=== PATIENT | female | born 1955 | race Caucasian/White ===

== ENCOUNTER → 2018-02-13 05:33 | Outpatient (CLI) | payer OTHER, SELFPAY ==
--- NOTE | 2018-02-13 09:34 | STRESSREP ---
Stress Test Report Pharmacologic myocardial perfusion stress test. 62-year-old lady for preop evaluation. Stress protocol: Resting EKG demonstrates normal sinus rhythm with rate of 71 bpm normal intervals and noted resting blood pressure is 110/68 mmHg. 0.4 mg of regadenoson was infused per usual protocol followed by rapid intravenous saline flush injection. Continuous EKG monitoring was performed. Patient maintained sinus rhythm throughout the recording at rest there were no ST or T-wave changes noted suggest abnormal flow reserve at peak infusion no ST or T-wave changes were noted suggest abnormal flow reserve. No clinical angina was noted the maximum heart rate was 100 bpm. Myocardial perfusion protocol. 11.5 mCi of technetium 99m sestamibi was injected at rest. 0.4 mg of regadenoson was infused per usual protocol peak infusion 33.4 mCi of technetium 99m sestamibi was injected stress images were obtained stress and rest images were reconstructed and compared in the short axis vertical long and horizontal long axis. Gated images were also obtained. Perfusion SPECT analysis. Review of the stress images demonstrate normal uptake of tracer noted in all areas of myocardium. The resting images similarly demonstrate normal uptake of tracer noted in all areas of myocardium. No obvious areas of reversibility are noted suggest ischemia. Gated SPECT analysis: The gated ejection fraction is noted to be 74%. Conclusion: Normal pharmacologic myocardial perfusion stress test. Preserved ejection fraction.
== END ==
DX: Z01.818 Encounter for other preprocedural examination (principal); R07.9 Chest pain, unspecified
CPT/HCPCS: 78452; 93017; A9500; A4216; J2785

== ENCOUNTER 2018-02-18 10:02 | Inpatient (IN) | payer OTHER, SELFPAY ==
[2018-02-04 13:15] VITALS: BP 107/72; PULSE 87; RESP 16; TEMP 37.3; O2SAT 95; BMI 23.7
[2018-02-04 14:26] LABS: Absolute Lymphocyte Count 2.52 X10^3/ul (0.83-4.51); Absolute Neutrophil Count 5.1 X10^3/uL (2.0-7.7); Basophil# 0.04 X10^3/uL; Basophil% 0.4 % (0-1); Eosinophil# 0.77 X10^3/uL; Eosinophils% 8.6 % (0-5); Hematocrit 39.2 % (37-47); Hemoglobin 12.9 g/dl (12.0-15.0); Lymphocyte # 2.52 X10^3/ul (4.0); Lymphocyte % 28.2 % (19-41); Mean Corp Hgb Conc 32.9 g/gl (32-36); Mean Corpuscular Hgb 32.3 pg (27.0-32.0); Mean Corpuscular Volume 98.2 fL (81-99); Mean Platelet Vol. 9.7 fl (6.2-12.0); Monocyte# 0.49 X10^3/uL; Monocyte% 5.5 % (0-10); Neutrophil % 57.2 % (47-70); POSITIVE COUNT NO; POSITIVE DIFFERENTIAL NO; POSITIVE MORPHOLOGY NO; Platelet Count 275 K/mm3 (150-450); RBC Distribution Width CV 13.8 % (11.6-14.6); RBC Distribution Width SD 49.7 fl (35.1-43.9); Red Blood Count 3.99 M/mm3 (4.2-5.4); White Blood Count 8.9 K/mm3 (4.4-11.0)
[2018-02-04 14:49] LABS: Anion Gap 10 (5-15); BUN 21 mg/dL (7-18); BUN/Creat Ratio 17.1 RATIO (10-20); Calcium,Total 8.2 mg/dL (8.5-10.1); Chloride 113 mmol/L (98-107); Creatinine, Serum 1.23 mg/dL (0.55-1.02); EST Glomerular Filtration Rate 47 mL/min (>60); Est Glom Filt Rate - Afr Amer 57 mL/min (>60); Estimated Creatinine Clearance 45.53 ml/min; Glucose 111 mg/dL (74-106); Potassium 3.7 mmol/L (3.5-5.1); Sodium Level 145 mmol/L (136-145)
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
[2018-02-18] VITALS (10 sets, daily range): BP systolic 98–128; BP diastolic 65–94; PULSE 71–90; RESP 16–18; TEMP 36.4–36.8; O2SAT 16–98; BMI 23.7
--- NOTE | 2018-02-18 07:09 | RAD_ITS ---
STUDY: X-RAY - PELVIS AND RIGHT HIP REASON FOR EXAM: Female, 62 years old. Post operative evaluation of right hip arthroplasty. TECHNIQUE: Radiological exam, hip, unilateral, with pelvis when performed; 2 or 3 views. COMPARISON: Intraoperative radiograph of February 18, 2018 at 12:23 PM. FINDINGS: The patient is status post a right total hip arthroplasty. The standard femoral and tibial components are normally located with no migration or disruption of the hardware. Normal included pelvis. Normal bilateral superior and inferior pubic rami. Normal pubic symphysis. Normal bilateral ischial tuberosities. Normal postoperative soft tissue changes. RAD/Hip Min 2 Views (Portable) IMPRESSION: Status post right total hip arthroplasty with no untoward bone, joint or hardware findings. Electronically Signed: Sherry Gamez MD at 15:25 EDT , Service support ,
[2018-02-18] MEDS: oxyCODONE HCl Cr 10 MG Tablet PO (10:30)
[2018-02-18] MEDS: Acetaminophen 500 MG Tablet 1000 MG PO ×3 (10:30→19:43)
[2018-02-18] MEDS: Cefazolin 2 GM in 0.9% Normal Saline 100 ML IV (12:01)
[2018-02-18] MEDS: Lactated Ringers 1,000 ML 999 ML IV (12:45)
--- NOTE | 2018-02-18 12:45 | RAD_ITS ---
STUDY: X-RAY - PELVIS AND RIGHT HIP REASON FOR EXAM: Female, 62 years old. Right anterior total hip TECHNIQUE: Radiological exam, hip, unilateral, with pelvis when performed; 1 view. Submitted paperwork is not measurable. COMPARISON: None. 3 views were performed , as radiology support for c-arm imaging in the operating room. This is not a diagnostic examination. Images for for documentation purposes only. Electronically Signed: Paulina Hanson MD at 7:38 EDT , Service support , RAD/Hip 1 view with Pelvis
--- NOTE | 2018-02-18 13:31 | PCM.OPRPT ---
Report of Operation Date of Procedure: 02/18/18 Pre-Operative Diagnosis: Right hip primary osteoarthritis Post-Operative Diagnosis: Right hip primary osteoarthritis Surgery/Procedure Performed:: Right direct anterior total hip replacement Description of Surgical Findings:: Stable hip with equal leg lengths flexographic press operator: Suraj Issa Type of Anesthesia:: General Anesthesiologist: Scott Camarena Special Medications: 2 g Ancef, 1 g TXA at incision, 1 g TXA closure, 10 mg Decadron, joint cocktail (5 mg Duramorph, 30 mL of 0.5% Ropivicaine, 1000 units of epinephrine, 30 mg of Toradol) Specimen's removed: Bony cuts Estimated Blood Loss (mL): 150 Fluids Replaced: 900 ml crystalloid Description of Procedure: Components used: 1. Anato [place] femoral stem size 6 2. [place] trident acetabular shell size 52 mm 3. Kiley X3 polyethylene E 4. Kiley Biolox delta 36mm, -5mm femoral head Brief history operative indications: 62 yo f who failed conservative measures for their hip osteoarthritis. X-rays were consistent with osteoarthritis including joint space narrowing, osteophyte formation and subchondral cysts. Total hip replacement was discussed with the patient with risks and benefits including but not limited to blood loss, DVTs, PEs, neurovascular damage, dislocation, general risks of anesthesia including loss of life. Patient demonstrated an understanding medical clearance is obtained the patient was consented for surgery. Procedure: On the date of procedure the patient's right hip was marked in the preoperative area. Patient was then taken back to the operating room where anesthesia assumed control of the C-spine and airway and administered anesthetic. Patient was transferred to the operating table and placed in the supine position. The hips were placed at the break of the bed and a sacral bump was placed. The R lower extremity was then prepped out in a sterile fashion using chlorhexidine while the surgeon scrubbed. The PA was vital in the positioning of the patient. Upon reentering the room the R lower extremity was draped in the standard orthopedic fashion and the incision was marked. A timeout was called and everyone agreed upon the side, the site, the procedure be performed, antibody given, and patient's identity. At this time incision was made through skin, subcutaneous tissue, and fat down to fascia. The fascia was then incised and the TFL was retracted laterally. A retractor was placed on the lateral border of the femoral neck. Attention was directed to the inferior portion of the approach and all crossing vessels were identified and appropriately coagulated. A retractor was then placed on the medial portion of the femoral neck. The anterior capsule was then cleared of all soft tissue and then H shaped capsulotomy was made. The retractors were then placed inside the capsule. The femoral neck was identified and a cleanup cut was made. At this time a power corkscrew was used to remove the femoral head. Attention was then turned toward the acetabulum where the soft tissues were appropriately retracted and the acetabulum was sequentially reamed to 51 mm. A 52 mm cup was then selected and impacted into place. Acetabular liner was impacted into place and locking mechanism was verified. The position of the acetabular cup was then verified under live fluoroscopy. Attention was then turned to the femur. Soft tissue releases on the medial and lateral femoral neck were appropriately done, the leg was externally rotated and lateralized. A Casper retractor was placed medially and proximally to the greater trochanter this allowed appropriate visualization and exposure of the femoral canal. Rongeour was then used to remove excess lateral bone. A canal finder and entry broach were used to open the proximal canal. Once we verified we were down the femoral canal we subsequently broached up to a size 6 femur. The appropriate neck was placed in the previously selected head was trialed with a -5 mm neck. Traction was pulled and the hip was reduced with internal rotation. Once it was appropriately reduced and stability was checked. There was minimal shuck, equal leg lengths and appropriate stability with hyperextension and external rotation as well as with 90? flexion and internal rotation. Fluoroscopy was then also used to verify the position of the components and leg lengths using the contralateral side for comparison. The trial components were then dislocated the proximal femur was again exposed and the components were removed from the wound. The final components were verified and opened. The wound was copiously irrigated out with normal saline. The acetabulum was checked for any residual debris. The final components were placed and impacted. Traction and internal rotation were again used to reduce the hip. After adequate reduction the hip remained stable with appropriate leg lengths. The final components were once again checked with live fluoroscopy and were found to be satisfactory. The wound was then copiously irrigated with normal saline once more, and hemostasis was obtained. Closure was then done using #1 Vicryl runner to close the fascia. A 2-0 vicryl interuppted sutures were used to close the subcutaneous skin. A 3-0 Monocryl and Steri-Strips were used for final skin closure. A Silverlon dressing was placed. Patient was awakened by anesthesia and transferred to the [facility]. Patient was then transferred to the PACU for recovery. Postoperative plan: Patient will get 24 hours postop antibiotics. Patient will get in-house physical therapy and will be weight-bear as tolerated. Patient will follow up in office in 2 weeks for a wound check and x-rays. During the course of the procedure the physician sales operations assistant played a vital role. His intimate knowledge of my steps in the procedure aided in safe and expedient completion of the procedure. The PA played a vital rolls in positioning particularly in obtaining the appropriate positioning of the sacral bump. The PA was also vital in the retraction of soft tissues during the exposure and especially the femoral work as this is a vital part of the procedure to prevent complications and fractures. The PA was also vital and protecting soft tissues during times of bony cuts and reaming. He also played a vital role in closure with my direct supervision. The PA was also important during reduction and dislocation of the joint and trials intraoperatively. Grafts/Implants Used: [place] - Complications None - Admit VTE Documentation VTE Present on Admission: No VTE Mechan Device Prophylaxis: SCD's, Thigh High TAWNYA Hose VTE Pharm Prophylaxis ordered?: Yes
[2018-02-18] MEDS: Lactated Ringers 1,000 ML 125 ML IV ×2 (13:45→19:14)
[2018-02-18] MEDS: Aspirin 325 MG Tablet PO (17:12)
[2018-02-18] MEDS: Morphine 2 MG/ML Syringe IV (17:55)
[2018-02-18] MEDS: 0.9% NaCl Peripheral Flush Adult/Peds IV (17:56)
[2018-02-18] MEDS: Senna/Docusate Sodium 1 Tablet 2 TABLET PO (19:43)
[2018-02-19 01:29] VITALS: BP 94/58; PULSE 72; RESP 16; TEMP 36.6; O2SAT 95
[2018-02-19] MEDS: oxyCODONE 5 MG Tablet PO ×4 (01:37→16:22)
[2018-02-19 06:01] LABS: Anion Gap 8 (5-15); BUN 16 mg/dL (7-18); Calcium,Total 8.3 mg/dL (8.5-10.1); Chloride 108 mmol/L (98-107); Creatinine, Serum 1.07 mg/dL (0.55-1.02); EST Glomerular Filtration Rate 55 mL/min (>60); Est Glom Filt Rate - Afr Amer 67 mL/min (>60); Estimated Creatinine Clearance 52.34 ml/min; Glucose 123 mg/dL (74-106); Potassium 4.5 mmol/L (3.5-5.1); Sodium Level 143 mmol/L (136-145)
[2018-02-19 06:03] LABS: Hematocrit 32.9 % (37-47); Hemoglobin 10.7 g/dl (12.0-15.0); Mean Corp Hgb Conc 32.5 g/gl (32-36); Mean Corpuscular Hgb 32.6 pg (27.0-32.0); Mean Corpuscular Volume 100.3 fL (81-99); Mean Platelet Vol. 10.2 fl (6.2-12.0); Platelet Count 260 K/mm3 (150-450); RBC Distribution Width CV 13.3 % (11.6-14.6); RBC Distribution Width SD 48.1 fl (35.1-43.9); Red Blood Count 3.28 M/mm3 (4.2-5.4); White Blood Count 17.8 K/mm3 (4.4-11.0)
[2018-02-19 06:09] LABS: Scan Indicated on CBC? Y/N NO
[2018-02-19] MEDS: Senna/Docusate Sodium 1 Tablet 2 TABLET PO (07:34)
[2018-02-19] MEDS: Aspirin 325 MG Tablet PO ×2 (07:34→16:22)
[2018-02-19] MEDS: Famotidine 20 MG Tablet PO (07:34)
[2018-02-19 09:26] VITALS: BP 99/62; PULSE 74; RESP 16; TEMP 37.2; O2SAT 95
--- NOTE | 2018-02-19 09:53 | PCM.PN.ORT ---
Subjective: The patient was sitting in bedside chair upon examination. Patient denies any chest pain, shortness of breath, dizziness, lightheadedness, nausea or vomiting, or calf pain. Pain is controlled on medications. No adverse overnight events. Patient's blood pressure was low over the past 3 readings. Patient is currently on blood pressure medications at home. She denies any chest pain, dizziness or lightheadedness. She is tolerating therapy very well. Pain is been very well controlled. Objective: Vital signs stable and afebrile. Patient is able to plantarflex and dorsiflex actively. Sensation is intact to light touch to saphenous, sural, superficial and deep peroneal, and tibial distribution. Dressing is clean dry and intact. Negative Homans bilaterally, negative signs and symptoms of DVT. - Physical Exam General: Alert, Oriented x3, Cooperative, No apparent distress Vital Signs Temp Pulse Resp BP Pulse Ox 98.9 F 74 16 99/62 95 02/19/18 09:26 02/19/18 09:26 02/19/18 09:26 02/19/18 09:26 02/19/18 09:26 Oxygen Delivery Method Room Air Weight: 66.678 kg Body Mass Index (BMI) 23.7 Intake and Output for Last 24 Hours 02/17/18 02/18/18 02/19/18 23:59 23:59 23:59 Intake Total 2111 Balance 2111 Laboratory Tests Past 24 Hrs 02/19/18 02/19/18 05:18 05:18 WBC 17.8 H RBC 3.28 L Hgb 10.7 L Hct 32.9 L MCV 100.3 H MCH 32.6 H MCHC 32.5 RDW 13.3 RDW Differential 48.1 H Plt Count 260 MPV 10.2 Sodium 143 Potassium 4.5 Chloride 108 H Carbon Dioxide 27.0 Anion Gap 8 BUN 16 Creatinine 1.07 H Estim Creat Clear Calc 52.34 Est GFR (MDRD) Af Amer 67 Est GFR (MDRD) Non-Af 55 L BUN/Creatinine Ratio 15.0 Glucose 123 H Calcium 8.3 L Medical Necessity - Tobacco Use Smoking Status: Current every day smoker Assessment/Plan 1. S/P right direct anterior total hip arthroplasty POD #1 2. Continue Pain Medications: Tylenol and OxyIR 3. DVT Prophylaxis: Aspirin 325 mg twice daily 4. PT/OT: Weightbearing as tolerated 5. H & H: 10.7/32.9, asymptomatic 6. Leukocytosis: Currently 17.8, afebrile. Patient did receive Decadron intraoperatively 7. Encouraged Incentive Spirometry 8. Disposition: Orthopedically stable, plan will be for discharge home possibly this afternoon. Overall patient is doing very well with pain controlled. Patient's blood pressure was low over the past 3 readings. She has not had any of her hypertensive medications. We will hold off of these medications at this time. Patient currently is asymptomatic. I would feel okay with her to go home this afternoon if she continues to do well throughout the day. She does have the ability to check her blood pressure at home. She will do this 2-3 times daily. She will hold off of any blood pressure medications until tomorrow. If any complications she will follow-up with her primary care physician. Prescriptions will be E scribed to [facility]. Patient will follow-up per postop instructions.
--- NOTE | 2018-02-19 10:02 | CASEMGMT ---
RN EDILBERTO Face to Face with patient for initial transition planning/care coordination assessment. RN CM introduced self and role at [facility]. Patient sitting in chair, alert and oriented. Patient willing to participate in assessment and is able to answer all questions appropriately. Care providers, pharmacy, and demographics verified. Patient has raised toilet, cane, crutches, and walker at home. Patient wishes to discharge home, is setup with [facility] for outapatient therapy with sister providing transportation. Patient states she has no further needs or concerns at this time. CM to follow for discharge planning needs that may arise. Disposition Plan: Patient to discharge home with outpatient therapy, family support, and follow-up plans in place.
--- NOTE | 2018-02-19 10:03 | DCINST_ITS ---
Discharge Diet: No Restrictions Discharge Activity: May Not Drive - while taking narcotic pain medications. May shower in (days): 1 - Turned dressing away from water Ice area for (Minutes): 20 - Every 1 hour while awake Weight Bearing Status: Weight bearing as tolerated Additional Activity Instructions:: Wear elastic stockings for 2 weeks. DO NOT use alcohol with narcotic pain medication. DO NOT make important decisions while taking narcotic medication. If you have problems with taking your medication (rash, itching, nausea, etc.) call the office at once. Call your doctor if your incision/area has: Increased Pain/ Swelling, Increased Redness, Foul Smelling Discharge Call your doctor if you observe: Fever of 101 or Higher Remove Dressing in (days):: 4 - Okay to remove dressing on February 23, 2018 Additional Instructions: Follow [facility] postop instructions Patient is to monitor her blood pressure 2-3 times daily. She will hold off of her blood pressure medications until tomorrow February 20, 2018. If she continues to have any complication she will contact her primary care physician. Allergies/Adverse Reactions: Allergies NSAIDS (Non-Steroidal Anti-Inflamma Allergy (Verified 02/04/18 13:04) Anaphylaxis Medications to take at Discharge Atorvastatin Calcium [Lipitor] 40 mg PO QHS 02/04/18 Cholecalciferol (Vitamin D3) [Vitamin D3] 4,000 unit PO DAILY 02/04/18 Gabapentin [Neurontin] 600 mg PO DAILY 02/04/18 Hydrochlorothiazide [Hctz] 25 mg PO DAILY 02/04/18 Metoprolol Tartrate 25 mg PO DAILY 02/04/18 Multivitamin/Iron/Folic Acid [Centrum Adults Tablet] 1 each PO DAILY 02/04/18 Paroxetine HCl [Paxil] 40 mg PO DAILY 02/04/18 Potassium Chloride [Klor-Con 8] 8 meq PO DAILY 02/04/18 Rizatriptan Benzoate [Maxalt] 10 mg PO .X1 PRN 02/04/18 Topiramate [Topamax] 50 mg PO DAILY 02/04/18 Acetaminophen [Tylenol] 1,000 mg PO Q8 #90 tab 02/19/18 Aspirin 325 mg PO BIDCM #30 tab 02/19/18 Famotidine [Pepcid] 20 mg PO DAILY #30 tab 02/19/18 Oxycodone [Oxyir] 5 - 10 mg PO Q4H PRN PRN 5 Days #60 tablet 02/19/18 Senna/Docusate Sodium [Senokot-S] 2 tab PO BID #20 tab 02/19/18 The following prescriptions were given: Oxycodone [Oxyir] 5 - 10 mg PO Q4H PRN PRN 5 Days #60 tablet PRN Reason: Mod-Severe Pain (-09/02) Acetaminophen [Tylenol] 1,000 mg PO Q8 #90 tab Famotidine [Pepcid] 20 mg PO DAILY #30 tab Aspirin 325 mg PO BIDCM #30 tab Senna/Docusate Sodium [Senokot-S] 2 tab PO BID #20 tab Primary Care Physician: Oliva Portillo DO [Primary Care Provider] - Please Follow Up With: [facility] When: 02/23/18 @ 1:30 pm with Rui Please Follow Up With: Suraj Issa PA-C When: 03/04/18 @ 11:00 am
[2018-02-19] MEDS: Acetaminophen 500 MG Tablet 1000 MG PO (14:53)
[2018-02-19 15:55] VITALS: BP 102/60; PULSE 89
== END 2018-02-19 17:13 | disposition home or self-care (01) | DRG 470 ==
LOC: ACINP 10:03 → MS3 10:04
PROVIDERS: Admitting Provider Specialist; Visit Provider Specialist
PROC: 0SR904Z Replacement of Right Hip Joint with Ceramic on Polyethylene Synthetic Substitute, Open Approach (ICD-10-PCS; CPT 27284; principal; 2018-02-18 12:20)
DX: M16.11 Unilateral primary osteoarthritis, right hip (principal); E78.00 Pure hypercholesterolemia, unspecified; I10 Essential (primary) hypertension; M79.7 Fibromyalgia; M81.0 Age-related osteoporosis without current pathological fracture; G43.909 Migraine, unspecified, not intractable, without status migrainosus; F17.210 Nicotine dependence, cigarettes, uncomplicated; Z96.653 Presence of artificial knee joint, bilateral; Z79.899 Other long term (current) drug therapy; Z79.82 Long term (current) use of aspirin
CPT/HCPCS: 36415; 73501; 73502; 76000; 78452; 80048; 85025; 85027; 87081; 93017; 97110; 97116; 97162; 97166; 97530; 99251; A9500; J7120; A4216; G0463; J2405; J2785

== ENCOUNTER → 2018-04-24 11:39 | Outpatient (CLI) | payer OTHER, SELFPAY ==
[2018-04-24 13:49] LABS: Hematocrit 42.1 % (37-47); Mean Corp Hgb Conc 33.3 g/gl (32-36); Mean Corpuscular Hgb 31.4 pg (27.0-32.0); Mean Corpuscular Volume 94.4 fL (81-99); Mean Platelet Vol. 10.1 fl (6.2-12.0); Platelet Count 276 K/mm3 (150-450); RBC Distribution Width CV 12.7 % (11.6-14.6); RBC Distribution Width SD 44.1 fl (35.1-43.9); Red Blood Count 4.46 M/mm3 (4.2-5.4); White Blood Count 8.5 K/mm3 (4.4-11.0)
[2018-04-24 13:50] LABS: Scan Indicated on CBC? Y/N NO
[2018-04-24 13:59] LABS: Protein, Urine (Random) 80.1 mg/dL (<11.9); Protein:Creat Ratio 286 mg/g CRE (0-200)
[2018-04-24 14:21] LABS: ALB/GLOB Ratio 1.1 RATIO (0.9-2.4); AST(SGOT) 17 U/L (15-37); Alanine Aminotransfer ALT/SGPT 17 U/L (13-56); Albumin, Serum 3.9 g/dL (3.2-5.0); Alkaline Phosphatase 100 U/L (45-117); Anion Gap 8 (5-15); BUN 20 mg/dL (7-18); BUN/Creat Ratio 14.5 RATIO (10-20); Calcium,Total 9.3 mg/dL (8.5-10.1); Chloride 108 mmol/L (98-107); Cholesterol 146 mg/dL (200); Creatinine, Serum 1.38 mg/dL (0.55-1.02); EST Glomerular Filtration Rate 41 mL/min (>60); Est Glom Filt Rate - Afr Amer 50 mL/min (>60); Globulin 3.7 g/dL (2.2-4.2); Glucose 91 mg/dL (74-106); High Density Lipoprotein 51 mg/dL; Magnesium 1.9 mg/dL (1.6-2.6); Phosphorus 2.6 mg/dL (2.5-4.9); Potassium 3.4 mmol/L (3.5-5.1); Protein, Total 7.6 g/dL (6.4-8.2); Sodium Level 140 mmol/L (136-145); Triglycerides 160 mg/dL; Very Low Density Lipoprotein 32 mg/dL (5-40)
[2018-04-24 14:35] LABS: Vitamin D,25 Hydroxy 44.6 ng/mL (29.95-100.01)
[2018-04-24 14:36] LABS: PTHIN 32.4 pg/mL (18.4-80.1)
[2018-04-24 15:32] LABS: Microalbumin:Creatinine Ratio 145.4 mg/g CRE (<30 mg/g CRE)
== END ==
PROVIDERS: Visit Provider Internal Medicine Nephrology
DX: N18.3 Chronic kidney disease, stage 3 (moderate) (principal); E83.42 Hypomagnesemia; E78.5 Hyperlipidemia, unspecified; E55.9 Vitamin D deficiency, unspecified
CPT/HCPCS: 36415; 80053; 80061; 82043; 82306; 82570; 83735; 83970; 84100; 84156; 85027

== ENCOUNTER → 2018-10-22 06:38 | Outpatient (CLI) | payer OTHER, SELFPAY ==
[2018-02-18 15:16] VITALS: BMI 23.7
[2018-10-22 07:09] LABS: Color, Urine Yellow (Yellow); Glucose, Dipstick Normal (Normal); Hematocrit 42.7 % (37-47); Hemoglobin 14.2 g/dl (12.0-15.0); Ketone-Dipstick Negative (Negative); Leukocyte Esterase-Dipstick 100 /ul (Negative); Mean Corp Hgb Conc 33.3 g/gl (32-36); Mean Corpuscular Hgb 32.8 pg (27.0-32.0); Mean Corpuscular Volume 98.6 fL (81-99); Mean Platelet Vol. 9.4 fl (6.2-12.0); Nitrite-Dipstick Negative (Negative); Occult Blood-Urine 250 /ul (Negative); Platelet Count 307 K/mm3 (150-450); Protein-Dipstick 15 mg/dl (Negative); RBC Distribution Width SD 50.7 fl (35.1-43.9); Red Blood Count 4.33 M/mm3 (4.2-5.4); Urine Bilirubin Dipstick Negative (Negative); Urine Clarity Clear (Clear); Urine Urobilinogen Normal (Normal); White Blood Count 7.7 K/mm3 (4.4-11.0)
[2018-10-22 07:15] LABS: Scan Indicated on CBC? Y/N NO
[2018-10-22 07:30] LABS: Microalbumin,Random Urine 60.1 mg/L (NO RANGE EST.); Microalbumin:Creatinine Ratio 54.1 mg/g CRE (<30 mg/g CRE); Protein:Creat Ratio 288 mg/g CRE (0-200)
[2018-10-22 07:41] LABS: Albumin, Serum 3.8 g/dL (3.2-5.0); BUN 21 mg/dL (7-18); BUN/Creat Ratio 16.4 RATIO (10-20); Calcium,Total 8.7 mg/dL (8.5-10.1); Chloride 112 mmol/L (98-107); Creatinine, Serum 1.28 mg/dL (0.55-1.02); EST Glomerular Filtration Rate 45 mL/min (>60); Est Glom Filt Rate - Afr Amer 54 mL/min (>60); Glucose 88 mg/dL (74-106); Magnesium 2.1 mg/dL (1.6-2.6); Phosphorus 3.4 mg/dL (2.5-4.9); Potassium 4.6 mmol/L (3.5-5.1); Sodium Level 144 mmol/L (136-145)
[2018-10-22 10:23] LABS: Vitamin D,25 Hydroxy 46.2 ng/mL (29.95-100.01)
--- OUTSIDE RECORDS SUMMARY | 2018-12-17 06:40 | XMS RPT_ITS ---
:1955 Author Organization OHIP Care Team Providers Name Role Phone Emory Martini Admitting Unavailable Emory Martini Attending Unavailable Emory Martini Referring Unavailable Oliva Cruz Primary Care Unavailable ALIRIO KAM Attending Unavailable ALIRIO KAM Referring Unavailable Primay Care Physicia, No Primary Care Unavailable Perez Perez Attending Unavailable Tanphaichitr, Natthavat Attending Unavailable Tanphaichitr, Natthavat Referring Unavailable Oliva Cruz Primary Care Unavailable Mere Torres Attending Unavailable Bakhous, Aziz Referring Unavailable Oliva Cruz Primary Care Unavailable Ramsey Ross Attending Unavailable Bandar, Oliva Lynn Primary Care Unavailable Ramsey Ross Attending Unavailable Bandar, Oliva Lynn Primary Care Unavailable Ramsey Ross Attending Unavailable Bandar, Oliva Lynn Primary Care Unavailable Ramsey Ross Attending Unavailable Bandar, Oliva Lynn Primary Care Unavailable PROBLEMS PROBLEMS DATE TYPE CONDITION / CODE ATTENDING STATUS SOURCE 10/22/2018 Unknown E55.9 - Vitamin D Adilsons, Aziz Active [place] deficiency, Community unspecified / Hospital E55.9(ICD-10) Repository 10/22/2018 Unknown N18.3 - Chronic Bakhous, Aziz Active [place] kidney disease, [facility] stage 3 (moderate) / Hospital N18.3(ICD-10) Repository 10/22/2018 Unknown E83.42 - Bakhous, Aziz Active [place] Hypomagnesemia / Community E83.42(ICD-10) Hospital Repository 10/22/2018 Unknown Z13.0 - Encounter Bakjosephs, Aziz Active [place] for screening for Community diseases of the Hospital blood and Repository blood-forming organs and certain disorders involving the immune mechanism / Z13.0(ICD-10) 04/24/2018 Unknown E78.5 - Tanphaichitr, Active [place] Hyperlipidemia, Natthavat Community unspecified / Hospital E78.5(ICD-10) Repository 04/13/2018 Admitting Unknown / Ramsey Ross Active [facility] Medical diagnosis UNK(Unknown) R [facility] [place] Repository 02/19/2018 Unknown Z96.641 - Presence Emory Martini Active [place] of right artificial Community hip joint / Hospital Z96.641(ICD-10) Repository PROCEDURES PROCEDURES No Procedure Records FoundRESULTS RESULTS TOXASSURE COMPR Collected: 11/03/2018 Status: F Source: [facility] 2:33 PM [facility]ENTER [place] REPOSITORY TYPE CODE TESTS RESULT OUT OF RANGE REFERENCE UNITS LAB L600.63760 () Normal TOXASSURE COMPR FINAL Result Comment: TOXASSURE COMP DRUG ANALYSIS,UR Test Result Flag Units Drug Present and Declared for Prescription Verification Hydrocodone 2917 EXPECTED ng/mg creat Hydromorphone 152 EXPECTED ng/mg creat Dihydrocodeine 528 EXPECTED ng/mg creat Norhydrocodone >2762 EXPECTED ng/mg creat Sources of hydrocodone include scheduled prescription medications. Hydromorphone, dihydrocodeine and norhydrocodone are expected metabolites of hydrocodone. Hydromorphone and dihydrocodeine are also available as scheduled prescription medications. Paroxetine PRESENT EXPECTED Acetaminophen PRESENT EXPECTED Drug Present not Declared for Prescription Verification Topiramate PRESENT UNEXPECTED Lidocaine PRESENT UNEXPECTED Dextromethorphan PRESENT UNEXPECTED Dextrorphan/Levorphanol PRESENT UNEXPECTED Dextrorphan is an expected metabolite of dextromethorphan, an idtr-jov-lysnkez or prescription cough suppressant. Dextrorphan cannot be distinguished from the scheduled prescription medication levorphanol by the method used for analysis. Test Result Flag Units Ref Range Creatinine 181 mg/dL >=20 Declared Medications: The flagging and interpretation on this report are based on the following declared medications. Unexpected results may arise from inaccuracies in the declared medications. Note: The testing scope of this panel includes these medications: Hydrocodone ([place]) Paroxetine (Paxil) Note: The testing scope of this panel does not include small to moderate amounts of these reported medications: Acetaminophen ([place]) For clinical consultation, please call . Performed At: [facility] [employer] [address] [place] [address] [id number] [facility] [phone] Performed By: #### L600.08573 #### [facility] [address] [place] [id number] URINALYSIS, ROUTINE Collected: 10/22/2018 Status: F Source: [place] (DIPSTICK) 6:45 AM REPOSITORY Order Comment: How was Urine Obtained? CLEAN CATCH TYPE CODE TESTS RESULT OUT OF RANGE REFERENCE UNITS LAB L400.3000 Yellow COLOR Normal Yellow LAB L400.3050 Clear Normal CLARITY Clear LAB L400.3200 Normal mg/dl Normal GLUCOSE, UR Normal LAB L400.3300 Negative mg/dL Normal BILIRUBIN URINE Negative LAB L400.3400 Negative mg/dl Normal KETONE UR Negative LAB L400.3465 1.002-1.030 Normal SP.GR. DIPSTX 1.020 LAB L400.3550 5.0 - 8.0 pH UR Normal 5.0 LAB L400.3600 Negative mg/dl High PROT 15 DIPSTX LAB L400.3700 Normal mg/dl Normal UROBILI Normal LAB L400.3750 Negative Normal NITRITE UR Negative LAB L400.3780 Negative /ul High OCCULT BLOOD-UR 250 LAB L400.3800 Negative /ul High LEUK ESTERASE 100 Performed By: #### L400.2010 #### [place] [facility] [address] [place], [place], [address] CBC-COMPLETE BLOOD CNT Collected: 10/22/2018 Status: F Source: [place] NO DIFF 6:45 AM REPOSITORY TYPE CODE TESTS RESULT OUT OF RANGE REFERENCE UNITS LAB L100.1000 4.4-11.0 K/mm3 Normal WBC 7.7 LAB L100.1200 4.2-5.4 M/mm3 Normal RBC 4.33 LAB L100.1300 12.0-15.0 g/dl Normal HGB 14.2 LAB L100.1400 37-47 % Normal HCT 42.7 LAB L100.1500 81-99 fL Normal MCV 98.6 LAB L100.1600 27.0-32.0 pg High MCH 32.8 LAB L100.1700 32-36 g/gl Normal MCHC 33.3 LAB L100.1810 11.6-14.6 % Normal RDW CV 14.0 LAB L100.1820 35.1-43.9 fl High RDW SD 50.7 LAB L100.1900 150-450 K/mm3 Normal PLT 307 LAB L100.2000 6.2-12.0 fl Normal MPV 9.4 Performed By: #### L100.0500 #### [facility] [address] [place], [address] PROTEIN+CREATININE Collected: Status: F Source: [place] RATIO,URINE 10/22/2018 6:45 AM REPOSITORY TYPE CODE TESTS RESULT OUT OF RANGE REFERENCE UNITS LAB L501.1200 NO RANGE EST. mg/dL Normal UR CREAT 111.00 LAB L501.1930 <11.9 mg/dL High 32.0 PROTEIN,UR.R AN. LAB L501.1940 0-200 mg/g CRE High PROT:CRE 288 RATIO Performed By: #### L501.0900, L502.0250 #### [facility] [address] [place], [place], [id number] MICROALB:CREAT Collected: 10/22/2018 Status: F Source: [place] RATIO,RANDOM UR 6:45 AM REPOSITORY TYPE CODE TESTS RESULT OUT OF RANGE REFERENCE UNITS LAB L502.0500 NO RANGE EST. mg/L Normal 60.1 MICROALBUMIN ,UR LAB L502.0600 <30 mg/g CRE mg/g CRE High 54.1 MALB:CREAT Performed By: #### L501.0900, L502.0250 #### [facility] [address] [place], [place], [id number] RENAL PROFILE Collected: 10/22/2018 Status: F Source: [place] 6:45 AM REPOSITORY TYPE CODE TESTS RESULT OUT OF RANGE REFERENCE UNITS LAB L501.0100 74-106 mg/dL Normal GLU 88 Result Comment: Please note revised GLUCOSE reference range effective 2017. LAB L501.1000 7-18 mg/dL High BUN 21 LAB L501.1100 0.55-1.02 mg/dL High CREAT,SERUM 1.28 Result Comment: The validity of the calculated GFR AND GFRAA in patients over 70 years has not been determined. Clinical correlation is essential. LAB L501.1110 >60 mL/min Low EST GFR 45 Result Comment: Non- GFR Calc LAB L501.1115 >60 mL/min Low EST GFR - AA 54 Result Comment: GFR Calc LAB L501.1300 10-20 RATIO Normal BUN/CRE 16.4 LAB L501.1800 3.2-5.0 g/dL Normal ALB 3.8 LAB L501.2200 8.5-10.1 mg/dL CA Normal 8.7 LAB L501.2300 2.5-4.9 mg/dL Normal PHOS 3.4 LAB L501.5300 136-145 mmol/L NA Normal 144 LAB L501.5600 3.5-5.1 mmol/L K Normal 4.6 LAB L501.5900 98-107 mmol/L High CL 112 LAB L501.6100 21.0-32.0 mmol/L Normal CO2 24.0 Performed By: #### L500.3600, L501.5200 #### [facility] [address] [place], [place], [address] MAGNESIUM Collected: 10/22/2018 Status: F Source: [place] 6:45 AM REPOSITORY TYPE CODE TESTS RESULT OUT OF RANGE REFERENCE UNITS LAB L501.5200 1.6-2.6 mg/dL Normal MG 2.1 Performed By: #### L500.3600, L501.5200 #### [facility] [address] [place], [address] PTHIN Collected: 10/22/2018 Status: F Source: [place] 6:45 AM REPOSITORY TYPE CODE TESTS RESULT OUT OF RANGE REFERENCE UNITS LAB L509.1000 18.4-80.1 pg/mL Normal PTHIN 56.0 Performed By: #### L509.1000 #### [facility] [address] [facility] [place], [address] VITAMIN D,25 HYDROXY Collected: 10/22/2018 Status: F Source: [place] 6:45 AM REPOSITORY TYPE CODE TESTS RESULT OUT OF RANGE REFERENCE UNITS LAB L506.1000 29.95-100.01 ng/mL Normal Vitamin D 46.2 25-OH Result Comment: Vitamin D 25(OH) Status Range Deficiency <20 ng/mL (50nmol/L) Insuffciency 20 - 30 ng/mL (50 - 75 nmol/L) Sufficiency 30 - 100 ng/mL (75 - 250 nmol/L) Toxicity >100 ng/mL (>250 nmol/L) Performed By: #### L506.1000 #### [facility] [address] [facility] [place], [address] CBC-COMPLETE BLOOD CNT Collected: 04/24/2018 Status: F Source: [place] NO DIFF 11:46 AM REPOSITORY Order Comment: DR. CRUZ WANTS THE LIPID CMP PHOS WANTS THE VITD PTH PROCRE MG CMP PHOS CBC TYPE CODE TESTS RESULT OUT OF RANGE REFERENCE UNITS LAB L100.1000 4.4-11.0 K/mm3 Normal WBC 8.5 LAB L100.1200 4.2-5.4 M/mm3 Normal RBC 4.46 LAB L100.1300 12.0-15.0 g/dl Normal HGB 14.0 LAB L100.1400 37-47 % Normal HCT 42.1 LAB L100.1500 81-99 fL Normal MCV 94.4 LAB L100.1600 27.0-32.0 pg Normal MCH 31.4 LAB L100.1700 32-36 g/gl Normal MCHC 33.3 LAB L100.1810 11.6-14.6 % Normal RDW CV 12.7 LAB L100.1820 35.1-43.9 fl High RDW SD 44.1 LAB L100.1900 150-450 K/mm3 Normal PLT 276 LAB L100.2000 6.2-12.0 fl Normal MPV 10.1 Performed By: #### L100.0500 #### [facility] [address] [place], [address] PROTEIN+CREATININE Collected: Status: F Source: [place] RATIO,URINE 04/24/2018 11:46 AM REPOSITORY Order Comment: DR. CRUZ WANTS THE LIPID CMP PHOS WANTS THE VITD PTH PROCRE MG CMP PHOS CBC TYPE CODE TESTS RESULT OUT OF RANGE REFERENCE UNITS LAB L501.1200 NO RANGE EST. mg/dL Normal UR CREAT 280.00 LAB L501.1930 <11.9 mg/dL High 80.1 PROTEIN,UR.R AN. LAB L501.1940 0-200 mg/g CRE High PROT:CRE 286 RATIO Performed By: #### L501.0900, L502.0250 #### [facility] [address] [place], [address] MICROALB:CREAT Collected: 04/24/2018 Status: F Source: [place] RATIO,RANDOM UR 11:46 AM REPOSITORY Order Comment: DR. CRUZ WANTS THE LIPID CMP PHOS WANTS THE VITD PTH PROCRE MG CMP PHOS CBC TYPE CODE TESTS RESULT OUT OF RANGE REFERENCE UNITS LAB L502.0500 NO RANGE EST. mg/L Normal 407.0 MICROALBUMIN ,UR LAB L502.0600 <30 mg/g CRE mg/g CRE High 145.4 MALB:CREAT Performed By: #### L501.0900, L502.0250 #### [facility] [address] [place], [address] COMPREHENSIVE METABOLIC Collected: 04/24/2018 Status: F Source: [place] PROFIL 11:46 AM REPOSITORY Order Comment: DR. CRUZ WANTS THE LIPID CMP PHOS WANTS THE VITD PTH PROCRE MG CMP PHOS CBC TYPE CODE TESTS RESULT OUT OF RANGE REFERENCE UNITS LAB L501.0100 74-106 mg/dL Normal GLU 91 Result Comment: Please note revised GLUCOSE reference range effective 2017. LAB L501.1000 7-18 mg/dL High BUN 20 LAB L501.1100 0.55-1.02 mg/dL High CREAT,SERUM 1.38 Result Comment: The validity of the calculated GFR AND GFRAA in patients over 70 years has not been determined. Clinical correlation is essential. LAB L501.1110 >60 mL/min Low EST GFR 41 Result Comment: Non- GFR Calc LAB L501.1115 >60 mL/min Low EST GFR - AA 50 Result Comment: GFR Calc LAB L501.1300 10-20 RATIO Normal BUN/CRE 14.5 LAB L501.1500 6.4-8.2 g/dL T Normal PROT 7.6 LAB L501.1800 3.2-5.0 g/dL Normal ALB 3.9 LAB L501.1950 2.2-4.2 g/dL Normal GLOB 3.7 LAB L501.2000 0.9-2.4 RATIO Normal A/G 1.1 LAB L501.2200 8.5-10.1 mg/dL CA Normal 9.3 LAB L501.4100 15-37 U/L Normal AST 17 LAB L501.4305 45-117 U/L Normal ALK P 100 LAB L501.4405 13-56 U/L Normal ALT 17 LAB L501.4600 0.20-1.00 mg/dL T Normal BILI 0.50 LAB L501.5300 136-145 mmol/L NA Normal 140 LAB L501.5600 3.5-5.1 mmol/L Low K 3.4 LAB L501.5900 98-107 mmol/L High CL 108 LAB L501.6100 21.0-32.0 mmol/L Normal CO2 24.0 LAB L501.6200 5-15 Normal GAP 8 Performed By: #### L500.4050, L500.4100, L501.2300, L501.5200 #### [facility] [place], [address] LIPID PROFILE Collected: 04/24/2018 Status: F Source: [place] 11:46 AM REPOSITORY Order Comment: DR. CRUZ WANTS THE LIPID CMP PHOS WANTS THE VITD PTH PROCRE MG CMP PHOS CBC TYPE CODE TESTS RESULT OUT OF RANGE REFERENCE UNITS LAB L501.4900 200 mg/dL Normal CHOL 146 Result Comment: <200 mg/dL Desirable 200-240 mg/dL Borderline >240 mg/dL High Risk LAB L501.5000 mg/dL Normal TRIG 160 Result Comment: The drugs N-Acetylcysteine and Metamizole may falsely depress this assay. Serum Triglycerides Reference Interval Normal <150 mg/dL Borderline high 150 - 199 mg/dL High 200 - 499 mg/dL Very High > or = 500 mg/dL LAB L501.6400 mg/dL Normal HDL 51 Result Comment: The drugs N-Acetylcysteine and Metamizole may falsely depress this assay. Reference Range HDL <40 mg/dL Low HDL Cholesterol HDL >or= 60 mg/dL High HDL Cholesterol LAB L501.6500 0-130 mg/dL Normal LDL 63 LAB L501.6600 5-40 mg/dL Normal VLDL 32 Performed By: #### L500.4050, L500.4100, L501.2300, L501.5200 #### [facility] [address] [place], [address] PHOSPHORUS Collected: 04/24/2018 Status: F Source: [place] 11:46 AM REPOSITORY Order Comment: DR. CRUZ WANTS THE LIPID CMP PHOS WANTS THE VITD PTH PROCRE MG CMP PHOS CBC TYPE CODE TESTS RESULT OUT OF RANGE REFERENCE UNITS LAB L501.2300 2.5-4.9 mg/dL Normal PHOS 2.6 Performed By: #### L500.4050, L500.4100, L501.2300, L501.5200 #### [facility] [address] [facility] [place], [place], [id number] MAGNESIUM Collected: 04/24/2018 Status: F Source: [place] 11:46 AM REPOSITORY Order Comment: DR. CRUZ WANTS THE LIPID CMP PHOS WANTS THE VITD PTH PROCRE MG CMP PHOS CBC TYPE CODE TESTS RESULT OUT OF RANGE REFERENCE UNITS LAB L501.5200 1.6-2.6 mg/dL Normal MG 1.9 Performed By: #### L500.4050, L500.4100, L501.2300, L501.5200 #### [facility] [address] [place], [address] VITAMIN D,25 HYDROXY Collected: 04/24/2018 Status: F Source: [place] 11:46 AM REPOSITORY Order Comment: DR. CRUZ WANTS THE LIPID CMP PHOS WANTS THE VITD PTH PROCRE MG CMP PHOS CBC TYPE CODE TESTS RESULT OUT OF RANGE REFERENCE UNITS LAB L506.1000 29.95-100.01 ng/mL Normal Vitamin D 44.6 25-OH Result Comment: Vitamin D 25(OH) Status Range Deficiency <20 ng/mL (50nmol/L) Insuffciency 20 - 30 ng/mL (50 - 75 nmol/L) Sufficiency 30 - 100 ng/mL (75 - 250 nmol/L) Toxicity >100 ng/mL (>250 nmol/L) Performed By: #### L506.1000 #### [facility] [address] [facility] [place], [address] PTHIN Collected: 04/24/2018 Status: F Source: [place] 11:46 AM REPOSITORY Order Comment: DR. CRUZ WANTS THE LIPID CMP PHOS WANTS THE VITD PTH PROCRE MG CMP PHOS CBC TYPE CODE TESTS RESULT OUT OF RANGE REFERENCE UNITS LAB L509.1000 18.4-80.1 pg/mL Normal PTHIN 32.4 Performed By: #### L509.1000 #### [facility] [address] [facility] [place], [address] DISCHARGE INSTRUCTION Observed: 02/19/2018 Status: F Source: [place] 10:03 AM REPOSITORY [facility] Medical Records Department [address] [facility] [place] [address] Instructions for Home/Discharge Instructions 02/19/18 1001 MR#: [id number] Acct: [id number] Name: EDER SCHAEFFER Rep #: [id number] : 1955 62 From: Suraj Abraham PA-C PCP: Oliva Cruz DO Status: ADM IN Discharge Diet: No Restrictions Discharge Activity: May Not Drive - while taking narcotic pain medications. May shower in (days): 1 - Turned dressing away from water Ice area for (Minutes): 20 - Every 1 hour while awake Weight Bearing Status: Weight bearing as tolerated Additional Activity Instructions:: Wear elastic stockings for 2 weeks. DO NOT use alcohol with narcotic pain medication. DO NOT make important decisions while taking narcotic medication. If you have problems with taking your medication (rash, itching, nausea, etc.) call the office at once. Call your doctor if your incision/area has: Increased Pain/ Swelling, Increased Redness, Foul Smelling Discharge Call your doctor if you observe: Fever of 101 or Higher Remove Dressing in (days):: 4 - Okay to remove dressing on February 23, 2018 Additional Instructions: Follow [place] [facility] postop instructions Patient is to monitor her blood pressure 2-3 times daily. She will hold off of her blood pressure medications until tomorrow February 20, 2018. If she continues to have any complication she will contact her primary care physician. Allergies/Adverse Reactions: Allergies NSAIDS (Non-Steroidal Anti-Inflamma Allergy (Verified 02/04/18 13:04) Anaphylaxis Medications to take at Discharge Atorvastatin Calcium [Lipitor] 40 mg PO QHS 02/04/18 Cholecalciferol (Vitamin D3) [Vitamin D3] 4,000 unit PO DAILY 02/04/18 Gabapentin [Neurontin] 600 mg PO DAILY 02/04/18 Hydrochlorothiazide [Hctz] 25 mg PO DAILY 02/04/18 Metoprolol Tartrate 25 mg PO DAILY 02/04/18 Multivitamin/Iron/Folic Acid [Centrum Adults Tablet] 1 each PO DAILY 02/04/18 Paroxetine HCl [Paxil] 40 mg PO DAILY 02/04/18 Potassium Chloride [Klor-Con 8] 8 meq PO DAILY 02/04/18 Rizatriptan Benzoate [Maxalt] 10 mg PO .X1 PRN 02/04/18 Topiramate [Topamax] 50 mg PO DAILY 02/04/18 Acetaminophen [Tylenol] 1,000 mg PO Q8 #90 tab 02/19/18 Aspirin 325 mg PO BIDCM #30 tab 02/19/18 Famotidine [Pepcid] 20 mg PO DAILY #30 tab 02/19/18 Oxycodone [Oxyir] 5 - 10 mg PO Q4H PRN PRN 5 Days #60 tablet 02/19/18 Senna/Docusate Sodium [Senokot-S] 2 tab PO BID #20 tab 02/19/18 The following prescriptions were given: Oxycodone [Oxyir] 5 - 10 mg PO Q4H PRN PRN 5 Days #60 tablet PRN Reason: Mod-Severe Pain () Acetaminophen [Tylenol] 1,000 mg PO Q8 #90 tab Famotidine [Pepcid] 20 mg PO DAILY #30 tab Aspirin 325 mg PO BIDCM #30 tab Senna/Docusate Sodium [Senokot-S] 2 tab PO BID #20 tab Primary Care Physician: Oliva Cruz DO [Primary Care Provider] - Please Follow Up With: [place] [facility] When: 02/23/18 @ 1:30 pm with Rui Please Follow Up With: Suraj Abraham PA-C When: 03/04/18 @ 11:00 am 02/19/18 1003 <Electronically signed by Suraj Abraham PA-C> Date Suraj Abraham PA-C CC: Oliva Cruz DO BASIC METABOLIC Collected: 02/19/2018 Status: F Source: [place] PROFILE (BMP) 5:18 AM REPOSITORY TYPE CODE TESTS RESULT OUT OF RANGE REFERENCE UNITS LAB L501.0100 74-106 mg/dL High GLU 123 Result Comment: Fasting Glucose result from 100 to 125 mg/dL suggests IMPAIRED HOMEOSTASIS per A.D.A. criteria. Please note revised GLUCOSE reference range effective 2017. LAB L501.1000 7-18 mg/dL Normal BUN 16 LAB L501.1100 0.55-1.02 mg/dL High CREAT,SERUM 1.07 Result Comment: The validity of the calculated GFR AND GFRAA in patients over 70 years has not been determined. Clinical correlation is essential. LAB L501.1110 >60 mL/min Low EST GFR 55 Result Comment: Non- GFR Calc LAB L501.1115 >60 mL/min Normal EST GFR - AA 67 Result Comment: GFR Calc LAB L501.1255 ml/min Normal Estimated CRCL 52.34 LAB L501.1300 10-20 RATIO Normal BUN/CRE 15.0 LAB L501.2200 8.5-10 mg/dL Low .1 CA 8.3 LAB L501.5300 136-14 mmol/L Normal 5 NA 143 LAB L501.5600 3.5-5. mmol/L Normal 1 K 4.5 LAB L501.5900 98-107 mmol/L High CL 108 LAB L501.6100 21.0-3 mmol/L Normal 2.0 CO2 27.0 LAB L501.6200 5-15 Normal GAP 8 Performed By: #### L500.2500 #### [facility] [address] [place], [place], [address] CBC-COMPLETE BLOOD CNT Collected: 02/19/2018 Status: F Source: [place] NO DIFF 5:18 AM REPOSITORY TYPE CODE TESTS RESULT OUT OF RANGE REFERENCE UNITS LAB L100.1000 4.4-11.0 K/mm3 High WBC 17.8 LAB L100.1200 4.2-5.4 M/mm3 Low RBC 3.28 LAB L100.1300 12.0-15.0 g/dl Low HGB 10.7 LAB L100.1400 37-47 % Low HCT 32.9 LAB L100.1500 81-99 fL High MCV 100.3 LAB L100.1600 27.0-32.0 pg High MCH 32.6 LAB L100.1700 32-36 g/gl Normal MCHC 32.5 LAB L100.1810 11.6-14.6 % Normal RDW CV 13.3 LAB L100.1820 35.1-43.9 fl High RDW SD 48.1 LAB L100.1900 150-450 K/mm3 Normal PLT 260 LAB L100.2000 6.2-12.0 fl Normal MPV 10.2 Performed By: #### L100.0500 #### [facility] [address] [place], [address] OPERATIVE REPORT Observed: 02/18/2018 Status: F Source: [place] 1:55 PM REPOSITORY [facility] Medical Records Department [address] [place] [address] Operative Report 02/18/18 1331 MR#: [id number] Acct: [id number] Name: EDER SCHAEFFER Rep #: [id number] : 1955 62 From: Emory Martini MD PCP: Oliva Cruz DO Status: ADM IN Y [id number] Report of Operation Date of Procedure: 02/18/18 Pre-Operative Diagnosis: Right hip primary osteoarthritis Post-Operative Diagnosis: Right hip primary osteoarthritis Surgery/Procedure Performed:: Right direct anterior total hip replacement Description of Surgical Findings:: Stable hip with equal leg lengths hand driller: Suraj Abraham Type of Anesthesia:: General Anesthesiologist: Scott Camarena Special Medications: 2 g Ancef, 1 g TXA at incision, 1 g TXA closure, 10 mg Decadron, joint cocktail (5 mg Duramorph, 30 mL of 0.5% Ropivicaine, 1000 units of epinephrine, 30 mg of Toradol) Specimen's removed: Bony cuts Estimated Blood Loss (mL): 150 Fluids Replaced: 900 ml crystalloid Description of Procedure: Components used: 1. Anato Kiley femoral stem size 6 2. Lamberton trident acetabular shell size 52 mm 3. [place]ton X3 polyethylene E 4. Kiley Biolox delta 36mm, -5mm femoral head Brief history operative indications: 62 yo f who failed conservative measures for their hip osteoarthritis. X-rays were consistent with osteoarthritis including joint space narrowing, osteophyte formation and subchondral cysts. Total hip replacement was discussed with the patient with risks and benefits including but not limited to blood loss, DVTs, PEs, neurovascular damage, dislocation, general risks of anesthesia including loss of life. Patient demonstrated an understanding medical clearance is obtained the patient was consented for surgery. Procedure: On the date of procedure the patient's right hip was marked in the preoperative area. Patient was then taken back to the operating room where anesthesia assumed control of the C-spine and airway and administered anesthetic. Patient was transferred to the operating table and placed in the supine position. The hips were placed at the break of the bed and a sacral bump was placed. The R lower extremity was then prepped out in a sterile fashion using chlorhexidine while the surgeon scrubbed. The PA was vital in the positioning of the patient. Upon reentering the room the R lower extremity was draped in the standard orthopedic fashion and the incision was marked. A timeout was called and everyone agreed upon the side, the site, the procedure be performed, antibody given, and patient's identity. At this time incision was made through skin, subcutaneous tissue, and fat down to fascia. The fascia was then incised and the TFL was retracted laterally. A retractor was placed on the lateral border of the femoral neck. Attention was directed to the inferior portion of the approach and all crossing vessels were identified and appropriately coagulated. A retractor was then placed on the medial portion of the femoral neck. The anterior capsule was then cleared of all soft tissue and then H shaped capsulotomy was made. The retractors were then placed inside the capsule. The femoral neck was identified and a cleanup cut was made. At this time a power corkscrew was used to remove the femoral head. Attention was then turned toward the acetabulum where the soft tissues were appropriately retracted and the acetabulum was sequentially reamed to 51 mm. A 52 mm cup was then selected and impacted into place. Acetabular liner was impacted into place and locking mechanism was verified. The position of the acetabular cup was then verified under live fluoroscopy. Attention was then turned to the femur. Soft tissue releases on the medial and lateral femoral neck were appropriately done, the leg was externally rotated and lateralized. A Casper retractor was placed medially and proximally to the greater trochanter this allowed appropriate visualization and exposure of the femoral canal. Rongeour was then used to remove excess lateral bone. A canal finder and entry broach were used to open the proximal canal. Once we verified we were down the femoral canal we subsequently broached up to a size 6 femur. The appropriate neck was placed in the previously selected head was trialed with a -5 mm neck. Traction was pulled and the hip was reduced with internal rotation. Once it was appropriately reduced and stability was checked. There was minimal shuck, equal leg lengths and appropriate stability with hyperextension and external rotation as well as with 90 flexion and internal rotation. Fluoroscopy was then also used to verify the position of the components and leg lengths using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
== END ==
PROVIDERS: Referring Provider Internal Medicine Nephrology; Visit Provider Internal Medicine Nephrology
DX: N18.3 Chronic kidney disease, stage 3 (moderate) (principal); E55.9 Vitamin D deficiency, unspecified; Z13.0 Encounter for screening for diseases of the blood and blood-forming organs and certain disorders involving the immune mechanism; E83.42 Hypomagnesemia
CPT/HCPCS: 36415; 80069; 81002; 82043; 82306; 82570; 83735; 83970; 84156; 85027

== ENCOUNTER → 2019-06-28 09:55 | Outpatient (CLI) | payer OTHER, SELFPAY ==
[2018-02-18 15:16] VITALS: BMI 23.7
[2019-06-28 11:40] LABS: Hemoglobin 12.9 g/dL (12.0-15.0); Mean Corp Hgb Conc 33.1 g/dL (32-36); Mean Corpuscular Hgb 32.8 pg (27.0-32.0); Mean Corpuscular Volume 99.2 fL (81-99); Mean Platelet Vol. 10.2 fl (6.2-12.0); Platelet Count 312 K/mm3 (150-450); RBC Distribution Width CV 13.5 % (11.6-14.6); RBC Distribution Width SD 49.4 fl (35.1-43.9); Red Blood Count 3.93 M/mm3 (4.2-5.4); White Blood Count 9.9 K/mm3 (4.4-11.0)
[2019-06-28 12:02] LABS: Albumin, Serum 3.8 g/dL (3.2-5.0); BUN 29 mg/dL (7-18); BUN/Creat Ratio 14.2 RATIO (10-20); Calcium,Total 8.8 mg/dL (8.5-10.1); Chloride 111 mmol/L (98-107); Creatinine, Serum 2.04 mg/dL (0.55-1.02); EST Glomerular Filtration Rate 26 mL/min (>60); Est Glom Filt Rate - Afr Amer 32 mL/min (>60); Glucose 93 mg/dL (74-106); Phosphorus 4.4 mg/dL (2.5-4.9); Potassium 3.8 mmol/L (3.5-5.1); Sodium Level 141 mmol/L (136-145)
[2019-06-28 12:13] LABS: Vitamin D,25 Hydroxy 45.9 ng/mL (29.95-100.01)
[2019-06-28 14:26] LABS: Color, Urine Yellow (Yellow); Glucose, Dipstick Normal (Normal); Ketone-Dipstick 5 mg/dl (Negative); Leukocyte Esterase-Dipstick 25 /ul (Negative); Nitrite-Dipstick Negative (Negative); Occult Blood-Urine Negative /ul (Negative); Protein-Dipstick 30 mg/dl (Negative); Specific Gravity, Urine 1.015 (1.002-1.030); Urine Clarity Clear (Clear); Urine Urobilinogen 1 mg/dl (Normal)
[2019-06-28 14:34] LABS: Urine Bilirubin Dipstick 1 mg/dL (Negative)
[2019-06-28 14:48] LABS: Microalbumin,Random Urine 48.8 mg/L (NO RANGE EST.); Protein, Urine (Random) 33.2 mg/dL (<11.9); Protein:Creat Ratio 183 mg/g CRE (0-200)
== END ==
PROVIDERS: Referring Provider Internal Medicine Nephrology; Visit Provider Internal Medicine Nephrology
DX: N18.3 Chronic kidney disease, stage 3 (moderate) (principal); E55.9 Vitamin D deficiency, unspecified; Z13.0 Encounter for screening for diseases of the blood and blood-forming organs and certain disorders involving the immune mechanism
CPT/HCPCS: 80069; 81002; 82043; 82306; 82570; 83970; 84156; 85027

== ENCOUNTER → 2019-08-23 07:58 | Outpatient (CLI) | payer OTHER, SELFPAY ==
--- NOTE | 2019-08-23 08:00 | CT_ITS ---
CT of the left lower extremity INDICATION: Pain status post replacement TECHNIQUE: CT of the left knee was performed scanning in the axial projection without contrast followed by sagittal and coronal reconstructions. Radiographic technique was optimized to limit patient radiation dose. DLP was 534.14 FINDINGS: Prosthesis is noted in anatomic alignment and position. No evidence for acute fracture or subluxation. No definitive evidence for loosening of the hardware.. There is an expansile lesion in the posterior medial tibial condyle with sclerotic margins and loss of the cortex consistent with pathologic fracture measuring approximately 1.9 x 1.65 cm.. This is most likely benign. There is a similar appearing smaller lesion within the anterior medial tibial condyle as well which does not extend to the cortex. There is a slightly hyperattenuated suprasellar bursal effusion possibly hemorrhagic or inflammatory. CT/Extremity Lower without Contra IMPRESSION: Stable appearance to left knee prosthesis. Expansile lesion within the posterior medial tibial condyle in association with pathologic fracture most likely benign. Small hyperattenuated suprapatella bursal effusion possibly representing hemarthrosis. No definitive evidence for acute osteomyelitis Clinical correlation recommended Electronically Signed: Giuseppe Sifuentes MD at 18:10 EDT , Service support ,
== END ==
PROVIDERS: Referring Provider Specialist; Visit Provider Specialist
DX: M25.562 Pain in left knee (principal); Z96.652 Presence of left artificial knee joint
CPT/HCPCS: 73700

== ENCOUNTER → 2019-10-01 06:53 | Outpatient (CLI) | payer OTHER, SELFPAY ==
[2018-02-18 15:16] VITALS: BMI 23.7
[2019-10-01 07:37] LABS: Color, Urine Yellow (Yellow); Glucose, Dipstick Normal (Normal); Ketone-Dipstick Negative (Negative); Leukocyte Esterase-Dipstick 25 /ul (Negative); Nitrite-Dipstick Negative (Negative); Occult Blood-Urine Negative /ul (Negative); Protein-Dipstick 30 mg/dl (Negative); Urine Bilirubin Dipstick Negative (Negative); Urine Clarity Sl. Cloudy (Clear); Urine Urobilinogen Normal (Normal)
[2019-10-01 08:16] LABS: Albumin, Serum 3.5 g/dL (3.2-5.0); BUN 21 mg/dL (7-18); BUN/Creat Ratio 13.5 RATIO (10-20); Calcium,Total 8.8 mg/dL (8.5-10.1); Chloride 106 mmol/L (98-107); Creatinine, Serum 1.55 mg/dL (0.55-1.02); EST Glomerular Filtration Rate 36 mL/min (>60); Est Glom Filt Rate - Afr Amer 44 mL/min (>60); Glucose 117 mg/dL (74-106); Phosphorus 2.8 mg/dL (2.5-4.9); Potassium 3.2 mmol/L (3.5-5.1); Sodium Level 141 mmol/L (136-145)
== END ==
PROVIDERS: Referring Provider Internal Medicine Nephrology; Visit Provider Internal Medicine Nephrology
DX: N18.3 Chronic kidney disease, stage 3 (moderate) (principal)
CPT/HCPCS: 36415; 80069; 81002

== ENCOUNTER → 2020-01-31 08:04 | Outpatient (CLI) | payer OTHER, SELFPAY ==
--- NOTE | 2020-01-31 08:06 | US_ITS ---
STUDY: RENAL ULTRASOUND - COMPLETE REASON FOR EXAM: Female, 64 years old. CKD 3 TECHNIQUE: Ultrasound evaluation of the kidneys was performed with real-time and static rivera-scale imaging. COMPARISON: Comparison is made with prior examination dated August 05, 2007. FINDINGS: RIGHT KIDNEY: Normal location of the right kidney, which is normal in size. The right kidney measures 11.4 cm x 4.4 cm x 3.6 cm. There is a normal cortex of the right kidney. The renal cortex measures 1.4 cm. There is no right renal mass or cyst. There are no right renal calculi. There is no right hydronephrosis. DISTAL RIGHT URETER: There is non-visualization of the distal right ureter. There is no demonstrated right ureterovesical junction calculus. There is a visualized right ureteral jet. LEFT KIDNEY: Normal location of the left kidney, which is normal in size. The left kidney measures 10 cm x 4.1 cm x 4.8 cm. There is a normal cortex of the left kidney. The renal cortex measures 1.5 cm. There is no left renal mass or cyst. Several tiny calcifications are seen suggestive of small stones. There is no left hydronephrosis. DISTAL LEFT URETER: There is non-visualization of the distal left ureter. There is no demonstrated left ureterovesical junction calculus. There is a visualized left ureteral jet. BLADDER: The bladder was not adequately distended for adequate assessment. US/Kidney and Bladder IMPRESSION: Findings suggest local multiple tiny nonobstructive stones in the left kidney. Electronically Signed: Marty Mercedes, at 15:11 EDT , Service support ,
[2020-01-31 08:34] LABS: Color, Urine Yellow (Yellow); Glucose, Dipstick Normal (Normal); Ketone-Dipstick Negative (Negative); Leukocyte Esterase-Dipstick 25 /ul (Negative); Nitrite-Dipstick Negative (Negative); Occult Blood-Urine Negative /ul (Negative); Protein-Dipstick 30 mg/dl (Negative); Urine Bilirubin Dipstick Negative (Negative); Urine Clarity Sl. Cloudy (Clear); Urine Urobilinogen Normal (Normal)
[2020-01-31 08:41] LABS: Protein, Urine (Random) 37.8 mg/dL (<11.9); Protein:Creat Ratio 235 mg/g CRE (0-200)
[2020-01-31 08:53] LABS: PTHIN 54.6 pg/mL (18.4-80.1)
[2020-01-31 08:57] LABS: Vitamin D,25 Hydroxy 58.2 ng/mL
[2020-01-31 08:59] LABS: AST(SGOT) 21 U/L (15-37); Alanine Aminotransfer ALT/SGPT 23 U/L (13-56); Albumin, Serum 3.8 g/dL (3.2-5.0); Alkaline Phosphatase 83 U/L (45-117); Anion Gap 5 (5-15); BUN 37 mg/dL (7-18); Calcium,Total 9.6 mg/dL (8.5-10.1); Chloride 110 mmol/L (98-107); Cholesterol 172 mg/dL (200); Creatinine, Serum 1.61 mg/dL (0.55-1.02); EST Glomerular Filtration Rate 34 mL/min (>60); Est Glom Filt Rate - Afr Amer 42 mL/min (>60); Glucose 113 mg/dL (74-106); High Density Lipoprotein 56 mg/dL; Magnesium 1.9 mg/dL (1.6-2.6); Phosphorus 3.2 mg/dL (2.5-4.9); Potassium 3.6 mmol/L (3.5-5.1); Protein, Total 7.8 g/dL (6.4-8.2); Sodium Level 142 mmol/L (136-145); Triglycerides 198 mg/dL; Very Low Density Lipoprotein 40 mg/dL (5-40)
[2020-01-31 09:01] LABS: Hemoglobin A1c 5.7 % (4.2-6.3)
[2020-02-02 12:07] LABS: PROEL- A/G Ratio 1.3 (0.7-1.7); PROEL- Alpha-1 Globulin 0.3 g/dL (0.0-0.4); PROEL- Beta Globulin 0.9 g/dL (0.7-1.3); PROEL- Gamma Globulin 0.8 g/dL (0.4-1.8); PROEL- Globulin, Total 3.1 g/dL (2.2-3.9); PROEL- TOTAL PROTEIN 7.1 g/dL (6.0-8.5); PROELU- Albumin, Urine 60.7 % (.); PROELU- Alpha-1-Globulin,Ur 3.2 % (.); PROELU- Alpha-2-Globulin,Ur 7.9 % (.); PROELU- Beta Globulin, Ur 16.2 % (.); PROELU- Gamma Globulin, Ur 12.1 % (.); Total Protein, Ur 30.2 mg/dL (Not Estab.)
== END ==
PROVIDERS: Referring Provider Internal Medicine; Visit Provider Internal Medicine
DX: N18.3 Chronic kidney disease, stage 3 (moderate) (principal); E55.9 Vitamin D deficiency, unspecified; E78.5 Hyperlipidemia, unspecified; R73.9 Hyperglycemia, unspecified
CPT/HCPCS: 36415; 76770; 80053; 80061; 81002; 82306; 82570; 83036; 83735; 83970; 84100; 84156; 84165; 84166

== ENCOUNTER → 2020-02-03 10:26 | Outpatient (CLI) | payer OTHER, SELFPAY ==
[2018-02-18 15:16] VITALS: BMI 23.7
[2020-02-03 11:13] LABS: 24 Hour Urine Protein 248.6 mg/24HR (<150 MG/24HR); 24HR. UA Prot. Total Volume 1100 mL; Urine Protein (24 Hour) 22.6 mg/dL (<11.9)
[2020-02-03 11:23] LABS: Creatinine, Serum 1.42 mg/dL (0.55-1.02); EST Glomerular Filtration Rate 40 mL/min (>60); Est Glom Filt Rate - Afr Amer 48 mL/min (>60)
[2020-02-03 11:27] LABS: Creat.Clear Total Volume 1100 mL; Creatinine Clearance 51 ml/min (100-200); Creatinine Serum Creat 1.4 mg/dL (0.6-1.0); Creatinine Urine 94.8 mg/dL (NO RANGE EST.); EST Glomerular Filtration Rate 40 mL/min (>60); Est Glom Filt Rate - Afr Amer 48 mL/min (>60)
== END ==
PROVIDERS: Referring Provider Internal Medicine; Visit Provider Internal Medicine
DX: N18.3 Chronic kidney disease, stage 3 (moderate) (principal); E55.9 Vitamin D deficiency, unspecified
CPT/HCPCS: 36415; 81050; 82565; 82575; 84156

== ENCOUNTER → 2020-03-09 14:09 | Outpatient (CLI) | payer OTHER, SELFPAY ==
[2020-03-09 15:21] LABS: Absolute Lymphocyte Count 2.37 X10^3/uL (0.83-4.51); Absolute Neutrophil Count 4.3 X10^3/uL (2.0-7.7); Basophil# 0.08 X10^3/uL; Eosinophil# 0.29 X10^3/uL; Eosinophils% 3.7 % (0-5); Erythrocyte Sedimentation Rate 10 mm/hr (0-30); Hematocrit 41.6 % (37-47); Hemoglobin 13.8 g/dL (12.0-15.0); Lymphocyte # 2.37 X10^3/ul (4.0); Lymphocyte % 30.4 % (19-41); Mean Corp Hgb Conc 33.2 g/dL (32-36); Mean Corpuscular Hgb 33.4 pg (27.0-32.0); Mean Corpuscular Volume 100.7 fL (81-99); Mean Platelet Vol. 9.9 fl (6.2-12.0); Monocyte# 0.69 X10^3/uL; Monocyte% 8.9 % (0-10); NRBC Flagged by Analyzer 0 % (0-5); Neutrophil # 4.33 X10^3/uL (2.7-7.7); Neutrophil % 55.6 % (47-70); Platelet Count 276 K/mm3 (150-450); RBC Distribution Width CV 14.5 % (11.6-14.6); RBC Distribution Width SD 53.6 fl (35.1-43.9); Red Blood Count 4.13 M/mm3 (4.2-5.4); White Blood Count 7.8 K/mm3 (4.4-11.0)
[2020-03-09 15:40] LABS: CRP < 2.90 mg/L (0.0-3.0)
== END ==
PROVIDERS: Referring Provider Physician Assistant Surgical; Visit Provider Physician Assistant Surgical
DX: M25.562 Pain in left knee (principal); Z96.652 Presence of left artificial knee joint
CPT/HCPCS: 36415; 85025; 85652; 86140

== ENCOUNTER 2020-05-10 09:18 | Inpatient (IN) | payer OTHER, SELFPAY ==
--- NOTE | 2020-04-28 11:13 | EKG12_ITS ---
Test Reason : PRE OP Blood Pressure : / mmHG Vent. Rate : 076 BPM Atrial Rate : 076 BPM P-R Int : 132 ms QRS Dur : 080 ms QT Int : 396 ms P-R-T Axes : 057 047 055 degrees QTc Int : 445 ms Normal sinus rhythm Normal ECG Confirmed by GAURI COOK, AZAM ([id number]), offline editor KEE PAREDES ([id number]) on 05/01/2020 1:24:57 PM Referred By: NANI Confirmed By:AZAM ASTORGA MD
--- NOTE | 2020-04-28 11:25 | RAD_ITS ---
STUDY: X-RAY CHEST REASON FOR EXAM: Female, 65 years old. SOB TECHNIQUE: PA and lateral views of the chest. COMPARISON: None. FINDINGS: Hyperinflation. The lungs are clear. There is no demonstrated pleural abnormality. Normal size heart. Normal mediastinum and saira. Normal visualized pulmonary arteries. There is atherosclerotic calcification of the aortic arch with tortuosity. Normal visualized thoracic spine. Normal visualized ribs, clavicles, and shoulders. There is no demonstrated abnormality of the visualized soft tissue structures of the upper abdomen. RAD/Chest PA and Lateral IMPRESSION: Hyperinflation. Electronically Signed: Marty Mercedes, at 11:15 EDT , Service support ,
[2020-04-28 12:15] LABS: Absolute Lymphocyte Count 1.55 X10^3/uL (0.83-4.51); Absolute Neutrophil Count 4.8 X10^3/uL (2.0-7.7); Basophil# 0.05 X10^3/uL; Basophil% 0.7 % (0-1); Eosinophil# 0.33 X10^3/uL; Eosinophils% 4.5 % (0-5); Hematocrit 43.4 % (37-47); Hemoglobin 14.5 g/dL (12.0-15.0); Lymphocyte # 1.55 X10^3/ul (4.0); Lymphocyte % 21.2 % (19-41); Mean Corp Hgb Conc 33.4 g/dL (32-36); Mean Corpuscular Hgb 32.6 pg (27.0-32.0); Mean Corpuscular Volume 97.5 fL (81-99); Mean Platelet Vol. 10.5 fl (6.2-12.0); Monocyte# 0.54 X10^3/uL; Monocyte% 7.4 % (0-10); NRBC Flagged by Analyzer 0 % (0-5); Neutrophil # 4.83 X10^3/uL (2.7-7.7); Neutrophil % 65.9 % (47-70); Platelet Count 267 K/mm3 (150-450); RBC Distribution Width CV 12.7 % (11.6-14.6); RBC Distribution Width SD 45.4 fl (35.1-43.9); Red Blood Count 4.45 M/mm3 (4.2-5.4); White Blood Count 7.3 K/mm3 (4.4-11.0)
[2020-04-28 13:22] LABS: Anion Gap 7 (5-15); BUN 22 mg/dL (7-18); BUN/Creat Ratio 18.6 RATIO (10-20); Calcium,Total 9.1 mg/dL (8.5-10.1); Chloride 112 mmol/L (98-107); Creatinine, Serum 1.18 mg/dL (0.55-1.02); EST Glomerular Filtration Rate 49 mL/min (>60); Est Glom Filt Rate - Afr Amer 60 mL/min (>60); Glucose 91 mg/dL (74-106); Potassium 3.8 mmol/L (3.5-5.1); Sodium Level 140 mmol/L (136-145)
[2020-05-10] VITALS (11 sets, daily range): BP systolic 111–149; BP diastolic 65–90; PULSE 72–103; RESP 16–18; TEMP 36.4–37.6; O2SAT 95–100; BMI 22.2; BMI 21.9
[2020-05-10 10:41] LABS: Bedside Glucose 84 mg/dL (70-110)
[2020-05-10] MEDS: Gabapentin 600 MG Tablet PO (10:48)
[2020-05-10] MEDS: Acetaminophen 500 MG Tablet 1000 MG PO ×2 (10:48→21:09)
[2020-05-10] MEDS: Scopolamine 1mg/72hr Patch 1 PATCH TRANSDERM. (10:51)
[2020-05-10] MEDS: Lactated Ringers 1,000 ML 100 ML IV ×2 (10:58→13:15)
[2020-05-10] MEDS: Cefazolin 2 GM in 0.9% Normal Saline 100 ML IV (11:15)
[2020-05-10] MEDS: Joint Pain Solution (NO KETOROLAC) 100 ML IV (13:49)
--- NOTE | 2020-05-10 14:00 | OP.PCM_ITS ---
Report of Operation Date of Procedure: 05/10/20 Pre-Operative Diagnosis: Painful left total knee arthroplasty, osteolysis Post-Operative Diagnosis: Painful left total knee arthroplasty, osteolysis Surgery/Procedure Performed:: Revision left total knee replacement entire tibia and femoral component Description of Surgical Findings:: Stable knee. Patella tracked well after lateral release. lay midwife: Lawrence Issa Type of Anesthesia:: General Anesthesiologist: Ivan Shields Special Medications: 2 g Ancef, 2 g TXA closure, 10 mg Decadron, joint cocktail (5 mg Duramorph, 30 mL of 0.5% Ropivicaine, 1000 units of epinephrine, 30 mg of Toradol) Specimen's removed: 3 separate specimens were sent to microbiology Estimated Blood Loss (mL): 100 mL Fluids Replaced: 1200 mL crystalloid Description of Procedure: Implants used: Femur: Size 5 Kiley TS left distal femur. 5 mm posterior lateral and distal lateral augment. 100 x 15 mm cemented stem. Size 6 bilobed cone Tibia: Size 5 Kiley universal tibial baseplate. 50 x 12 mm cemented stem. Size C posterior medial lobe tibial cone Poly: 16mm PS Sherman X3 polyethylene Brief history operative indications: 65-year-old female with total knee replacement. Patient demonstrated progressive pain and ostial lysis on radiographs and CT scan. After ruling out infection we agreed to proceed with revision total knee replacement which had risks which include but not limited to blood loss, DVTs, PEs, nervous damage, infection, the risk of anesthesia. Patient demonstrate understanding was able to sign informed consent. Medical clearance was obtained. Procedure: On the date of procedure patient's L lower extremity was marked in the preoperative area. The patient was then taken back to the operating room where the patient was placed on the table in the supine position. All bony prominences were identified a well-padded. Anesthesia assumed control of the C-spine and airway and remained controlled throughout the remainder of the procedure. A tourniquet was placed on the L upper thigh and the leg was prepped in a sterile fashion. The surgeon then scrubbed at this time. Upon reentering the room L lower extremity was draped in a standard orthopedic fashion. A timeout was then called and everyone agreed upon the side, the site, the procedure to be performed, patient's identity and antibiotics given. An Esmarch bandage was used to exsanguinate the extremity and the tourniquet was placed up to 250 mmHg with the knee in flexion. A midline skin incision was made using the previous incision and extending it proximally and distally to identify normal tissue planes. Medial and lateral flaps were developed appropriate releases. The standard medial parapatellar arthrotomy was made and the patella was subluxed laterally. At this time an aggressive synovectomy was performed re-creating the medial gutter first, then the suprapatellar pouch than the lateral gutter. Once this was completed the knee was flexed up an osteotome was used to remove the tibial polyethylene. The remainder of the synovium was debrided. The standard deep MCL release was done and the patella scar pad was resected and lateral releases were performed. Next our attention was directed to the femur. Where flexible osteotomes and TPS saw were used to break up the implant cement interface. This was done both medially and laterally. After this a bone tamp was used to remove the femur component from the end of the bone. This was done with minimal bone loss. At this time attention was now directed towards the proximal tibia. Possible osteotome and TPS saw were then used to break up the proximal tibia implant interface and stacked osteotomes were used to remove the tibial implant. This was done with minimal bone loss. Our attention was then turned to the tibia where the intramedullary canal was reamed to 17 millimeters and a size C tibial cone was reamed with a posterior medial lobe cone to fill the posterior medial lysis defect. We then made a cleanup cut on the tibia, A drop stuart was then used to verify the cut. A size 5 tibial base plate was selected. the knee was flexed and the tibial component was pinned into place and the boss reamer was used to ream the proximal medullary canal. The trial implant was impacted in its prepared position. Our attention was then turned back to the femur or the femur intramedullary canal was reamed to 19 mm using the previous implants a size 5 TCG cutting guide with a 19 mm x 100 mm mm stem was put into place. The medial epicondyle was used to set the joint line. With this TCG cutting guide we used a 16 mm polyethylene mm polyethylene trial in order to help balance the gaps. Once the gaps were appropriately balanced the guide was firmly pinned into place. Distal cuts were made with 0 mm augments medially and 5 mm augment laterally. Posterior cuts were made with 0 mm augments medially and 5 mm augment laterally. Using the guide the box cut was made using a reciprocating saw. The appropriate trials were then placed on the femur and tibia. A trial polyethylene was trialed to ensure proper balancing and stability of the knee. Patella tracking, was then verified and corrected appropriately as needed. Our attention was then directed to the patella. Patella remained intact and appropriate. Based on x-rays it was firmly fixed. Patellar tracking was again checked and deemed appropriate. Final components were verified and opened, 6 liters of normal saline were irrigated throughout the joint under low-pressure lavage. Then the cement was mixed in a vacuum. [facility] [employer] [facility] [employer] Simplex cement with tobramycin was used. The wound was copiously irrigated with normal saline. When the cement was ready cement plugs were placed in the tibial cone was placed the components were cemented into place starting with the tibia, femur. The trial poly component was placed and the knee was placed in full extension. All excess cement was removed in the process. Once the cement had cured the tracking, alignment and balance were verified with the tourniquet down the patella did track slightly laterally. An inside out lateral lesion was performed which improved the tracking. And a size 16 mm PS polyethylene component was placed. Once the final components were placed a chlorhexidine lavage was used and the wound was copiously irrigated with normal saline solution and the remainder of the periarticular injection was given. The wound was closed in a layer ordaz fashion using #1 vicryl interrupted sutures for the arthrotomy, 2-0 interrupted Vicryl for the subcuticular layer and jamila for final skin closure. A sterile compressive dressing was then placed. The patient was then awakened from anesthesia, transferred to the [facility] and transferred to the PACU for recovery. Post op plan DVT ppx: ASA 81mg BID, thigh high compression stockings Follow up: in office in 2 weeks for wound check PT: to start POD #0 at hospital, outpatient PT should be arranged. My physician assistant corporate controller was a vital part of this case. He was important in appropriate retraction during the case, and protection of soft tissues during bony cuts. His intimate knowledge of the case and my steps aided in safe and expedient completion of the procedure as well as appropriate position of the leg during the case. He was also vital in assisting with closure under my direct supervision. - Complications No intraoperative complications - Admit VTE Documentation VTE Present on Admission: No VTE Mechan Device Prophylaxis: SCD's, Thigh High TAWNYA Hose VTE Pharm Prophylaxis ordered?: Yes
--- NOTE | 2020-05-10 14:35 | RAD_ITS ---
STUDY: X-RAY - LEFT KNEE REASON FOR EXAM: Female, 65 years old. Total knee replacement. TECHNIQUE: AP and lateral view(s) of the knee. COMPARISON: None. FINDINGS: Normal visualized distal femur. Normal visualized proximal tibia and fibula. Normal proximal tibiofibular articulation. The patient is status post total knee replacement. There is good alignment. Postoperative soft tissue changes. RAD/Knee 1 or 2 Views IMPRESSION: Status post total knee replacement. There is good alignment. Postoperative soft tissue changes. Electronically Signed: Marty Mercedes, at 15:21 EDT , Service support ,
[2020-05-10] MEDS: Aspirin 81 MG TAB.CHEW PO (16:53)
[2020-05-10] MEDS: Ensure Surgery 237 ML LIQUID PO (16:56)
[2020-05-10] MEDS: Lactated Ringers 1,000 ML 125 ML IV (17:43)
[2020-05-10] MEDS: Cefazolin 1 GM/50 ML BAG IV (18:55)
[2020-05-10] MEDS: oxyCODONE 5 MG Tablet PO (19:05)
[2020-05-10] MEDS: Doxycycline 100 MG CAPSULE PO (21:07)
[2020-05-10] MEDS: Senna/Docusate Sodium 1 Tablet 2 TABLET PO (21:08)
[2020-05-10] MEDS: Atorvastatin Calcium 40 MG Tablet PO (21:08)
[2020-05-11 00:20] VITALS: BP 124/75; PULSE 81; RESP 16; TEMP 36.6; O2SAT 97
[2020-05-11] MEDS: Rizatriptan Benzoate 10 MG Tablet PO (00:59)
[2020-05-11] MEDS: Cefazolin 1 GM/50 ML BAG IV (03:40)
[2020-05-11 04:00] VITALS: BP 127/80; PULSE 78; RESP 18; TEMP 36.5; O2SAT 99
[2020-05-11] MEDS: oxyCODONE 5 MG Tablet PO ×2 (04:15→10:45)
[2020-05-11 06:00] LABS: Hemoglobin 12.2 g/dL (12.0-15.0); Mean Corp Hgb Conc 32.1 g/dL (32-36); Mean Corpuscular Hgb 32.4 pg (27.0-32.0); Mean Corpuscular Volume 100.8 fL (81-99); Platelet Count 232 K/mm3 (150-450); RBC Distribution Width CV 12.6 % (11.6-14.6); RBC Distribution Width SD 46.9 fl (35.1-43.9); Red Blood Count 3.77 M/mm3 (4.2-5.4); White Blood Count 15.8 K/mm3 (4.4-11.0)
[2020-05-11] MEDS: Acetaminophen 500 MG Tablet 1000 MG PO (06:10)
[2020-05-11 06:25] LABS: Anion Gap 8 (5-15); BUN 18 mg/dL (7-18); BUN/Creat Ratio 14.1 RATIO (10-20); Calcium,Total 8.7 mg/dL (8.5-10.1); Chloride 108 mmol/L (98-107); Creatinine, Serum 1.28 mg/dL (0.55-1.02); EST Glomerular Filtration Rate 45 mL/min (>60); Est Glom Filt Rate - Afr Amer 54 mL/min (>60); Estimated Creatinine Clearance 43.75 ml/min; Glucose 136 mg/dL (74-106); Potassium 3.9 mmol/L (3.5-5.1); Sodium Level 141 mmol/L (136-145)
[2020-05-11 08:00] VITALS: BP 135/76; PULSE 66; RESP 18; TEMP 36.6; O2SAT 100
[2020-05-11] MEDS: Calcium Carb/Vitamin D 1 TABLET Tablet PO (08:00)
[2020-05-11] MEDS: Multivitamins,Therapeutic Tablet 1 TABLET PO (08:00)
[2020-05-11] MEDS: Aspirin 81 MG TAB.CHEW PO (08:01)
[2020-05-11] MEDS: Ensure Surgery 237 ML LIQUID PO ×2 (08:02→12:47)
--- NOTE | 2020-05-11 09:37 | PN.ORTHO_ITS ---
Subjective: The patient was sitting in bedside chair upon examination. Patient denies any chest pain, shortness of breath, dizziness, lightheadedness, nausea or vomiting, or calf pain. Pain is controlled on medications. No adverse overnight events. Overall patient is doing very well and tolerated therapy well. Plan will be for discharge home today. Objective: Vital signs stable and afebrile. Patient is able to plantarflex and dorsiflex actively. Sensation is intact to light touch to saphenous, sural, superficial and deep p eroneal, and tibial distribution. Dressing is clean dry and intact. Negative Homans bilaterally, negative signs and symptoms of DVT. - Physical Exam Vitals/I&O's: Vital Signs Temp Pulse Resp BP Pulse Ox 97.8 F 66 18 135/76 H 100 05/11/20 08:00 05/11/20 08:00 05/11/20 08:00 05/11/20 08:00 05/11/20 08:00 Oxygen Flow Rate (L/min) 6 Oxygen Delivery Method Room Air Weight: 63.4 kg Body Mass Index (BMI) 21.9 Intake and Output for Last 24 Hours 05/09/20 05/10/20 05/11/20 23:59 23:59 23:59 Intake Total 2031.67 / 2031.67 2159.58 / 2159.58 Output Total 200 / 200 2650 / 2650 Balance 1831.67 / 1831.67 -490.42 / -490.42 General: Alert, Oriented x3, Cooperative, No apparent distress Laboratory Results 05/10/20 10:36: POC Glucose 84 05/11/20 05:26: WBC 15.8 H, RBC 3.77 L, Hgb 12.2, Hct 38.0, MCV 100.8 H, MCH 32.4 H, MCHC 32.1, RDW Std Deviation 46.9 H, RDW Coeff of Johann 12.6, Plt Count 232, MPV 10.0 05/11/20 05:26: Sodium 141, Potassium 3.9, Chloride 108 H, Carbon Dioxide 25.0, Anion Gap 8, BUN 18, Creatinine 1.28 H, Estim Creat Clear Calc 43.75, Est GFR (MDRD) Af Amer 54 L, Est GFR (MDRD) Non-Af 45 L, BUN/Creatinine Ratio 14.1, Glucose 136 H, Calcium 8.7 Current Medications Acetaminophen (Tylenol) 1,000 mg PO Q8 [facility] Last Admin: 05/11/20 06:10 Dose: 1,000 mg Documented by: [facility], [facility]) [facility] Last Admin: 05/11/20 08:01 Dose: 81 mg Documented by: Atorvastatin Calcium (Lipitor) 40 mg PO QHS [facility] Last Admin: 05/10/20 21:08 Dose: 40 mg Documented by: Calcium/Vitamin D (Os-Enrique 500mg + D) [facility] Last Admin: 05/11/20 08:00 Dose: 1 tablet Documented by: Doxycycline Monohydrate (Doxycycline) 100 mg PO BID [facility] Last Admin: 05/10/20 21:07 Dose: 100 mg Documented by: Enteral Nutritional Formula (Ensure Surgery) 237 ml PO TIDCM [facility] Last Admin: 05/11/20 08:02 Dose: 237 ml Documented by: Famotidine (Pepcid) 20 mg PO DAILY [facility] Hydrochlorothiazide (Hctz) 25 mg PO DAILY [facility] Insulin Human Lispro (Humalog Kwgeoffreypen (Bkc)) 1 - 6 unit SC Q4H PRN PRN; Protocol PRN Reason: BG>/= 180, SEE PROTOCOL Metoprolol Tartrate (Lopressor (Beta Donovan)) 25 mg PO DAILY PRN PRN Reason: heart murmur Morphine Sulfate () 2 - 4 mg IV Q2H PRN PRN PRN Reason: Pain Score 6-10/10 Morphine Sulfate () 2 - 4 mg IV Q2H PRN PRN PRN Reason: PAIN 6-10/10 Multivitamins (Multivitamin) 1 tablet PO DAILY@0800 [facility] Last Admin: 05/11/20 08:00 Dose: 1 tablet Documented by: Ondansetron HCl (Zofran) 4 mg IV Q8H PRN PRN PRN Reason: NAUSEA Oxycodone HCl (Oxyir) 5 - 10 mg PO Q4H PRN PRN PRN Reason: Pain Score 4-10/10 Last Admin: 05/11/20 04:15 Dose: 10 mg Documented by: Paroxetine HCl (Paxil) 40 mg PO DAILY [facility] Potassium Chloride (K-Dur) 10 meq PO DAILY [facility] Promethazine HCl (Phenergan) 12.5 mg IM Q6H PRN PRN; Protocol PRN Reason: NAUSEA/VOMITING Rizatriptan Benzoate (Maxalt) 10 mg PO .X1 PRN PRN PRN Reason: MIGRAINE SYMPTOMS Last Admin: 05/11/20 00:59 Dose: 10 mg Documented by: Senna/Docusate Sodium (Senokot-S, Bianca-Colace) 2 tablet PO BID [facility] Last Admin: 05/10/20 21:08 Dose: 1 tablet Documented by: Sodium Chloride () 5 - 15 ml IV UD PRN PRN Reason: SALINE FLUSH Sodium Chloride () 10 - 40 ml IV UD PRN PRN Reason: SALINE FLUSH Topiramate (Topamax) 50 mg PO DAILY [facility] Medical Necessity - Tobacco Use Smoking Status: Current every day smoker Tobacco Use: Cigarettes Assessment/Plan 1. S/P left revision total knee arthroplasty POD #1 2. Continue Pain Medications: Tylenol and oxycodone 3. DVT Prophylaxis: Take 81 mg aspirin twice daily for 4 weeks postoperatively for DVT prophylaxis 4. PT/OT: Weightbearing as tolerated 5. H & H: 12.2/38.0, asymptomatic. Secondary to acute blood loss following surgery 6. Reactive leukocytosis: Currently 15.8, afebrile. Patient did receive Decadron intraoperatively 7. Encouraged Incentive Spirometry 8. Disposition: Orthopedically stable, plan will be for discharge home today. Patient is tolerating therapy very well and pain is been controlled. Patient will follow-up per postop instructions. Patient has physical therapy already established for outpatient care. Prescriptions will be E scribed to [facility] in [place]. Patient is currently seeing pain management in which she takes [place] for primary pain control. However due to the recent revision total knee arthroplasty, patient will require different pain medication. I did explain to her that her previous narcotic refills and medications could affect our postoperative medication for pain control. She did voice understanding. I have reviewed the [place] Automated Rx Reporting System (OARRS) report for this patient for refill pattern and other prescriber involvement as part of the appropriate surveillance for the provision of acute and chronic controlled medications. The report was requested and reviewed on the date of this entry and was considered in the prescribing process.
--- NOTE | 2020-05-11 09:45 | DCINST_ITS ---
Discharge Diet: No Restrictions Discharge Activity: May Not Drive May shower in (days): 1 - Turn dressing away from water. Dressing must be intact to skin Ice area for (Minutes): 20 - Every 1-2 hours while awake Weight Bearing Status: Weight bearing as tolerated Elevate: Operative Extremity Additional Activity Instructions:: Wear elastic stockings for 2 weeks after your surgery. Call your doctor if your incision/area has: Continuous Slow Oozing, Sudden Increased Bleeding, Increased Pain/ Swelling, Increased Redness, Foul Smelling Discharge Call your doctor if you observe: Fever of 101 or Higher, Coldness, Increased Pain, Numbness or Tingling, Change in Color, Calf discomfort, Uncontrolled pain Remove Dressing in (days):: 4 - Remove dressing on May 15, 2020 Additional Instructions: Follow orthopedic postop instructions Allergies/Adverse Reactions: Allergies NSAIDS (Non-Steroidal Anti-Inflamma Allergy (Verified 05/10/20 10:26) Anaphylaxis Medications to take at Discharge Atorvastatin Calcium [Lipitor] 40 mg PO QHS 02/04/18 Cholecalciferol (Vitamin D3) [Vitamin D3] 4,000 unit PO DAILY 02/04/18 Hydrochlorothiazide [Hctz] 25 mg PO DAILY 02/04/18 Metoprolol Tartrate 25 mg PO DAILY PRN 02/04/18 Multivitamin/Iron/Folic Acid [Centrum Adults Tablet] 1 each PO DAILY 02/04/18 Paroxetine HCl [Paxil] 40 mg PO DAILY 02/04/18 Potassium Chloride [Klor-Con 8] 8 meq PO DAILY 02/04/18 Rizatriptan Benzoate [Maxalt] 10 mg PO .X1 PRN 02/04/18 Topiramate [Topamax] 50 mg PO DAILY 02/04/18 Calcium Carbonate/Vitamin D3 [Calcium 600 + Vit D Tablet] 1 ea PO DAILY 05/03/20 Acetaminophen [Tylenol] 1,000 mg PO Q8 #100 tab 05/11/20 Aspirin [Aspirin, Baby] 81 mg PO BIDCM tab.chew 05/11/20 Doxycycline 100 mg PO BID #12 cap 05/11/20 Oxycodone [Oxyir] 5 - 10 mg PO Q4H PRN PRN 5 Days #60 tablet 05/11/20 Senna/Docusate Sodium [Senokot-S] 2 tab PO BID #10 tab 05/11/20 The following prescriptions were given: Doxycycline 100 mg PO BID #12 cap Transmission Status: Pending to [id number] Oxycodone [Oxyir] 5 - 10 mg PO Q4H PRN PRN 5 Days #60 tablet PRN Reason: Pain Score 4-09/02 Transmission Status: Received by [id number] Senna/Docusate Sodium [Senokot-S] 2 tab PO BID #10 tab Transmission Status: Pending to [id number] Acetaminophen [Tylenol] 1,000 mg PO Q8 #100 tab Transmission Status: Pending to [id number] Primary Care Physician: Oliva Portillo DO [Primary Care Provider] - Test Results: Test results from this visit will be discussed in further detail at your follow- up appointment, if applicable. Please Follow Up With: Physical Therapy When: 05/15/20 @ 1:00 pm Please Follow Up With: Suraj Issa PA-C When: 05/25/20 @ 1:15 pm
[2020-05-11] MEDS: hydroCHLOROthiazide 25 MG Tablet PO (10:46)
[2020-05-11] MEDS: Doxycycline 100 MG CAPSULE PO (10:46)
[2020-05-11] MEDS: Paroxetine 20 MG Tablet 40 MG PO (10:47)
[2020-05-11] MEDS: Famotidine 20 MG Tablet PO (10:47)
--- NOTE | 2020-05-11 11:00 | CASEMGMT ---
GREYSON CASANOVA Face to Face with patient for initial transition planning/care coordination assessment. RN CM introduced self and role at [facility]. Patient sitting in chair, alert and oriented. Patient willing to participate in assessment and is able to answer all questions appropriately. Care providers, pharmacy, and demographics verified. Patient wishes to discharge home, and is setup with [facility] for outpatient therapy. Patient states she has no further needs or concerns at this time. CM to follow for discharge planning needs that may arise. PCP: [facility] Specialists: charlie Martini; Juan David, nephrology Preferred Pharmacy: [facility] Insurance: MMO Prescription Benefit: yes Living Will/HPOA: yes, sister Sandra Chauhan LNOK: sister Living Arrangements: Patient lives with sister in first floor apartment with 7-8 steps to enter the home. Patient states she was independent prior to surgery. Transportation: sister DME/C: Patient states she has cane, crutches, and walker at home. Patient is scheduled for outpatient therapy at [facility] for Friday. Disposition Plan: Patient to discharge home with outpatient therapy, family support, and follow-up plans in place. Sammie ANGELES, RN, CM
[2020-05-11 14:00] VITALS: BP 146/90; PULSE 90; RESP 18; TEMP 37.2; O2SAT 98
--- NOTE | 2020-05-11 14:34 | PHA.DC.MR ---
Pharmacy Service has performed discharge medication reconciliation for this patient. The patient's discharge medication list was reviewed for discrepancies and discrepancies were resolved. Home Medications Atorvastatin Calcium [Lipitor] 40 mg PO QHS 02/04/18 Cholecalciferol (Vitamin D3) [Vitamin D3] 4,000 unit PO DAILY 02/04/18 Hydrochlorothiazide [Hctz] 25 mg PO DAILY 02/04/18 Metoprolol Tartrate 25 mg PO DAILY PRN 02/04/18 Multivitamin/Iron/Folic Acid [Centrum Adults Tablet] 1 each PO DAILY 02/04/18 Paroxetine HCl [Paxil] 40 mg PO DAILY 02/04/18 Potassium Chloride [Klor-Con 8] 8 meq PO DAILY 02/04/18 Rizatriptan Benzoate [Maxalt] 10 mg PO .X1 PRN 02/04/18 Topiramate [Topamax] 50 mg PO DAILY 02/04/18 Calcium Carbonate/Vitamin D3 [Calcium 600 + Vit D Tablet] 1 ea PO DAILY 05/03/20 Acetaminophen [Tylenol] 1,000 mg PO Q8 #100 tab 05/11/20 Aspirin [Aspirin, Baby] 81 mg PO BIDCM tab.chew 05/11/20 Doxycycline 100 mg PO BID #12 cap 05/11/20 Oxycodone [Oxyir] 5 - 10 mg PO Q4H PRN PRN 5 Days #60 tab 05/11/20 Senna/Docusate Sodium [Senokot-S] 2 tab PO BID #10 tab 05/11/20
== END 2020-05-11 14:11 | disposition home or self-care (01) | DRG 468 ==
LOC: ACINP 09:20 → MS3 11:38
PROVIDERS: Anesthesiology; Admitting Provider Specialist; Referring Provider Specialist; Visit Provider Specialist
PROC: 0SWW0JZ Revision of Synthetic Substitute in Left Knee Joint, Tibial Surface, Open Approach (ICD-10-PCS; principal; 2020-05-10 11:05)
DX: T84.84XA Pain due to internal orthopedic prosthetic devices, implants and grafts, initial encounter (principal); Y83.1 Surgical operation with implant of artificial internal device as the cause of abnormal reaction of the patient, or of later complication, without mention of misadventure at the time of the procedure; D72.828 Other elevated white blood cell count; F17.210 Nicotine dependence, cigarettes, uncomplicated; M79.7 Fibromyalgia; E78.00 Pure hypercholesterolemia, unspecified; M81.0 Age-related osteoporosis without current pathological fracture; N18.3 Chronic kidney disease, stage 3 (moderate); I12.9 Hypertensive chronic kidney disease with stage 1 through stage 4 chronic kidney disease, or unspecified chronic kidney disease; G43.909 Migraine, unspecified, not intractable, without status migrainosus; M54.9 Dorsalgia, unspecified; G89.29 Other chronic pain
CPT/HCPCS: 36415; 71046; 73560; 80048; 82962; 85025; 85027; 87015; 87070; 87075; 87081; 87102; 87116; 87205; 87206; 87635; 93005; 97110; 97162; 97166; 97530; 99406; C1776; G2023; J7120; J2405; U0003

== ENCOUNTER → 2020-07-28 11:11 | Outpatient (CLI) | payer OTHER, SELFPAY ==
[2020-05-10 16:34] VITALS: BMI 21.9
[2020-07-28 11:28] LABS: Bacteria 0 SEEN /hpf (None Seen); Mucous, Urine 0 SEEN /hpf (<or=2+); Red Blood Cells-Urine 0 SEEN /hpf (0-5); Squamous Epithelial Cells - UA 0 SEEN /hpf (5-10); White Blood Cells 0 SEEN /hpf (0-5)
[2020-07-28 11:57] LABS: Color, Urine Yellow (Yellow); Glucose, Dipstick Normal (Normal); Ketone-Dipstick Negative (Negative); Leukocyte Esterase-Dipstick Negative /ul (Negative); Nitrite-Dipstick Negative (Negative); Occult Blood-Urine Negative /ul (Negative); Protein-Dipstick Negative (Negative); Urine Bilirubin Dipstick Negative (Negative); Urine Clarity Clear (Clear); Urine Urobilinogen Normal (Normal); Urine pH 6.5 (5.0 - 8.0)
[2020-07-28 12:13] LABS: Protein, Urine (Random) 17.4 mg/dL (<11.9); Protein:Creat Ratio 185 mg/g CRE (0-200)
[2020-07-28 12:20] LABS: PTHIN 22.5 pg/mL (18.4-80.1)
[2020-07-28 12:24] LABS: Vitamin D,25 Hydroxy 75.6 ng/mL
[2020-07-28 12:25] LABS: Hemoglobin A1c 5.3 % (3.8-5.6)
[2020-07-28 12:35] LABS: ALB/GLOB Ratio 1.1 RATIO (0.9-2.4); AST(SGOT) 21 U/L (15-37); Alanine Aminotransfer ALT/SGPT 19 U/L (13-56); Alkaline Phosphatase 99 U/L (45-117); Anion Gap 7 (5-15); BUN 20 mg/dL (7-18); BUN/Creat Ratio 15.3 RATIO (10-20); Calcium,Total 9.6 mg/dL (8.5-10.1); Chloride 106 mmol/L (98-107); Cholesterol 162 mg/dL (200); Creatinine, Serum 1.31 mg/dL (0.55-1.02); EST Glomerular Filtration Rate 44 mL/min (>60); Est Glom Filt Rate - Afr Amer 53 mL/min (>60); Globulin 3.8 g/dL (2.2-4.2); Glucose 111 mg/dL (74-106); High Density Lipoprotein 58 mg/dL; Phosphorus 3.1 mg/dL (2.5-4.9); Potassium 3.6 mmol/L (3.5-5.1); Protein, Total 7.8 g/dL (6.4-8.2); Sodium Level 139 mmol/L (136-145); Triglycerides 161 mg/dL; Very Low Density Lipoprotein 32 mg/dL (5-40)
== END ==
PROVIDERS: Referring Provider Internal Medicine; Visit Provider Internal Medicine
DX: R73.9 Hyperglycemia, unspecified (principal); E83.42 Hypomagnesemia; E78.5 Hyperlipidemia, unspecified; N18.3 Chronic kidney disease, stage 3 (moderate); E55.9 Vitamin D deficiency, unspecified
CPT/HCPCS: 36415; 80053; 80061; 81001; 82306; 82570; 83036; 83735; 83970; 84100; 84156

== ENCOUNTER → 2020-12-12 14:56 | Outpatient (CLI) | payer OTHER, SELFPAY ==
[2020-05-10 16:34] VITALS: BMI 21.9
[2020-12-12 15:40] LABS: Hematocrit 42.7 % (37-47); Hemoglobin 14.3 g/dL (12.0-15.0); Mean Corp Hgb Conc 33.5 g/dL (32-36); Mean Corpuscular Hgb 32.3 pg (27.0-32.0); Mean Corpuscular Volume 96.4 fL (81-99); Platelet Count 315 K/mm3 (150-450); RBC Distribution Width CV 13.2 % (11.6-14.6); RBC Distribution Width SD 47.5 fl (35.1-43.9); Red Blood Count 4.43 M/mm3 (4.2-5.4)
[2020-12-12 16:00] LABS: Vitamin D,25 Hydroxy 47.8 ng/mL
[2020-12-12 16:04] LABS: AST(SGOT) 19 U/L (15-37); Alanine Aminotransfer ALT/SGPT 24 U/L (13-56); Albumin, Serum 3.6 g/dL (3.2-5.0); Alkaline Phosphatase 90 U/L (45-117); Anion Gap 7 (5-15); BUN 24 mg/dL (7-18); BUN/Creat Ratio 18.3 RATIO (10-20); Calcium,Total 8.6 mg/dL (8.5-10.1); Chloride 110 mmol/L (98-107); Creatinine, Serum 1.31 mg/dL (0.55-1.02); EST Glomerular Filtration Rate 44 mL/min (>60); Est Glom Filt Rate - Afr Amer 53 mL/min (>60); Globulin 3.6 g/dL (2.2-4.2); Glucose 106 mg/dL (74-106); Potassium 3.3 mmol/L (3.5-5.1); Protein, Total 7.2 g/dL (6.4-8.2); Sodium Level 140 mmol/L (136-145); Thyroid Stim Hormone (TSH) 2.08 uIU/mL (0.358-3.74)
== END ==
DX: R53.83 Other fatigue (principal); R68.89 Other general symptoms and signs
CPT/HCPCS: 36415; 80053; 82306; 84443; 85027

== ENCOUNTER → 2021-01-19 10:37 | Outpatient (CLI) | payer OTHER, SELFPAY ==
[2020-05-10 16:34] VITALS: BMI 21.9
[2021-01-19 11:18] LABS: Hematocrit 42.4 % (37-47); Hemoglobin 13.4 g/dL (12.0-15.0); Mean Corp Hgb Conc 31.6 g/dL (32-36); Mean Corpuscular Hgb 32.8 pg (27.0-32.0); Mean Corpuscular Volume 103.7 fL (81-99); Mean Platelet Vol. 9.6 fl (6.2-12.0); Platelet Count 258 K/mm3 (150-450); RBC Distribution Width CV 13.6 % (11.6-14.6); RBC Distribution Width SD 52.4 fl (35.1-43.9); Red Blood Count 4.09 M/mm3 (4.2-5.4); White Blood Count 7.6 K/mm3 (4.4-11.0)
[2021-01-19 11:21] LABS: Color, Urine Yellow (Yellow); Glucose, Dipstick Normal (Normal); Ketone-Dipstick Negative (Negative); Leukocyte Esterase-Dipstick Negative /ul (Negative); Nitrite-Dipstick Negative (Negative); Occult Blood-Urine 10 /ul (Negative); Protein-Dipstick 15 mg/dl (Negative); Urine Bilirubin Dipstick Negative (Negative); Urine Clarity Clear (Clear); Urine Urobilinogen Normal (Normal)
[2021-01-19 11:40] LABS: PTHIN 50.7 pg/mL (18.4-80.1); Protein, Urine (Random) 31.7 mg/dL (<11.9); Protein:Creat Ratio 223 mg/g CRE (0-200)
[2021-01-19 11:43] LABS: Albumin, Serum 3.7 g/dL (3.2-5.0); BUN 20 mg/dL (7-18); BUN/Creat Ratio 17.9 RATIO (10-20); Calcium,Total 9.2 mg/dL (8.5-10.1); Chloride 111 mmol/L (98-107); Cholesterol 139 mg/dL (200); Creatinine, Serum 1.12 mg/dL (0.55-1.02); EST Glomerular Filtration Rate 52 mL/min (>60); Est Glom Filt Rate - Afr Amer 63 mL/min (>60); Glucose 90 mg/dL (74-106); High Density Lipoprotein 62 mg/dL; Magnesium 2.1 mg/dL (1.6-2.6); Phosphorus 2.4 mg/dL (2.5-4.9); Potassium 4.3 mmol/L (3.5-5.1); Sodium Level 142 mmol/L (136-145); Triglycerides 121 mg/dL; Very Low Density Lipoprotein 24 mg/dL (5-40); Vitamin D,25 Hydroxy 55.7 ng/mL
== END ==
DX: N18.30 Chronic kidney disease, stage 3 unspecified (principal); E55.9 Vitamin D deficiency, unspecified; Z13.0 Encounter for screening for diseases of the blood and blood-forming organs and certain disorders involving the immune mechanism; R73.9 Hyperglycemia, unspecified; E78.5 Hyperlipidemia, unspecified; I12.9 Hypertensive chronic kidney disease with stage 1 through stage 4 chronic kidney disease, or unspecified chronic kidney disease
CPT/HCPCS: 36415; 80061; 80069; 81002; 82306; 82570; 83735; 83970; 84156; 85027

== ENCOUNTER → 2021-09-14 13:47 | Outpatient (CLI) | payer OTHER, SELFPAY ==
[2021-09-14 14:12] LABS: Color, Urine Yellow (Yellow); Glucose, Dipstick Normal (Normal); Ketone-Dipstick Negative (Negative); Leukocyte Esterase-Dipstick Negative /ul (Negative); Nitrite-Dipstick Negative (Negative); Occult Blood-Urine 50 /ul (Negative); Protein-Dipstick 30 mg/dl (Negative); Urine Bilirubin Dipstick Negative (Negative); Urine Clarity Sl. Cloudy (Clear); Urine Urobilinogen Normal (Normal)
[2021-09-14 14:21] LABS: Protein:Creat Ratio 269 mg/g CRE (0-200)
[2021-09-14 14:48] LABS: Anion Gap 6 (5-15); BUN 24 mg/dL (7-18); BUN/Creat Ratio 14.9 RATIO (10-20); Calcium,Total 9.8 mg/dL (8.5-10.1); Chloride 110 mmol/L (98-107); Creatinine, Serum 1.61 mg/dL (0.55-1.02); EST Glomerular Filtration Rate 34 mL/min (>60); Est Glom Filt Rate - Afr Amer 41 mL/min (>60); Glucose 79 mg/dL (74-106); Potassium 3.6 mmol/L (3.5-5.1); Sodium Level 143 mmol/L (136-145)
[2021-09-14 14:50] LABS: PTHIN 57.3 pg/mL (18.4-80.1)
[2021-09-14 14:54] LABS: Vitamin D,25 Hydroxy 48.5 ng/mL
== END ==
PROVIDERS: Referring Provider Internal Medicine; Visit Provider Internal Medicine
DX: E55.9 Vitamin D deficiency, unspecified (principal); N18.30 Chronic kidney disease, stage 3 unspecified
CPT/HCPCS: 36415; 80048; 81002; 82306; 82570; 83970; 84100; 84156

== ENCOUNTER → 2022-03-15 | Outpatient (CLI) | payer MEDICARE, BC, SELFPAY ==
[2022-03-15 14:33] LABS: Hematocrit 43.7 % (37-47); Hemoglobin 14.6 g/dL (12.0-15.0); Mean Corp Hgb Conc 33.4 g/dL (32-36); Mean Corpuscular Hgb 32.7 pg (27.0-32.0); Mean Corpuscular Volume 97.8 fL (81-99); Mean Platelet Vol. 10.1 fl (6.2-12.0); Platelet Count 370 K/mm3 (150-450); RBC Distribution Width CV 12.3 % (11.6-14.6); RBC Distribution Width SD 44.7 fl (35.1-43.9); Red Blood Count 4.47 M/mm3 (4.2-5.4); White Blood Count 12.3 K/mm3 (4.4-11.0)
[2022-03-15 14:42] LABS: Protein, Urine (Random) 38.9 mg/dL (<11.9); Protein:Creat Ratio 186 mg/g CRE (0-200)
[2022-03-15 14:55] LABS: PTHIN 50.1 pg/mL (18.4-80.1)
[2022-03-15 14:56] LABS: Albumin, Serum 3.9 g/dL (3.2-5.0); BUN 33 mg/dL (7-18); BUN/Creat Ratio 15.8 RATIO (10-20); Calcium,Total 9.6 mg/dL (8.5-10.1); Chloride 106 mmol/L (98-107); Creatinine, Serum 2.09 mg/dL (0.55-1.02); EST Glomerular Filtration Rate 25 mL/min (>60); Est Glom Filt Rate - Afr Amer 31 mL/min (>60); Glucose 100 mg/dL (74-106); Phosphorus 4.3 mg/dL (2.5-4.9); Sodium Level 137 mmol/L (136-145)
[2022-03-15 14:59] LABS: Vitamin D,25 Hydroxy 53.4 ng/mL
== END | disposition home or self-care (01) ==
PROVIDERS: Visit Provider Internal Medicine Nephrology
DX: N18.32 Chronic kidney disease, stage 3b (principal); E55.9 Vitamin D deficiency, unspecified
CPT/HCPCS: 36415; 80069; 82306; 82570; 83970; 84156; 85027

== ENCOUNTER → 2022-07-05 | Outpatient (CLI) | payer MEDICARE, BC, SELFPAY ==
[2022-07-05 10:06] LABS: Hematocrit 42.7 % (37-47); Hemoglobin 13.5 g/dL (12.0-15.0); Mean Corp Hgb Conc 31.6 g/dL (32-36); Mean Corpuscular Hgb 32.2 pg (27.0-32.0); Mean Corpuscular Volume 101.9 fL (81-99); Mean Platelet Vol. 9.8 fl (6.2-12.0); Platelet Count 287 K/mm3 (150-450); RBC Distribution Width CV 14.6 % (11.6-14.6); Red Blood Count 4.19 M/mm3 (4.2-5.4); White Blood Count 11.1 K/mm3 (4.4-11.0)
[2022-07-05 10:17] LABS: Protein:Creat Ratio 228 mg/g CRE (0-200)
[2022-07-05 10:35] LABS: PTHIN 71.4 pg/mL (18.4-80.1)
[2022-07-05 10:42] LABS: Albumin, Serum 3.5 g/dL (3.2-5.0); BUN 23 mg/dL (7-18); BUN/Creat Ratio 18.3 RATIO (10-20); Calcium,Total 8.6 mg/dL (8.5-10.1); Chloride 112 mmol/L (98-107); Cholesterol 140 mg/dL (200); Creatinine, Serum 1.26 mg/dL (0.55-1.02); EST Glomerular Filtration Rate 45 mL/min (>60); Est Glom Filt Rate - Afr Amer 55 mL/min (>60); Glucose 96 mg/dL (74-106); High Density Lipoprotein 51 mg/dL; Phosphorus 2.9 mg/dL (2.5-4.9); Potassium 4.2 mmol/L (3.5-5.1); Sodium Level 140 mmol/L (136-145); Triglycerides 178 mg/dL; Very Low Density Lipoprotein 36 mg/dL (5-40)
[2022-07-05 11:13] LABS: Hepatitis C Antibody Non-Reactive (Nonreactive); Vitamin D,25 Hydroxy 56.2 ng/mL
== END | disposition home or self-care (01) ==
PROVIDERS: Referring Provider Internal Medicine Nephrology; Visit Provider Internal Medicine Nephrology
DX: N18.32 Chronic kidney disease, stage 3b (principal); E55.9 Vitamin D deficiency, unspecified; E78.5 Hyperlipidemia, unspecified; Z13.0 Encounter for screening for diseases of the blood and blood-forming organs and certain disorders involving the immune mechanism; Z11.59 Encounter for screening for other viral diseases
CPT/HCPCS: 36415; 80061; 80069; 82306; 82570; 83970; 84156; 85027; 86803

== ENCOUNTER → 2022-08-08 | Outpatient (CLI) | payer MEDICARE, BC, SELFPAY ==
--- NOTE | 2022-08-08 09:45 | BI_ITS ---
MAMMOGRAPHY - BILATERAL SCREENING REASON FOR EXAM: Female, 67 years old. Routine annual screening examination. PERTINENT HISTORY: Non-contributory. TECHNIQUE: Digital bilateral breast farideh (3D mammographic acquisition) in the CC and MLO projections. 2-D mediolateral oblique (MLO) and craniocaudad (CC) views of both breasts were obtained. CAD: Full Field Digital Mammography with Computer Added Detection was performed. COMPARISON: No comparison mammograms available at this time. If any prior films become available, an addendum to this report can be generated. FINDINGS: Breast Composition: There are scattered areas of fibroglandular density. There are no dominant masses or suspicious calcifications. No other significant abnormalities are identified. BI/SCRN MAMM (CAD)W/FARIDEH BILAT IMPRESSION: Negative screening mammogram. Yearly followup mammogram recommended. (A) ASSESSMENT CATEGORY: BIRADS Category 1: Negative. A letter regarding these results will be sent to the patient by the facility within 30 days. Approximately 10% of breast cancers are not detected by mammography. A normal mammogram should not delay biopsy of a clinically suspicious abnormality. [id number] Electronically Signed: Marty Mercedes MD at 11:15 EDT ,
--- NOTE | 2022-08-08 09:53 | BD_ITS ---
STUDY: DUAL ENERGY X-RAY ABSORPTIOMETRY / DXA REASON FOR EXAM: Female, 67 years old. [id number]. Patient is postmenopausal. TECHNIQUE: Bone Mineral Density (BMD) measurements of lumbar spine and left hip were obtained. COMPARISON: None. FINDINGS: Lumbar Spine (L1-L4): g/cm2 (0.967) / T-score (-0.7) / Z-score (1.1) Findings are suggestive of normal bone density with a low fracture risk. Left Femur Total: g/cm2 (0.699) / T-score (-2.0) / Z-score (-0.7) Left Femoral Neck: g/cm2 (0.586) / T-score (-2.4) / Z-score (-0.8) BD/Dexa Bone Density Study IMPRESSION: The patient is considered osteopenic as outlined below according to World [employer] Organization (WHO) criteria with a high fracture risk. Reference Information: The T-score is the number of standard deviations above or below the standard which is normal for young adults at their peak bone mineral density. The World Health Organization (WHO) interprets the T-scores as follows: Above -1 Normal bone density Between -1 and -2.5 Osteopenia Equal to / or below -2.5 Osteoporosis As a practical clinical guideline, osteopenia may be graded as follows: Mild -1 through -1.5 Moderate -1.6 through -2.0 Severe -2.1 through -2.4 The Z-score is the number of standard deviations above or below age-matched controls. A Z-score of less than -1.5 would be considered abnormal. References: 1. NIH Osteoporosis and Related Bone Diseases www osteo.org 2. International Society for Clinical Densitometry www iscd.org 3. National Osteoporosis Foundation www nof.org Electronically Signed: Marty Mercedes MD at 9:26 EDT ,
== END | disposition home or self-care (01) ==
LOC: OPBD 09:43
DX: Z12.31 Encounter for screening mammogram for malignant neoplasm of breast (principal); Z78.0 Asymptomatic menopausal state
CPT/HCPCS: 77063; 77067; 77080

== ENCOUNTER 2022-09-11 12:23 | Day surgery (SDC) | payer MEDICARE, BC, SELFPAY ==
--- NOTE | 2022-09-03 10:01 | RAD_ITS ---
STUDY: X-RAY CHEST REASON FOR EXAM: Female, 67 years old. PREOP TECHNIQUE: PA or AP and lateral COMPARISON: 04/28/2020 FINDINGS: The lungs are clear. There is mild obliteration which could be due to strong inspiratory effort and/or mild COPD. There is no demonstrated pleural abnormality. Normal size heart. Normal mediastinum and saira. Normal visualized pulmonary arteries. Normal visualized aortic arch and descending thoracic aorta. Normal visualized thoracic spine. Normal visualized ribs, clavicles, and shoulders. There is no demonstrated abnormality of the visualized soft tissue structures of the upper abdomen. RAD/Chest PA and Lateral IMPRESSION: Mild COPD and/or strong inspiratory effort. Stable findings. Electronically Signed: Wesley Ogden MD, [place] at 11:29 EDT ,
--- NOTE | 2022-09-03 10:01 | EKG12_ITS ---
Test Reason : PRE OP Blood Pressure : / mmHG Vent. Rate : 079 BPM Atrial Rate : 079 BPM P-R Int : 130 ms QRS Dur : 072 ms QT Int : 376 ms P-R-T Axes : 080 079 068 degrees QTc Int : 431 ms Normal sinus rhythm Normal ECG Confirmed by GISELE COOK, KRISTOPHER ([id number]), society editor KEE PAREDES ([id number]) on 09/05/2022 2:08:10 P M Referred By: Cipriano Schulte Confirmed By:ELIZABETH JAQUEZ MD
[2022-09-03 11:03] LABS: Absolute Lymphocyte Count 2.73 X10^3/uL (0.83-4.51); Absolute Neutrophil Count 6.2 X10^3/uL (2.0-7.7); Basophil# 0.09 X10^3/uL; Basophil% 0.9 % (0-1); Eosinophils% 4.8 % (0-5); Hematocrit 44.4 % (37-47); Hemoglobin 14.6 g/dL (12.0-15.0); Lymphocyte # 2.73 X10^3/ul (0.83-4.51); Lymphocyte % 26.3 % (19-41); Mean Corp Hgb Conc 32.9 g/dL (32-36); Mean Corpuscular Hgb 33.2 pg (27.0-32.0); Mean Corpuscular Volume 100.9 fL (81-99); Mean Platelet Vol. 9.7 fl (6.2-12.0); Monocyte# 0.82 X10^3/uL; Monocyte% 7.9 % (0-10); NRBC Flagged by Analyzer 0 % (0-5); Neutrophil % 59.6 % (47-70); Platelet Count 364 K/mm3 (150-450); RBC Distribution Width CV 13.5 % (11.6-14.6); White Blood Count 10.4 K/mm3 (4.4-11.0)
[2022-09-03 11:32] LABS: Anion Gap 5 (5-15); BUN 20 mg/dL (7-18); BUN/Creat Ratio 14.6 RATIO (10-20); Calcium,Total 9.1 mg/dL (8.5-10.1); Chloride 114 mmol/L (98-107); Creatinine, Serum 1.37 mg/dL (0.55-1.02); EST Glomerular Filtration Rate 41 mL/min (>60); Est Glom Filt Rate - Afr Amer 50 mL/min (>60); Glucose 94 mg/dL (74-106); Potassium 3.5 mmol/L (3.5-5.1); Sodium Level 143 mmol/L (136-145)
[2022-09-11 13:14] VITALS: BP 144/81; PULSE 75; RESP 16; TEMP 37.1; O2SAT 100; BMI 21.7
[2022-09-11] MEDS: Lactated Ringers 1,000 ML 15 ML IV (13:19)
[2022-09-11] MEDS: Cefazolin 2 GM in 0.9% Normal Saline 100 ML IV (14:21)
[2022-09-11] MEDS: Epinephrine (1 mg/ml) 1 MG/ML VIAL (14:50)
--- NOTE | 2022-09-11 15:45 | DCINST_ITS ---
Discharge Instructions Follow Up Care Test Results: Test results from this visit will be discussed in further detail at your follow- up appointment, if applicable. Discharge Plan Admission Primary Reason for Your Visit: Right shoulder arthroscopy Attending Provider: Cipriano Schulte Primary Care Provider: Oliva Portillo Instructions Additional Instructions / Restrictions: Follow preprinted instructions from your surgeons office Discharge Orders/Prescriptions Prescriptions: No Action atorvastatin 40 MG tablet 40 mg PO QHS rizatriptan 10 MG tablet 10 mg PO .X1 PRN potassium chloride [Klor-Con 8] 8 MEQ tablet extended release 8 meq PO DAILY hydrochlorothiazide 25 MG tablet 25 mg PO DAILY paroxetine HCl [Paxil] 40 MG tablet 40 mg PO DAILY metoprolol tartrate 25 MG tablet 25 mg PO DAILY PRN (Reason: BP) topiramate 50 MG tablet 50 mg PO DAILY cholecalciferol (vitamin D3) [Vitamin D3] 2,000 UNIT capsule 4,000 unit PO DAILY Centrum 1 EACH tablet 1 ea PO DAILY calcium carbonate-vitamin D3 1 EACH tablet 1 ea PO DAILY hydrocodone-acetaminophen [Vicodin HP] 10-300 mg Tablet 1 tab PO 4X/DAY aspirin 81 MG tablet,chewable 81 mg PO DAILY Rx Instructions: Take 81 mg aspirin twice daily for 4 weeks postoperatively for DVT prophylaxis Referrals / Follow Up: Oliva Portillo DO [Primary Care Provider] - Cipriano Schulte DO [Med Staff - Active Staff] - Within 2 Weeks Disposition Disposition (needs filled in before D/C Order can be placed): Home, Self Care
--- NOTE | 2022-09-11 15:46 | OP.PCM_ITS ---
Report of Operation Date of Procedure: 09/11/22 Description of Surgical Findings:: Preoperative diagnosis: 1. Right shoulder bursal sided partial supraspinatus rotator cuff tear 2. Right shoulder subacromial impingement syndrome 3. Symptomatic right acromioclavicular arthrosis 4. Superior labral anterior posterior tear with biceps tendinosis 5. Degenerative labral tearing Postoperative diagnosis: 1. Right shoulder bursal sided partial supraspinatus rotator cuff tear 2. Right shoulder subacromial impingement syndrome 3. Symptomatic right acromioclavicular arthrosis 4. Superior labral anterior posterior tear with biceps tendinosis 5. Degenerative labral tearing Procedure: 1. Diagnostic and operative right shoulder arthroscopy with rotator cuff debridement 2. Right shoulder subacromial decompression 3. Right shoulder arthroscopic distal clavicle excision 4. Right shoulder arthroscopic debridement of labrum, capsular synovitis, subacromial bursitis 5. Arthroscopic right shoulder long head of biceps tenodesis Primary Surgeon: Cipriano Schulte DO Physical Therapist Assistant: Génesis Abraham PA-C Anesthesia: General LMA with interscalene block Anesthesiologist: Dr. Shields Complications: None apparent Specimen: None Estimated blood loss: 10 cc IV fluids: 1500 cc crystalloid Urine output: None Packing/drains: None Implants: Arthrex 4.75 mm swivel lock anchor Intraoperative findings: Extensive synovitis right shoulder, degenerative labral tearing, extensive right shoulder subacromial bursitis,Downsloping acromioclavicular joint and distal acromion, long head of biceps tendon tendinosis, SLAP tear type II, approximately 20% bursal sided supraspinatus tearing Preoperative indications: This is a 67-year-old female seen in the outpatient setting for right shoulder pain. She failed nonoperative management in the form of therapy and subacromial corticosteroid injection. MRI was obtained demonstrated partial bursal sided tearing supraspinatus, SLAP tear, biceps tendinosis, subacromial impingement findings, and AC joint arthrosis I recommended a right shoulder diagnostic and operative arthroscopy with subacromial decompression, biceps tenodesis, rotator cuff debridement versus repair, labral debridement and distal clavicle excision. We discussed at length the risks, benefits, alternatives the procedure. Risks included but were not limited to bleeding, infection, loss of life or limb, nonhealing tendon, persistent pain, persistent weakness, stiffness, need for prolonged immobilization, prolonged therapy, DVT or PE, risk of anesthesia, neurovascular injury, need for additional surgery. Patient expressed understanding these risks and wished to proceed with surgery. Description of procedure: Patient was identified in the preoperative holding area by name, medical record number, and date of . Informed consent was confirmed with the patient. The operative extremity was marked with a surgical marker. All questions were answered to the patient's satisfaction. An interscalene block was administered prior to the procedure by the anesthesia staff. At time of her procedure, patient was brought to the operative suite and positioned supine a standard operating table with a beachchair attachment. All bony prominences were well-padded. General anesthesia was induced and laryngeal mask airway placed. After the tube was secured, we elevated the head of the bed to position the patient into the beachchair position. A pillow was placed on the patient's legs. All bony prominences were well-padded. The nonoperative extremity was placed in a well arm rosales. A strap was placed across the patient's torso and the butterfly attachment of the bed was removed to gain access to the posterior scapula. We then spun the bed approximately 45 degrees. We then prepped and draped the operative upper extremity in a normal, sterile orthopedic fashion. We performed a timeout with all parties in attendance in agreement with the side, site, and operation be performed. No concerns were voiced and we elected to proceed. 2 g Ancef was administered prior to the incision by anesthesia staff. I first outlined the bony landmarks of the shoulder. I established a standard posterior portal with an 11 blade scalpel. Blunt tipped trocar in cannula was inserted into the glenohumeral joint. The joint was insufflated with normal saline solution with epinephrine in the first 2 bags. Trocar was removed and diagnostic arthroscopy was commenced. Degenerative tearing the labrum was noted. Synovitis in the rotator interval was noted. I established an anterior portal under direct visualization with a spinal needle and subsequent 11 blade scalpel. Shaver was used to debride the rotator interval synovitis. tendinosis was noted along the biceps tendon as well as a positive peelback test of the biceps anchor. I elected to proceed with biceps tenodesis. A loop and tack fixation technique was utilized passing a fiber loop suture around the tendon near its insertion and then piercing the tendon with the free end of the suture achieving rigid fixation. I then performed a tenotomy with a meniscal biter. I allow the tendon to retract into the groove. I selected a point for the tenodesis anchor just lateral to the greater tuberosity at the superior portion of the bicipital groove. I punched for the anchor and sutures were passed through a swivel lock anchor eyelet and driven into the private pilot hole while tensioning the suture and subsequently tightened with excellent bony fixation. Sutures were cut flush with the anchor. I then used the radial resector to debride the labrum and biceps anchor. The articular sided supraspinatus was pristine. There is mild tendinosis noted superior portion of the subscapularis. Chondral surfaces appeared pristine. I then withdrew the arthroscope and cannula. I reentered the shoulder in the edgar bacromial space. I established a lateral portal with a spinal needle and subsequent 11 blade scalpel. Extensive subacromial bursitis was noted which was debrided with a radial resector. A downsloping spur from the distal end of the clavicle and anterior acromion was identified. CA ligament was identified and released. I then performed a subacromial decompression with a 5.5 mm bur achieving a flat acromion. Inferior surface of the AC joint was identified and released. I then performed a distal clavicle excision excising approximately 8 mm of distal clavicle leaving the posterior and superior portions of the capsule intact utilizing a 5.5 mm arthroscopic bur. I closely examined the bursal side of the supraspinatus. There was minimal tendinosis and partial tearing noted, thought to be approximately 20%. I debrided the bursal side of the supraspinatus. I was unable to probe through the bursal side and elected to not perform a repair. The subacromial space was then thoroughly lavaged. Arthroscopic instruments were removed. Portal sites were closed in interrupted [id number] fashion with 4-0 nylon suture. Sterile compression dressing was applied. Patient was then placed in a simple sling. She was able to be safely extubated in the operative suite. She was transferred to his gurney and subsequently to PACU in stable condition. Need for skilled senior executive assistant: Génesis Abraham PA-C was critical to the outcome of the case. During the course of the procedure the physician senior executive assistant played a vital role. Her intimate knowledge of my steps in the procedure aided in safe and expedient completion of the procedure. The PA played a vital role in positioning particularly in obtaining the appropriate positioning. The PA was also vital in the retraction of soft tissues during the exposure and protecting vital structures. She also played a vital role in closure and sling application with my direct supervision. Postoperative plan: Patient will be nonweightbearing to the operative extremity. She she should maintain his sling at all times effort to shower. She may shower on postoperative day #2 if no significant drainage. She will follow up in approximately 2 weeks for suture removal. We will plan to initiate twice daily aspirin for DVT prophylaxis starting tomorrow. Prescription for oxycodone was sent to his pharmacy for postoperative analgesia.
[2022-09-11 16:01] VITALS: BP 138/64; BP 144/81; PULSE 92; RESP 16; TEMP 36.2; O2SAT 97
[2022-09-11 16:15] VITALS: BP 123/61; BP 144/81; PULSE 88; RESP 16; O2SAT 96
[2022-09-11 16:30] VITALS: BP 118/70; BP 144/81; PULSE 84; RESP 16; TEMP 36.4; O2SAT 96
[2022-09-11 17:00] VITALS: BP 144/81
== END 2022-09-11 17:11 | disposition home or self-care (01) ==
LOC: SDC 12:24 → AC 12:25
PROVIDERS: Referring Provider Student in an Organized Health Care Education/Training Program; Visit Provider Student in an Organized Health Care Education/Training Program
PROC: (CPT 29827; principal; 2022-09-11 13:50)
DX: M19.011 Primary osteoarthritis, right shoulder (principal); N18.30 Chronic kidney disease, stage 3 unspecified; M75.41 Impingement syndrome of right shoulder; M75.111 Incomplete rotator cuff tear or rupture of right shoulder, not specified as traumatic; M65.811 Other synovitis and tenosynovitis, right shoulder; M75.51 Bursitis of right shoulder; M75.100 Unspecified rotator cuff tear or rupture of unspecified shoulder, not specified as traumatic; E78.00 Pure hypercholesterolemia, unspecified; I12.9 Hypertensive chronic kidney disease with stage 1 through stage 4 chronic kidney disease, or unspecified chronic kidney disease; F17.210 Nicotine dependence, cigarettes, uncomplicated; S46.011A Strain of muscle(s) and tendon(s) of the rotator cuff of right shoulder, initial encounter; S46.911A Strain of unspecified muscle, fascia and tendon at shoulder and upper arm level, right arm, initial encounter
CPT/HCPCS: 29824; 29823; 29828; 29826; 36415; 71046; 80048; 85025; 93005; C1713; J7120; J2405

== ENCOUNTER → 2022-12-19 | Outpatient (CLI) | payer MEDICARE, BC, SELFPAY ==
[2022-12-19 08:00] LABS: Hematocrit 42.9 % (37-47); Hemoglobin 13.7 g/dL (12.0-15.0); Mean Corp Hgb Conc 31.9 g/dL (32-36); Mean Corpuscular Hgb 32.3 pg (27.0-32.0); Mean Corpuscular Volume 101.2 fL (81-99); Mean Platelet Vol. 9.6 fl (6.2-12.0); Platelet Count 351 K/mm3 (150-450); RBC Distribution Width CV 13.9 % (11.6-14.6); RBC Distribution Width SD 51.4 fl (35.1-43.9); Red Blood Count 4.24 M/mm3 (4.2-5.4); White Blood Count 13.5 K/mm3 (4.4-11.0)
[2022-12-19 08:15] LABS: Protein, Urine (Random) 66.9 mg/dL (<11.9); Protein:Creat Ratio 295 mg/g CRE (0-200)
[2022-12-19 08:23] LABS: PTHIN 49.2 pg/mL (18.4-80.1)
[2022-12-19 08:29] LABS: Albumin, Serum 3.8 g/dL (3.2-5.0); BUN 24 mg/dL (7-18); BUN/Creat Ratio 16.4 RATIO (10-20); Calcium,Total 9.6 mg/dL (8.5-10.1); Chloride 116 mmol/L (98-107); Creatinine, Serum 1.46 mg/dL (0.55-1.02); EST Glomerular Filtration Rate 38 mL/min (>60); Est Glom Filt Rate - Afr Amer 46 mL/min (>60); Glucose 89 mg/dL (74-106); Phosphorus 4.7 mg/dL (2.5-4.9); Potassium 4.2 mmol/L (3.5-5.1); Sodium Level 145 mmol/L (136-145); Vitamin D,25 Hydroxy 47.4 ng/mL
== END | disposition home or self-care (01) ==
LOC: LAB 07:33
PROVIDERS: Referring Provider Internal Medicine Nephrology; Visit Provider Internal Medicine Nephrology
DX: N18.32 Chronic kidney disease, stage 3b (principal); E55.9 Vitamin D deficiency, unspecified; Z13.0 Encounter for screening for diseases of the blood and blood-forming organs and certain disorders involving the immune mechanism
CPT/HCPCS: 36415; 80069; 82306; 82570; 83970; 84156; 85027

== ENCOUNTER → 2023-03-31 | Outpatient (CLI) | payer MEDICARE, BC, SELFPAY ==
[2023-03-31 12:59] LABS: ALB/GLOB Ratio 1.1 RATIO (0.9-2.4); AST(SGOT) 18 U/L (15-37); Alanine Aminotransfer ALT/SGPT 24 U/L (13-56); Albumin, Serum 3.8 g/dL (3.2-5.0); Alkaline Phosphatase 88 U/L (45-117); Anion Gap 5 (5-15); BUN 25 mg/dL (7-18); BUN/Creat Ratio 18.1 RATIO (10-20); Calcium,Total 9.2 mg/dL (8.5-10.1); Chloride 110 mmol/L (98-107); Cholesterol 143 mg/dL (200); Creatinine, Serum 1.38 mg/dL (0.55-1.02); EST Glomerular Filtration Rate 41 mL/min (>60); Est Glom Filt Rate - Afr Amer 49 mL/min (>60); Globulin 3.5 g/dL (2.2-4.2); Glucose 97 mg/dL (74-106); High Density Lipoprotein 44 mg/dL; Potassium 4.1 mmol/L (3.5-5.1); Protein, Total 7.3 g/dL (6.4-8.2); Sodium Level 140 mmol/L (136-145); Thyroid Stim Hormone (TSH) 2.64 uIU/mL (0.358-3.74); Triglycerides 178 mg/dL; Very Low Density Lipoprotein 36 mg/dL (5-40)
== END | disposition home or self-care (01) ==
DX: E78.5 Hyperlipidemia, unspecified (principal)
CPT/HCPCS: 36415; 80053; 80061; 84443

== ENCOUNTER → 2023-06-26 | Outpatient (CLI) | payer MEDICARE, BC, SELFPAY ==
[2023-06-26 17:14] LABS: Hematocrit 42.5 % (37-47); Hemoglobin 13.4 g/dL (12.0-15.0); Mean Corp Hgb Conc 31.5 g/dL (32-36); Mean Corpuscular Hgb 32.4 pg (27.0-32.0); Mean Corpuscular Volume 102.7 fL (81-99); Mean Platelet Vol. 10.3 fl (6.2-12.0); Platelet Count 275 K/mm3 (150-450); RBC Distribution Width SD 49.1 fl (35.1-43.9); Red Blood Count 4.14 M/mm3 (4.2-5.4); White Blood Count 8.7 K/mm3 (4.4-11.0)
[2023-06-26 18:35] LABS: Albumin, Serum 3.5 g/dL (3.2-5.0); BUN 19 mg/dL (7-18); Chloride 109 mmol/L (98-107); Creatinine, Serum 1.27 mg/dL (0.55-1.02); EST Glomerular Filtration Rate 45 mL/min (>60); Est Glom Filt Rate - Afr Amer 54 mL/min (>60); Glucose 108 mg/dL (74-106); Phosphorus 3.3 mg/dL (2.5-4.9); Potassium 4.1 mmol/L (3.5-5.1); Sodium Level 141 mmol/L (136-145)
[2023-06-26 18:42] LABS: Protein, Urine (Random) 28.6 mg/dL (<11.9); Protein:Creat Ratio 215 mg/g CRE (0-200)
[2023-06-26 18:44] LABS: Vitamin D,25 Hydroxy 51.6 ng/mL
[2023-06-27 08:31] LABS: PTHIN 39.9 pg/mL (18.4-80.1)
== END | disposition home or self-care (01) ==
LOC: LAB 16:30
PROVIDERS: Referring Provider Internal Medicine Nephrology; Visit Provider Internal Medicine Nephrology
DX: N18.32 Chronic kidney disease, stage 3b (principal); E55.9 Vitamin D deficiency, unspecified; Z13.0 Encounter for screening for diseases of the blood and blood-forming organs and certain disorders involving the immune mechanism
CPT/HCPCS: 36415; 80069; 82306; 82570; 83970; 84156; 85027

== ENCOUNTER → 2024-03-22 | Outpatient (CLI) | payer MEDICARE, BC, SELFPAY ==
[2024-03-22 14:47] LABS: Hematocrit 42.4 % (37-47); Hemoglobin 13.9 g/dL (12.0-15.0); Mean Corp Hgb Conc 32.8 g/dL (32-36); Mean Corpuscular Hgb 32.3 pg (27.0-32.0); Mean Corpuscular Volume 98.6 fL (81-99); Mean Platelet Vol. 9.8 fl (6.2-12.0); Platelet Count 272 K/mm3 (150-450); RBC Distribution Width CV 13.4 % (11.6-14.6); RBC Distribution Width SD 49.1 fl (35.1-43.9); White Blood Count 7.5 K/mm3 (4.4-11.0)
[2024-03-22 15:49] LABS: ALB/GLOB Ratio 1.1 RATIO (0.9-2.4); AST(SGOT) 18 U/L (15-37); Alanine Aminotransfer ALT/SGPT 16 U/L (13-56); Albumin, Serum 3.7 g/dL (3.2-5.0); Alkaline Phosphatase 74 U/L (45-117); Anion Gap 5 (5-15); BUN 21 mg/dL (7-18); BUN/Creat Ratio 14.9 RATIO (10-20); Chloride 115 mmol/L (98-107); Cholesterol 157 mg/dL (200); Creatinine, Serum 1.41 mg/dL (0.55-1.02); EST Glomerular Filtration Rate 40 mL/min (>60); Est Glom Filt Rate - Afr Amer 48 mL/min (>60); Globulin 3.3 g/dL (2.2-4.2); Glucose 100 mg/dL (74-106); High Density Lipoprotein 51 mg/dL; Sodium Level 144 mmol/L (136-145); Thyroid Stim Hormone (TSH) 2.36 uIU/mL (0.358-3.74); Triglycerides 169 mg/dL; Very Low Density Lipoprotein 34 mg/dL (5-40)
== END | disposition home or self-care (01) ==
LOC: LAB 13:52
PROVIDERS: Visit Provider Nurse Practitioner Family
DX: E78.5 Hyperlipidemia, unspecified (principal); N18.30 Chronic kidney disease, stage 3 unspecified; I12.9 Hypertensive chronic kidney disease with stage 1 through stage 4 chronic kidney disease, or unspecified chronic kidney disease
CPT/HCPCS: 36415; 80053; 80061; 84443; 85027

== ENCOUNTER → 2024-07-21 | Outpatient (CLI) | payer MEDICARE, BC, SELFPAY ==
[2024-07-21 14:26] LABS: Hematocrit 42.5 % (37-47); Hemoglobin 13.7 g/dL (12.0-15.0); Mean Corp Hgb Conc 32.2 g/dL (32-36); Mean Corpuscular Hgb 32.5 pg (27.0-32.0); Mean Corpuscular Volume 100.7 fL (81-99); Mean Platelet Vol. 9.2 fl (6.2-12.0); Platelet Count 292 K/mm3 (150-450); RBC Distribution Width CV 14.7 % (11.6-14.6); RBC Distribution Width SD 54.5 fl (35.1-43.9); Red Blood Count 4.22 M/mm3 (4.2-5.4); White Blood Count 8.7 K/mm3 (4.4-11.0)
[2024-07-21 14:50] LABS: Albumin, Serum 3.7 g/dL (3.2-5.0); BUN 29 mg/dL (7-18); BUN/Creat Ratio 13.9 RATIO (10-20); Calcium,Total 9.8 mg/dL (8.5-10.1); Chloride 112 mmol/L (98-107); Creatinine, Serum 2.08 mg/dL (0.55-1.02); EST Glomerular Filtration Rate 25 mL/min (>60); Est Glom Filt Rate - Afr Amer 31 mL/min (>60); Glucose 92 mg/dL (74-106); Phosphorus 3.7 mg/dL (2.5-4.9); Sodium Level 142 mmol/L (136-145)
[2024-07-21 14:51] LABS: PTHIN 47.5 pg/mL (18.4-80.1)
[2024-07-21 14:54] LABS: Vitamin D,25 Hydroxy 40.6 ng/mL
== END | disposition home or self-care (01) ==
LOC: LAB 13:53
PROVIDERS: Referring Provider Internal Medicine Nephrology; Visit Provider Internal Medicine Nephrology
DX: Z13.0 Encounter for screening for diseases of the blood and blood-forming organs and certain disorders involving the immune mechanism (principal); N18.32 Chronic kidney disease, stage 3b; E55.9 Vitamin D deficiency, unspecified
CPT/HCPCS: 36415; 80069; 82306; 83970; 85027

== ENCOUNTER → 2024-09-14 | Outpatient (CLI) | payer MEDICARE, BC, SELFPAY ==
--- NOTE | 2024-09-14 14:15 | CT_ITS ---
STUDY: LOW DOSE CT LUNG CANCER SCREENING REASON FOR EXAM: Female, 69 years old. One pack per day smoker x50 years RADIATION DOSAGE (If Supplied By Facility): CTDIvol = ( 2.01 ) mGy, DLP = ( 69.72 ) mGycm TECHNIQUE: No contrast was administered. Low dose technique was utilized (average mAS-38 and kVp 120). 1.25 mm axial source images with a slice interval of 1.25-mm were reconstructed in lung windows. 2.5 mm axial source images with a slice interval of 2.5-mm were reconstructed in lung windows. 5.0 mm axial source images with a slice interval of 5.0-mm were reconstructed in soft tissue windows. COMPARISON: None. FINDINGS: Lung windows show underlying emphysema with bleb formation throughout both lung espinoza. There is evidence of chronic bronchitis without an organized infiltrate or effusion. There is nonspecific pleural thickening in both apices and in both hemithoraces. There is a concerning spiculated noncalcified nodular density measuring 1.3 cm in the left upper lobe on axial image 88 and coronal recon image 134 that needs further evaluation with PET/CT scan. No other suspicious noncalcified mass or nodule. Soft tissue windows show normal-appearing thyroid. No suspicious axillary or mediastinal or perihilar adenopathy. Peripheral calcifications noted in the thoracic aorta without aneurysm. Calcified coronary vessels are noted. Bony structures show degenerative change CT/Low Dose CT Lung Screening IMPRESSION: Lung-RADS category 4B - Chest CT with or without contrast, PET/CT and/or tissue sampling can be obtained depending on the probability of malignancy and comorbidities. IMPORTANT NOTES FOR USE: ACR Lung-RADS Version 1.1 Assessment Categories Release Date: 2018 Category: Coded 0-4 bases on nodule(s) with highest degree of suspicion. Negative screen is defined as categories 1 and 2; a positive screen is defined as categories 3 and 4. Category 3 and 4A nodules that are unchanged on interval CT should be coded as category 2, and individuals returned to screening in 12 months. Category 4X: Category 3 or 4 nodules with additional imaging findings that increase the suspicion of lung cancer, such as spiculation, GGN that doubles in size in 1 year, enlarged lymph notes, etc. Category Modifiers: S (significant finding unrelated to lung cancer) Electronically Signed: Ruddy Ch MD at 9:29 EDT ,
== END | disposition home or self-care (01) ==
LOC: CT 14:14
DX: Z12.2 Encounter for screening for malignant neoplasm of respiratory organs (principal); F17.210 Nicotine dependence, cigarettes, uncomplicated
CPT/HCPCS: 71271

== ENCOUNTER → 2024-09-15 | Outpatient (CLI) | payer MEDICARE, BC, SELFPAY ==
--- NOTE | 2024-09-15 12:40 | ECHOD_ITS ---
Reason For Study: PALPITATIONS Procedure This was a 2D Doppler, Color Flow transthoracic echocardiogram. Exam performed in department. Left Ventricle Normal LV size. Left ventricular systolic function is normal. The left ventricular ejection fraction is 70 %. Stage 1 diastolic dysfunction. No regional wall motion abnormalities noted. Right Ventricle Normal RV size. Normal systolic function. Atria Normal left atrium. Normal right atrium. Mitral Valve There is moderate mitral annular calcification. Tricuspid Valve Normal tricuspid valve. Mild (1+) tricuspid valve insufficiency. Pulmonary artery systolic pressure is 25 mmHg. Aortic Valve Trisinus/trileaflet aortic valve. Pulmonic Valve Normal pulmonic valve. Great Vessels Normal aortic root. The pulmonary artery is normal size. Inferior vena cava collapse with respiration. Pericardium/Pleural Probable pericardial fat pad. Measuring approximately 1 cm. No obvious effusion noted. MMode/2D Measurements & Calculations LVIDd: 4.1 cm IVSd: 0.77 cm Ao root diam: 3.0 cm LVIDs: 2.7 cm LVPWd: 0.82 cm RVDd: 2.5 cm FS: 35.6 % LAV(MOD-bp): 24.5 ml LVAd ap4: 16.6 cm2 LVAd ap2: 18.5 cm2 LAV(MOD-bp) Indexed: 14.3 ml/m2 LVLd ap4: 5.8 cm LVLd ap2: 6.1 cm LAV(MOD-sp2): 23.3 ml EDV(MOD-sp4): 40.3 ml EDV(MOD-sp2): 49.1 ml LAV(MOD-sp4): 24.4 ml EDV(sp4-el): 40.6 ml EDV(sp2-el): 47.4 ml LVAs ap4: 8.5 cm2 LVAs ap2: 8.9 cm2 LVLs ap4: 5.0 cm LVLs ap2: 4.7 cm ESV(MOD-sp4): 12.9 ml ESV(MOD-sp2): 14.9 ml ESV(sp4-el): 12.1 ml ESV(sp2-el): 14.4 ml EF(MOD-sp4): 67.9 % EF(MOD-sp2): 69.7 % EF(sp4-el): 70.1 % SV(MOD-sp4): 27.4 ml SV(MOD-sp2): 34.2 ml SV(sp4-el): 28.4 ml LA dimension(2D): 2.6 cm LA A4 area: 10.4 cm2 RA A4 area: 7.8 cm2 TAPSE: 1.8 cm Time Measurements MV dec time: 0.19 sec Doppler Measurements & Calculations MV E max arun: 60.2 cm/sec Lat Peak E' Arun: 7.2 cm/sec Med Peak E' Arun: 6.9 cm/sec MV A max arun: 83.7 cm/sec E/E' lat: 8.3 E/E' med: 8.7 MV E/A: 0.72 MV V2 max: 91.8 cm/sec MV P1/2t max arun: 74.6 cm/sec Ao V2 max: 132.3 cm/sec MV max P.4 mmHg MV P1/2t: 36.6 msec Ao max P.0 mmHg MV V2 mean: 51.8 cm/sec MV dec slope: 596.8 cm/sec2 Ao V2 mean: 87.3 cm/sec MV mean P.2 mmHg Ao mean P.5 mmHg MV V2 VTI: 18.5 cm MVA(P1/2t): 6.0 cm2 Ao V2 VTI: 24.0 cm AV (velocity ratio): 0.92 LV V1 max: 116.4 cm/sec PA V2 max: 94.6 cm/sec TR max arun: 232.8 cm/sec LV V1 max P.4 mmHg PA V2 mean: 74.0 cm/sec TR max P.7 mmHg LV V1 mean P.7 mmHg LV V1 mean: 76.3 cm/sec LV V1 VTI: 22.1 cm ECHO/Echo Complete Interpretation Summary Normal LV size. Left ventricular systolic function is normal. The left ventricular ejection fraction is 70 %. Stage 1 diastolic dysfunction. Probable pericardial fat pad. Measuring approximately 1 cm. No obvious effusion noted Ordering Physician: Oliva Portillo Referring Physician: Oliva Portillo Performed By: Bhavya Blankenship, DALILA, RVT
--- OUTSIDE RECORDS SUMMARY | 2024-09-15 14:03 | XMS RPT_ITS | CCD ---
Author Organization [facility] ion Partnership [facility] Care Team Providers Care Media Coordinator Name Role Phone Unavailable Primary Care Provider Mayo Cortes Primary Care Provider [phone] Mayo Del Valle Primary Care Provider [phone] Mayo Del Valle Primary Care Provider [phone] Mayo Del Valle Primary Care Provider [phone] Mayo Del Valle Primary Care Provider [phone] CIERRA ROSS Attending Unavailable LINK [facility] CIERRA Cook Attending Unavailable LINK MAYOBEVERLY MARTIH[facility] UnavailCIERRA Dsouza Attending Unavailable LINK, [facility] UnavailCIERRA Dsouza Attending Unavailable LINK [facility] CIERRA Cook Attending Unavailable LINK [facility] UnavailCIERRA Dsouza Attending Unavailable LINK [facility] UnavailCIERRA Dsouza Attending Unavailable LINK [facility] Primary [facility] [place] Elean le Allergies Allergy Classification Reported Allergen(s) Allergy Type Date of Onset Reaction(s) Facility (5 sources) Non-steroidal anti-inflammator y agent; Translations: [NSAIDS (NON-STEROIDAL ANTI-INFLAMMATOR Y DRUG)] Propensity to adverse reactions 04-25-2008 [facility] Work Phone: (20 sources) Non-steroidal anti-inflammator y agent Propensity to adverse reactions 04-25-2008 [facility] Work Phone: Medications Current Medications Medication Drug Class(es) Dates Sig (Normalized) Sig (Original) aspirin 81 mg oral tablet (20 sources) Platelet Aggregation Inhibitor, Nonsteroidal Anti-inflammator y Drug Start: 7 ASPIRIN 81 MG TAB Take one(1) tablet daily. 0 01/19/2007 Active Comment on above: Take one(1) tablet d aily. atorvastatin 80 mg oral tablet (20 sources) HMG-CoA Reductase Inhibitor Start: 8 atorvastatin calcium(LIPITOR 80 MG TAB) Take one(1) tablet daily. 0 04/25/2008 Active Comment on above: Take one(1) tablet d aily. Calcium Carbonate / Ergocalciferol (20 sources) Provitamin D2 Compound Start: 7 CALCIUM CARBONATE-VITAMIN D2 500 MG-200 UNIT TAB Take 3 tablets daily 0 01/19/2007 Active Comment on above: Take 3 tablets daily hydroCHLOROthiazide 25 mg oral tablet (20 sources) Thiazide Diuretic Start: 7 HYDROCHLOROTHIAZIDE 25 MG TAB Take by mouth. 0 01/19/2007 Active Comment on above: Take one(1) tablet d aily. Take by mouth. lidocaine 0.05 mg/mg medicated patch (20 sources) Antiarrhythmic, Amide Local Anesthetic Start: 2 lidocaine (LIDODERM) 5 % Apply 1-2 Patches as directed as directed. Apply for for 12 hours then remove for 12 hours as needed. 60 Patch 3 08/29/2022 Active Comment on above: Apply 1-2 Patches as directed as directed. Apply for for 12 hours then remove for 12 hours as needed. metoprolol tartrate 100 mg oral tablet (20 sources) beta-Adrenergic Donovan Start: 0 metoprolol tartrate(LOPRESSOR 100 MG TAB) Take 50 mg by mouth once daily. 0 06/11/2010 Active Start: 06-11-2010 metoprolol tar trate(LOPRESSOR 100 MG TAB) take one tablet as needed 0 06/11/2010 Active Comment on above: take one tablet as n eeded Take 50 mg by mouth once daily. PARoxetine hydrochloride 40 mg oral tablet (20 sources) Serotonin Reuptake Inhibitor Start: 01-19-2007 PAXIL 40 MG TAB Take one(1) tablet daily. 0 01/19/2007 Active Comment on above: Take one(1) tablet d aily. potassium chloride 8 meq extended release oral tablet (20 sources) Start: 01-19-2007 KLOR-CON 8 MEQ TAB Take one(1) tablet daily. 0 01/19/2007 Active Comment on above: Take one(1) tablet d aily. rizatriptan 10 mg oral tablet (20 sources) Serotonin-1b and Serotonin-1d Receptor Agonist Start: 02-28-2022 rizatriptan (MAXALT) 10 mg tablet MAY REPEAT DOSE ONCE IN 2 HOURS 02/28/2022 Active Comment on above: MAY REPEAT DOSE ONCE IN 2 HOURS topiramate 50 mg oral tablet (20 sources) Start: 01-19-2007 TOPAMAX 50 MG TAB Take one(1) tablet three times daily. 0 01/19/2007 Active Comment on above: Take one(1) tablet t hree times daily. ZOLMitriptan 2.5 mg oral tablet (20 sources) Serotonin-1b and Serotonin-1d Receptor Agonist Start: 01-19-2007 ZOMIG 2.5 MG TAB Take one(1) tablet at onset of migraine headache. 0 01/19/2007 Active Comment on above: Take one(1) tablet a t onset of migraine headache. Completed/Discontinued Medications Medication Drug Class(es) Dates Sig (Normalized) Sig (Original) acetaminophen 325 mg / HYDROcodone bitartrate 10 mg oral tablet (20 sources) Opioid Agonist Start: 03-12-2024 End: 10-08-2024 take 1 tablet by mouth every six hours as needed for pain HYDROcodone-Acetamin ophen (NORCO) 10-325 mg per tablet Indications: Degeneration of intervertebral disc of lumbar region Take 1 tablet by mouth every 6 hours as needed for pain for up to 30 days. Patient should start on August 09, 2024. 120 tablet 08/09/2024 09/06/2024 Discontinued Start: 01-12-2024 End: 03-09-2024 take 1 tablet by mouth every six hours as needed for pain HYDROcodone-Acetaminophen (NORCO) 10-325 mg per tablet Indications: Degeneration of intervertebral disc of lumbar region Take 1 tablet by mouth every 6 hours as needed for pain for up to 30 days. Do not start before February 11, 2024. 120 tablet 0 02/11/2024 03/09/2024 Discontinued Start: 12-13-2023 End: 01-08-2024 take 1 tablet by mouth every six hours as needed for pain HYDROcodone-Acetaminophen (NORCO) 10-325 mg per tablet Indications: Degeneration of intervertebral disc of lumbar region Take 1 tablet by mouth every 6 hours as needed for pain for up to 30 days. Do not start before December 13, 2023. 120 tablet 0 12/13/2023 01/08/2024 Discontinued Start: 07-16-2023 End: 11-13-2023 take 1 tablet by mouth every six hours as needed for pain HYDROcodone-Acetaminophen (NORCO) 10-325 mg per tablet Indications: Degeneration of intervertebral disc of lumbar region Take 1 tablet by mouth every 6 hours as needed for pain for up to 30 days. Do not start before October 14, 2023. 120 tablet 0 10/14/2023 11/13/2023 Active Start: 05-17-2023 End: 07-13-2023 take 1 tablet by mouth every six hours as needed for pain HYDROcodone-Acetaminophen (NORCO) 10-325 mg per tablet Indications: Degeneration of intervertebral disc of lumbar region Take 1 tablet by mouth every 6 hours as needed for pain for up to 30 days. 120 tablet 0 06/13/2023 07/11/2023 Discontinued Start: 11-18-2022 End: 05-14-2023 take 1 tablet by mouth every six hours as needed for pain HYDROcodone-Acetaminophen (NORCO) 10-325 mg per tablet Indications: Degeneration of intervertebral disc of lumbar region Take 1 tablet by mouth every 6 hours as needed for pain for up to 30 days. Do not start before April 17, 2023. 120 tablet 0 04/17/2023 05/14/2023 Discontinued Start: 07-12-2022 End: 11-13-2022 take 1 tablet by mouth every six hours as needed for pain HYDROcodone-Acetaminophen (NORCO) 10-325 mg per tablet Indications: Degeneration of intervertebral disc of lumbar region Take 1 tablet by mouth every 6 hours as needed for pain for up to 30 days. 120 tablet 0 10/14/2022 11/13/2022 Discontinued Start: 05-30-2022 End: 06-29-2022 take 1 tablet by mouth every six hours as needed for pain HYDROcodone-Acetaminophen (NORCO) 10-325 mg per tablet Indications: Degeneration of intervertebral disc of lumbar region Take 1 tablet by mouth every 6 hours as needed for pain for up to 30 days. 120 tablet 0 05/30/2022 06/29/2022 Active Start: 04-25-2008 End: 05-30-2022 HYDROCODONE-ACETAMINOPHEN 5 MG-500 MG TAB Take one(1) tablet every four(4) to six(6) hours as needed for pain. 0 04/25/2008 05/30/2022 Discontinued Comment on above: Take one(1) tablet e very four(4) to six(6) hours as needed for pain. Take 1 tablet by selina th every 6 hours as needed for pain for up to 30 days. Take 1 tablet by selina th every 6 hours as needed for pain for up to 30 days. Do not start before July 12, 2022. Take 1 tablet by selina th every 6 hours as needed for pain for up to 30 days. Do not start before August 11, 2022. Take 1 tablet by selina th every 6 hours as needed for pain for up to 30 days. Do not start before November 18, 2022. Take 1 tablet by selina th every 6 hours as needed for pain for up to 30 days. Do not start before December 18, 2022. Take 1 tablet by selina th every 6 hours as needed for pain for up to 30 days. Do not start before January 17, 2023. Take 1 tablet by selina th every 6 hours as needed for pain for up to 30 days. Do not start before February 16, 2023. Take 1 tablet by selina th every 6 hours as needed for pain for up to 30 days. Do not start before March 18, 2023. Take 1 tablet by selina th every 6 hours as needed for pain for up to 30 days. Do not start before May 17, 2023. Take 1 tablet by selina th every 6 hours as needed for pain for up to 30 days. Do not start before April 17, 2023. Take 1 tablet by selina th every 6 hours as needed for pain for up to 30 days. Do not start before July 16, 2023. Take 1 tablet by selina th every 6 hours as needed for pain for up to 30 days. Do not start before August 15, 2023. Take 1 tablet by selina th every 6 hours as needed for pain for up to 30 days. Do not start before September 14, 2023. Take 1 tablet by selina th every 6 hours as needed for pain for up to 30 days. Do not start before October 14, 2023. Take 1 tablet by selina th every 6 hours as needed for pain for up to 30 days. Do not start before January 12, 2024. Take 1 tablet by selina th every 6 hours as needed for pain for up to 30 days. Do not start before December 13, 2023. Take 1 tablet by selina th every 6 hours as needed for pain for up to 30 days. Do not start before March 12, 2024. Take 1 tablet by selina th every 6 hours as needed for pain for up to 30 days. Do not start before February 11, 2024. Problems Active Problems Problem Classification Problem Date Documented Date Episodic/Chronic Essential hypertension (20 sources) Hypertensive disorder; Translations: [Essential (primary) hypertension] Onset: 05-29-2022 05-29-2022 Chronic Osteoarthritis (20 sources) Degenerative joint disease involving multiple joints; Translations: [Polyosteoarthritis, unspecified] Onset: 01-26-2018 Chronic Other nervous system disorders (18 sources) Chronic pain syndrome; Translations: [Chronic pain syndrome] Onset: 05-14-2023 05-14-2023 Chronic Spondylosis; intervertebral disc disorders; other back problems (20 sources) Degeneration of lumbar intervertebral disc; Translations: [Other intervertebral disc degeneration, lumbar region] Onset: 01-26-2018 Chronic Past or Other Problems Problem Classification Problem Date Documented Da te Episodic/Chronic Other aftercare (20 sources) Long-term current use of drug therapy; Translations: [Other senior care (current) drug therapy] Onset: 06-10-2019 05-29-2022 Episodic Other aftercare (1 source) 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; Translations: [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] Onset: 05-29-2022 Episodic Other connective tissue disease (20 sources) Fibromyalgia; Translations: [Fibromyalgia] Onset: 01-26-2018 Episodic Other connective tissue disease (20 sources) Bursitis of hip; Translations: [Trochanteric bursitis, unspecified hip] Onset: 09-08-2020 Episodic Other connective tissue disease (1 source) Fibromyalgia; Translations: [Fibromyalgia] Onset: 05-29-2022 Episodic Other connective tissue disease (1 source) Trochanteric bursitis, unspecified hip; Translations: [Trochanteric bursitis, unspecified laterality] Onset: 05-29-2022 Episodic Spondylosis; intervertebral disc disorders; other back problems (20 sources) Low back pain; Translations: [Low back pain] Onset: 11-14-2021 05-29-2022 Episodic Results Test Name Value Interpretation Reference Range Kate Mas 06-22-2024 CN[facility] Office Visit (PAMMJK ) EDER SCHAEFFER ([id number]) 1955 F T Date Time Provider Department 06/22/24 1:30 PM CIERRA ROSS During your visit today, we recorded the following information about you: Pulse Respiration Blood pressure 67/minute 16/minute 106/67 Cierra Ross PA-C 06/22/2024 1:28 PM Signed This note was created using [employer]. Subjective Eder Schaeffer is a 69 year old female. The patient primarily being seen for back pain Patient was last seen on: 03/23/24 At that time, the treatment plan was: see notes Current Meds: hydrocodone - am, lidocaine patch - prn due to cost Efficacy: help Side effects: denies TENS unit: didn't help How often used: Benefit: Physical Therapy: 2022 for shoulder Last UDS: 03/23/24 Last injection: OARRS reviewed At the present time, the patient reports benefit with her present analgesic therapy. She denies any adverse effects. Since her previous visit, she denies any hospitalizations or ER visits. She has been having issues with pain in the right thigh and is going to see her knee surgeon at [facility]. 03/23/2024 06/22/2024 INTAKE PAIN ASSESSMENT Are you having pain associated with your visit today? Yes, Provider notified Yes, Provider notified Pain Scales Verbal (Numeric Rating or Visual Analog Scale) Verbal (Numeric Rating or Visual Analog Scale) Pain Level 6 6 Pain Location Back Back-Lower Description Aching;Dull Aching Duration Amount of Time 10 Duration Units Years Frequency Continuous Continuous Intervention/Comfort measure Medication;Other: See comment Medication;Exercise;Re laxation Back Pain Pertinent negatives include no fever. PAST MEDICAL HISTORY Diagnosis Date Back pain Chronic kidney disease, stage III (moderate) (HCC) Heart murmur HTN (hypertension) Hypokalemia Migraines MVP (mitral valve prolapse) Myalgia and myositis, unspecified PAST SURGICAL HISTORY Procedure Laterality Date ARTHRP KNE CONDYLEANDPLATU MEDIALANDLAT COMPARTMENTS right knee CHOLECYSTECTOMY Cholecystectomy COLONOSCOPY FLX DX W/COLLJ SPEC WHEN PFRMD Colonoscopy OOPHORECTOMY PARTIAL/TOTAL UNI/BI Oophorectomy Right PAST SURGICAL HISTORY OF pilinodal cyst PAST SURGICAL HISTORY OF surgery L knee PAST SURGICAL HISTORY OF Right 08/2022 shoulder - Dr. Schulte Social History Tobacco Use Smoking status: Every Day Packs/day: 1.00 Years: 25.00 Additional pack years: 0.00 Total pack years: 25.00 Types: Cigarettes Smokeless tobacco: Never Substance Use Topics Alcohol use: No Drug use: No Review of Systems Constitutional: Negative for fever and unexpected weight change. Musculoskeletal: Positive for back pain. + back pain, joint pain, muscle cramps/weakness, stiffness, arthritis, sciatica, restless legs, leg pain at night, and leg pain with exertion. Objective BP 106/67 (BP Site: Left Arm, BP Position: Sitting) Pulse 67 Resp 16 LMP 02/21/2008 SpO2 96% Physical Exam Vitals and nursing note reviewed. Constitutional: Appearance: Normal appearance. She is well-developed, well-groomed and normal weight. HENT: Head: Normocephalic and atraumatic. Right Ear: Hearing normal. Left Ear: Hearing normal. Eyes: Conjunctiva/sclera: Conjunctivae normal. Comments: Wearing glasses Musculoskeletal: Comments: She walks with a normal gait. The patient has tenderness to palpation in the lubmar reigon with spasms noted in the trapezius, paraspinal, and latissimus dorsi muscles. The patient has multiple fibromyalgia tender points noted throughout the examination. She has tenderness to palpation in the knees bilaterally with crepitus noted. There is tenderness over the right greater trochanter Neurological: Mental Status: She is alert and oriented to person, place, and time. Psychiatric: Attention and Perception: Attention and perception normal. Mood and Affect: Mood and affect normal. Speech: Speech normal. Behavior: Behavior normal. Behavior is cooperative. Thought Content: Thought content normal. Judgment: Judgment normal. Assessment and Plan ASSESSMENT/PLAN: 1. Degeneration of intervertebral disc of lumbar region - ICD9: 722.52, ICD10: M51.36 (primary diagnosis) The OARRS report has been reviewed and is consistent with the patients medical history and medication intake. The patient's most recent drug screen has been reviewed and is appropriate and consistent with current therapy. The patient will continue with hydrocodone and Lidoderm patch. She will continue with core strengthening and range of motion exercises. Patient was encouraged to stop smoking. Follow-up in office in 3 months FU with Maribeth Gay regarding the right knee. - HYDROCODONE 10 MG-ACETAMINOPHEN 325 MG TABLET (Two stable chronic illnesses/prescription drug management) 2. Lumbar spondylosis (more content not included)... Normal [facility] 03-23-2024 [facility] Office Visit (TORO ) LAURYEDER ([id number]) 1955 F [place] Date Time Provider Department 03/23/24 1:00 PM CIERRA ROSS During your visit today, we recorded the following information about you: Temperature Pulse Respiration Blood pressure 96.8 degrees 73/minute 20/minute 155/80 Weight Height 61.7 kg 1.702 m Cierra Ross PA-C 03/23/2024 1:20 PM Signed This note was created using [employer]. Subjective Eder Schaeffer is a 69 year old female. The patient primarily being seen for back pain Patient was last seen on: 01/27/24 At that time, the treatment plan was: see notes Current Meds: [facility] - last dose this am, Lidocaine Patch - last applied weeks ago - too costly Efficacy: helps Side effects: none TENS unit: had one but didn't help How often used: Benefit: Physical Therapy: 2022 post shoulder surgery Last UDS: 03/23/24 Last injection: none OARRS reviewed At the present time, the patient reports benefit with her present analgesic therapy. She denies any adverse effects. Since her previous visit, she denies any hospitalizations or ER visits. Otherwise, she has nothing further to discuss at this time. 01/27/2024 03/23/2024 INTAKE PAIN ASSESSMENT Are you having pain associated with your visit today? Yes, Provider notified Yes, Provider notified Pain Scales Verbal (Numeric Rating or Visual Analog Scale) Verbal (Numeric Rating or Visual Analog Scale) Pain Level 6 6 Pain Location Back Back Description Aching;Sharp;Stabbing Aching;Dull Frequency Intermittent Continuous Intervention/Comfort measure Medication Medication;Other: See comment HPI PAST MEDICAL HISTORY Diagnosis Date Back pain Chronic kidney disease, stage III (moderate) (HCC) Heart murmur HTN (hypertension) Hypokalemia Migraines MVP (mitral valve prolapse) Myalgia and myositis, unspecified PAST SURGICAL HISTORY Procedure Laterality Date ARTHRP KNE CONDYLEANDPLATU MEDIALANDLAT COMPARTMENTS right knee CHOLECYSTECTOMY Cholecystectomy COLONOSCOPY FLX DX W/COLLJ SPEC WHEN PFRMD Colonoscopy OOPHORECTOMY PARTIAL/TOTAL UNI/BI Oophorectomy Right PAST SURGICAL HISTORY OF pilinodal cyst PAST SURGICAL HISTORY OF surgery L knee PAST SURGICAL HISTORY OF Right 08/2022 shoulder - Dr. Schulte Social History Tobacco Use Smoking status: Every Day Packs/day: 1.00 Years: 25.00 Additional pack years: 0.00 Total pack years: 25.00 Types: Cigarettes Smokeless tobacco: Never Substance Use Topics Alcohol use: No Drug use: No Review of Systems Constitutional: Negative for fever and unexpected weight change. Musculoskeletal: + back pain, joint pain, muscle cramps/weakness, stiffness, arthritis, sciatica, restless legs, leg pain at night, and leg pain with exertion. Objective BP 155/80 (BP Site: Left Arm, BP Position: Sitting, BP Cuff Size: Large Adult) Pulse 73 Temp 36 ?C (96.8 ?F) (Temporal) Resp 20 Ht 170.2 cm (5' 7 ) Wt 61.7 kg (136 lb) LMP 02/21/2008 SpO2 99% BMI 21.30 kg/m? Physical Exam Vitals and nursing note reviewed. Constitutional: Appearance: Normal appearance. She is well-developed, well-groomed and normal weight. HENT: Head: Normocephalic and atraumatic. Right Ear: Hearing normal. Left Ear: Hearing normal. Eyes: Conjunctiva/sclera: Conjunctivae normal. Comments: Wearing glasses Musculoskeletal: Comments: She walks with a normal gait. The patient has tenderness to palpation in the lubmar reigon with spasms noted in the trapezius, paraspinal, and latissimus dorsi muscles. The patient has multiple fibromyalgia tender points noted throughout the examination. She has tenderness to palpation in the knees bilaterally with crepitus noted. There is tenderness over the right greater trochanter Neurological: Mental Status: She is alert and oriented to person, place, and time. Psychiatric: Attention and Perception: Attention and perception normal. Mood and Affect: Mood and affect normal. Speech: Speech normal. Behavior: Behavior normal. Behavior is cooperative. Thought Content: Thought content normal. Judgment: Judgment normal. Assessment and Plan ASSESSMENT/PLAN: 1. Degeneration of intervertebral disc of lumbar region - ICD9: 722.52, ICD10: M51.36 (primary diagnosis) The OARRS report has been reviewed and is consistent with the patients medical history and medication intake. The patient underwent a random drug screen at today's office visit. The patient will continue with hydrocodone and Lidoderm patch. She will continue with core strengthening and range of motion exercises. Patient was encouraged to stop smoking. Follow-up in office in 3 months - TOXASSURE? FLEX 23, URINE - HYDROCODONE 10 MG-ACETAMINOPHEN 325 MG TABLET (Two stable chronic illnesses/prescription drug management) 2. Lumbar spondylosis - ICD9: 721.3, IC (more content not included)... Normal [facility] 01-27-2024 [facility] Office Visit (PAMMJK ) EDER SCHAEFFER ([id number]) 1955 F T Date Time Provider Department 01/27/24 1:15 PM CIERRA ROSS During your visit today, we recorded the following information about you: Temperature Pulse Respiration Blood pressure 97.5 degrees 67/minute 20/minute 121/82 Weight Height 62.6 kg 1.702 m Cierra Ross PA-C 01/27/2024 1:10 PM Signed The OARRS report has been reviewed and is consistent with the patients medical history and medication intake. The patient will continue with hydrocodone and Lidoderm patch. She will continue with core strengthening and range of motion exercises. Patient was encouraged to stop smoking. Follow-up in office in 6 weeks time. I discussed the patient with Dr. Montez who agrees with my assessment and plan. All of the above is to improve functionality and quality of life. No evidence of drug abuse or diversion is seen at this time. Cierra Ross PA-C 01/27/2024 1:21 PM Signed This note was created using [employer]. Subjective Eder Schaeffer is a 68 year old female. The patient primarily being seen for back pain Patient was last seen on: 12/15/23 At that time, the treatment plan was: see notes Current Meds: [facility] - last dose this am, Lidocaine Patch - uses rarely - too costly Efficacy: helps Side effects: none TENS unit: had one but didn't help How often used: Benefit: Physical Therapy: 2022 - post shoulder surgery Last UDS: 10/20/23 Last injection: none OARRS reviewed At the present time, the patient reports benefit with her present analgesic therapy. She denies any adverse effects. Since her previous visit, she denies any hospitalizations or ER visits. Otherwise, she has nothing further to discuss at this time. INTAKE PAIN ASSESSMENT 12/15/2023 01/27/2024 Are you having pain associated with your visit today? Yes, Provider notified Yes, Provider notified Pain Scales Verbal (Numeric Rating or Visual Analog Scale) Verbal (Numeric Rating or Visual Analog Scale) Pain Level 6 6 Pain Location Back-Lower Back Description Aching Aching;Sharp;Stabbing Duration Units - - Frequency Continuous Intermittent Intervention/Comfort measure Medication;Relaxation; Heat Medication Comments - - HPI PAST MEDICAL HISTORY Diagnosis Date Back pain Chronic kidney disease, stage III (moderate) (HCC) Heart murmur HTN (hypertension) Hypokalemia Migraines MVP (mitral valve prolapse) Myalgia and myositis, unspecified PAST SURGICAL HISTORY Procedure Laterality Date ARTHRP KNE CONDYLEANDPLATU MEDIALANDLAT COMPARTMENTS right knee CHOLECYSTECTOMY Cholecystectomy COLONOSCOPY FLX DX W/COLLJ SPEC WHEN PFRMD Colonoscopy OOPHORECTOMY PARTIAL/TOTAL UNI/BI Oophorectomy Right PAST SURGICAL HISTORY OF pilinodal cyst PAST SURGICAL HISTORY OF surgery L knee PAST SURGICAL HISTORY OF Right 08/2022 shoulder - Dr. Schulte Social History Tobacco Use Smoking status: Every Day Packs/day: 1.00 Years: 25.00 Additional pack years: 0.00 Total pack years: 25.00 Types: Cigarettes Smokeless tobacco: Never Substance Use Topics Alcohol use: No Drug use: No Review of Systems Constitutional: Negative for fever and unexpected weight change. Musculoskeletal: + back pain, joint pain, muscle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 or compression deformity. Mild degenerative changes without disc space narrowing. Normal paraspinal soft tissues. IMPRESSION: Degenerative changes. No acute or recent posttraumatic findings. 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 No [facility] ([place] Comment on above: Performed By: #### C OVID #### Anshu Durham [address] [place], [place] [address] First Test Yes [facility] ([place] Comment on above: Performed By: #### C OVID #### Anshu [address] [address] Hospitalized No [facility] ([place] Comment on above: Performed By: #### C OVID #### [address] [address] ICU No [facility] [place] Comment on above: Performed By: #### C OVID #### [address] [address] Not [facility] ([place] Comment on above: Performed By: #### C OVID #### [address] [address] Resides in Congregate Care Setting No [facility] [place] Comment on above: Performed By: #### C OVID #### [address] [address] SARS-CoV-2 (COVID-19) RNA MEI+probe Ql (Unsp spec) See Below [facility] [place] Comment on above: Result Comment: Naso pharyngeal Swab Performed By: [facility] [address] [place] [address] Guidance Director: Mariola Hayes III#: [id number] Phone#: Performed By: #### C OVID #### [address] [address] Result Comment: Nega tive Negative for COVID19 (SARS CoV2) by PCR. This test was developed and its performance characteristics determined by [facility] [place]. This test has been authorized by FDA under an Emergency Use Authorization (EUA). This test has been validated in accordance with the FDA's Guidance Document Policy for Diagnostics Testing in Laboratories Certified to Perform High Complexity Testing under CLIA prior to Emergency use Authorization for Coronavirus Disease 2019 during the Public Health Emergency issued on January 22, 2020. Performed By: [facility] [address] [place] [address] Guidance Director: Bobby Flower III, M.D. CLIA#: [id number] Phone#: Symptomatic as Defined by CDC Yes Normal [facility] ([place]) Comment on above: Performed By: #### C OVID #### [address] [address] TOXASSURE COMPRon 06-14-2019 TOXASSURE COMPR FINAL Normal () [facility] Comment on above: Result Comment: = TOXASSURE COMP DRUG ANALYSIS,UR = Test Result Flag Units Drug Present and Declared for Prescription Verification Hydrocodone 2316 EXPECTED ng/mg creat Hydromorphone 61 EXPECTED ng/mg creat Dihydrocodeine 283 EXPECTED ng/mg creat Norhydrocodone >1429 EXPECTED ng/mg creat Sources of hydrocodone include scheduled prescription medications. Hydromorphone, dihydrocodeine and norhydrocodone are expected metabolites of hydrocodone. Hydromorphone and dihydrocodeine are also available as scheduled prescription medications. Paroxetine PRESENT EXPECTED Drug Present not Declared for Prescription Verification Topiramate PRESENT UNEXPECTED Acetaminophen PRESENT UNEXPECTED Salicylate PRESENT UNEXPECTED Lidocaine PRESENT UNEXPECTED Guaifenesin PRESENT UNEXPECTED Guaifenesin may be administered as an rmvs-yug-ieszfhs or prescription drug; it may also be present as a breakdown product of methocarbamol. Metoprolol PRESENT UNEXPECTED = Test Result Flag Units Ref Range Creatinine 350 mg/dL >=20 = Declared Medications: The flagging and interpretation on this report are based on the following declared medications. Unexpected results may arise from inaccuracies in the declared medications. Note: The testing scope of this panel includes these medications: Hydrocodone Paroxetine (Paxil) = For clinical consultation, please call . = Performed At: [facility] [address] [place] [id number] Scott Mayorga [id number] Performed By: #### L [id number] #### [facility] [address] [place] [address] # [phone] Vital Signs Date Time Vital Sign Value Performing Clinician Batsheva mckoy 06-22-2024 13:07-0400 Diastolic blood pressure 67 mm[Hg] Cierra Ross PA-C Work Phone: [facility] 06-22-2024 13:07-0400 Heart rate 67 /min Cierra ROSS-C Work Phone: [facility] 06-22-2024 13:07-0400 Respiratory rate 16 /min Cierra ROSS-C Work Phone: [facility] 06-22-2024 13:07-0400 SaO2% (BldA) [Mass fraction] 96 % Cierra ROSS-Phillip Work Phone: [facility] 06-22-2024 13:07-0400 Systolic blood pressure 106 mm[Hg] Cierra ROSS-Phillip Work Phone: [facility] 03-23-2024 13:06-0400 Body height 170.2 cm Cierra ROSS-C Work Phone: [facility] 03-23-2024 13:06-0400 Body mass index (BMI) [Ratio] 21.3 kg/m2 Cierra ROSS-C Work Phone: [facility] 03-23-2024 13:06-0400 Body temperature 96.8 [degF] Cierra ROSS-C Work Phone: [facility] 03-23-2024 13:06-0400 Body weight 61.69 kg Cierra ROSS-C Work Phone: [facility] 03-23-2024 13:06-0400 Diastolic blood pressure 80 mm[Hg] Cierra ROSS-C Work Phone: [facility] 03-23-2024 13:06-0400 Heart rate 73 /min Cierra ROSS-C Work Phone: [facility] 03-23-2024 13:06-0400 Respiratory rate 20 /min Cierra ROSS-C Work Phone: [facility] 03-23-2024 13:06-0400 SaO2% (BldA) [Mass fraction] 99 % Cierra Ross PA-C Work Phone: [facility] 03-23-2024 13:06-0400 Systolic blood pressure 155 mm[Hg] Cierra Ross PA-C Work Phone: [facility] 10-20-2023 13:19-0500 Body temperature 97.39 [degF] Cierra Ross PA-C Work Phone: [facility] 10-20-2023 13:19-0500 Diastolic blood pressure 79 mm[Hg] Cierra Ross PA-C Work Phone: [facility] 10-20-2023 13:19-0500 Heart rate 79 /min Cierra Ross PA-C Work Phone: [facility] 10-20-2023 13:19-0500 Respiratory rate 18 /min Cierra Ross PA-C Work Phone: [facility] 10-20-2023 13:19-0500 SaO2% (BldA) [Mass fraction] 99 % Cierra Ross PA-C Work Phone: [facility] 10-20-2023 13:19-0500 Systolic blood pressure 126 mm[Hg] Cierra Ross PA-C Work Phone: [facility] 08-22-2023 09:59-0400 Body height 170.2 cm Cierra Ross PA-C Work Phone: [facility] 08-22-2023 09:59-0400 Body temperature 96.91 [degF] Cierra Ross PA-C Work Phone: [facility] 08-22-2023 09:59-0400 Body weight 59.42 kg Cierra Ross PA-C Work Phone: [facility] 08-22-2023 09:59-0400 Diastolic blood pressure 72 mm[Hg] Cierra Ross PA-C Work Phone: [facility] 08-22-2023 09:59-0400 Heart rate 68 /min Cierra Ross PA-C Work Phone: [facility] 08-22-2023 09:59-0400 SaO2% (BldA) [Mass fraction] 97 % Cierra Ross PA-C Work Phone: [facility] 08-22-2023 09:59-0400 Systolic blood pressure 117 mm[Hg] Cierra Ross PA-C Work Phone: [facility] 06-25-2023 14:14-0400 Body temperature 97 [degF] Cierra Ross PA-C Work Phone: [facility] 06-25-2023 14:14-0400 Diastolic blood pressure 87 mm[Hg] Cierra Ross PA-C Work Phone: [facility] 06-25-2023 14:14-0400 Heart rate 74 /min Cierra Ross PA-C Work Phone: [facility] 06-25-2023 14:14-0400 Respiratory rate 18 /min Cierra Ross PA-C Work Phone: [facility] 06-25-2023 14:14-0400 SaO2% (BldA) [Mass fraction] 97 % Cierra Ross PA-C Work Phone: [facility] 06-25-2023 14:14-0400 Systolic blood pressure 142 mm[Hg] Cierra Ross PA-C Work Phone: [facility] 05-14-2023 13:11-0400 Body height 170.2 cm Dhruv Montez MD Work Phone: [facility] 05-14-2023 13:11-0400 Body temperature 97.5 [degF] Dhruv oMntez MD Work Phone: [facility] 05-14-2023 13:11-0400 Body weight 59.42 kg Dhruv Montez MD Work Phone: [facility] 05-14-2023 13:11-0400 Diastolic blood pressure 78 mm[Hg] Dhruv Montez MD Work Phone: [facility] 05-14-2023 13:11-0400 Heart rate 85 /min Dhruv Montez MD Work Phone: [facility] 05-14-2023 13:11-0400 SaO2% (BldA) [Mass fraction] 97 % Dhruv Montez MD Work Phone: [facility] 05-14-2023 13:11-0400 Systolic blood pressure 119 mm[Hg] Dhruv Montez MD Work Phone: [facility] 04-01-2023 13:49-0400 Body height 170.2 cm Cierra Ross PA-C Work Phone: [facility] 04-01-2023 13:49-0400 Body temperature 97 [degF] Cierra Ross PA-C Work Phone: [facility] 04-01-2023 13:49-0400 Body weight 60.33 kg Cierra Ross PA-C Work Phone: [facility] 04-01-2023 13:49-0400 Diastolic blood pressure 66 mm[Hg] Cierra Ross PA-C Work Phone: [facility] 04-01-2023 13:49-0400 Heart rate 86 /min Cierra Ross PA-C Work Phone: [facility] 04-01-2023 13:49-0400 Respiratory rate 20 /min Cierra Ross PA-C Work Phone: [facility] 04-01-2023 13:49-0400 SaO2% (BldA) [Mass fraction] 98 % Cierra Ross PA-C Work Phone: [facility] 04-01-2023 13:49-0400 Systolic blood pressure 104 mm[Hg] Cierra Ross PA-C Work Phone: [facility] 02-18-2023 13:06-0400 Diastolic blood pressure 72 mm[Hg] Cierra Ross PA-C Work Phone: [facility] 02-18-2023 13:06-0400 Systolic blood pressure 103 mm[Hg] Cierra Ross PA-C Work Phone: [facility] 02-18-2023 13:03-0400 Body height 170.2 cm Cierra Ross PA-C Work Phone: [facility] 02-18-2023 13:03-0400 Body temperature 96.91 [degF] Cierra Ross PA-C Work Phone: [facility] 02-18-2023 13:03-0400 Body weight 59.42 kg Cierra Ross PA-C Work Phone: [facility] 02-18-2023 13:03-0400 Heart rate 83 /min Cierra Ross PA-C Work Phone: [facility] 02-18-2023 13:03-0400 Respiratory rate 20 /min Cierra Ross PA-C Work Phone: [facility] 02-18-2023 13:03-0400 SaO2% (BldA) [Mass fraction] 96 % Cierra Ross PA-C Work Phone: [facility] 01-07-2023 12:59-0500 Body height 170.2 cm Cierra Ross PA-C Work Phone: [facility] 01-07-2023 12:59-0500 Body temperature 98.4 [degF] Cierra Ross PA-C Work Phone: [facility] 01-07-2023 12:59-0500 Body weight 60.78 kg Cierra Ross PA-C Work Phone: [facility] 01-07-2023 12:59-0500 Diastolic blood pressure 78 mm[Hg] Cierra Ross PA-C Work Phone: [facility] 01-07-2023 12:59-0500 Heart rate 80 /min Cierra Ross PA-C Work Phone: [facility] 01-07-2023 12:59-0500 Respiratory rate 18 /min Cierra Ross PA-C Work Phone: [facility] 01-07-2023 12:59-0500 SaO2% (BldA) [Mass fraction] 97 % Cierra Ross PA-C Work Phone: [facility] 01-07-2023 12:59-0500 Systolic blood pressure 135 mm[Hg] Cierra Ross PA-C Work Phone: [facility] 11-26-2022 13:06-0500 Body height 170.2 cm Cierra Ross PA-C Work Phone: [facility] 11-26-2022 13:06-0500 Body temperature 97.3 [degF] Cierra Ross PA-C Work Phone: [facility] 11-26-2022 13:06-0500 Body weight 60.33 kg Cierra Ross PA-C Work Phone: [facility] 11-26-2022 13:06-0500 Diastolic blood pressure 73 mm[Hg] Cierra Ross PA-C Work Phone: [facility] 11-26-2022 13:06-0500 Heart rate 76 /min Cierra Ross PA-C Work Phone: [facility] 11-26-2022 13:06-0500 Respiratory rate 20 /min Cierra Ross PA-C Work Phone: [facility] 11-26-2022 13:06-0500 SaO2% (BldA) [Mass fraction] 95 % Cierra Ross PA-C Work Phone: [facility] 11-26-2022 13:06-0500 Systolic blood pressure 115 mm[Hg] Cierra Ross PA-C Work Phone: [facility] 10-11-2022 12:57-0500 Body temperature 97.2 [degF] Cierra Ross PA-C Work Phone: [facility] 10-11-2022 12:57-0500 Diastolic blood pressure 87 mm[Hg] Cierra Ross PA-C Work Phone: [facility] 10-11-2022 12:57-0500 Heart rate 89 /min Cierra Ross PA-C Work Phone: [facility] 10-11-2022 12:57-0500 Respiratory rate 18 /min Cierra Ross PA-C Work Phone: [facility] 10-11-2022 12:57-0500 SaO2% (BldA) [Mass fraction] 96 % Cierra Ross PA-C Work Phone: [facility] 10-11-2022 12:57-0500 Systolic blood pressure 125 mm[Hg] Cierra Ross PA-C Work Phone: [facility] 08-29-2022 13:13-0400 Body height 170.2 cm Cierra Ross PA-C Work Phone: [facility] 08-29-2022 13:13-0400 Body temperature 97.3 [degF] Cierra Ross PA-C Work Phone: [facility] 08-29-2022 13:13-0400 Body weight 61.69 kg Cierra Ross PA-C Work Phone: [facility] 08-29-2022 13:13-0400 Diastolic blood pressure 88 mm[Hg] Cierra Ross PA-C Work Phone: [facility] 08-29-2022 13:13-0400 Heart rate 93 /min Cierra Ross PA-C Work Phone: [facility] 08-29-2022 13:13-0400 Respiratory rate 20 /min Cierra Ross PA-C Work Phone: [facility] 08-29-2022 13:13-0400 SaO2% (BldA) [Mass fraction] 98 % Cierra Ross PA-C Work Phone: [facility] 08-29-2022 13:13-0400 Systolic blood pressure 136 mm[Hg] Cierra Ross PA-C Work Phone: [facility] 07-17-2022 11:08-0400 Body temperature 97.7 [degF] Dhruv Montez MD Work Phone: [facility] 07-17-2022 11:08-0400 Diastolic blood pressure 87 mm[Hg] Dhruv Montez MD Work Phone: [facility] 07-17-2022 11:08-0400 Heart rate 78 /min Dhruv Montez MD Work Phone: [facility] 07-17-2022 11:08-0400 Respiratory rate 18 /min Dhruv Montez MD Work Phone: [facility] 07-17-2022 11:08-0400 SaO2% (BldA) [Mass fraction] 98 % Dhruv Montez MD Work Phone: [facility] 07-17-2022 11:08-0400 Systolic blood pressure 139 mm[Hg] Dhruv Montez MD Work Phone: [facility] 05-30-2022 10:09-0400 Body height 170.2 cm Cierra Ross PA-C Work Phone: [facility] 05-30-2022 10:09-0400 Body temperature 96.8 [degF] Cierra Ross PA-C Work Phone: [facility] 05-30-2022 10:09-0400 Body weight 62.6 kg Cierra Ross PA-C Work Phone: [facility] 05-30-2022 10:09-0400 Diastolic blood pressure 79 mm[Hg] Cierra Ross PA-C Work Phone: [facility] 05-30-2022 10:09-0400 Heart rate 68 /min Cierra Ross PA-C Work Phone: [facility] 05-30-2022 10:09-0400 Respiratory rate 20 /min Cierra Ross PA-C Work Phone: [facility] 05-30-2022 10:09-0400 SaO2% (BldA) [Mass fraction] 98 % Cierra Ross PA-C Work Phone: [facility] 05-30-2022 10:09-0400 Systolic blood pressure 139 mm[Hg] Cierra TIERNEYC Work Phone: [facility] Encounters Encounter Date Encounter Type Care Provider Facility Start: 09-06-2024 End: 09-06-2024 Refill Cierra ROSS-C Work Phone: [facility] Comment on above: Refill Request Start: 08-05-2024 End: 08-05-2024 Refill Cierra ROSS-C Work Phone: [facility] Comment on above: Refill Request Start: 06-22-2024 End: 06-22-2024 Patient encounter procedure Cierra ROSS-C Work Phone: [facility] Comment on above: Degeneration of inte rvertebral disc of lumbar region (Primary Dx); Lumbar spondylosis; Fibromyalgia; Generalized osteoarthritis; Primary osteoarthritis of both shoulders; Primary osteoarthritis of both knees; Trochanteric bursitis, unspecified laterality Start: 06-22-2024 End: 06-22-2024 ambulatory CIERRA ROSS Facility:[id number] Start: 06-08-2024 Refill Cierra ROSS-C Work Phone: [facility] Comment on above: Refill Request Start: 05-10-2024 Refill Cierra ROSS-C Work Phone: [facility] Comment on above: Refill Request Start: 03-23-2024 End: 03-23-2024 Patient encounter procedure Cierra ROSS-C Work Phone: [facility] Comment on above: Degeneration of inte rvertebral disc of lumbar region (Primary Dx); Lumbar spondylosis; Fibromyalgia; Generalized osteoarthritis; Primary osteoarthritis of both shoulders; Primary osteoarthritis of both knees; Trochanteric bursitis, unspecified laterality; 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 Start: 03-23-2024 End: 03-23-2024 ambulatory CIERRA Alvarado CODY Facility:[id number] Start: 03-09-2024 Refill Cierra goldman PA-C Work Phone: [facility] Comment on above: Refill Request Start: 01-27-2024 End: 01-27-2024 ambulatory CIERRA Alvarado ROSS Facility:[id number] Start: 01-08-2024 Refill Cierra Flahertyt jones PA-C Work Phone: [facility] Comment on above: Refill Request Start: 12-15-2023 End: 12-15-2023 ambulatory CIERRA ROSS Facility:[id number] Start: 10-20-2023 End: 10-20-2023 Patient encounter procedure Cierra Ross CODY-C Work Phone: [facility] Comment on above: Degeneration of inte rvertebral disc of lumbar region (Primary Dx); Lumbar spondylosis; Fibromyalgia; Generalized osteoarthritis; Primary osteoarthritis of both shoulders; Primary osteoarthritis of both knees; Trochanteric bursitis, unspecified laterality; 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 Start: 10-20-2023 End: 10-20-2023 ambulatory CIERRA ROSS Facility:[id number] Start: 10-10-2023 Refill Cierra Alvarado Jt goldman PA-C Work Phone: [facility] Comment on above: Refill Request Start: 09-12-2023 Refill Cierra Alvarado Jt goldman PA-C Work Phone: [facility] Comment on above: Refill Request Start: 08-22-2023 End: 08-22-2023 Patient encounter procedure Cierra Ross CODY-C Work Phone: [facility] Comment on above: Degeneration of inte rvertebral disc of lumbar region (Primary Dx); Lumbar spondylosis; Fibromyalgia; Generalized osteoarthritis; Primary osteoarthritis of both shoulders; Primary osteoarthritis of both knees; Trochanteric bursitis, unspecified laterality Start: 08-22-2023 End: 08-22-2023 ambulatory CIERRA ROSS Facility:[id number] Start: 08-14-2023 Refill Cierra Alvarado Jt goldman PA-C Work Phone: [facility] Comment on above: Refill Request Start: 07-11-2023 Refill Cierra Alvarado Jt goldman PA-C Work Phone: [facility] Comment on above: Refill Request Start: 06-25-2023 End: 06-25-2023 Patient encounter procedure Cierra Alvarado Cody ROSS-C Work Phone: [facility] Comment on above: Degeneration of inte rvertebral disc of lumbar region (Primary Dx); Lumbar spondylosis; Fibromyalgia; Generalized osteoarthritis; Primary osteoarthritis of both shoulders; Primary osteoarthritis of both knees; Trochanteric bursitis, unspecified laterality Start: 06-25-2023 End: 06-25-2023 ambulatory CIERRA ROSS Facility:[id number] Start: 05-14-2023 Refill Cierra goldman PA-C Work Phone: [facility] Comment on above: Refill Request Start: 05-14-2023 End: 05-14-2023 Office outpatient visit 25 minutes Dhruv Montez MD Work Phone: [facility] Comment on above: Chronic pain syndrom e (Primary Dx); Fibromyalgia; Degeneration of intervertebral disc of lumbar region; Lumbar spondylosis; Generalized osteoarthritis; Primary osteoarthritis of both shoulders; Primary osteoarthritis of both knees; Trochanteric bursitis, unspecified laterality Start: 04-01-2023 End: 04-01-2023 Patient encounter procedure Cierra Ross PA-C Work Phone: [facility] Comment on above: Degeneration of inte rvertebral disc of lumbar region (Primary Dx); Lumbar spondylosis; Fibromyalgia; Generalized osteoarthritis; Primary osteoarthritis of both shoulders; Primary osteoarthritis of both knees; Trochanteric bursitis, unspecified laterality; 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 Start: 03-17-2023 Refill Cierra goldman PA-C Work Phone: [facility] Comment on above: Refill Request Start: 02-18-2023 End: 02-18-2023 Patient encounter procedure Cierra Ross PA-C Work Phone: [facility] Comment on above: Degeneration of inte rvertebral disc of lumbar region (Primary Dx); Lumbar spondylosis; Fibromyalgia; Generalized osteoarthritis; Primary osteoarthritis of both shoulders; Primary osteoarthritis of both knees; Trochanteric bursitis, unspecified laterality Start: 01-07-2023 End: 01-07-2023 Patient encounter procedure Cierra Ross PA-C Work Phone: [facility] Comment on above: Degeneration of inte rvertebral disc of lumbar region (Primary Dx); Lumbar spondylosis; Fibromyalgia; Generalized osteoarthritis; Primary osteoarthritis of both shoulders; Primary osteoarthritis of both knees; Trochanteric bursitis, unspecified laterality Start: 12-17-2022 Refill Cierra goldman PA-C Work Phone: [facility] Comment on above: Refill Request Start: 11-26-2022 End: 11-26-2022 Patient encounter procedure Cierra Ross PA-C Work Phone: [facility] Comment on above: Degeneration of inte rvertebral disc of lumbar region (Primary Dx); Lumbar spondylosis; Fibromyalgia; Generalized osteoarthritis; Primary osteoarthritis of both shoulders; Primary osteoarthritis of both knees; Trochanteric bursitis, unspecified laterality Start: 11-13-2022 Refill Cierra goldman PA-C Work Phone: [facility] Comment on above: Refill Request Start: 10-22-2022 Telephone encounter Cierra Ross PA-C Work Phone: [facility] Comment on above: Patient Update Start: 10-15-2022 Telephone encounter Cierra Ross PA-C Work Phone: [facility] Comment on above: filled oxycodone pos t op Start: 10-14-2022 Refill Cierra goldman PA-C Work Phone: [facility] Comment on above: Refill Request Start: 10-11-2022 End: 10-11-2022 Patient encounter procedure Cierra Ross PA-C Work Phone: [facility] Comment on above: Degeneration of inte rvertebral disc of lumbar region (Primary Dx); Lumbar spondylosis; Fibromyalgia; Generalized osteoarthritis; Primary osteoarthritis of both shoulders; Primary osteoarthritis of both knees; Trochanteric bursitis, unspecified laterality Start: 08-29-2022 End: 08-29-2022 Patient encounter procedure Cierra Ross PA-C Work Phone: [facility] Comment on above: Degeneration of inte rvertebral disc of lumbar region (Primary Dx); Fibromyalgia; Lumbar spondylosis; Generalized osteoarthritis; Primary osteoarthritis of both shoulders; Primary osteoarthritis of both knees; Trochanteric bursitis, unspecified laterality; 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 Start: 08-07-2022 Refill Cierra goldman PA-C Work Phone: [facility] Comment on above: Refill Request Start: 07-17-2022 End: 07-17-2022 Office outpatient visit 25 minutes Dhruv Montez MD Work Phone: [facility] Comment on above: Fibromyalgia (Primar y Dx); Degeneration of intervertebral disc of lumbar region; Lumbar spondylosis; Generalized osteoarthritis; Primary osteoarthritis of both shoulders; Primary osteoarthritis of both knees; Trochanteric bursitis, unspecified laterality Start: 05-30-2022 End: 05-30-2022 Patient encounter procedure Cierra Ross PA-C Work Phone: [facility] Comment on above: Fibromyalgia (Primar y Dx); Degeneration of intervertebral disc of lumbar region; Lumbar spondylosis; Generalized osteoarthritis; Primary osteoarthritis of both shoulders; Primary osteoarthritis of both knees; Trochanteric bursitis, unspecified laterality Start: 05-05-2022 Chart abstracting Cierra ROSS-C Work Phone: [facility] Start: 04-15-2022 End: 04-15-2022 Subsequent hospital visit by physician Cierra Ross PA-C Work Phone: [facility] Comment on above: FOLLOW UP Start: 03-04-2022 End: 03-04-2022 Subsequent hospital visit by physician Cierra Ross PA-C Work Phone: [facility] Comment on above: FOLLOW UP Start: 01-18-2022 End: 01-18-2022 Subsequent hospital visit by physician Cierra Ross Work Phone: [facility] Comment on above: FOLLOW UP Start: 10-24-2021 End: 10-24-2021 Subsequent hospital visit by physician Cierra Ross Work Phone: [facility] Comment on above: FOLLOW UP Procedures Date Procedure Procedure Detail Performing Clinician Start: 06-11-2010 Mammography Cierra fair Work Phone: Plan of Treatment Date Care Activity Detail Author Start: 2032 RSV Vaccine (1 - 1-d ose 75+ series) RSV Vaccine (1 - 1-dose 75+ series) [facility] Start: 04-15-2029 Urine microalbumin profile DTaP,Tdap,Td Vaccine (2 - Td or Tdap) [facility] Start: 06-22-2025 BP Controlled (<130/80) BP Controlle d (<130/80) [facility] Start: 12-15-2024 BP Controlled (<130/80) BP Controlle d (<130/80) [facility] Start: 10-20-2024 BP Controlled (<130/80) BP Controlle d (<130/80) [facility] Start: 09-27-2024 End: 09-27-2024 Patient encounter procedure 09/27/2024 2:00 PM EST Office Visit Pain Management [address] [facility] [address] Cipriano Leal MD [address] [place] [address] [facility] Comment on above: Transfer from Dr. Keli garcia Start: 08-22-2024 BP Controlled (<130/80) BP Controlle d (<130/80) [facility] Start: 07-25-2024 Covid-19 Vaccine ( season) Covid-19 Vaccine ( season) [facility] Start: 07-25-2024 Covid-19 Vaccine ( season) Covid-19 Vaccine ( season) [facility] Start: 07-25-2024 Influenza vaccination Influenza Vacc ine (#1) [facility] Start: 06-22-2024 End: 06-22-2024 Patient encounter procedure 06/22/2024 1:30 PM EDT Office Visit Pain Management [address] [facility] [place] [address] Cierra Ross PA-C [address] [place] [address] FOLLOW UP [facility] Comment on above: FOLLOW UP [facility] Start: 05-14-2024 BP CONTROLLED (<130/80) BP CONTROLLE D (<130/80) [facility] Start: 04-01-2024 BP CONTROLLED (<130/80) BP CONTROLLE D (<130/80) [facility] Start: 03-23-2024 End: 06-22-2024 TOXASSURE FLEX 23, URINE TOXASSURE FLEX 23, URINE Lab Routine Degeneration of intervertebral disc of lumbar region 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 Expected: 03/23/2024, Expires: 06/22/2024 [facility] Work Phone: Comment on above: Expected: 03/23/2024 , Expires: 06/22/2024 Start: 03-01-2024 Covid-19 Vaccine () Covid-19 Vaccine () [facility] Start: 02-19-2024 BP CONTROLLED (<130/80) BP CONTROLLE D (<130/80) [facility] Start: 11-26-2023 BP CONTROLLED (<130/80) BP CONTROLLE D (<130/80) [facility] Start: 11-24-2023 Advance Directive Discussion Advance Directive Discussion [facility] Start: 11-24-2023 Behavioral Health Screening Behavioral Health Screening [facility] Start: 11-24-2023 Depression Assessment Depression Ass essment [facility] Start: 10-20-2023 End: 01-19-2024 TOXASSURE FLEX 23, URINE TOXASSURE FLEX 23, URINE Lab Routine Degeneration of intervertebral disc of lumbar region 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 Expected: 10/20/2023, Expires: 01/19/2024 [facility] Work Phone: Comment on above: Expected: 10/20/2023 , Expires: 01/19/2024 Start: 07-25-2023 Covid-19 Vaccine () Covid-19 Vaccine () [facility] Start: 07-25-2023 Influenza vaccination [facility] Start: 04-01-2023 End: 06-01-2023 TOXASSURE FLEX 23, URINE TOXASSURE FLEX 23, URINE Lab Routine Degeneration of intervertebral disc of lumbar region 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 Expected: 04/01/2023, Expires: 06/01/2023 [facility] Work Phone: Comment on above: Expected: 04/01/2023 , Expires: 06/01/2023 Start: 12-30-2022 COVID-19 VACCINE (6 - Pfizer series) COVID-19 VACCINE (6 - Pfizer series) [facility] Start: 11-24-2022 ADVANCE DIRECTIVE DISCUSSION ADVANCE DIRECTIVE DISCUSSION [facility] Start: 11-24-2022 DEPRESSION ASSESSMENT DEPRESSION ASS ESSMENT [facility] Start: 08-29-2022 End: 10-29-2022 DRUG SCR TOXASURE DRUG SCR TOXASURE Lab Routine Degeneration of intervertebral disc of lumbar region Other senior care (current) drug therapy Expected: 08/29/2022, Expires: 10/29/2022 [facility] Work Phone: Comment on above: Expected: 08/29/2022 , Expires: 10/29/2022 Start: 07-25-2022 Influenza vaccination [facility] Start: 05-16-2022 COVID-19 VACCINE (5 - Booster for Pfizer series) COVID-19 VACCINE (5 - Booster for Pfizer series) [facility] Start: 2022 ADVANCE DIRECTIVE DISCUSSION ADVANCE DIRECTIVE DISCUSSION [facility] Start: 2022 BONE DENSITY BONE DENSITY [facility] Start: 2022 Bone Density Screening Bone Density Screening [facility] Start: 2022 PNEUMOVAX AGE 65 AND OVER WITH 5YR LOOKBACK (#1) PNEUMOVAX AGE 65 AND OVER WITH 5YR LOOKBACK (#1) [facility] Start: 2022 Screening for osteoporosis Bone Density Screening [facility] Start: 11-24-2021 DEPRESSION ASSESSMENT DEPRESSION ASS ESSMENT [facility] Start: 07-25-2021 Influenza vaccination INFLUENZA (#1) [facility] Start: 05-12-2017 Shingrix Vaccine (2 of 3) Shingrix Vaccine (2 of 3) [facility] Start: 2017 RSV Vaccine (1 - 1-d ose 60+ series) RSV Vaccine (1 - 1-dose 60+ series) [facility] Start: 06-11-2015 HPV TESTING HPV TESTING [facility] Start: 06-11-2015 PAP TESTING PAP TESTING [facility] Start: 06-11-2011 Mammography [facility] Start: 06-11-2011 Screening for malign ant neoplasm of breast Mammogram Screening [facility] Start: 2007 Influenza vaccination LUNG CANCER [facility] Start: 2007 Screening for malign ant neoplasm of lung Lung Cancer Screening [facility] Start: 2007 SHINGRIX VACCINE (1 of 2) SHINGRIX VACCINE (1 of 2) [facility] Start: 2002 COLOGUARD (FIT-DNA) COLOGUARD (FIT-D NA) [facility] Start: 2002 Colonoscopy COLONOSCOPY [facility] Start: 2002 COLORECTAL CANCER SCREENING COLORECTAL CANCER SCREENING [facility] Start: [address] COLONOGRAPHY [facility] Start: 2002 DIABETES SCREEN DIABETES SCREEN [facility] Start: 2002 Diabetes Screening Diabetes Screenin g [facility] Start: 2002 FECAL OCCULT BLOOD FECAL OCCULT BLOO D [facility] Start: 2002 Lipid 1996 panel - Serum or Plasma Lipid Screening [facility] Start: 2002 Lipid panel Lipid Screening [facility] Start: 2002 LIPID SCREEN LIPID SCREEN [facility] Start: 2002 Screening for malign ant neoplasm of colon [facility] Start: 2002 SIGMOIDOSCOPY SIGMOIDOSCOPY [facility] Start: 1976 Urine microalbumin profile [facility] Start: 1975 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 VISIT ANNUAL PCP TEAM CHRONIC DISEASE VISIT [facility] Start: 1975 Anxiety Screening Anxiety Screening [facility] Start: 1975 BP CONTROLLED (<130/80) BP CONTROLLE D (<130/80) [facility] Start: 1975 Depression Screening Depression Scre ening [facility] Start: 1975 HEPATITIS C SCREENING HEPATITIS C [facility] Start: 1975 Hepatitis C screening Hepatitis C [facility] Start: 1975 HIV SCREENING HIV SCREENING [facility] Start: 1969 Adult depression screening assessment DEPRESSION SCREENING [facility] Start: 1963 Pneumococcal Vaccine : 65+ (1 - PCV) Pneumococcal Vaccine: 65+ (1 - PCV) [facility] Start: 1963 PNEUMOCOCCAL: 65+ (1 - PCV) PNEUMOCOCCAL: 65+ (1 - PCV) [facility] Start: 1962 COVID-19 VACCINE (#1) COVID-19 VACCI NE (#1) [facility] Start: 1962 COVID-19 VACCINE (1) COVID-19 VACCIN E (1) [facility] Immunizations Immunization Date Immunization Notes Care Provider Fa cili 08-05-2023 influenza virus vacc ine, unspecified formulation Cierra Ross PA-C Work Phone: [facility] 08-29-2022 influenza virus vacc ine, unspecified formulation Cierra Ross PA-C Work Phone: [facility] Payers Date Payer Category Payer Medicare MEDICARE MEDICAR E A AND B [id number] 2022-Present [phone] [place] [address] Medicare [id number] 2022 Medicare MEDICARE MEDICAR E A AND B [id number] 2022-Present [phone] [place] [address] Medicare [id number] 2022 Unknown KAYLA GARZA [place] DICARE SUPPLEMENT [id number] 2022-Present [phone] [address] [place] [address] Indemnity [id number] 2022 Unknown KAYLA RENE DICARE SUPPLEMENT [id number] 2022-Present [phone] [address] [place] [address] Juanito [id number] 2022 Medicare [id number] 2022 Medicare [id number] Social History Date Type Detail Facility Tobacco smoking stat [facility] Tobacco smoking consumption unknown [facility] Start: 1955 Sex Assigned At [facility] on file [facility] Start: 05-30-2022 End: 01-07-2023 Tobacco smoking status PRIS Smokes tobacco daily [facility] History of tobacco use Cigarette Smoker [facility] Start: 04-25-2008 End: 06-22-2024 Alcohol intake Current non-drinker of alcohol (finding) [facility] Start: 04-09-2022 End: 10-11-2022 Exposure to SARS-CoV-2 (event) Not sure [facility] Start: 05-30-2022 End: 04-01-2023 Cigarettes smoked current (pack per day) - Reported 1 [facility] Start: 05-30-2022 End: 01-07-2023 Tobacco use and exposure Smokeless tobacco non-user [facility] Start: 04-01-2023 End: 06-25-2023 Tobacco use panel [facility] National Score (1-10 0), lower number is lower risk 90 [facility] Clinical Notes 05-30-2022 to 09-06-2024 Telephone Encounter - Cierra Ross PA-C - 09/06/2024 3:20 PM EDTTelephone Encounter - Cierra Ross PA-C - 09/06/2024 3:20 PM EDTPatient InstructionsPatient InstructionsPatient Instructions Note Date & Type Note Facility 09-06-2024 Telephone encount er Note The following approved medication requests have been transmitted electronically. Requested Prescriptions Signed Prescriptions Disp Refills HYDROcodone-Acetaminophen ([facility]) 10-325 mg per tablet 120 tablet 0 Sig: Take 1 tablet by mouth every 6 hours as needed for pain for up to 30 days. Patient should start on September 08, 2024. Authorizing Provider: CIERRA ROSS PA-C [facility] 09-06-2024 Miscellaneous Notes Formattin g of this note is different from the original. The following approved medication requests have been transmitted electronically. Requested Prescriptions Signed Prescriptions Disp Refills HYDROcodone-Acetaminophen (NORCO) 10-325 mg per tablet 120 tablet 0 Sig: Take 1 tablet by mouth every 6 hours as needed for pain for up to 30 days. Patient should start on September 08, 2024. Authorizing Provider: CIERRA ROSS PA-C Patient phones requesting refills as follows: Requested Prescriptions Pending Prescriptions Disp Refills HYDROcodone-Acetaminophen (NORCO) 10-325 mg per tablet 120 tablet 0 Sig: Take 1 tablet by mouth every 6 hours as needed for pain for up to 30 days. Last UDS: Opioid agreement 12/15/23. Summary Report Date Value Ref Range Status 03/23/2024 FINAL Final Comment: Opiate Class, MS, Ur RFX Acetaminophen, MS, Ur RFX ToxAssure Flex 23, Ur Test Result Flag Units Drug Present and Declared for Prescription Verification Hydrocodone 5064 EXPECTED ng/mg creat Hydromorphone 722 EXPECTED ng/mg creat Dihydrocodeine 1232 EXPECTED ng/mg creat Norhydrocodone >2703 EXPECTED ng/mg creat Sources of hydrocodone include scheduled prescription medications. Hydromorphone, dihydrocodeine and norhydrocodone are expected metabolites of hydrocodone. Hydromorphone and dihydrocodeine are also available as scheduled prescription medications. Acetaminophen PRESENT EXPECTED Test Result Flag Units Ref Range Creatinine 185 mg/dL >=20 Declared Medications: The flagging and interpretation on this report are based on the following declared medications. Unexpected results may arise from inaccuracies in the declared medications. Note: The testing scope of this panel includes these medications: Hydrocodone ([facility]) Note: The testing scope of this panel does not include small to moderate amounts of these reported medications: Acetaminophen ([facility]) For clinical consultation, please call . No results found for: UQNOTE , OPIATEPNMGT , DRUGSCRPAIN Urine Panel: No results found for: UQCANN , UQBNZL , RIL0GHF , UQAMPH , UQMAMP , UQBUPRE , UQNORBUP , UQMTHD , UQEDDP , UQTRAM , UQDTRM , UQFNTL , UQNFTL , UQCODE , UQMORP , UQDCDN , UQHCOD , UQOXYC , UQHMOR , UQOXYM , UQCREA , UQPH , UQSPGR , UQOXID , UQSPQ @FLOW([id number])@ Lab Results Component Value Date [facility] FINAL 03/23/2024 Summary Report (Summary) Date Value Ref Range Status 08/29/2022 FINAL Final Comment: TOXASSURE COMP DRUG ANALYSIS,UR Test Result Flag Units Drug Present and Declared for Prescription Verification Hydrocodone >6289 EXPECTED ng/mg creat Hydromorphone 629 EXPECTED ng/mg creat Dihydrocodeine 1306 EXPECTED ng/mg creat Norhydrocodone >3145 EXPECTED ng/mg creat Sources of hydrocodone include scheduled prescription medications. Hydromorphone, dihydrocodeine and norhydrocodone are expected metabolites of hydrocodone. Hydromorphone and dihydrocodeine are also available as scheduled prescription medications. Acetaminophen PRESENT EXPECTED Drug Present not Declared for Prescription Verification Topiramate PRESENT UNEXPECTED Paroxetine PRESENT UNEXPECTED Salicylate PRESENT UNEXPECTED Dextromethorphan PRESENT UNEXPECTED Dextrorphan/Levorphanol PRESENT UNEXPECTED Dextrorphan is an expected metabolite of dextromethorphan, an erfv-ktc-gltdqyg or prescription cough suppressant. Dextrorphan cannot be distinguished from the scheduled prescription medication levorphanol by the method used for analysis. Guaifenesin PRESENT UNEXPECTED Guaifenesin may be administered as an lwoa-mlq-gnxjvtm or prescription drug; it may also be present as a breakdown product of methocarbamol. Metoprolol PRESENT UNEXPECTED Test Result Flag Units Ref Range Creatinine 159 mg/dL >=20 Declared Medications: The flagging and interpretation on this report are based on the following declared medications. Unexpected results may arise from inaccuracies in the declared medications. Note: The testing scope of this panel includes these medications: Hydrocodone ([facility]) Note: The testing scope of this panel does not include small to moderate amounts of these reported medications: Acetaminophen ([facility]) For clinical consultation, please call . Last Opioid agreement effective date: 12/15/2023 Please review and advise. Nina Flores RN documented in this encounter [facility] 09-06-2024 Telephone encount er Note Patient phones requesting refills as follows: Requested Prescriptions Pending Prescriptions Disp Refills HYDROcodone-Acetaminophen (NORCO) 10-325 mg per tablet 120 tablet 0 Sig: Take 1 tablet by mouth every 6 hours as needed for pain for up to 30 days. Last UDS: Opioid agreement 12/15/23. Summary Report Date Value Ref Range Status 03/23/2024 FINAL Final Comment: Opiate Class, MS, Ur RFX Acetaminophen, MS, Ur RFX ToxAssure Flex 23, Ur Test Result Flag Units Drug Present and Declared for Prescription Verification Hydrocodone 5064 EXPECTED ng/mg creat Hydromorphone 722 EXPECTED ng/mg creat Dihydrocodeine 1232 EXPECTED ng/mg creat Norhydrocodone >2703 EXPECTED ng/mg creat Sources of hydrocodone include scheduled prescription medications. Hydromorphone, dihydrocodeine and norhydrocodone are expected metabolites of hydrocodone. Hydromorphone and dihydrocodeine are also available as scheduled prescription medications. Acetaminophen PRESENT EXPECTED Test Result Flag Units Ref Range Creatinine 185 mg/dL >=20 Declared Medications: The flagging and interpretation on this report are based on the following declared medications. Unexpected results may arise from inaccuracies in the declared medications. Note: The testing scope of this panel includes these medications: Hydrocodone ([facility]) Note: The testing scope of this panel does not include small to moderate amounts of these reported medications: Acetaminophen ([facility]) For clinical consultation, please call . No results found for: UQNOTE , OPIATEPNMGT , DRUGSCRPAIN Urine Panel: No results found for: UQCANN , UQBNZL , [id number] , UQAMPH , UQMAMP , UQBUPRE , UQNORBUP , UQMTHD , UQEDDP , UQTRAM , UQDTRM , UQFNTL , UQNFTL , UQCODE , UQMORP , UQDCDN , UQHCOD , UQOXYC , UQHMOR , UQOXYM , UQCREA , UQPH , UQSPGR , UQOXID , UQSPQ @FLOW([id number])@ Lab Results Component Value Date [facility] FINAL 03/23/2024 Summary Report (Summary) Date Value Ref Range Status 08/29/2022 FINAL Final Comment: TOXASSURE COMP DRUG ANALYSIS,UR Test Result Flag Units Drug Present and Declared for Prescription Verification Hydrocodone >6289 EXPECTED ng/mg creat Hydromorphone 629 EXPECTED ng/mg creat Dihydrocodeine 1306 EXPECTED ng/mg creat Norhydrocodone >3145 EXPECTED ng/mg creat Sources of hydrocodone include scheduled prescription medications. Hydromorphone, dihydrocodeine and norhydrocodone are expected metabolites of hydrocodone. Hydromorphone and dihydrocodeine are also available as scheduled prescription medications. Acetaminophen PRESENT EXPECTED Drug Present not Declared for Prescription Verification Topiramate PRESENT UNEXPECTED Paroxetine PRESENT UNEXPECTED Salicylate PRESENT UNEXPECTED Dextromethorphan PRESENT UNEXPECTED Dextrorphan/Levorphanol PRESENT UNEXPECTED Dextrorphan is an expected metabolite of dextromethorphan, an ehwl-kqs-vedhxfq or prescription cough suppressant. Dextrorphan cannot be distinguished from the scheduled prescription medication levorphanol by the method used for analysis. Guaifenesin PRESENT UNEXPECTED Guaifenesin may be administered as an gzvl-nqy-jeonqtc or prescription drug; it may also be present as a breakdown product of methocarbamol. Metoprolol PRESENT UNEXPECTED Test Result Flag Units Ref Range Creatinine 159 mg/dL >=20 Declared Medications: The flagging and interpretation on this report are based on the following declared medications. Unexpected results may arise from inaccuracies in the declared medications. Note: The testing scope of this panel includes these medications: Hydrocodone ([facility]) Note: The testing scope of this panel does not include small to moderate amounts of these reported medications: Acetaminophen ([facility]) For clinical consultation, please call . Last Opioid agreement effective date: 12/15/2023 Please review and advise. Nina Flores RN [facility] 08-05-2024 Telephone encount er Note The following approved medication requests have been transmitted electronically. Requested Prescriptions Signed Prescriptions Disp Refills HYDROcodone-Acetaminophen ([facility]CO) 10-325 mg per tablet 120 tablet 0 Sig: Take 1 tablet by mouth every 6 hours as needed for pain for up to 30 days. Patient should start on August 09, 2024. Authorizing Provider: CIERRA ROSS PA-C [facility] 08-05-2024 Miscellaneous Notes Formattin g of this note is different from the original. The following approved medication requests have been transmitted electronically. Requested Prescriptions Signed Prescriptions Disp Refills HYDROcodone-Acetaminophen (NORCO) 10-325 mg per tablet 120 tablet 0 Sig: Take 1 tablet by mouth every 6 hours as needed for pain for up to 30 days. Patient should start on August 09, 2024. Authorizing Provider: CIERRA ROSS PA-C Patient phones requesting refills as follows: Requested Prescriptions Pending Prescriptions Disp Refills HYDROcodone-Acetaminophen (NORCO) 10-325 mg per tablet 120 tablet 0 Sig: Take 1 tablet by mouth every 6 hours as needed for pain for up to 30 days. Last UDS: Opioid agreement 12/15/23. Summary Report Date Value Ref Range Status 03/23/2024 FINAL Final Comment: Opiate Class, MS, Ur RFX Acetaminophen, MS, Ur RFX ToxAssure Flex 23, Ur Test Result Flag Units Drug Present and Declared for Prescription Verification Hydrocodone 5064 EXPECTED ng/mg creat Hydromorphone 722 EXPECTED ng/mg creat Dihydrocodeine 1232 EXPECTED ng/mg creat Norhydrocodone >2703 EXPECTED ng/mg creat Sources of hydrocodone include scheduled prescription medications. Hydromorphone, dihydrocodeine and norhydrocodone are expected metabolites of hydrocodone. Hydromorphone and dihydrocodeine are also available as scheduled prescription medications. Acetaminophen PRESENT EXPECTED Test Result Flag Units Ref Range Creatinine 185 mg/dL >=20 Declared Medications: The flagging and interpretation on this report are based on the following declared medications. Unexpected results may arise from inaccuracies in the declared medications. Note: The testing scope of this panel includes these medications: Hydrocodone ([facility]) Note: The testing scope of this panel does not include small to moderate amounts of these reported medications: Acetaminophen ([facility]) For clinical consultation, please call . No results found for: UQNOTE , OPIATEPNMGT , DRUGSCRPAIN Urine Panel: No results found for: UQCANN , UQBNZL , [id number] , UQAMPH , UQMAMP , UQBUPRE , UQNORBUP , UQMTHD , UQEDDP , UQTRAM , UQDTRM , UQFNTL , UQNFTL , UQCODE , UQMORP , UQDCDN , UQHCOD , UQOXYC , UQHMOR , UQOXYM , UQCREA , UQPH , UQSPGR , UQOXID , UQSPQ @FLOW([id number])@ Lab Results Component Value Date [facility] FINAL 03/23/2024 Summary Report (Summary) Date Value Ref Range Status 08/29/2022 FINAL Final Comment: TOXASSURE COMP DRUG ANALYSIS,UR Test Result Flag Units Drug Present and Declared for Prescription Verification Hydrocodone >6289 EXPECTED ng/mg creat Hydromorphone 629 EXPECTED ng/mg creat Dihydrocodeine 1306 EXPECTED ng/mg creat Norhydrocodone >3145 EXPECTED ng/mg creat Sources of hydrocodone include scheduled prescription medications. Hydromorphone, dihydrocodeine and norhydrocodone are expected metabolites of hydrocodone. Hydromorphone and dihydrocodeine are also available as scheduled prescription medications. Acetaminophen PRESENT EXPECTED Drug Present not Declared for Prescription Verification Topiramate PRESENT UNEXPECTED Paroxetine PRESENT UNEXPECTED Salicylate PRESENT UNEXPECTED Dextromethorphan PRESENT UNEXPECTED Dextrorphan/Levorphanol PRESENT UNEXPECTED Dextrorphan is an expected metabolite of dextromethorphan, an zzuo-mip-gevviff or prescription cough suppressant. Dextrorphan cannot be distinguished from the scheduled prescription medication levorphanol by the method used for analysis. Guaifenesin PRESENT UNEXPECTED Guaifenesin may be administered as an twku-tza-wwyyknm or prescription drug; it may also be present as a breakdown product of methocarbamol. Metoprolol PRESENT UNEXPECTED Test Result Flag Units Ref Range Creatinine 159 mg/dL >=20 Declared Medications: The flagging and interpretation on this report are based on the following declared medications. Unexpected results may arise from inaccuracies in the declared medications. Note: The testing scope of this panel includes these medications: Hydrocodone ([facility]) Note: The testing scope of this panel does not include small to moderate amounts of these reported medications: Acetaminophen ([facility]) For clinical consultation, please call . Last Opioid agreement effective date: 12/15/2023 Please review and advise. Georgia Campos RN documented in this encounter [facility] 08-05-2024 Telephone encount er Note Patient phones requesting refills as follows: Requested Prescriptions Pending Prescriptions Disp Refills HYDROcodone-Acetaminophen ([facility]) 10-325 mg per tablet 120 tablet 0 Sig: Take 1 tablet by mouth every 6 hours as needed for pain for up to 30 days. Last UDS: Opioid agreement 12/15/23. Summary Report Date Value Ref Range Status 03/23/2024 FINAL Final Comment: Opiate Class, MS, Ur RFX Acetaminophen, MS, Ur RFX ToxAssure Flex 23, Ur Test Result Flag Units Drug Present and Declared for Prescription Verification Hydrocodone 5064 EXPECTED ng/mg creat Hydromorphone 722 EXPECTED ng/mg creat Dihydrocodeine 1232 EXPECTED ng/mg creat Norhydrocodone >2703 EXPECTED ng/mg creat Sources of hydrocodone include scheduled prescription medications. Hydromorphone, dihydrocodeine and norhydrocodone are expected metabolites of hydrocodone. Hydromorphone and dihydrocodeine are also available as scheduled prescription medications. Acetaminophen PRESENT EXPECTED Test Result Flag Units Ref Range Creatinine 185 mg/dL >=20 Declared Medications: The flagging and interpretation on this report are based on the following declared medications. Unexpected results may arise from inaccuracies in the declared medications. Note: The testing scope of this panel includes these medications: Hydrocodone ([facility]) Note: The testing scope of this panel does not include small to moderate amounts of these reported medications: Acetaminophen ([facility]) For clinical consultation, please call . No results found for: UQNOTE , OPIATEPNMGT , DRUGSCRPAIN Urine Panel: No results found for: UQCANN , UQBNZL , QOP0IQR , UQAMPH , UQMAMP , UQBUPRE , UQNORBUP , UQMTHD , UQEDDP , UQTRAM , UQDTRM , UQFNTL , UQNFTL , UQCODE , UQMORP , UQDCDN , UQHCOD , UQOXYC , UQHMOR , UQOXYM , UQCREA , UQPH , UQSPGR , UQOXID , UQSPQ @FLOW([id number])@ Lab Results Component Value Date [facility] FINAL 03/23/2024 Summary Report (Summary) Date Value Ref Range Status 08/29/2022 FINAL Final Comment: TOXASSURE COMP DRUG ANALYSIS,UR Test Result Flag Units Drug Present and Declared for Prescription Verification Hydrocodone >6289 EXPECTED ng/mg creat Hydromorphone 629 EXPECTED ng/mg creat Dihydrocodeine 1306 EXPECTED ng/mg creat Norhydrocodone >3145 EXPECTED ng/mg creat Sources of hydrocodone include scheduled prescription medications. Hydromorphone, dihydrocodeine and norhydrocodone are expected metabolites of hydrocodone. Hydromorphone and dihydrocodeine are also available as scheduled prescription medications. Acetaminophen PRESENT EXPECTED Drug Present not Declared for Prescription Verification Topiramate PRESENT UNEXPECTED Paroxetine PRESENT UNEXPECTED Salicylate PRESENT UNEXPECTED Dextromethorphan PRESENT UNEXPECTED Dextrorphan/Levorphanol PRESENT UNEXPECTED Dextrorphan is an expected metabolite of dextromethorphan, an pgbm-ohy-gkwwmql or prescription cough suppressant. Dextrorphan cannot be distinguished from the scheduled prescription medication levorphanol by the method used for analysis. Guaifenesin PRESENT UNEXPECTED Guaifenesin may be administered as an xrvu-sac-soauroi or prescription drug; it may also be present as a breakdown product of methocarbamol. Metoprolol PRESENT UNEXPECTED Test Result Flag Units Ref Range Creatinine 159 mg/dL >=20 Declared Medications: The flagging and interpretation on this report are based on the following declared medications. Unexpected results may arise from inaccuracies in the declared medications. Note: The testing scope of this panel includes these medications: Hydrocodone ([facility]) Note: The testing scope of this panel does not include small to moderate amounts of these reported medications: Acetaminophen ([facility]) For clinical consultation, please call . Last Opioid agreement effective date: 12/15/2023 Please review and advise. Georgia Campos RN [facility] 06-22-2024 Instructions Cierra Ross PA-C - 06/22/2024 1:19 PM EDT The OARRS report has been reviewed and is consistent with the patients medical history and medication intake. The patient's most recent drug screen has been reviewed and is appropriate and consistent with current therapy. The patient will continue with hydrocodone and Lidoderm patch. She will continue with core strengthening and range of motion exercises. Patient was encouraged to stop smoking. Follow-up in office in 3 months FU with [facility] regarding the right knee. Supervising Physiciain - Dr. Cipriano Leal MD documented in this encounter [facility] 06-22-2024 Note HNO ID: [id number] Author: CIERRA ROSS PA-C Service: ? Author Type: Physician Beater Worker Helper Type: Progress Notes Filed: 06/22/2024 13:28 Note Text: This note was created using [employer]. Subjective Eder Schaeffer is a 69 year old female. The patient primarily being seen for back pain Patient was last seen on: 03/23/24 At that time, the treatment plan was: see notes Current Meds: hydrocodone - am, lidocaine patch - prn due to cost Efficacy: help Side effects: denies TENS unit: didn't help How often used: Benefit: Physical Therapy: 2022 for shoulder Last UDS: 03/23/24 Last injection: OARRS reviewed At the present time, the patient reports benefit with her present analgesic therapy. She denies any adverse effects. Since her previous visit, she denies any hospitalizations or ER visits. She has been having issues with pain in the right thigh and is going to see her knee surgeon at [facility]. 03/23/2024 06/22/2024 INTAKE PAIN ASSESSMENT Are you having pain associated with your visit today? Yes, Provider notified Yes, Provider notified Pain Scales Verbal (Numeric Rating or Visual Analog Scale) Verbal (Numeric Rating or Visual Analog Scale) Pain Level 6 6 Pain Location Back Back-Lower Description Aching;Dull Aching Duration Amount of Time 10 Duration Units Years Frequency Continuous Continuous Intervention/Comfort measure Medication;Other: See comment Medication;Exercise;Relaxation Back Pain Pertinent negatives include no fever. PAST MEDICAL HISTORY Diagnosis Date Back pain Chronic kidney disease, stage III (moderate) (HCC) Heart murmur HTN (hypertension) Hypokalemia Migraines MVP (mitral valve prolapse) Myalgia and myositis, unspecified PAST SURGICAL HISTORY Procedure Laterality Date ARTHRP KNE CONDYLEANDPLATU MEDIALANDLAT COMPARTMENTS right knee CHOLECYSTECTOMY Cholecystectomy COLONOSCOPY FLX DX W/COLLJ SPEC WHEN PFRMD Colonoscopy OOPHORECTOMY PARTIAL/TOTAL UNI/BI Oophorectomy Right PAST SURGICAL HISTORY OF pilinodal cyst PAST SURGICAL HISTORY OF surgery L knee PAST SURGICAL HISTORY OF Right 08/2022 shoulder - Dr. Schulte Social History Tobacco Use Smoking status: Every Day Packs/day: 1.00 Years: 25.00 Additional pack years: 0.00 Total pack years: 25.00 Types: Cigarettes Smokeless tobacco: Never Substance Use Topics Alcohol use: No Drug use: No Review of Systems Constitutional: Negative for fever and unexpected weight change. Musculoskeletal: Positive for back pain. + back pain, joint pain, muscle cramps/weakness, stiffness, arthritis, sciatica, restless legs, leg pain at night, and leg pain with exertion. Objective BP 106/67 (BP Site: Left Arm, BP Position: Sitting) Pulse 67 Resp 16 LMP 02/21/2008 SpO2 96% Physical Exam Vitals and nursing note reviewed. Constitutional: Appearance: Normal appearance. She is well-developed, well-groomed and normal weight. HENT: Head: Normocephalic and atraumatic. Right Ear: Hearing normal. Left Ear: Hearing normal. Eyes: Conjunctiva/sclera: Conjunctivae normal. Comments: Wearing glasses Musculoskeletal: Comments: She walks with a normal gait. The patient has tenderness to palpation in the lubmar reigon with spasms noted in the trapezius, paraspinal, and latissimus dorsi muscles. The patient has multiple fibromyalgia tender points noted throughout the examination. She has tenderness to palpation in the knees bilaterally with crepitus noted. There is tenderness over the right greater trochanter Neurological: Mental Status: She is alert and oriented to person, place, and time. Psychiatric: Attention and Perception: Attention and perception normal. Mood and Affect: Mood and affect normal. Speech: Speech normal. Behavior: Behavior normal. Behavior is cooperative. Thought Content: Thought content normal. Judgment: Judgment normal. Assessment and Plan ASSESSMENT/PLAN: 1. Degeneration of intervertebral disc of lumbar region - ICD9: 722.52, ICD10: M51.36 (primary diagnosis) The OARRS report has been reviewed and is consistent with the patients medical history and medication intake. The patient's most recent drug screen has been reviewed and is appropriate and consistent with current therapy. The patient will continue with hydrocodone and Lidoderm patch. She will continue with core strengthening and range of motion exercises. Patient was encouraged to stop smoking. Follow-up in office in 3 months FU with [facility] regarding the right knee. - HYDROCODONE 10 MG-ACETAMINOPHEN 325 MG TABLET (Two stable chronic illnesses/prescription drug management) 2. Lumbar spondylosis - ICD9: 721.3, ICD10: M47.816 3. Fibromyalgia - ICD9: 729.1, ICD10: M79.7 4. Generalized osteoarthritis - ICD9: 715.00, ICD10: M15.9 5. Primary osteoarthritis of both shoulders - ICD9: 715.11, ICD10: M19.011, M19.012 6. Primary osteoarthrit (more content not included)... [facility] 06-22-2024 History of Presen t illness Narrative This note was created using [employer]. Subjective Eder Schaeffer is a 69 year old female. The patient primarily being seen for back pain Patient was last seen on: 03/23/24 At that time, the treatment plan was: see notes Current Meds: hydrocodone - am, lidocaine patch - prn due to cost Efficacy: help Side effects: denies TENS unit: didn't help How often used: Benefit: Physical Therapy: 2022 for shoulder Last UDS: 03/23/24 Last injection: OARRS reviewed At the present time, the patient reports benefit with her present analgesic therapy. She denies any adverse effects. Since her previous visit, she denies any hospitalizations or ER visits. She has been having issues with pain in the right thigh and is going to see her knee surgeon at [facility]. 03/23/2024 06/22/2024 INTAKE PAIN ASSESSMENT Are you having pain associated with your visit today? Yes, Provider notified Yes, Provider notified Pain Scales Verbal (Numeric Rating or Visual Analog Scale) Verbal (Numeric Rating or Visual Analog Scale) Pain Level 6 6 Pain Location Back Back-Lower Description Aching;Dull Aching Duration Amount of Time 10 Duration Units Years Frequency Continuous Continuous Intervention/Comfort measure Medication;Other: See comment Medication;Exercise;Relaxation Back Pain Pertinent negatives include no fever. PAST MEDICAL HISTORY Diagnosis Date Back pain Chronic kidney disease, stage III (moderate) (HCC) Heart murmur HTN (hypertension) Hypokalemia Migraines MVP (mitral valve prolapse) Myalgia and myositis, unspecified PAST SURGICAL HISTORY Procedure Laterality Date ARTHRP KNE CONDYLE&PLATU MEDIAL&LAT COMPARTMENTS right knee CHOLECYSTECTOMY Cholecystectomy COLONOSCOPY FLX DX W/COLLJ SPEC WHEN PFRMD Colonoscopy OOPHORECTOMY PARTIAL/TOTAL UNI/BI Oophorectomy Right PAST SURGICAL HISTORY OF pilinodal cyst PAST SURGICAL HISTORY OF surgery L knee PAST SURGICAL HISTORY OF Right 08/2022 shoulder - Dr. Schulte Social History Tobacco Use Smoking status: Every Day Packs/day: 1.00 Years: 25.00 Additional pack years: 0.00 Total pack years: 25.00 Types: Cigarettes Smokeless tobacco: Never Substance Use Topics Alcohol use: No Drug use: No Review of Systems Constitutional: Negative for fever and unexpected weight change. Musculoskeletal: Positive for back pain. + back pain, joint pain, muscle cramps/weakness, stiffness, arthritis, sciatica, restless legs, leg pain at night, and leg pain with exertion. Objective BP 106/67 (BP Site: Left Arm, BP Position: Sitting) Pulse 67 Resp 16 LMP 02/21/2008 SpO2 96% Physical Exam Vitals and nursing note reviewed. Constitutional: Appearance: Normal appearance. She is well-developed, well-groomed and normal weight. HENT: Head: Normocephalic and atraumatic. Right Ear: Hearing normal. Left Ear: Hearing normal. Eyes: Conjunctiva/sclera: Conjunctivae normal. Comments: Wearing glasses Musculoskeletal: Comments: She walks with a normal gait. The patient has tenderness to palpation in the lubmar reigon with spasms noted in the trapezius, paraspinal, and latissimus dorsi muscles. The patient has multiple fibromyalgia tender points noted throughout the examination. She has tenderness to palpation in the knees bilaterally with crepitus noted. There is tenderness over the right greater trochanter Neurological: Mental Status: She is alert and oriented to person, place, and time. Psychiatric: Attention and Perception: Attention and perception normal. Mood and Affect: Mood and affect normal. Speech: Speech normal. Behavior: Behavior normal. Behavior is cooperative. Thought Content: Thought content normal. Judgment: Judgment normal. Assessment and Plan ASSESSMENT/PLAN: 1. Degeneration of intervertebral disc of lumbar region - ICD9: 722.52, ICD10: M51.36 (primary diagnosis) The OARRS report has been reviewed and is consistent with the patients medical history and medication intake. The patient's most recent drug screen has been reviewed and is appropriate and consistent with current therapy. The patient will continue with hydrocodone and Lidoderm patch. She will continue with core strengthening and range of motion exercises. Patient was encouraged to stop smoking. Follow-up in office in 3 months FU with [facility] regarding the right knee. - HYDROCODONE 10 MG-ACETAMINOPHEN 325 MG TABLET (Two stable chronic illnesses/prescription drug management) 2. Lumbar spondylosis - ICD9: 721.3, ICD10: M47.816 3. Fibromyalgia - ICD9: 729.1, ICD10: M79.7 4. Generalized osteoarthritis - ICD9: 715.00, ICD10: M15.9 5. Primary osteoarthritis of both shoulders - ICD9: 715.11, ICD10: M19.011, M19.012 6. Primary osteoarthritis of both knees - ICD9: 715.16, ICD10: M17.0 7. Trochanteric bursitis, unspecified laterality - ICD9: 726.5, ICD10: M70.60 Cierra Ross PA-C documented in this encounter [facility] 06-09-2024 Telephone encount er Note The following approved medication requests have been transmitted electronically. Requested Prescriptions Signed Prescriptions Disp Refills HYDROcodone-Acetaminophen ([facility]) 10-325 mg per tablet 120 tablet 0 Sig: Take 1 tablet by mouth every 6 hours as needed for pain for up to 30 days. Do not start before June 10, 2024. Authorizing Provider: CIERRA ROSS PA-C [facility] 06-09-2024 Miscellaneous Notes Formattin g of this note is different from the original. The following approved medication requests have been transmitted electronically. Requested Prescriptions Signed Prescriptions Disp Refills HYDROcodone-Acetaminophen ([facility]) 10-325 mg per tablet 120 tablet 0 Sig: Take 1 tablet by mouth every 6 hours as needed for pain for up to 30 days. Do not start before June 10, 2024. Authorizing Provider: CIERRA ROSS PA-C Patient phones requesting refills as follows: Requested Prescriptions Pending Prescriptions Disp Refills HYDROcodone-Acetaminophen ([facility]) 10-325 mg per tablet 120 tablet 0 Sig: Take 1 tablet by mouth every 6 hours as needed for pain for up to 30 days. Last UDS: Opioid agreement 12/15/23. Summary Report Date Value Ref Range Status 03/23/2024 FINAL Final Comment: Opiate Class, MS, Ur RFX Acetaminophen, MS, Ur RFX ToxAssure Flex 23, Ur Test Result Flag Units Drug Present and Declared for Prescription Verification Hydrocodone 5064 EXPECTED ng/mg creat Hydromorphone 722 EXPECTED ng/mg creat Dihydrocodeine 1232 EXPECTED ng/mg creat Norhydrocodone >2703 EXPECTED ng/mg creat Sources of hydrocodone include scheduled prescription medications. Hydromorphone, dihydrocodeine and norhydrocodone are expected metabolites of hydrocodone. Hydromorphone and dihydrocodeine are also available as scheduled prescription medications. Acetaminophen PRESENT EXPECTED Test Result Flag Units Ref Range Creatinine 185 mg/dL >=20 Declared Medications: The flagging and interpretation on this report are based on the following declared medications. Unexpected results may arise from inaccuracies in the declared medications. Note: The testing scope of this panel includes these medications: Hydrocodone ([facility]) Note: The testing scope of this panel does not include small to moderate amounts of these reported medications: Acetaminophen ([facility]) For clinical consultation, please call . No results found for: UQNOTE , OPIATEPNMGT , DRUGSCRPAIN Urine Panel: No results found for: UQCANN , UQBNZL , [id number] , UQAMPH , UQMAMP , UQBUPRE , UQNORBUP , UQMTHD , UQEDDP , UQTRAM , UQDTRM , UQFNTL , UQNFTL , UQCODE , UQMORP , UQDCDN , UQHCOD , UQOXYC , UQHMOR , UQOXYM , UQCREA , UQPH , UQSPGR , UQOXID , UQSPQ @FLOW([id number])@ Lab Results Component Value Date [facility] FIN[facility] 03/23/2024 Summary Report (Summary) Date Value Ref Range Status 08/29/2022 FINAL Final Comment: TOXASSURE COMP DRUG ANALYSIS,UR Test Result Flag Units Drug Present and Declared for Prescription Verification Hydrocodone >6289 EXPECTED ng/mg creat Hydromorphone 629 EXPECTED ng/mg creat Dihydrocodeine 1306 EXPECTED ng/mg creat Norhydrocodone >3145 EXPECTED ng/mg creat Sources of hydrocodone include scheduled prescription medications. Hydromorphone, dihydrocodeine and norhydrocodone are expected metabolites of hydrocodone. Hydromorphone and dihydrocodeine are also available as scheduled prescription medications. Acetaminophen PRESENT EXPECTED Drug Present not Declared for Prescription Verification Topiramate PRESENT UNEXPECTED Paroxetine PRESENT UNEXPECTED Salicylate PRESENT UNEXPECTED Dextromethorphan PRESENT UNEXPECTED Dextrorphan/Levorphanol PRESENT UNEXPECTED Dextrorphan is an expected metabolite of dextromethorphan, an gsuj-uwb-zrjvlcb or prescription cough suppressant. Dextrorphan cannot be distinguished from the scheduled prescription medication levorphanol by the method used for analysis. Guaifenesin PRESENT UNEXPECTED Guaifenesin may be administered as an krnb-cwe-rhszbgf or prescription drug; it may also be present as a breakdown product of methocarbamol. Metoprolol PRESENT UNEXPECTED Test Result Flag Units Ref Range Creatinine 159 mg/dL >=20 Declared Medications: The flagging and interpretation on this report are based on the following declared medications. Unexpected results may arise from inaccuracies in the declared medications. Note: The testing scope of this panel includes these medications: Hydrocodone ([facility]) Note: The testing scope of this panel does not include small to moderate amounts of these reported medications: Acetaminophen ([facility]) For clinical consultation, please call . Last Opioid agreement effective date: 12/15/2023 Please review and advise. Rona Herrera RN documented in this encounter [facility] 06-08-2024 Telephone encount er Note Patient phones requesting refills as follows: Requested Prescriptions Pending Prescriptions Disp Refills HYDROcodone-Acetaminophen ([facility]) 10-325 mg per tablet 120 tablet 0 Sig: Take 1 tablet by mouth every 6 hours as needed for pain for up to 30 days. Last UDS: Opioid agreement 12/15/23. Summary Report Date Value Ref Range Status 03/23/2024 FINAL Final Comment: Opiate Class, MS, Ur RFX Acetaminophen, MS, Ur RFX ToxAssure Flex 23, Ur Test Result Flag Units Drug Present and Declared for Prescription Verification Hydrocodone 5064 EXPECTED ng/mg creat Hydromorphone 722 EXPECTED ng/mg creat Dihydrocodeine 1232 EXPECTED ng/mg creat Norhydrocodone >2703 EXPECTED ng/mg creat Sources of hydrocodone include scheduled prescription medications. Hydromorphone, dihydrocodeine and norhydrocodone are expected metabolites of hydrocodone. Hydromorphone and dihydrocodeine are also available as scheduled prescription medications. Acetaminophen PRESENT EXPECTED Test Result Flag Units Ref Range Creatinine 185 mg/dL >=20 Declared Medications: The flagging and interpretation on this report are based on the following declared medications. Unexpected results may arise from inaccuracies in the declared medications. Note: The testing scope of this panel includes these medications: Hydrocodone ([facility]) Note: The testing scope of this panel does not include small to moderate amounts of these reported medications: Acetaminophen ([facility]) For clinical consultation, please call . No results found for: UQNOTE , OPIATEPNMGT , DRUGSCRPAIN Urine Panel: No results found for: UQCANN , UQBNZL , [id number] , UQAMPH , UQMAMP , UQBUPRE , UQNORBUP , UQMTHD , UQEDDP , UQTRAM , UQDTRM , UQFNTL , UQNFTL , UQCODE , UQMORP , UQDCDN , UQHCOD , UQOXYC , UQHMOR , UQOXYM , UQCREA , UQPH , UQSPGR , UQOXID , UQSPQ @FLOW([id number])@ Lab Results Component Value Date [facility] 03/23/2024 Summary Report (Summary) Date Value Ref Range Status 08/29/2022 FINAL Final Comment: TOXASSURE COMP DRUG ANALYSIS,UR Test Result Flag Units Drug Present and Declared for Prescription Verification Hydrocodone >6289 EXPECTED ng/mg creat Hydromorphone 629 EXPECTED ng/mg creat Dihydrocodeine 1306 EXPECTED ng/mg creat Norhydrocodone >3145 EXPECTED ng/mg creat Sources of hydrocodone include scheduled prescription medications. Hydromorphone, dihydrocodeine and norhydrocodone are expected metabolites of hydrocodone. Hydromorphone and dihydrocodeine are also available as scheduled prescription medications. Acetaminophen PRESENT EXPECTED Drug Present not Declared for Prescription Verification Topiramate PRESENT UNEXPECTED Paroxetine PRESENT UNEXPECTED Salicylate PRESENT UNEXPECTED Dextromethorphan PRESENT UNEXPECTED Dextrorphan/Levorphanol PRESENT UNEXPECTED Dextrorphan is an expected metabolite of dextromethorphan, an kgdo-ple-ljtsxuo or prescription cough suppressant. Dextrorphan cannot be distinguished from the scheduled prescription medication levorphanol by the method used for analysis. Guaifenesin PRESENT UNEXPECTED Guaifenesin may be administered as an qnfv-ejr-abdesjt or prescription drug; it may also be present as a breakdown product of methocarbamol. Metoprolol PRESENT UNEXPECTED Test Result Flag Units Ref Range Creatinine 159 mg/dL >=20 Declared Medications: The flagging and interpretation on this report are based on the following declared medications. Unexpected results may arise from inaccuracies in the declared medications. Note: The testing scope of this panel includes these medications: Hydrocodone ([facility]) Note: The testing scope of this panel does not include small to moderate amounts of these reported medications: Acetaminophen ([facility]) For clinical consultation, please call . Last Opioid agreement effective date: 12/15/2023 Please review and advise. Rona Herrera RN [facility] 05-10-2024 Miscellaneous Notes Formattin g of this note is different from the original. The following approved medication requests have been transmitted electronically. Requested Prescriptions Signed Prescriptions Disp Refills HYDROcodone-Acetaminophen ([facility]) 10-325 mg per tablet 120 tablet 0 Sig: Take 1 tablet by mouth every 6 hours as needed for pain for up to 30 days. Do not start before May 11, 2024. Authorizing Provider: CIERRA ROSS PA-C Patient phones requesting refills as follows: Requested Prescriptions Pending Prescriptions Disp Refills HYDROcodone-Acetaminophen ([facility]) 10-325 mg per tablet 120 tablet 0 Sig: Take 1 tablet by mouth every 6 hours as needed for pain for up to 30 days. Last UDS: Opioid agreement 12/15/23. Summary Report Date Value Ref Range Status 03/23/2024 FINAL Final Comment: Opiate Class, MS, Ur RFX Acetaminophen, MS, Ur RFX ToxAssure Flex 23, Ur Test Result Flag Units Drug Present and Declared for Prescription Verification Hydrocodone 5064 EXPECTED ng/mg creat Hydromorphone 722 EXPECTED ng/mg creat Dihydrocodeine 1232 EXPECTED ng/mg creat Norhydrocodone >2703 EXPECTED ng/mg creat Sources of hydrocodone include scheduled prescription medications. Hydromorphone, dihydrocodeine and norhydrocodone are expected metabolites of hydrocodone. Hydromorphone and dihydrocodeine are also available as scheduled prescription medications. Acetaminophen PRESENT EXPECTED Test Result Flag Units Ref Range Creatinine 185 mg/dL >=20 Declared Medications: The flagging and interpretation on this report are based on the following declared medications. Unexpected results may arise from inaccuracies in the declared medications. Note: The testing scope of this panel includes these medications: Hydrocodone ([facility]) Note: The testing scope of this panel does not include small to moderate amounts of these reported medications: Acetaminophen ([facility]) For clinical consultation, please call . No results found for: UQNOTE , OPIATEPNMGT , DRUGSCRPAIN Urine Panel: No results found for: UQCANN , UQBNZL , [id number] , UQAMPH , UQMAMP , UQBUPRE , UQNORBUP , UQMTHD , UQEDDP , UQTRAM , UQDTRM , UQFNTL , UQNFTL , UQCODE , UQMORP , UQDCDN , UQHCOD , UQOXYC , UQHMOR , UQOXYM , UQCREA , UQPH , UQSPGR , UQOXID , UQSPQ @FLOW([id number])@ Lab Results Component Value Date [facility] FINAL 03/23/2024 Summary Report (Summary) Date Value Ref Range Status 08/29/2022 FINAL Final Comment: TOXASSURE COMP DRUG ANALYSIS,UR Test Result Flag Units Drug Present and Declared for Prescription Verification Hydrocodone >6289 EXPECTED ng/mg creat Hydromorphone 629 EXPECTED ng/mg creat Dihydrocodeine 1306 EXPECTED ng/mg creat Norhydrocodone >3145 EXPECTED ng/mg creat Sources of hydrocodone include scheduled prescription medications. Hydromorphone, dihydrocodeine and norhydrocodone are expected metabolites of hydrocodone. Hydromorphone and dihydrocodeine are also available as scheduled prescription medications. Acetaminophen PRESENT EXPECTED Drug Present not Declared for Prescription Verification Topiramate PRESENT UNEXPECTED Paroxetine PRESENT UNEXPECTED Salicylate PRESENT UNEXPECTED Dextromethorphan PRESENT UNEXPECTED Dextrorphan/Levorphanol PRESENT UNEXPECTED Dextrorphan is an expected metabolite of dextromethorphan, an zqye-fzs-uubucec or prescription cough suppressant. Dextrorphan cannot be distinguished from the scheduled prescription medication levorphanol by the method used for analysis. Guaifenesin PRESENT UNEXPECTED Guaifenesin may be administered as an okyz-drv-lwdnrrs or prescription drug; it may also be present as a breakdown product of methocarbamol. Metoprolol PRESENT UNEXPECTED Test Result Flag Units Ref Range Creatinine 159 mg/dL >=20 Declared Medications: The flagging and interpretation on this report are based on the following declared medications. Unexpected results may arise from inaccuracies in the declared medications. Note: The testing scope of this panel includes these medications: Hydrocodone ([facility]) Note: The testing scope of this panel does not include small to moderate amounts of these reported medications: Acetaminophen ([facility]) For clinical consultation, please call . Last Opioid agreement effective date: 12/15/2023 Please review and advise. Nina Flores RN documented in this encounter [facility] 05-10-2024 Telephone encount er Note The following approved medication requests have been transmitted electronically. Requested Prescriptions Signed Prescriptions Disp Refills HYDROcodone-Acetaminophen ([facility]) 10-325 mg per tablet 120 tablet 0 Sig: Take 1 tablet by mouth every 6 hours as needed for pain for up to 30 days. Do not start before May 11, 2024. Authorizing Provider: CIERRA ROSS PA-C [facility] 05-10-2024 Telephone encount er Note Patient phones requesting refills as follows: Requested Prescriptions Pending Prescriptions Disp Refills HYDROcodone-Acetaminophen ([facility]CO) 10-325 mg per tablet 120 tablet 0 Sig: Take 1 tablet by mouth every 6 hours as needed for pain for up to 30 days. Last UDS: Opioid agreement 12/15/23. Summary Report Date Value Ref Range Status 03/23/2024 FINAL Final Comment: Opiate Class, MS, Ur RFX Acetaminophen, MS, Ur RFX ToxAssure Flex 23, Ur Test Result Flag Units Drug Present and Declared for Prescription Verification Hydrocodone 5064 EXPECTED ng/mg creat Hydromorphone 722 EXPECTED ng/mg creat Dihydrocodeine 1232 EXPECTED ng/mg creat Norhydrocodone >2703 EXPECTED ng/mg creat Sources of hydrocodone include scheduled prescription medications. Hydromorphone, dihydrocodeine and norhydrocodone are expected metabolites of hydrocodone. Hydromorphone and dihydrocodeine are also available as scheduled prescription medications. Acetaminophen PRESENT EXPECTED Test Result Flag Units Ref Range Creatinine 185 mg/dL >=20 Declared Medications: The flagging and interpretation on this report are based on the following declared medications. Unexpected results may arise from inaccuracies in the declared medications. Note: The testing scope of this panel includes these medications: Hydrocodone ([facility]) Note: The testing scope of this panel does not include small to moderate amounts of these reported medications: Acetaminophen ([facility]) For clinical consultation, please call . No results found for: UQNOTE , OPIATEPNMGT , DRUGSCRPAIN Urine Panel: No results found for: UQCANN , UQBNZL , VRP2WPL , UQAMPH , UQMAMP , UQBUPRE , UQNORBUP , UQMTHD , UQEDDP , UQTRAM , UQDTRM , UQFNTL , UQNFTL , UQCODE , UQMORP , UQDCDN , UQHCOD , UQOXYC , UQHMOR , UQOXYM , UQCREA , UQPH , UQSPGR , UQOXID , UQSPQ @FLOW([id number])@ Lab Results Component Value Date [facility] 03/23/2024 Summary Report (Summary) Date Value Ref Range Status 08/29/2022 FINAL Final Comment: TOXASSURE COMP DRUG ANALYSIS,UR Test Result Flag Units Drug Present and Declared for Prescription Verification Hydrocodone >6289 EXPECTED ng/mg creat Hydromorphone 629 EXPECTED ng/mg creat Dihydrocodeine 1306 EXPECTED ng/mg creat Norhydrocodone >3145 EXPECTED ng/mg creat Sources of hydrocodone include scheduled prescription medications. Hydromorphone, dihydrocodeine and norhydrocodone are expected metabolites of hydrocodone. Hydromorphone and dihydrocodeine are also available as scheduled prescription medications. Acetaminophen PRESENT EXPECTED Drug Present not Declared for Prescription Verification Topiramate PRESENT UNEXPECTED Paroxetine PRESENT UNEXPECTED Salicylate PRESENT UNEXPECTED Dextromethorphan PRESENT UNEXPECTED Dextrorphan/Levorphanol PRESENT UNEXPECTED Dextrorphan is an expected metabolite of dextromethorphan, an blhc-ahh-ulmyjen or prescription cough suppressant. Dextrorphan cannot be distinguished from the scheduled prescription medication levorphanol by the method used for analysis. Guaifenesin PRESENT UNEXPECTED Guaifenesin may be administered as an eubf-ufb-kjgcedk or prescription drug; it may also be present as a breakdown product of methocarbamol. Metoprolol PRESENT UNEXPECTED Test Result Flag Units Ref Range Creatinine 159 mg/dL >=20 Declared Medications: The flagging and interpretation on this report are based on the following declared medications. Unexpected results may arise from inaccuracies in the declared medications. Note: The testing scope of this panel includes these medications: Hydrocodone ([facility]) Note: The testing scope of this panel does not include small to moderate amounts of these reported medications: Acetaminophen ([facility]) For clinical consultation, please call . Last Opioid agreement effective date: 12/15/2023 Please review and advise. Nina Flores RN [facility] 03-23-2024 Instructions Cierra Ross PA-C - 03/23/2024 1:13 PM EDT The OARRS report has been reviewed and is consistent with the patients medical history and medication intake. The patient underwent a random drug screen at today's office visit. The patient will continue with hydrocodone and Lidoderm patch. She will continue with core strengthening and range of motion exercises. Patient was encouraged to stop smoking. Follow-up in office in 3 months I discussed the patient with Dr. Montez who agrees with my assessment and plan. All of the above is to improve functionality and quality of life. No evidence of drug abuse or diversion is seen at this time. documented in this encounter [facility] 03-23-2024 History of Presen t illness Narrative This note was created using [employer]. Subjective Eder Schaeffer is a 69 year old female. The patient primarily being seen for back pain Patient was last seen on: 01/27/24 At that time, the treatment plan was: see notes Current Meds: [facility] - last dose this am, Lidocaine Patch - last applied weeks ago - too costly Efficacy: helps Side effects: none TENS unit: had one but didn't help How often used: Benefit: Physical Therapy: 2022 post shoulder surgery Last UDS: 03/23/24 Last injection: none OARRS reviewed At the present time, the patient reports benefit with her present analgesic therapy. She denies any adverse effects. Since her previous visit, she denies any hospitalizations or ER visits. Otherwise, she has nothing further to discuss at this time. 01/27/2024 03/23/2024 INTAKE PAIN ASSESSMENT Are you having pain associated with your visit today? Yes, Provider notified Yes, Provider notified Pain Scales Verbal (Numeric Rating or Visual Analog Scale) Verbal (Numeric Rating or Visual Analog Scale) Pain Level 6 6 Pain Location Back Back Description Aching;Sharp;Stabbing Aching;Dull Frequency Intermittent Continuous Intervention/Comfort measure Medication Medication;Other: See comment HPI PAST MEDICAL HISTORY Diagnosis Date Back pain Chronic kidney disease, stage III (moderate) (HCC) Heart murmur HTN (hypertension) Hypokalemia Migraines MVP (mitral valve prolapse) Myalgia and myositis, unspecified PAST SURGICAL HISTORY Procedure Laterality Date ARTHRP KNE CONDYLE&PLATU MEDIAL&LAT COMPARTMENTS right knee CHOLECYSTECTOMY Cholecystectomy COLONOSCOPY FLX DX W/COLLJ SPEC WHEN PFRMD Colonoscopy OOPHORECTOMY PARTIAL/TOTAL UNI/BI Oophorectomy Right PAST SURGICAL HISTORY OF pilinodal cyst PAST SURGICAL HISTORY OF surgery L knee PAST SURGICAL HISTORY OF Right 08/2022 shoulder - Dr. Schulte Social History Tobacco Use Smoking status: Every Day Packs/day: 1.00 Years: 25.00 Additional pack years: 0.00 Total pack years: 25.00 Types: Cigarettes Smokeless tobacco: Never Substance Use Topics Alcohol use: No Drug use: No Review of Systems Constitutional: Negative for fever and unexpected weight change. Musculoskeletal: + back pain, joint pain, muscle cramps/weakness, stiffness, arthritis, sciatica, restless legs, leg pain at night, and leg pain with exertion. Objective BP 155/80 (BP Site: Left Arm, BP Position: Sitting, BP Cuff Size: Large Adult) Pulse 73 Temp 36 C (96.8 F) (Temporal) Resp 20 Ht 170.2 cm (5' 7 ) Wt 61.7 kg (136 lb) LMP 02/21/2008 SpO2 99% BMI 21.30 kg/m Physical Exam Vitals and nursing note reviewed. Constitutional: Appearance: Normal appearance. She is well-developed, well-groomed and normal weight. HENT: Head: Normocephalic and atraumatic. Right Ear: Hearing normal. Left Ear: Hearing normal. Eyes: Conjunctiva/sclera: Conjunctivae normal. Comments: Wearing glasses Musculoskeletal: Comments: She walks with a normal gait. The patient has tenderness to palpation in the lubmar reigon with spasms noted in the trapezius, paraspinal, and latissimus dorsi muscles. The patient has multiple fibromyalgia tender points noted throughout the examination. She has tenderness to palpation in the knees bilaterally with crepitus noted. There is tenderness over the right greater trochanter Neurological: Mental Status: She is alert and oriented to person, place, and time. Psychiatric: Attention and Perception: Attention and perception normal. Mood and Affect: Mood and affect normal. Speech: Speech normal. Behavior: Behavior normal. Behavior is cooperative. Thought Content: Thought content normal. Judgment: Judgment normal. Assessment and Plan ASSESSMENT/PLAN: 1. Degeneration of intervertebral disc of lumbar region - ICD9: 722.52, ICD10: M51.36 (primary diagnosis) The OARRS report has been reviewed and is consistent with the patients medical history and medication intake. The patient underwent a random drug screen at today's office visit. The patient will continue with hydrocodone and Lidoderm patch. She will continue with core strengthening and range of motion exercises. Patient was encouraged to stop smoking. Follow-up in office in 3 months - TOXASSURE FLEX 23, URINE - HYDROCODONE 10 MG-ACETAMINOPHEN 325 MG TABLET (Two stable chronic illnesses/prescription drug management) 2. Lumbar spondylosis - ICD9: 721.3, ICD10: M47.816 3. Fibromyalgia - ICD9: 729.1, ICD10: M79.7 4. Generalized osteoarthritis - ICD9: 715.00, ICD10: M15.9 5. Primary osteoarthritis of both shoulders - ICD9: 715.11, ICD10: M19.011, M19.012 6. Primary osteoarthritis of both knees - ICD9: 715.16, ICD10: M17.0 7. Trochanteric bursitis, unspecified laterality - ICD9: 726.5, ICD10: M70.60 8. Other senior care (current) drug therapy - ICD9: V58.69, ICD10: Z79.899 - TOXASSURE FLEX 23, URINE Cierra Ross PA-C documented in this encounter [facility] 03-23-2024 Note HNO ID: [id number] Author: CIERRA ROSS PA-C Service: ? Author Type: Physician Beater Worker Helper Type: Progress Notes Filed: 03/23/2024 13:20 Note Text: This note was created using [employer]. Angelic Schaeffer is a 69 year old female. The patient primarily being seen for back pain Patient was last seen on: 01/27/24 At that time, the treatment plan was: see notes Current Meds: [facility] - last dose this am, Lidocaine Patch - last applied weeks ago - too costly Efficacy: helps Side effects: none TENS unit: had one but didn't help How often used: Benefit: Physical Therapy: 2022 post shoulder surgery Last UDS: 03/23/24 Last injection: none OARRS reviewed At the present time, the patient reports benefit with her present analgesic therapy. She denies any adverse effects. Since her previous visit, she denies any hospitalizations or ER visits. Otherwise, she has nothing further to discuss at this time. 01/27/2024 03/23/2024 INTAKE PAIN ASSESSMENT Are you having pain associated with your visit today? Yes, Provider notified Yes, Provider notified Pain Scales Verbal (Numeric Rating or Visual Analog Scale) Verbal (Numeric Rating or Visual Analog Scale) Pain Level 6 6 Pain Location Back Back Description Aching;Sharp;Stabbing Aching;Dull Frequency Intermittent Continuous Intervention/Comfort measure Medication Medication;Other: See comment HPI PAST MEDICAL HISTORY Diagnosis Date Back pain Chronic kidney disease, stage III (moderate) (HCC) Heart murmur HTN (hypertension) Hypokalemia Migraines MVP (mitral valve prolapse) Myalgia and myositis, unspecified PAST SURGICAL HISTORY Procedure Laterality Date ARTHRP KNE CONDYLEANDPLATU MEDIALANDLAT COMPARTMENTS right knee CHOLECYSTECTOMY Cholecystectomy COLONOSCOPY FLX DX W/COLLJ SPEC WHEN PFRMD Colonoscopy OOPHORECTOMY PARTIAL/TOTAL UNI/BI Oophorectomy Right PAST SURGICAL HISTORY OF pilinodal cyst PAST SURGICAL HISTORY OF surgery L knee PAST SURGICAL HISTORY OF Right 08/2022 shoulder - Dr. Schulte Social History Tobacco Use Smoking status: Every Day Packs/day: 1.00 Years: 25.00 Additional pack years: 0.00 Total pack years: 25.00 Types: Cigarettes Smokeless tobacco: Never Substance Use Topics Alcohol use: No Drug use: No Review of Systems Constitutional: Negative for fever and unexpected weight change. Musculoskeletal: + back pain, joint pain, muscle cramps/weakness, stiffness, arthritis, sciatica, restless legs, leg pain at night, and leg pain with exertion. Objective BP 155/80 (BP Site: Left Arm, BP Position: Sitting, BP Cuff Size: Large Adult) Pulse 73 Temp 36 ?C (96.8 ?F) (Temporal) Resp 20 Ht 170.2 cm (5' 7 ) Wt 61.7 kg (136 lb) LMP 02/21/2008 SpO2 99% BMI 21.30 kg/m? Physical Exam Vitals and nursing note reviewed. Constitutional: Appearance: Normal appearance. She is well-developed, well-groomed and normal weight. HENT: Head: Normocephalic and atraumatic. Right Ear: Hearing normal. Left Ear: Hearing normal. Eyes: Conjunctiva/sclera: Conjunctivae normal. Comments: Wearing glasses Musculoskeletal: Comments: She walks with a normal gait. The patient has tenderness to palpation in the lubmar reigon with spasms noted in the trapezius, paraspinal, and latissimus dorsi muscles. The patient has multiple fibromyalgia tender points noted throughout the examination. She has tenderness to palpation in the knees bilaterally with crepitus noted. There is tenderness over the right greater trochanter Neurological: Mental Status: She is alert and oriented to person, place, and time. Psychiatric: Attention and Perception: Attention and perception normal. Mood and Affect: Mood and affect normal. Speech: Speech normal. Behavior: Behavior normal. Behavior is cooperative. Thought Content: Thought content normal. Judgment: Judgment normal. Assessment and Plan ASSESSMENT/PLAN: 1. Degeneration of intervertebral disc of lumbar region - ICD9: 722.52, ICD10: M51.36 (primary diagnosis) The OARRS report has been reviewed and is consistent with the patients medical history and medication intake. The patient underwent a random drug screen at today's office visit. The patient will continue with hydrocodone and Lidoderm patch. She will continue with core strengthening and range of motion exercises. Patient was encouraged to stop smoking. Follow-up in office in 3 months - TOXASSURE? FLEX 23, URINE - HYDROCODONE 10 MG-ACETAMINOPHEN 325 MG TABLET (Two stable chronic illnesses/prescription drug management) 2. Lumbar spondylosis - ICD9: 721.3, ICD10: M47.816 3. Fibromyalgia - ICD9: 729.1, ICD10: M79.7 4. Generalized osteoarthritis - ICD9: 715.00, ICD10: M15.9 5. Primary osteoarthritis of both shoulders - ICD9: 715.11, ICD10: M19.011, M19.012 6. Primary osteoarthritis of both knees - ICD9: 715.16, ICD10: M17.0 7. Trochanteric bursitis, uns (more content not included)... [facility] 03-09-2024 Miscellaneous Notes Formattin g of this note is different from the original. The following approved medication requests have been transmitted electronically. Requested Prescriptions Signed Prescriptions Disp Refills HYDROcodone-Acetaminophen ([facility]) 10-325 mg per tablet 120 tablet 0 Sig: Take 1 tablet by mouth every 6 hours as needed for pain for up to 30 days. Do not start before March 12, 2024. Authorizing Provider: CIERRA ROSS PA-C Patient phones requesting refills as follows: Requested Prescriptions Pending Prescriptions Disp Refills HYDROcodone-Acetaminophen ([facility]) 10-325 mg per tablet 120 tablet 0 Sig: Take 1 tablet by mouth every 6 hours as needed for pain for up to 30 days. Last UDS: Opioid agreement 12/15/23. Summary Report Date Value Ref Range Status 10/20/2023 FINAL Final Comment: Opiate Class, MS, Ur RFX Acetaminophen, MS, Ur RFX ToxAssure Flex 23, Ur Test Result Flag Units Drug Present and Declared for Prescription Verification Hydrocodone 5734 EXPECTED ng/mg creat Hydromorphone 984 EXPECTED ng/mg creat Dihydrocodeine 1007 EXPECTED ng/mg creat Norhydrocodone >3571 EXPECTED ng/mg creat Sources of hydrocodone include scheduled prescription medications. Hydromorphone, dihydrocodeine and norhydrocodone are expected metabolites of hydrocodone. Hydromorphone and dihydrocodeine are also available as scheduled prescription medications. Acetaminophen PRESENT EXPECTED Drug Present not Declared for Prescription Verification Dextromethorphan PRESENT UNEXPECTED Dextrorphan/Levorphanol PRESENT UNEXPECTED Dextrorphan is an expected metabolite of dextromethorphan, an nher-srv-nodsdex or prescription cough suppressant. Dextrorphan cannot be distinguished from the scheduled prescription medication levorphanol by the method used for analysis. Test Result Flag Units Ref Range Creatinine 140 mg/dL >=20 Declared Medications: The flagging and interpretation on this report are based on the following declared medications. Unexpected results may arise from inaccuracies in the declared medications. Note: The testing scope of this panel includes these medications: Hydrocodone ([facility]) Note: The testing scope of this panel does not include small to moderate amounts of these reported medications: Acetaminophen ([facility]) For clinical consultation, please call . No results found for: UQNOTE , OPIATEPNMGT , DRUGSCRPAIN Urine Panel: No results found for: UQCANN , UQBNZL , YUE4BDO , UQAMPH , UQMAMP , UQBUPRE , UQNORBUP , UQMTHD , UQEDDP , UQTRAM , UQDTRM , UQFNTL , UQNFTL , UQCODE , UQMORP , UQDCDN , UQHCOD , UQOXYC , UQHMOR , UQOXYM , UQCREA , UQPH , UQSPGR , UQOXID , UQSPQ @[id number])@ Lab Results Component Value Date [facility] 10/20/2023 Summary Report (Summary) Date Value Ref Range Status 08/29/2022 FINAL Final Comment: TOXASSURE COMP DRUG ANALYSIS,UR Test Result Flag Units Drug Present and Declared for Prescription Verification Hydrocodone >6289 EXPECTED ng/mg creat Hydromorphone 629 EXPECTED ng/mg creat Dihydrocodeine 1306 EXPECTED ng/mg creat Norhydrocodone >3145 EXPECTED ng/mg creat Sources of hydrocodone include scheduled prescription medications. Hydromorphone, dihydrocodeine and norhydrocodone are expected metabolites of hydrocodone. Hydromorphone and dihydrocodeine are also available as scheduled prescription medications. Acetaminophen PRESENT EXPECTED Drug Present not Declared for Prescription Verification Topiramate PRESENT UNEXPECTED Paroxetine PRESENT UNEXPECTED Salicylate PRESENT UNEXPECTED Dextromethorphan PRESENT UNEXPECTED Dextrorphan/Levorphanol PRESENT UNEXPECTED Dextrorphan is an expected metabolite of dextromethorphan, an ezhz-qoc-mpffwlw or prescription cough suppressant. Dextrorphan cannot be distinguished from the scheduled prescription medication levorphanol by the method used for analysis. Guaifenesin PRESENT UNEXPECTED Guaifenesin may be administered as an sdff-awj-rtfawtf or prescription drug; it may also be present as a breakdown product of methocarbamol. Metoprolol PRESENT UNEXPECTED Test Result Flag Units Ref Range Creatinine 159 mg/dL >=20 Declared Medications: The flagging and interpretation on this report are based on the following declared medications. Unexpected results may arise from inaccuracies in the declared medications. Note: The testing scope of this panel includes these medications: Hydrocodone ([facility]) Note: The testing scope of this panel does not include small to moderate amounts of these reported medications: Acetaminophen ([facility]) For clinical consultation, please call . Last Opioid agreement effective date: 12/15/2023 Please review and advise. Margie Soriano RN documented in this encounter [facility] 01-27-2024 Note HNO ID: [id number] Author: CIERRA ROSS PA-C Service: ? Author Type: Physician Beater Worker Helper Type: Progress Notes Filed: 01/27/2024 13:21 Note Text: This note was created using [employer]. Subjective Eder Schaeffer is a 68 year old female. The patient primarily being seen for back pain Patient was last seen on: 12/15/23 At that time, the treatment plan was: see notes Current Meds: [facility] - last dose this am, Lidocaine Patch - uses rarely - too costly Efficacy: helps Side effects: none TENS unit: had one but didn't help How often used: Benefit: Physical Therapy: 2022 - post shoulder surgery Last UDS: 10/20/23 Last injection: none OARRS reviewed At the present time, the patient reports benefit with her present analgesic therapy. She denies any adverse effects. Since her previous visit, she denies any hospitalizations or ER visits. Otherwise, she has nothing further to discuss at this time. INTAKE PAIN ASSESSMENT 12/15/2023 01/27/2024 Are you having pain associated with your visit today? Yes, Provider notified Yes, Provider notified Pain Scales Verbal (Numeric Rating or Visual Analog Scale) Verbal (Numeric Rating or Visual Analog Scale) Pain Level 6 6 Pain Location Back-Lower Back Description Aching Aching;Sharp;Stabbing Duration Units - - Frequency Continuous Intermittent Intervention/Comfort measure Medication;Relaxation;Heat Medication Comments - - HPI PAST MEDICAL HISTORY Diagnosis Date Back pain Chronic kidney disease, stage III (moderate) (HCC) Heart murmur HTN (hypertension) Hypokalemia Migraines MVP (mitral valve prolapse) Myalgia and myositis, unspecified PAST SURGICAL HISTORY Procedure Laterality Date ARTHRP KNE CONDYLEANDPLATU MEDIALANDLAT COMPARTMENTS right knee CHOLECYSTECTOMY Cholecystectomy COLONOSCOPY FLX DX W/COLLJ SPEC WHEN PFRMD Colonoscopy OOPHORECTOMY PARTIAL/TOTAL UNI/BI Oophorectomy Right PAST SURGICAL HISTORY OF pilinodal cyst PAST SURGICAL HISTORY OF surgery L knee PAST SURGICAL HISTORY OF Right 08/2022 shoulder - Dr. Schulte Social History Tobacco Use Smoking status: Every Day Packs/day: 1.00 Years: 25.00 Additional pack years: 0.00 Total pack years: 25.00 Types: Cigarettes Smokeless tobacco: Never Substance Use Topics Alcohol use: No Drug use: No Review of Systems Constitutional: Negative for fever and unexpected weight change. Musculoskeletal: + back pain, joint pain, muscle cramps/weakness, stiffness, arthritis, sciatica, restless legs, leg pain at night, and leg pain with exertion. Objective BP 121/82 (BP Site: Left Arm, BP Position: Sitting, BP Cuff Size: Large Adult) Pulse 67 Temp 36.4 ?C (97.5 ?F) (Temporal) Resp 20 Ht 170.2 cm (5' 7 ) Wt 62.6 kg (138 lb) LMP 02/21/2008 SpO2 99% BMI 21.61 kg/m? Physical Exam Vitals and nursing note reviewed. Constitutional: Appearance: Normal appearance. She is well-developed, well-groomed and normal weight. HENT: Head: Normocephalic and atraumatic. Right Ear: Hearing normal. Left Ear: Hearing normal. Eyes: Conjunctiva/sclera: Conjunctivae normal. Comments: Wearing glasses Musculoskeletal: Comments: She walks with a normal gait. The patient has tenderness to palpation in the lubmar reigon with spasms noted in the trapezius, paraspinal, and latissimus dorsi muscles. The patient has multiple fibromyalgia tender points noted throughout the examination. She has tenderness to palpation in the knees bilaterally with crepitus noted. There is tenderness over the right greater trochanter Neurological: Mental Status: She is alert and oriented to person, place, and time. Psychiatric: Attention and Perception: Attention and perception normal. Mood and Affect: Mood and affect normal. Speech: Speech normal. Behavior: Behavior normal. Behavior is cooperative. Thought Content: Thought content normal. Judgment: Judgment normal. Assessment and Plan ASSESSMENT/PLAN: 1. Degeneration of intervertebral disc of lumbar region - ICD9: 722.52, ICD10: M51.36 (primary diagnosis) The OARRS report has been reviewed and is consistent with the patients medical history and medication intake. The patient will continue with hydrocodone and Lidoderm patch. She will continue with core strengthening and range of motion exercises. Patient was encouraged to stop smoking. Follow-up in office in 6 weeks time. - HYDROCODONE 10 MG-ACETAMINOPHEN 325 MG TABLET (Two stable chronic illnesses/prescription drug management) 2. Lumbar spondylosis - ICD9: 721.3, ICD10: M47.816 3. Fibromyalgia - ICD9: 729.1, ICD10: M79.7 4. Generalized osteoarthritis - ICD9: 715.00, ICD10: M15.9 5. Primary osteoarthritis of both shoulders - ICD9: 715.11, ICD10: M19.011, M19.012 6. Primary osteoarthritis of both knees - ICD9: 715.16, ICD10: M17.0 7. Trochanteric bursitis, unspecified laterality - ICD9: 726.5, ICD10: M70.60 Cierra Ross, (more content not included)... [facility] 01-08-2024 Miscellaneous Notes Formattin g of this note is different from the original. The following approved medication requests have been transmitted electronically. Requested Prescriptions Signed Prescriptions Disp Refills HYDROcodone-Acetaminophen (NORCO) 10-325 mg per tablet 120 tablet 0 Sig: Take 1 tablet by mouth every 6 hours as needed for pain for up to 30 days. Do not start before January 12, 2024. Authorizing Provider: CIERRA ROSS PA-C Patient phones requesting refills as follows: Requested Prescriptions Pending Prescriptions Disp Refills HYDROcodone-Acetaminophen (NORCO) 10-325 mg per tablet 120 tablet 0 Sig: Take 1 tablet by mouth every 6 hours as needed for pain for up to 30 days. Last UDS: Opioid agreement 12/15/23. Summary Report Date Value Ref Range Status 10/20/2023 FINAL Final Comment: Opiate Class, MS, Ur RFX Acetaminophen, MS, Ur RFX ToxAssure Flex 23, Ur Test Result Flag Units Drug Present and Declared for Prescription Verification Hydrocodone 5734 EXPECTED ng/mg creat Hydromorphone 984 EXPECTED ng/mg creat Dihydrocodeine 1007 EXPECTED ng/mg creat Norhydrocodone >3571 EXPECTED ng/mg creat Sources of hydrocodone include scheduled prescription medications. Hydromorphone, dihydrocodeine and norhydrocodone are expected metabolites of hydrocodone. Hydromorphone and dihydrocodeine are also available as scheduled prescription medications. Acetaminophen PRESENT EXPECTED Drug Present not Declared for Prescription Verification Dextromethorphan PRESENT UNEXPECTED Dextrorphan/Levorphanol PRESENT UNEXPECTED Dextrorphan is an expected metabolite of dextromethorphan, an whvz-dqc-ldasruf or prescription cough suppressant. Dextrorphan cannot be distinguished from the scheduled prescription medication levorphanol by the method used for analysis. Test Result Flag Units Ref Range Creatinine 140 mg/dL >=20 Declared Medications: The flagging and interpretation on this report are based on the following declared medications. Unexpected results may arise from inaccuracies in the declared medications. Note: The testing scope of this panel includes these medications: Hydrocodone ([facility]) Note: The testing scope of this panel does not include small to moderate amounts of these reported medications: Acetaminophen ([facility]) For clinical consultation, please call . No results found for: UQNOTE , OPIATEPNMGT , DRUGSCRPAIN Urine Panel: No results found for: UQCANN , UQBNZL , DVG9RMX , UQAMPH , UQMAMP , UQBUPRE , UQNORBUP , UQMTHD , UQEDDP , UQTRAM , UQDTRM , UQFNTL , UQNFTL , UQCODE , UQMORP , UQDCDN , UQHCOD , UQOXYC , UQHMOR , UQOXYM , UQCREA , UQPH , UQSPGR , UQOXID , UQSPQ @[id number])@ Lab Results Component Value Date [facility] FINAL 10/20/2023 Summary Report (Summary) Date Value Ref Range Status 08/29/2022 FINAL Final Comment: TOXASSURE COMP DRUG ANALYSIS,UR Test Result Flag Units Drug Present and Declared for Prescription Verification Hydrocodone >6289 EXPECTED ng/mg creat Hydromorphone 629 EXPECTED ng/mg creat Dihydrocodeine 1306 EXPECTED ng/mg creat Norhydrocodone >3145 EXPECTED ng/mg creat Sources of hydrocodone include scheduled prescription medications. Hydromorphone, dihydrocodeine and norhydrocodone are expected metabolites of hydrocodone. Hydromorphone and dihydrocodeine are also available as scheduled prescription medications. Acetaminophen PRESENT EXPECTED Drug Present not Declared for Prescription Verification Topiramate PRESENT UNEXPECTED Paroxetine PRESENT UNEXPECTED Salicylate PRESENT UNEXPECTED Dextromethorphan PRESENT UNEXPECTED Dextrorphan/Levorphanol PRESENT UNEXPECTED Dextrorphan is an expected metabolite of dextromethorphan, an nxpx-xfh-rtrcwln or prescription cough suppressant. Dextrorphan cannot be distinguished from the scheduled prescription medication levorphanol by the method used for analysis. Guaifenesin PRESENT UNEXPECTED Guaifenesin may be administered as an veph-uqo-rrgrpnk or prescription drug; it may also be present as a breakdown product of methocarbamol. Metoprolol PRESENT UNEXPECTED Test Result Flag Units Ref Range Creatinine 159 mg/dL >=20 Declared Medications: The flagging and interpretation on this report are based on the following declared medications. Unexpected results may arise from inaccuracies in the declared medications. Note: The testing scope of this panel includes these medications: Hydrocodone ([facility]) Note: The testing scope of this panel does not include small to moderate amounts of these reported medications: Acetaminophen ([facility]) For clinical consultation, please call . Last Opioid agreement effective date: 12/15/2023 Please review and advise. Georgia Campos RN documented in this encounter [facility] 12-15-2023 Note HNO ID: [id number] Author: CIERRA ROSS PA-C Service: ? Author Type: Physician Beater Worker Helper Type: Progress Notes Filed: 12/15/2023 13:03 Note Text: This note was created using [employer]. Subjective Eder Schaeffer is a 68 year old female. The patient primarily being seen for back pain Patient was last seen on: 10/20/23 At that time, the treatment plan was: see notes Current Meds: [facility] am/ Lidocaine Patch couple weeks ago Efficacy: helpful Side effects: denies TENS unit: How often used: Benefit: Physical Therapy: Last UDS: 10/20/23 Last injection: OARRS reviewed At the present time, the patient reports benefit with her present analgesic therapy. She denies any adverse effects. Since her previous visit, she denies any hospitalizations or ER visits. Otherwise, she has nothing further to discuss at this time. INTAKE PAIN ASSESSMENT 10/20/2023 12/15/2023 Are you having pain associated with your visit today? Yes, Provider notified Yes, Provider notified Pain Scales Verbal (Numeric Rating or Visual Analog Scale) Verbal (Numeric Rating or Visual Analog Scale) Pain Level 5 6 Pain Location Back-Lower Back-Lower Description Aching Aching Duration Units - - Frequency Continuous Continuous Intervention/Comfort measure Medication;Relaxation Medication;Relaxation;Heat Comments - - HPI PAST MEDICAL HISTORY Diagnosis Date Back pain Chronic kidney disease, stage III (moderate) (HCC) Heart murmur HTN (hypertension) Hypokalemia Migraines MVP (mitral valve prolapse) Myalgia and myositis, unspecified PAST SURGICAL HISTORY Procedure Laterality Date ARTHRP KNE CONDYLEANDPLATU MEDIALANDLAT COMPARTMENTS right knee CHOLECYSTECTOMY Cholecystectomy COLONOSCOPY FLX DX W/COLLJ SPEC WHEN PFRMD Colonoscopy OOPHORECTOMY PARTIAL/TOTAL UNI/BI Oophorectomy Right PAST SURGICAL HISTORY OF pilinodal cyst PAST SURGICAL HISTORY OF surgery L knee PAST SURGICAL HISTORY OF Right 08/2022 shoulder - Dr. Schulte Social History Tobacco Use Smoking status: Every Day Packs/day: 1.00 Years: 25.00 Additional pack years: 0.00 Total pack years: 25.00 Types: Cigarettes Smokeless tobacco: Never Substance Use Topics Alcohol use: No Drug use: No Review of Systems Constitutional: Negative for fever and unexpected weight change. Musculoskeletal: + back pain, joint pain, muscle cramps/weakness, stiffness, arthritis, sciatica, restless legs, leg pain at night, and leg pain with exertion. Objective BP 117/79 (BP Site: Left Arm, BP Position: Sitting, BP Cuff Size: Large Adult) Pulse 80 Temp 36.6 ?C (97.8 ?F) (Temporal) Resp 18 LMP 02/21/2008 SpO2 98% Physical Exam Vitals and nursing note reviewed. Constitutional: Appearance: Normal appearance. She is well-developed, well-groomed and normal weight. HENT: Head: Normocephalic and atraumatic. Right Ear: Hearing normal. Left Ear: Hearing normal. Eyes: Conjunctiva/sclera: Conjunctivae normal. Comments: Wearing glasses Musculoskeletal: Comments: She walks with a normal gait. The patient has tenderness to palpation in the lubmar reigon with spasms noted in the trapezius, paraspinal, and latissimus dorsi muscles. The patient has multiple fibromyalgia tender points noted throughout the examination. She has tenderness to palpation in the knees bilaterally with crepitus noted. There is tenderness over the right greater trochanter Neurological: Mental Status: She is alert and oriented to person, place, and time. Psychiatric: Attention and Perception: Attention and perception normal. Mood and Affect: Mood and affect normal. Speech: Speech normal. Behavior: Behavior normal. Behavior is cooperative. Thought Content: Thought content normal. Judgment: Judgment normal. Assessment and Plan ASSESSMENT/PLAN: 1. Degeneration of intervertebral disc of lumbar region - ICD9: 722.52, ICD10: M51.36 (primary diagnosis) The OARRS report has been reviewed and is consistent with the patients medical history and medication intake. The patient's most recent drug screen has been reviewed and is appropriate and consistent with current therapy. The patient will continue with hydrocodone and Lidoderm patch. She will continue with core strengthening and range of motion exercises. Patient was encouraged to stop smoking. Follow-up in office in 6 weeks time. 2. Lumbar spondylosis - ICD9: 721.3, ICD10: M47.816 3. Fibromyalgia - ICD9: 729.1, ICD10: M79.7 4. Generalized osteoarthritis - ICD9: 715.00, ICD10: M15.9 5. Primary osteoarthritis of both shoulders - ICD9: 715.11, ICD10: M19.011, M19.012 6. Primary osteoarthritis of both knees - ICD9: 715.16, ICD10: M17.0 7. Trochanteric bursitis, unspecified laterality - ICD9: 726.5, ICD10: M70.60 Cierra Ross PA-C [facility] 10-20-2023 Instructions Cierra Ross PA-C - 10/20/2023 1:24 PM EST The OARRS report has been reviewed and is consistent with the patients medical history and medication intake. The patient underwent a random drug screen at today's office visit. The patient will continue with hydrocodone and Lidoderm patch. She will continue with core strengthening and range of motion exercises. Patient was encouraged to stop smoking. Follow-up in office in 6 weeks time. I discussed the patient with Dr. Montez who agrees with my assessment and plan. All of the above is to improve functionality and quality of life. No evidence of drug abuse or diversion is seen at this time. documented in this encounter [facility] 10-20-2023 Note HNO ID: [id number] Author: Cierra Ross PA-C Service: ? Author Type: Physician Beater Worker Helper Type: Progress Notes Filed: 10/20/2023 1:31 PM Note Text: This note was created using [employer]. Subjective Eder Schaeffer is a 68 year old female. The patient primarily being seen for back pain Patient was last seen on: 08/22/23 At that time, the treatment plan was: see notes Current Meds: [facility] am/ Lidocaine Patch couple weeks Efficacy: helpful Side effects: denies TENS unit: How often used: Benefit: Physical Therapy: Last UDS: 10/20/23 Last injection: OARRS reviewed At the present time, the patient reports benefit with her present analgesic therapy. She denies any adverse effects. Since her previous visit, she denies any hospitalizations or ER visits. Otherwise, she has nothing further to discuss at this time. INTAKE PAIN ASSESSMENT 08/22/2023 10/20/2023 Are you having pain associated with your visit today? Yes, Provider notified Yes, Provider notified Pain Scales Verbal (Numeric Rating or Visual Analog Scale) Verbal (Numeric Rating or Visual Analog Scale) Pain Level 6 5 Pain Location Back Back-Lower Description Aching;Dull Aching Duration Units - - Frequency Continuous Continuous Intervention/Comfort measure Medication Medication;Relaxation Comments - - HPI PAST MEDICAL HISTORY Diagnosis Date Back pain Chronic kidney disease, stage III (moderate) (HCC) Heart murmur HTN (hypertension) Hypokalemia Migraines MVP (mitral valve prolapse) Myalgia and myositis, unspecified PAST SURGICAL HISTORY Procedure Laterality Date ARTHRP KNE CONDYLEANDPLATU MEDIALANDLAT COMPARTMENTS right knee CHOLECYSTECTOMY Cholecystectomy COLONOSCOPY FLX DX W/COLLJ SPEC WHEN PFRMD Colonoscopy OOPHORECTOMY PARTIAL/TOTAL UNI/BI Oophorectomy Right PAST SURGICAL HISTORY OF pilinodal cyst PAST SURGICAL HISTORY OF surgery L knee PAST SURGICAL HISTORY OF Right 08/2022 shoulder - Dr. Schulte Social History Tobacco Use Smoking status: Every Day Packs/day: 1.00 Years: 25.00 Additional pack years: 0.00 Total pack years: 25.00 Types: Cigarettes Smokeless tobacco: Never Substance Use Topics Alcohol use: No Drug use: No Review of Systems Constitutional: Negative for fever and unexpected weight change. Musculoskeletal: + back pain, joint pain, muscle cramps/weakness, stiffness, arthritis, sciatica, restless legs, leg pain at night, and leg pain with exertion. Objective BP 126/79 (BP Site: Left Arm, BP Position: Sitting, BP Cuff Size: Regular Adult) Pulse 79 Temp 36.3 ?C (97.4 ?F) (Temporal) Resp 18 LMP 02/21/2008 SpO2 99% Physical Exam Vitals and nursing note reviewed. Constitutional: Appearance: Normal appearance. She is well-developed, well-groomed and normal weight. HENT: Head: Normocephalic and atraumatic. Right Ear: Hearing normal. Left Ear: Hearing normal. Eyes: Conjunctiva/sclera: Conjunctivae normal. Comments: Wearing glasses Musculoskeletal: Comments: She walks with a normal gait. The patient has tenderness to palpation in the lubmar reigon with spasms noted in the trapezius, paraspinal, and latissimus dorsi muscles. The patient has multiple fibromyalgia tender points noted throughout the examination. She has tenderness to palpation in the knees bilaterally with crepitus noted. There is tenderness over the right greater trochanter Neurological: Mental Status: She is alert and oriented to person, place, and time. Psychiatric: Attention and Perception: Attention and perception normal. Mood and Affect: Mood and affect normal. Speech: Speech normal. Behavior: Behavior normal. Behavior is cooperative. Thought Content: Thought content normal. Judgment: Judgment normal. Assessment and Plan ASSESSMENT/PLAN: 1. Degeneration of intervertebral disc of lumbar region - ICD9: 722.52, ICD10: M51.36 (primary diagnosis) The OARRS report has been reviewed and is consistent with the patients medical history and medication intake. The patient underwent a random drug screen at today's office visit. The patient will continue with hydrocodone and Lidoderm patch. She will continue with core strengthening and range of motion exercises. Patient was encouraged to stop smoking. Follow-up in office in 6 weeks time. - TOXASSURE? FLEX 23, URINE 2. Lumbar spondylosis - ICD9: 721.3, ICD10: M47.816 3. Fibromyalgia - ICD9: 729.1, ICD10: M79.7 4. Generalized osteoarthritis - ICD9: 715.00, ICD10: M15.9 5. Primary osteoarthritis of both shoulders - ICD9: 715.11, ICD10: M19.011, M19.012 6. Primary osteoarthritis of both knees - ICD9: 715.16, ICD10: M17.0 7. 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 FLEX 23, URINE Cierra Ross PA-C [facility] 10-20-2023 History of Presen t illness Narrative This note was created using [employer]. Subjective Eder Schaeffer is a 68 year old female. The patient primarily being seen for back pain Patient was last seen on: 08/22/23 At that time, the treatment plan was: see notes Current Meds: [facility] am/ Lidocaine Patch couple weeks Efficacy: helpful Side effects: denies TENS unit: How often used: Benefit: Physical Therapy: Last UDS: 10/20/23 Last injection: OARRS reviewed At the present time, the patient reports benefit with her present analgesic therapy. She denies any adverse effects. Since her previous visit, she denies any hospitalizations or ER visits. Otherwise, she has nothing further to discuss at this time. INTAKE PAIN ASSESSMENT 08/22/2023 10/20/2023 Are you having pain associated with your visit today? Yes, Provider notified Yes, Provider notified Pain Scales Verbal (Numeric Rating or Visual Analog Scale) Verbal (Numeric Rating or Visual Analog Scale) Pain Level 6 5 Pain Location Back Back-Lower Description Aching;Dull Aching Duration Units - - Frequency Continuous Continuous Intervention/Comfort measure Medication Medication;Relaxation Comments - - HPI PAST MEDICAL HISTORY Diagnosis Date Back pain Chronic kidney disease, stage III (moderate) (HCC) Heart murmur HTN (hypertension) Hypokalemia Migraines MVP (mitral valve prolapse) Myalgia and myositis, unspecified PAST SURGICAL HISTORY Procedure Laterality Date ARTHRP KNE CONDYLE&PLATU MEDIAL&LAT COMPARTMENTS right knee CHOLECYSTECTOMY Cholecystectomy COLONOSCOPY FLX DX W/COLLJ SPEC WHEN PFRMD Colonoscopy OOPHORECTOMY PARTIAL/TOTAL UNI/BI Oophorectomy Right PAST SURGICAL HISTORY OF pilinodal cyst PAST SURGICAL HISTORY OF surgery L knee PAST SURGICAL HISTORY OF Right 08/2022 shoulder - Dr. Schulte Social History Tobacco Use Smoking status: Every Day Packs/day: 1.00 Years: 25.00 Additional pack years: 0.00 Total pack years: 25.00 Types: Cigarettes Smokeless tobacco: Never Substance Use Topics Alcohol use: No Drug use: No Review of Systems Constitutional: Negative for fever and unexpected weight change. Musculoskeletal: + back pain, joint pain, muscle cramps/weakness, stiffness, arthritis, sciatica, restless legs, leg pain at night, and leg pain with exertion. Objective BP 126/79 (BP Site: Left Arm, BP Position: Sitting, BP Cuff Size: Regular Adult) Pulse 79 Temp 36.3 C (97.4 F) (Temporal) Resp 18 LMP 02/21/2008 SpO2 99% Physical Exam Vitals and nursing note reviewed. Constitutional: Appearance: Normal appearance. She is well-developed, well-groomed and normal weight. HENT: Head: Normocephalic and atraumatic. Right Ear: Hearing normal. Left Ear: Hearing normal. Eyes: Conjunctiva/sclera: Conjunctivae normal. Comments: Wearing glasses Musculoskeletal: Comments: She walks with a normal gait. The patient has tenderness to palpation in the lubmar reigon with spasms noted in the trapezius, paraspinal, and latissimus dorsi muscles. The patient has multiple fibromyalgia tender points noted throughout the examination. She has tenderness to palpation in the knees bilaterally with crepitus noted. There is tenderness over the right greater trochanter Neurological: Mental Status: She is alert and oriented to person, place, and time. Psychiatric: Attention and Perception: Attention and perception normal. Mood and Affect: Mood and affect normal. Speech: Speech normal. Behavior: Behavior normal. Behavior is cooperative. Thought Content: Thought content normal. Judgment: Judgment normal. Assessment and Plan ASSESSMENT/PLAN: 1. Degeneration of intervertebral disc of lumbar region - ICD9: 722.52, ICD10: M51.36 (primary diagnosis) The OARRS report has been reviewed and is consistent with the patients medical history and medication intake. The patient underwent a random drug screen at today's office visit. The patient will continue with hydrocodone and Lidoderm patch. She will continue with core strengthening and range of motion exercises. Patient was encouraged to stop smoking. Follow-up in office in 6 weeks time. - TOXASSURE FLEX 23, URINE 2. Lumbar spondylosis - ICD9: 721.3, ICD10: M47.816 3. Fibromyalgia - ICD9: 729.1, ICD10: M79.7 4. Generalized osteoarthritis - ICD9: 715.00, ICD10: M15.9 5. Primary osteoarthritis of both shoulders - ICD9: 715.11, ICD10: M19.011, M19.012 6. Primary osteoarthritis of both knees - ICD9: 715.16, ICD10: M17.0 7. Trochanteric bursitis, unspecified laterality - ICD9: 726.5, ICD10: M70.60 8. 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 The following approved medication requests have been transmitted electronically. Requested Prescriptions Pending Prescriptions Disp Refills HYDROcodone-Acetaminophen (NORCO) 10-325 mg per tablet 120 tablet 0 Sig: Take 1 tablet by mouth every 6 hours as needed for pain for up to 30 days. Do not start before October 14, 2023. Cierra Ross PA-C Patient phones requesting refills as follows: Requested Prescriptions Pending Prescriptions Disp Refills HYDROcodone-Acetaminophen (NORCO) 10-325 mg per tablet 120 tablet 0 Sig: Take 1 tablet by mouth every 6 hours as needed for pain for up to 30 days. Do not start before October 14, 2023. Please review and advise. Sherry De Leon RN documented in this encounter [facility] 09-12-2023 Miscellaneous Notes Formattin g of this note is different from the original. The following approved medication requests have been transmitted electronically. Requested Prescriptions Pending Prescriptions Disp Refills HYDROcodone-Acetaminophen (NORCO) 10-325 mg per tablet 120 tablet 0 Sig: Take 1 tablet by mouth every 6 hours as needed for pain for up to 30 days. Do not start before September 14, 2023. Cierra Ross PA-C Patient phones requesting refills as follows: Requested Prescriptions Pending Prescriptions Disp Refills HYDROcodone-Acetaminophen (NORCO) 10-325 mg per tablet 120 tablet 0 Sig: Take 1 tablet by mouth every 6 hours as needed for pain for up to 30 days. Do not start before September 14, 2023. Please review and advise. Sherry De Leon RN documented in this encounter [facility] 08-22-2023 Instructions Cierra Ross PA-C - 08/22/2023 10:27 AM EDT The OARRS report has been reviewed and is consistent with the patients medical history and medication intake. The patient will continue with hydrocodone and Lidoderm patch. She will continue with core strengthening and range of motion exercises. Patient was encouraged to stop smoking. Follow-up in office in 6 weeks time. I will discuss the patient with Dr. Montez when he returns to the office. All of the above is to improve functionality and quality of life. No evidence of drug abuse or diversion is seen at this time. documented in this encounter [facility] 08-22-2023 History of Presen t illness Narrative This note was created using [employer]. Subjective Eder Schaeffer is a 68 year old female. The patient primarily being seen for back pain Patient was last seen on: 06/25/23 At that time, the treatment plan was: see notes Current Meds: [facility] - last dose this am, Lidocaine Patch - couple weeks ago Efficacy: help Side effects: none TENS unit: had one but didn't help How often used: Benefit: Physical Therapy: this year post op shoulder surgery Last UDS: 04/01/23 Last injection: none OARRS reviewed At the present time, the patient reports benefit with her present analgesic therapy. She denies any adverse effects. Since her previous visit, she denies any hospitalizations or ER visits. Otherwise, she has nothing further to discuss at this time. INTAKE PAIN ASSESSMENT 06/25/2023 08/22/2023 Are you having pain associated with your visit today? Yes, Provider notified Yes, Provider notified Pain Scales Verbal (Numeric Rating or Visual Analog Scale) Verbal (Numeric Rating or Visual Analog Scale) Pain Level 6 6 Pain Location Back-Lower Back Description Aching Aching;Dull Duration Units - - Frequency Continuous Continuous Intervention/Comfort measure Medication;Relaxation;Other: See comment Medication Comments stretching - HPI PAST MEDICAL HISTORY Diagnosis Date Back pain Chronic kidney disease, stage III (moderate) (HCC) Heart murmur HTN (hypertension) Hypokalemia Migraines MVP (mitral valve prolapse) Myalgia and myositis, unspecified PAST SURGICAL HISTORY Procedure Laterality Date ARTHRP KNE CONDYLE&PLATU MEDIAL&LAT COMPARTMENTS right knee CHOLECYSTECTOMY Cholecystectomy COLONOSCOPY FLX DX W/COLLJ SPEC WHEN PFRMD Colonoscopy OOPHORECTOMY PARTIAL/TOTAL UNI/BI Oophorectomy Right PAST SURGICAL HISTORY OF pilinodal cyst PAST SURGICAL HISTORY OF surgery L knee PAST SURGICAL HISTORY OF Right 08/2022 shoulder - Dr. Schulte Social History Tobacco Use Smoking status: Every Day Packs/day: 1.00 Years: 25.00 Additional pack years: 0.00 Total pack years: 25.00 Types: Cigarettes Smokeless tobacco: Never Substance Use Topics Alcohol use: No Drug use: No Review of Systems Constitutional: Negative for fever and unexpected weight change. Musculoskeletal: + back pain, joint pain, muscle cramps/weakness, stiffness, arthritis, sciatica, restless legs, leg pain at night, and leg pain with exertion. Objective BP 117/72 (BP Site: Left Arm, BP Position: Sitting, BP Cuff Size: Large Adult) Pulse 68 Temp 36.1 C (96.9 F) (Temporal) Ht 170.2 cm (5' 7 ) Wt 59.4 kg (131 lb) LMP 02/21/2008 SpO2 97% BMI 20.52 kg/m Physical Exam Vitals and nursing note reviewed. Constitutional: Appearance: Normal appearance. She is well-developed, well-groomed and normal weight. HENT: Head: Normocephalic and atraumatic. Right Ear: Hearing normal. Left Ear: Hearing normal. Eyes: Conjunctiva/sclera: Conjunctivae normal. Comments: Wearing glasses Musculoskeletal: Comments: She walks with a normal gait. The patient has tenderness to palpation in the lubmar reigon with spasms noted in the trapezius, paraspinal, and latissimus dorsi muscles. The patient has multiple fibromyalgia tender points noted throughout the examination. She has tenderness to palpation in the knees bilaterally with crepitus noted. There is tenderness over the right greater trochanter Neurological: Mental Status: She is alert and oriented to person, place, and time. Psychiatric: Attention and Perception: Attention and perception normal. Mood and Affect: Mood and affect normal. Speech: Speech normal. Behavior: Behavior normal. Behavior is cooperative. Thought Content: Thought content normal. Judgment: Judgment normal. Assessment and Plan ASSESSMENT/PLAN: 1. Degeneration of intervertebral disc of lumbar region - ICD9: 722.52, ICD10: M51.36 (primary diagnosis) The OARRS report has been reviewed and is consistent with the patients medical history and medication intake. The patient will continue with hydrocodone and Lidoderm patch. She will continue with core strengthening and range of motion exercises. Patient was encouraged to stop smoking. Follow-up in office in 6 weeks time. 2. Lumbar spondylosis - ICD9: 721.3, ICD10: M47.816 3. Fibromyalgia - ICD9: 729.1, ICD10: M79.7 4. Generalized osteoarthritis - ICD9: 715.00, ICD10: M15.9 5. Primary osteoarthritis of both shoulders - ICD9: 715.11, ICD10: M19.011, M19.012 6. Primary osteoarthritis of both knees - ICD9: 715.16, ICD10: M17.0 7. Trochanteric bursitis, unspecified laterality - ICD9: 726.5, ICD10: M70.60 Cierra Ross PA-C documented in this encounter [facility] 08-22-2023 Note HNO ID: [id number] Author: Cierra Ross PA-C Service: ? Author Type: Physician Beater Worker Helper Type: Progress Notes Filed: 08/22/2023 10:33 AM Note Text: This note was created using [employer]. Subjective Eder Schaeffer is a 68 year old female. The patient primarily being seen for back pain Patient was last seen on: 06/25/23 At that time, the treatment plan was: see notes Current Meds: [facility] - last dose this am, Lidocaine Patch - couple weeks ago Efficacy: help Side effects: none TENS unit: had one but didn't help How often used: Benefit: Physical Therapy: this year post op shoulder surgery Last UDS: 04/01/23 Last injection: none OARRS reviewed At the present time, the patient reports benefit with her present analgesic therapy. She denies any adverse effects. Since her previous visit, she denies any hospitalizations or ER visits. Otherwise, she has nothing further to discuss at this time. INTAKE PAIN ASSESSMENT 06/25/2023 08/22/2023 Are you having pain associated with your visit today? Yes, Provider notified Yes, Provider notified Pain Scales Verbal (Numeric Rating or Visual Analog Scale) Verbal (Numeric Rating or Visual Analog Scale) Pain Level 6 6 Pain Location Back-Lower Back Description Aching Aching;Dull Duration Units - - Frequency Continuous Continuous Intervention/Comfort measure Medication;Relaxation;Other: See comment Medication Comments stretching - HPI PAST MEDICAL HISTORY Diagnosis Date Back pain Chronic kidney disease, stage III (moderate) (HCC) Heart murmur HTN (hypertension) Hypokalemia Migraines MVP (mitral valve prolapse) Myalgia and myositis, unspecified PAST SURGICAL HISTORY Procedure Laterality Date ARTHRP KNE CONDYLEANDPLATU MEDIALANDLAT COMPARTMENTS right knee CHOLECYSTECTOMY Cholecystectomy COLONOSCOPY FLX DX W/COLLJ SPEC WHEN PFRMD Colonoscopy OOPHORECTOMY PARTIAL/TOTAL UNI/BI Oophorectomy Right PAST SURGICAL HISTORY OF pilinodal cyst PAST SURGICAL HISTORY OF surgery L knee PAST SURGICAL HISTORY OF Right 08/2022 shoulder - Dr. Schulte Social History Tobacco Use Smoking status: Every Day Packs/day: 1.00 Years: 25.00 Additional pack years: 0.00 Total pack years: 25.00 Types: Cigarettes Smokeless tobacco: Never Substance Use Topics Alcohol use: No Drug use: No Review of Systems Constitutional: Negative for fever and unexpected weight change. Musculoskeletal: + back pain, joint pain, muscle cramps/weakness, stiffness, arthritis, sciatica, restless legs, leg pain at night, and leg pain with exertion. Objective BP 117/72 (BP Site: Left Arm, BP Position: Sitting, BP Cuff Size: Large Adult) Pulse 68 Temp 36.1 ?C (96.9 ?F) (Temporal) Ht 170.2 cm (5' 7 ) Wt 59.4 kg (131 lb) LMP 02/21/2008 SpO2 97% BMI 20.52 kg/m? Physical Exam Vitals and nursing note reviewed. Constitutional: Appearance: Normal appearance. She is well-developed, well-groomed and normal weight. HENT: Head: Normocephalic and atraumatic. Right Ear: Hearing normal. Left Ear: Hearing normal. Eyes: Conjunctiva/sclera: Conjunctivae normal. Comments: Wearing glasses Musculoskeletal: Comments: She walks with a normal gait. The patient has tenderness to palpation in the lubmar reigon with spasms noted in the trapezius, paraspinal, and latissimus dorsi muscles. The patient has multiple fibromyalgia tender points noted throughout the examination. She has tenderness to palpation in the knees bilaterally with crepitus noted. There is tenderness over the right greater trochanter Neurological: Mental Status: She is alert and oriented to person, place, and time. Psychiatric: Attention and Perception: Attention and perception normal. Mood and Affect: Mood and affect normal. Speech: Speech normal. Behavior: Behavior normal. Behavior is cooperative. Thought Content: Thought content normal. Judgment: Judgment normal. Assessment and Plan ASSESSMENT/PLAN: 1. Degeneration of intervertebral disc of lumbar region - ICD9: 722.52, ICD10: M51.36 (primary diagnosis) The OARRS report has been reviewed and is consistent with the patients medical history and medication intake. The patient will continue with hydrocodone and Lidoderm patch. She will continue with core strengthening and range of motion exercises. Patient was encouraged to stop smoking. Follow-up in office in 6 weeks time. 2. Lumbar spondylosis - ICD9: 721.3, ICD10: M47.816 3. Fibromyalgia - ICD9: 729.1, ICD10: M79.7 4. Generalized osteoarthritis - ICD9: 715.00, ICD10: M15.9 5. Primary osteoarthritis of both shoulders - ICD9: 715.11, ICD10: M19.011, M19.012 6. Primary osteoarthritis of both knees - ICD9: 715.16, ICD10: M17.0 7. Trochanteric bursitis, unspecified laterality - ICD9: 726.5, ICD10: M70.60 Cierra Ross PA-C [facility] 08-14-2023 Miscellaneous Notes Formattin g of this note is different from the original. The following approved medication requests have been transmitted electronically. Requested Prescriptions Pending Prescriptions Disp Refills HYDROcodone-Acetaminophen (NORCO) 10-325 mg per tablet 120 tablet 0 Sig: Take 1 tablet by mouth every 6 hours as needed for pain for up to 30 days. Do not start before August 15, 2023. Cierra Ross PA-C Patient phones requesting refills as follows: Requested Prescriptions Pending Prescriptions Disp Refills HYDROcodone-Acetaminophen (NORCO) 10-325 mg per tablet 120 tablet 0 Sig: Take 1 tablet by mouth every 6 hours as needed for pain for up to 30 days. Do not start before August 15, 2023. Please review and advise. Carmen James RN documented in this encounter [facility] 07-11-2023 Miscellaneous Notes Formattin g of this note is different from the original. The following approved medication requests have been transmitted electronically. Requested Prescriptions Pending Prescriptions Disp Refills HYDROcodone-Acetaminophen (NORCO) 10-325 mg per tablet 120 tablet 0 Sig: Take 1 tablet by mouth every 6 hours as needed for pain for up to 30 days. Do not start before July 16, 2023. Cierra Ross PA-C Patient phones requesting refills as follows: Requested Prescriptions Pending Prescriptions Disp Refills HYDROcodone-Acetaminophen (NORCO) 10-325 mg per tablet 120 tablet 0 Sig: Take 1 tablet by mouth every 6 hours as needed for pain for up to 30 days. Do not start before July 16, 2023. Please review and advise. Sherry De Leon RN documented in this encounter [facility] 06-25-2023 Instructions Cierra Ross PA-C - 06/25/2023 2:24 PM EDT The OARRS report has been reviewed and is consistent with the patients medical history and medication intake. The patient will continue with hydrocodone and Lidoderm patch. She will continue with core strengthening and range of motion exercises. Patient was encouraged to stop smoking. Follow-up in office in 6 weeks time. I discussed the patient with Dr. Montez who agrees with my assessment and plan. All of the above is to improve functionality and quality of life. No evidence of drug abuse or diversion is seen at this time. documented in this encounter [facility] 06-25-2023 Note HNO ID: [id number] Author: Cierar Ross PA-C Service: ? Author Type: Physician Beater Worker Helper Type: Progress Notes Filed: 06/25/2023 2:34 PM Note Text: This note was created using [employer]. Subjective Eder Schaeffer is a 68 year old female. The patient primarily being seen for back pain Patient was last seen on: 05/14/23 At that time, the treatment plan was: see notes Current Meds: [facility] am/ Lidocaine Patch rarely Efficacy: helpful Side effects: denies TENS unit: How often used: Benefit: Physical Therapy: Last UDS: 04/01/23 Last injection: OARRS reviewed At the present time, the patient reports benefit with her present analgesic therapy. She denies any adverse effects. Since her previous visit, she denies any hospitalizations or ER visits. Otherwise, she has nothing further to discuss at this time. INTAKE PAIN ASSESSMENT 05/14/2023 06/25/2023 Are you having pain associated with your visit today? Yes, Provider notified Yes, Provider notified Pain Scales Verbal (Numeric Rating or Visual Analog Scale) Verbal (Numeric Rating or Visual Analog Scale) Pain Level 6 6 Pain Location Back Back-Lower Description Aching;Dull;Sharp Aching Duration Units Years - Frequency Continuous Continuous Intervention/Comfort measure Medication;Relaxation Medication;Relaxation;Other: See comment Comments - stretching HPI PAST MEDICAL HISTORY Diagnosis Date Back pain Chronic kidney disease, stage III (moderate) (HCC) Heart murmur HTN (hypertension) Hypokalemia Migraines MVP (mitral valve prolapse) Myalgia and myositis, unspecified PAST SURGICAL HISTORY Procedure Laterality Date ARTHRP KNE CONDYLEANDPLATU MEDIALANDLAT COMPARTMENTS right knee CHOLECYSTECTOMY Cholecystectomy COLONOSCOPY FLX DX W/COLLJ SPEC WHEN PFRMD Colonoscopy OOPHORECTOMY PARTIAL/TOTAL UNI/BI Oophorectomy Right PAST SURGICAL HISTORY OF pilinodal cyst PAST SURGICAL HISTORY OF surgery L knee PAST SURGICAL HISTORY OF Right 08/2022 shoulder - Dr. Schulte Social History Tobacco Use Smoking status: Every Day Packs/day: 1.00 Years: 25.00 Total pack years: 25.00 Types: Cigarettes Smokeless tobacco: Never Substance Use Topics Alcohol use: No Drug use: No Review of Systems Constitutional: Negative for fever and unexpected weight change. Musculoskeletal: + back pain, joint pain, muscle cramps/weakness, stiffness, arthritis, sciatica, restless legs, leg pain at night, and leg pain with exertion. Objective BP 142/87 (BP Site: Left Arm, BP Position: Sitting, BP Cuff Size: Regular Adult) Pulse 74 Temp 36.1 ?C (97 ?F) (Temporal) Resp 18 LMP 02/21/2008 SpO2 97% Physical Exam Vitals and nursing note reviewed. Constitutional: Appearance: Normal appearance. She is well-developed, well-groomed and normal weight. HENT: Head: Normocephalic and atraumatic. Right Ear: Hearing normal. Left Ear: Hearing normal. Eyes: Conjunctiva/sclera: Conjunctivae normal. Comments: Wearing glasses Musculoskeletal: Comments: She walks with a normal gait. The patient has tenderness to palpation in the lubmar reigon with spasms noted in the trapezius, paraspinal, and latissimus dorsi muscles. The patient has multiple fibromyalgia tender points noted throughout the examination. She has tenderness to palpation in the knees bilaterally with crepitus noted. There is tenderness over the right greater trochanter Neurological: Mental Status: She is alert and oriented to person, place, and time. Psychiatric: Attention and Perception: Attention and perception normal. Mood and Affect: Mood and affect normal. Speech: Speech normal. Behavior: Behavior normal. Behavior is cooperative. Thought Content: Thought content normal. Judgment: Judgment normal. Assessment and Plan ASSESSMENT/PLAN: 1. Degeneration of intervertebral disc of lumbar region - ICD9: 722.52, ICD10: M51.36 (primary diagnosis) The OARRS report has been reviewed and is consistent with the patients medical history and medication intake. The patient will continue with hydrocodone and Lidoderm patch. She will continue with core strengthening and range of motion exercises. Patient was encouraged to stop smoking. Follow-up in office in 6 weeks time. 2. Lumbar spondylosis - ICD9: 721.3, ICD10: M47.816 3. Fibromyalgia - ICD9: 729.1, ICD10: M79.7 4. Generalized osteoarthritis - ICD9: 715.00, ICD10: M15.9 5. Primary osteoarthritis of both shoulders - ICD9: 715.11, ICD10: M19.011, M19.012 6. Primary osteoarthritis of both knees - ICD9: 715.16, ICD10: M17.0 7. Trochanteric bursitis, unspecified laterality - ICD9: 726.5, ICD10: M70.60 Cierra Ross PA-C [facility] 06-25-2023 History of Presen t illness Narrative This note was created using [employer]. Subjective Eder Schaeffer is a 68 year old female. The patient primarily being seen for back pain Patient was last seen on: 05/14/23 At that time, the treatment plan was: see notes Current Meds: [facility] am/ Lidocaine Patch rarely Efficacy: helpful Side effects: denies TENS unit: How often used: Benefit: Physical Therapy: Last UDS: 04/01/23 Last injection: OARRS reviewed At the present time, the patient reports benefit with her present analgesic therapy. She denies any adverse effects. Since her previous visit, she denies any hospitalizations or ER visits. Otherwise, she has nothing further to discuss at this time. INTAKE PAIN ASSESSMENT 05/14/2023 06/25/2023 Are you having pain associated with your visit today? Yes, Provider notified Yes, Provider notified Pain Scales Verbal (Numeric Rating or Visual Analog Scale) Verbal (Numeric Rating or Visual Analog Scale) Pain Level 6 6 Pain Location Back Back-Lower Description Aching;Dull;Sharp Aching Duration Units Years - Frequency Continuous Continuous Intervention/Comfort measure Medication;Relaxation Medication;Relaxation;Other: See comment Comments - stretching HPI PAST MEDICAL HISTORY Diagnosis Date Back pain Chronic kidney disease, stage III (moderate) (HCC) Heart murmur HTN (hypertension) Hypokalemia Migraines MVP (mitral valve prolapse) Myalgia and myositis, unspecified PAST SURGICAL HISTORY Procedure Laterality Date ARTHRP KNE CONDYLE&PLATU MEDIAL&LAT COMPARTMENTS right knee CHOLECYSTECTOMY Cholecystectomy COLONOSCOPY FLX DX W/COLLJ SPEC WHEN PFRMD Colonoscopy OOPHORECTOMY PARTIAL/TOTAL UNI/BI Oophorectomy Right PAST SURGICAL HISTORY OF pilinodal cyst PAST SURGICAL HISTORY OF surgery L knee PAST SURGICAL HISTORY OF Right 08/2022 shoulder - Dr. Schulte Social History Tobacco Use Smoking status: Every Day Packs/day: 1.00 Years: 25.00 Total pack years: 25.00 Types: Cigarettes Smokeless tobacco: Never Substance Use Topics Alcohol use: No Drug use: No Review of Systems Constitutional: Negative for fever and unexpected weight change. Musculoskeletal: + back pain, joint pain, muscle cramps/weakness, stiffness, arthritis, sciatica, restless legs, leg pain at night, and leg pain with exertion. Objective BP 142/87 (BP Site: Left Arm, BP Position: Sitting, BP Cuff Size: Regular Adult) Pulse 74 Temp 36.1 C (97 F) (Temporal) Resp 18 LMP 02/21/2008 SpO2 97% Physical Exam Vitals and nursing note reviewed. Constitutional: Appearance: Normal appearance. She is well-developed, well-groomed and normal weight. HENT: Head: Normocephalic and atraumatic. Right Ear: Hearing normal. Left Ear: Hearing normal. Eyes: Conjunctiva/sclera: Conjunctivae normal. Comments: Wearing glasses Musculoskeletal: Comments: She walks with a normal gait. The patient has tenderness to palpation in the lubmar reigon with spasms noted in the trapezius, paraspinal, and latissimus dorsi muscles. The patient has multiple fibromyalgia tender points noted throughout the examination. She has tenderness to palpation in the knees bilaterally with crepitus noted. There is tenderness over the right greater trochanter Neurological: Mental Status: She is alert and oriented to person, place, and time. Psychiatric: Attention and Perception: Attention and perception normal. Mood and Affect: Mood and affect normal. Speech: Speech normal. Behavior: Behavior normal. Behavior is cooperative. Thought Content: Thought content normal. Judgment: Judgment normal. Assessment and Plan ASSESSMENT/PLAN: 1. Degeneration of intervertebral disc of lumbar region - ICD9: 722.52, ICD10: M51.36 (primary diagnosis) The OARRS report has been reviewed and is consistent with the patients medical history and medication intake. The patient will continue with hydrocodone and Lidoderm patch. She will continue with core strengthening and range of motion exercises. Patient was encouraged to stop smoking. Follow-up in office in 6 weeks time. 2. Lumbar spondylosis - ICD9: 721.3, ICD10: M47.816 3. Fibromyalgia - ICD9: 729.1, ICD10: M79.7 4. Generalized osteoarthritis - ICD9: 715.00, ICD10: M15.9 5. Primary osteoarthritis of both shoulders - ICD9: 715.11, ICD10: M19.011, M19.012 6. Primary osteoarthritis of both knees - ICD9: 715.16, ICD10: M17.0 7. Trochanteric bursitis, unspecified laterality - ICD9: 726.5, ICD10: M70.60 Cierra Ross PA-C documented in this encounter [facility] 05-14-2023 Instructions Dhruv Montez MD - 05/14/2023 1:36 PM EDT The patient will continue with hydrocodone and Lidoderm patch. She will continue with core strengthening and range of motion exercises. Patient was encouraged to stop smoking. Follow-up in office in 6 weeks time. documented in this encounter [facility] 05-14-2023 Miscellaneous Notes Formattin g of this note is different from the original. Patient phones requesting refills as follows: Requested Prescriptions Pending Prescriptions Disp Refills HYDROcodone-Acetaminophen (NORCO) 10-325 mg per tablet 120 tablet 0 Sig: Take 1 tablet by mouth every 6 hours as needed for pain for up to 30 days. Do not start before May 17, 2023. Please review and advise. Sherry De Leon RN documented in this encounter [facility] 05-14-2023 History of Presen t illness Narrative This note was created using [employer]. Subjective Eder Schaeffer is a 68 year old female. The patient primarily being seen for back pain Patient was last seen on: 04/01/23 At that time, the treatment plan was: see notes Current Meds: [facility] - last dose this am, Lidoderm Patch - use very rarely Efficacy: helps Side effects: none TENS unit: had one but didn't help How often used: Benefit: Physical Therapy: post op shoulder surgery Last UDS: 04/01/23 Last injection: none OARRS reviewed INTAKE PAIN ASSESSMENT 04/01/2023 05/14/2023 Are you having pain associated with your visit today? Yes, Provider notified Yes, Provider notified Pain Scales Verbal (Numeric Rating or Visual Analog Scale) Verbal (Numeric Rating or Visual Analog Scale) Pain Level 6 6 Pain Location Back Back Description Aching;Dull Aching;Dull;Sharp Duration Units Years Years Frequency Continuous Continuous Intervention/Comfort measure Medication Medication;Relaxation Comments - - HPI Patient is getting adequate relief from the present regimen and denies any side effect from it. This has improved the patient s level of functionality and has been able to perform activities of daily living. The patient exhibits no aberrant behavior. The PDMP report and last UDS are both consistent with prescribed medications and are unremarkable. Review of Systems Constitutional: Negative for fever and unexpected weight change. Musculoskeletal: Positive for neck pain, back pain, joint pain, muscle cramps/weakness, stiffness, arthritis, sciatica, restless legs, leg pain at night, and leg pain with exertion. Objective BP 119/78 (BP Site: Left Arm, BP Position: Sitting, BP Cuff Size: Large Adult) Pulse 85 Temp 36.4 C (97.5 F) (Temporal) Ht 170.2 cm (5' 7 ) Wt 59.4 kg (131 lb) LMP 02/21/2008 SpO2 97% BMI 20.52 kg/m Physical Exam Vitals and nursing note reviewed. Constitutional: General: She is not in acute distress. Appearance: Normal appearance. She is well-developed, well-groomed and normal weight. HENT: Head: Normocephalic and atraumatic. Right Ear: Hearing and external ear normal. Left Ear: Hearing and external ear normal. Nose: Nose normal. Eyes: General: No scleral icterus. Extraocular Movements: Extraocular movements intact. Conjunctiva/sclera: Conjunctivae normal. Comments: Wearing glasses Musculoskeletal: Comments: She walks with a normal gait. The patient has tenderness to palpation in the lubmar reigon with spasms noted in the trapezius, paraspinal, and latissimus dorsi muscles. The patient has multiple fibromyalgia tender points noted throughout the examination. She has tenderness to palpation in the knees bilaterally with crepitus noted. There is tenderness over the right greater trochanter Skin: General: Skin is warm and dry. Neurological: Mental Status: She is alert and oriented to person, place, and time. Psychiatric: Attention and Perception: Attention and perception normal. Mood and Affect: Mood and affect normal. Speech: Speech normal. Behavior: Behavior normal. Behavior is cooperative. Thought Content: Thought content normal. Judgment: Judgment normal. Assessment and Plan ASSESSMENT/PLAN: 1. Chronic pain syndrome - ICD9: 338.4, ICD10: G89.4 (primary diagnosis) 2. Fibromyalgia - ICD9: 729.1, ICD10: M79.7 3. Degeneration of intervertebral disc of lumbar region - ICD9: 722.52, ICD10: M51.36 4. Lumbar spondylosis - ICD9: 721.3, ICD10: M47.816 5. Generalized osteoarthritis - ICD9: 715.00, ICD10: M15.9 6. Primary osteoarthritis of both shoulders - ICD9: 715.11, ICD10: M19.011, M19.012 7. Primary osteoarthritis of both knees - ICD9: 715.16, ICD10: M17.0 8. Trochanteric bursitis, unspecified laterality - ICD9: 726.5, ICD10: M70.60 PLAN: The patient will continue with hydrocodone and Lidoderm patch. She will continue with core strengthening and range of motion exercises. Patient was encouraged to stop smoking. Follow-up in office in 6 weeks time. 30 minutes spent for chronic pain management distinct from evaluation and management Two or more stable chronic illness and prescription medication management This document was transcribed using a voice recognition software and may contain minor errors. Dhruv Montez MD documented in this encounter [facility] 04-01-2023 Instructions Cierra Ross PA-C - 04/01/2023 1:54 PM EDT The OARRS report has been reviewed and is consistent with the patients medical history and medication intake. The patient underwent a random UDS at today's office visit. Continue with the hydrocodone and lidoderm patches Work on decreasing the smoking. Continue with core strengthening and range of motion exercises FU in the office in [address] Montez. Continue with the PT exercises at home on your own. I discussed the patient with Dr. Montez who agrees with my assessment and plan. All of the above is to improve functionality and quality of life. No evidence of drug abuse or diversion is seen at this time. documented in this encounter [facility] 04-01-2023 History of Presen t illness Narrative This note was created using [employer]. Subjective Eder Schaeffer is a 68 year old female. The patient primarily being seen for back pain Patient was last seen on: 02/18/23 At that time, the treatment plan was: see notes Current Meds: [facility] - last dose this am, Lidoderm Patch - 2 days ago Efficacy: help Side effects: none TENS unit: had one but didn't help How often used: Benefit: Physical Therapy: recently post op shoulder surgery Last UDS: 04/01/23 Last injection: none OARRS reviewed At the present time, the patient reports benefit with her present analgesic therapy. She denies any adverse effects. Since her previous visit, she denies any hospitalizations or ER visits. Otherwise, she has nothing further to discuss at this time. INTAKE PAIN ASSESSMENT 02/18/2023 04/01/2023 Are you having pain associated with your visit today? Yes, Provider notified Yes, Provider notified Pain Scales Verbal (Numeric Rating or Visual Analog Scale) Verbal (Numeric Rating or Visual Analog Scale) Pain Level 6 6 Pain Location Back-Lower Back Description Aching;Dull;Sharp Aching;Dull Duration Units Years Years Frequency Continuous Continuous Intervention/Comfort measure Medication;Relaxation Medication Comments - - HPI PAST MEDICAL HISTORY Diagnosis Date Back pain Chronic kidney disease, stage III (moderate) (HCC) Heart murmur HTN (hypertension) Hypokalemia Migraines MVP (mitral valve prolapse) Myalgia and myositis, unspecified PAST SURGICAL HISTORY Procedure Laterality Date ARTHRP KNE CONDYLE&PLATU MEDIAL&LAT COMPARTMENTS right knee CHOLECYSTECTOMY Cholecystectomy COLONOSCOPY FLX DX W/COLLJ SPEC WHEN PFRMD Colonoscopy OOPHORECTOMY PARTIAL/TOTAL UNI/BI Oophorectomy Right PAST SURGICAL HISTORY OF pilinodal cyst PAST SURGICAL HISTORY OF surgery L knee PAST SURGICAL HISTORY OF Right 08/2022 shoulder - Dr. Schulte Social History Tobacco Use Smoking status: Every Day Packs/day: 1.00 Years: 25.00 Pack years: 25.00 Types: Cigarettes Smokeless tobacco: Never Substance Use Topics Alcohol use: No Drug use: No Review of Systems Constitutional: Negative for fever and unexpected weight change. Musculoskeletal: + back pain, joint pain, muscle cramps/weakness, stiffness, arthritis, sciatica, restless legs, leg pain at night, and leg pain with exertion. Objective BP 104/66 (BP Site: Left Arm, BP Position: Sitting, BP Cuff Size: Large Adult) Pulse 86 Temp 36.1 C (97 F) (Temporal) Resp 20 Ht 170.2 cm (5' 7 ) Wt 60.3 kg (133 lb) LMP 02/21/2008 SpO2 98% BMI 20.83 kg/m Physical Exam Vitals and nursing note reviewed. Constitutional: Appearance: Normal appearance. She is well-developed, well-groomed and normal weight. HENT: Head: Normocephalic and atraumatic. Right Ear: Hearing normal. Left Ear: Hearing normal. Eyes: Conjunctiva/sclera: Conjunctivae normal. Comments: Wearing glasses Musculoskeletal: Comments: She walks with a normal gait. The patient has tenderness to palpation in the lubmar reigon with spasms noted in the trapezius, paraspinal, and latissimus dorsi muscles. The patient has multiple fibromyalgia tender points noted throughout the examination. She has tenderness to palpation in the knees bilaterally with crepitus noted. There is tenderness over the right greater trochanter Neurological: Mental Status: She is alert and oriented to person, place, and time. Psychiatric: Attention and Perception: Attention and perception normal. Mood and Affect: Mood and affect normal. Speech: Speech normal. Behavior: Behavior normal. Behavior is cooperative. Thought Content: Thought content normal. Judgment: Judgment normal. Assessment and Plan ASSESSMENT/PLAN: 1. Degeneration of intervertebral disc of lumbar region - ICD9: 722.52, ICD10: M51.36 (primary diagnosis) The OARRS report has been reviewed and is consistent with the patients medical history and medication intake. The patient underwent a random UDS at today's office visit. Continue with the hydrocodone and lidoderm patches Work on decreasing the smoking. Continue with core strengthening and range of motion exercises FU in the office in [address] Montez. Continue with the PT exercises at home on your own. - TOXASSURE FLEX 23, URINE 2. Lumbar spondylosis - ICD9: 721.3, ICD10: M47.816 3. Fibromyalgia - ICD9: 729.1, ICD10: M79.7 4. Generalized osteoarthritis - ICD9: 715.00, ICD10: M15.9 5. Primary osteoarthritis of both shoulders - ICD9: 715.11, ICD10: M19.011, M19.012 6. Primary osteoarthritis of both knees - ICD9: 715.16, ICD10: M17.0 7. 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 The following approved medication requests have been transmitted electronically. Requested Prescriptions Pending Prescriptions Disp Refills HYDROcodone-Acetaminophen (NORCO) 10-325 mg per tablet 120 tablet 0 Sig: Take 1 tablet by mouth every 6 hours as needed for pain for up to 30 days. Do not start before March 18, 2023. Cierra Ross PA-C Patient phones requesting refills as follows: Requested Prescriptions Pending Prescriptions Disp Refills HYDROcodone-Acetaminophen (NORCO) 10-325 mg per tablet 120 tablet 0 Sig: Take 1 tablet by mouth every 6 hours as needed for pain for up to 30 days. Do not start before March 18, 2023. Please review and advise. Sherry De Leon RN documented in this encounter [facility] 02-18-2023 Instructions Cierra Ross PA-C - 02/18/2023 1:09 PM EDT The OARRS report has been reviewed and is consistent with the patients medical history and medication intake. Continue with the hydrocodone and lidoderm patches Work on decreasing the smoking. Continue with core strengthening and range of motion exercises FU in the office in 6 weeks. Continue with the PT exercises at home on your own. I discussed the patient with Dr. Montez who agrees with my assessment and plan. All of the above is to improve functionality and quality of life. No evidence of drug abuse or diversion is seen at this time. documented in this encounter [facility] 02-18-2023 History of Presen t illness Narrative This note was created using [employer]. Subjective Eder Schaeffer is a 67 year old female. The patient primarily being seen for back pain Patient was last seen on: 01/07/23 At that time, the treatment plan was: see notes Current Meds: [facility] - last dose this am, Lidoderm Patch - last applied 2 days ago Efficacy: help Side effects: none TENS unit: had one but didn't help How often used: Benefit: Physical Therapy: 2022 for post op shoulder Last UDS: 08/28/22 Last injection: none OARRS reviewed At the present time, the patient reports benefit with her present analgesic therapy. She denies any adverse effects. Since her previous visit, she denies any hospitalizations or ER visits. Otherwise, she has nothing further to discuss at this time. INTAKE PAIN ASSESSMENT 01/07/2023 02/18/2023 Are you having pain associated with your visit today? Yes, Provider notified Yes, Provider notified Pain Scales Verbal (Numeric Rating or Visual Analog Scale) Verbal (Numeric Rating or Visual Analog Scale) Pain Level 5 6 Pain Location Back-Lower Back-Lower Description Aching;Pressure Ulcer/Injury Aching;Dull;Sharp Duration Units - Years Frequency Continuous Continuous Intervention/Comfort measure Medication;Relaxation;Exercise Medication;Relaxation Comments - - HPI PAST MEDICAL HISTORY Diagnosis Date Back pain Chronic kidney disease, stage III (moderate) (HCC) Heart murmur HTN (hypertension) Hypokalemia Migraines MVP (mitral valve prolapse) Myalgia and myositis, unspecified PAST SURGICAL HISTORY Procedure Laterality Date ARTHRP KNE CONDYLE&PLATU MEDIAL&LAT COMPARTMENTS right knee CHOLECYSTECTOMY Cholecystectomy COLONOSCOPY FLX DX W/COLLJ SPEC WHEN PFRMD Colonoscopy OOPHORECTOMY PARTIAL/TOTAL UNI/BI Oophorectomy Right PAST SURGICAL HISTORY OF pilinodal cyst PAST SURGICAL HISTORY OF surgery L knee PAST SURGICAL HISTORY OF Right 08/2022 shoulder - Dr. Schulte Social History Tobacco Use Smoking status: Every Day Packs/day: 1.00 Years: 25.00 Pack years: 25.00 Types: Cigarettes Smokeless tobacco: Never Substance Use Topics Alcohol use: No Drug use: No Review of Systems Constitutional: Negative for fever and unexpected weight change. Musculoskeletal: + back pain, joint pain, muscle cramps/weakness, stiffness, arthritis, sciatica, restless legs, leg pain at night, and leg pain with exertion. Objective BP 103/72 (BP Site: Left Arm, BP Position: Sitting, BP Cuff Size: Large Adult) Pulse 83 Temp 36.1 C (96.9 F) (Temporal) Resp 20 Ht 170.2 cm (5' 7 ) Wt 59.4 kg (131 lb) LMP 02/21/2008 SpO2 96% BMI 20.52 kg/m Physical Exam Vitals and nursing note reviewed. Constitutional: Appearance: Normal appearance. She is well-developed, well-groomed and normal weight. HENT: Head: Normocephalic and atraumatic. Right Ear: Hearing normal. Left Ear: Hearing normal. Eyes: Conjunctiva/sclera: Conjunctivae normal. Comments: Wearing glasses Musculoskeletal: Comments: She walks with a normal gait. The patient has tenderness to palpation in the lubmar reigon with spasms noted in the trapezius, paraspinal, and latissimus dorsi muscles. The patient has multiple fibromyalgia tender points noted throughout the examination. She has tenderness to palpation in the knees bilaterally with crepitus noted. There is tenderness over the right greater trochanter Neurological: Mental Status: She is alert and oriented to person, place, and time. Psychiatric: Attention and Perception: Attention and perception normal. Mood and Affect: Mood and affect normal. Speech: Speech normal. Behavior: Behavior normal. Behavior is cooperative. Thought Content: Thought content normal. Judgment: Judgment normal. Assessment and Plan ASSESSMENT/PLAN: 1. Degeneration of intervertebral disc of lumbar region - ICD9: 722.52, ICD10: M51.36 (primary diagnosis) The OARRS report has been reviewed and is consistent with the patients medical history and medication intake. Continue with the hydrocodone and lidoderm patches Work on decreasing the smoking. Continue with core strengthening and range of motion exercises FU in the office in 6 weeks. Continue with the PT exercises at home on your own. 2. Lumbar spondylosis - ICD9: 721.3, ICD10: M47.816 3. Fibromyalgia - ICD9: 729.1, ICD10: M79.7 4. Generalized osteoarthritis - ICD9: 715.00, ICD10: M15.9 5. Primary osteoarthritis of both shoulders - ICD9: 715.11, ICD10: M19.011, M19.012 6. Primary osteoarthritis of both knees - ICD9: 715.16, ICD10: M17.0 7. Trochanteric bursitis, unspecified laterality - ICD9: 726.5, ICD10: M70.60 Cierra Ross PA-C documented in this encounter [facility] 01-07-2023 Instructions Cierra Ross PA-C - 01/07/2023 1:08 PM EST The OARRS report has been reviewed and is consistent with the patients medical history and medication intake. Continue with the hydrocodone and lidoderm patches Work on decreasing the smoking. Continue with core strengthening and range of motion exercises FU in the office in [address] Schulte regarding the recent right shoulder replacement on Friday Continue with the PT exercises at home on your own. I discussed the patient with Dr. Montez who agrees with my assessment and plan. All of the above is to improve functionality and quality of life. No evidence of drug abuse or diversion is seen at this time. documented in this encounter [facility] 01-07-2023 History of Presen t illness Narrative This note was created using [employer]. Subjective Eder Schaeffer is a 67 year old female. The patient primarily being seen for back pain Patient was last seen on: 11/26/22 At that time, the treatment plan was: see notes Current Meds: [facility] last dose this am, Lidoderm patch last used couple days ago Efficacy: meds help pain Side effects:none TENS unit: had one did not help How often used: Benefit: Physical Therapy: Last UDS: 08/28/22 Last injection: none OARRS reviewed yes At the present time, the patient reports benefit with her present analgesic therapy. She denies any adverse effects. Since her previous visit, she denies any hospitalizations or ER visits. Otherwise, she has nothing further to discuss at this time. INTAKE PAIN ASSESSMENT 11/26/2022 01/07/2023 Are you having pain associated with your visit today? Yes, Provider notified Yes, Provider notified Pain Scales Verbal (Numeric Rating or Visual Analog Scale) Verbal (Numeric Rating or Visual Analog Scale) Pain Level 6 5 Pain Location Back Back-Lower Description Aching;Dull Aching;Pressure Ulcer/Injury Duration Units Years - Frequency Continuous Continuous Intervention/Comfort measure Medication;Heat;Relaxation Medication;Relaxation;Exercise Comments lidocaine patch and Biofreeze helps - PAST MEDICAL HISTORY Diagnosis Date Back pain Chronic kidney disease, stage III (moderate) (HCC) Heart murmur HTN (hypertension) Hypokalemia Migraines MVP (mitral valve prolapse) Myalgia and myositis, unspecified PAST SURGICAL HISTORY Procedure Laterality Date ARTHRP KNE CONDYLE&PLATU MEDIAL&LAT COMPARTMENTS right knee CHOLECYSTECTOMY Cholecystectomy COLONOSCOPY FLX DX W/COLLJ SPEC WHEN PFRMD Colonoscopy OOPHORECTOMY PARTIAL/TOTAL UNI/BI Oophorectomy Right PAST SURGICAL HISTORY OF pilinodal cyst PAST SURGICAL HISTORY OF surgery L knee PAST SURGICAL HISTORY OF Right 08/2022 shoulder - Dr. Schulte Social History Tobacco Use Smoking status: Every Day Packs/day: 1.00 Years: 25.00 Pack years: 25.00 Types: Cigarettes Smokeless tobacco: Never Substance Use Topics Alcohol use: No Drug use: No HPI Review of Systems Constitutional: Negative for fever and unexpected weight change. Musculoskeletal: + back pain, joint pain, muscle cramps/weakness, stiffness, arthritis, sciatica, restless legs, leg pain at night, and leg pain with exertion. Objective BP 135/78 (BP Site: Left Arm, BP Position: Sitting, BP Cuff Size: Large Adult) Pulse 80 Temp 36.9 C (98.4 F) Resp 18 Ht 170.2 cm (5' 7 ) Wt 60.8 kg (134 lb) LMP 02/21/2008 SpO2 97% BMI 20.99 kg/m Physical Exam Vitals and nursing note reviewed. Constitutional: Appearance: Normal appearance. She is well-developed, well-groomed and normal weight. HENT: Head: Normocephalic and atraumatic. Right Ear: Hearing normal. Left Ear: Hearing normal. Eyes: Conjunctiva/sclera: Conjunctivae normal. Comments: Wearing glasses Musculoskeletal: Comments: She walks with a normal gait. The patient has tenderness to palpation in the lubmar reigon with spasms noted in the trapezius, paraspinal, and latissimus dorsi muscles. The patient has multiple fibromyalgia tender points noted throughout the examination. She has tenderness to palpation in the knees bilaterally with crepitus noted. There is tenderness over the right greater trochanter and over the bilateral acromioclavicular joints. Neurological: Mental Status: She is alert and oriented to person, place, and time. Psychiatric: Attention and Perception: Attention and perception normal. Mood and Affect: Mood and affect normal. Speech: Speech normal. Behavior: Behavior normal. Behavior is cooperative. Thought Content: Thought content normal. Judgment: Judgment normal. Assessment and Plan ASSESSMENT/PLAN: 1. Degeneration of intervertebral disc of lumbar region - ICD9: 722.52, ICD10: M51.36 (primary diagnosis) The OARRS report has been reviewed and is consistent with the patients medical history and medication intake. Continue with the hydrocodone and lidoderm patches Work on decreasing the smoking. Continue with core strengthening and range of motion exercises FU in the office in [address] Schulte regarding the recent right shoulder replacement on Friday Continue with the PT exercises at home on your own. - HYDROCODONE 10 MG-ACETAMINOPHEN 325 MG TABLET (Two stable chronic illnesses/prescription drug management) 2. Lumbar spondylosis - ICD9: 721.3, ICD10: M47.816 3. Fibromyalgia - ICD9: 729.1, ICD10: M79.7 4. Generalized osteoarthritis - ICD9: 715.00, ICD10: M15.9 5. Primary osteoarthritis of both shoulders - ICD9: 715.11, ICD10: M19.011, M19.012 6. Primary osteoarthritis of both knees - ICD9: 715.16, ICD10: M17.0 7. Trochanteric bursitis, unspecified laterality - ICD9: 726.5, ICD10: M70.60 Cierra Ross PA-C documented in this encounter [facility] 12-17-2022 Miscellaneous Notes Formattin g of this note is different from the original. The following approved medication requests have been transmitted electronically. Requested Prescriptions Pending Prescriptions Disp Refills HYDROcodone-Acetaminophen (NORCO) 10-325 mg per tablet 120 tablet 0 Sig: Take 1 tablet by mouth every 6 hours as needed for pain for up to 30 days. Do not start before December 18, 2022. Cierra Ross PA-C Patient phones requesting refills as follows: Requested Prescriptions Pending Prescriptions Disp Refills HYDROcodone-Acetaminophen (NORCO) 10-325 mg per tablet 120 tablet 0 Sig: Take 1 tablet by mouth every 6 hours as needed for pain for up to 30 days. Do not start before December 18, 2022. Please review and advise. Sherry De Leon RN documented in this encounter [facility] 11-26-2022 History of Presen t illness Narrative This note was created using [employer]. Subjective Eder Schaeffer is a 67 year old female. The patient primarily being seen for back pain Patient was last seen on: 10/11/22 At that time, the treatment plan was: see notes Current Meds: [facility] - last dose this am, Lidoderm Patch - last applied 2 days ago Efficacy: helps Side effects: none TENS unit: had one but didn't help How often used: Benefit: Physical Therapy: PT for post op shoulder currently Last UDS: 08/28/22 Last injection: none OARRS reviewed At the present time, the patient reports benefit with her present analgesic therapy. She denies any adverse effects. Since her previous visit, she denies any hospitalizations or ER visits. She is doing therapy when she can but did have to miss a few visits due to a cold and the weather. INTAKE PAIN ASSESSMENT 10/11/2022 11/26/2022 Are you having pain associated with your visit today? Yes, Provider notified Yes, Provider notified Pain Scales Verbal (Numeric Rating or Visual Analog Scale) Verbal (Numeric Rating or Visual Analog Scale) Pain Level 5 6 Pain Location Back-Lower Back Description Aching Aching;Dull Duration Units - Years Frequency Continuous Continuous Intervention/Comfort measure Medication;Relaxation Medication;Heat;Relaxation Comments - lidocaine patch and Biofreeze helps PAST MEDICAL HISTORY Diagnosis Date Back pain Chronic kidney disease, stage III (moderate) (HCC) Heart murmur HTN (hypertension) Hypokalemia Migraines MVP (mitral valve prolapse) Myalgia and myositis, unspecified PAST SURGICAL HISTORY Procedure Laterality Date ARTHRP KNE CONDYLE&PLATU MEDIAL&LAT COMPARTMENTS right knee CHOLECYSTECTOMY Cholecystectomy COLONOSCOPY FLX DX W/COLLJ SPEC WHEN PFRMD Colonoscopy OOPHORECTOMY PARTIAL/TOTAL UNI/BI Oophorectomy Right PAST SURGICAL HISTORY OF pilinodal cyst PAST SURGICAL HISTORY OF surgery L knee PAST SURGICAL HISTORY OF Right 08/2022 shoulder - Dr. Schulte Social History Tobacco Use Smoking status: Every Day Packs/day: 1.00 Years: 25.00 Pack years: 25.00 Types: Cigarettes Smokeless tobacco: Never Substance Use Topics Alcohol use: No Drug use: No HPI Review of Systems Constitutional: Negative for fever and unexpected weight change. Musculoskeletal: + back pain, joint pain, muscle cramps/weakness, stiffness, arthritis, sciatica, restless legs, leg pain at night, and leg pain with exertion. Objective BP 115/73 (BP Site: Left Arm, BP Position: Sitting, BP Cuff Size: Large Adult) Pulse 76 Temp 36.3 C (97.3 F) (Temporal) Resp 20 Ht 170.2 cm (5' 7 ) Wt 60.3 kg (133 lb) LMP 02/21/2008 SpO2 95% BMI 20.83 kg/m Physical Exam Vitals and nursing note reviewed. Constitutional: Appearance: Normal appearance. She is well-developed, well-groomed and normal weight. HENT: Head: Normocephalic and atraumatic. Right Ear: Hearing normal. Left Ear: Hearing normal. Eyes: Conjunctiva/sclera: Conjunctivae normal. Comments: Wearing glasses Musculoskeletal: Comments: She walks with a normal gait. The patient has tenderness to palpation in the lubmar reigon with spasms noted in the trapezius, paraspinal, and latissimus dorsi muscles. The patient has multiple fibromyalgia tender points noted throughout the examination. She has tenderness to palpation in the knees bilaterally with crepitus noted. There is tenderness over the right greater trochanter and over the bilateral acromioclavicular joints. Neurological: Mental Status: She is alert and oriented to person, place, and time. Psychiatric: Attention and Perception: Attention and perception normal. Mood and Affect: Mood and affect normal. Speech: Speech normal. Behavior: Behavior normal. Behavior is cooperative. Thought Content: Thought content normal. Judgment: Judgment normal. Assessment and Plan ASSESSMENT/PLAN: 1. Degeneration of intervertebral disc of lumbar region - ICD9: 722.52, ICD10: M51.36 (primary diagnosis) The OARRS report has been reviewed and is consistent with the patients medical history and medication intake. Continue with the hydrocodone and lidoderm patches Work on decreasing the smoking. Continue with core strengthening and range of motion exercises FU in the office in [address] Schulte regarding the recent right shoulder replacement and continue with the PT 2. Lumbar spondylosis - ICD9: 721.3, ICD10: M47.816 3. Fibromyalgia - ICD9: 729.1, ICD10: M79.7 4. Generalized osteoarthritis - ICD9: 715.00, ICD10: M15.9 5. Primary osteoarthritis of both shoulders - ICD9: 715.11, ICD10: M19.011, M19.012 6. Primary osteoarthritis of both knees - ICD9: 715.16, ICD10: M17.0 7. Trochanteric bursitis, unspecified laterality - ICD9: 726.5, ICD10: M70.60 Cierra Ross PA-C documented in this encounter [facility] 11-26-2022 Instructions Cierra Ross PA-C - 11/26/2022 1:11 PM EST The OARRS report has been reviewed and is consistent with the patients medical history and medication intake. Continue with the hydrocodone and lidoderm patches Work on decreasing the smoking. Continue with core strengthening and range of motion exercises FU in the office in [address] Schulte regarding the recent right shoulder replacement and continue with the PT I discussed the patient with Dr. Montez who agrees with my assessment and plan. All of the above is to improve functionality and quality of life. No evidence of drug abuse or diversion is seen at this time. documented in this encounter [facility] 11-13-2022 Miscellaneous Notes Formattin g of this note is different from the original. The following approved medication requests have been transmitted electronically. Requested Prescriptions Pending Prescriptions Disp Refills HYDROcodone-Acetaminophen (NORCO) 10-325 mg per tablet 120 tablet 0 Sig: Take 1 tablet by mouth every 6 hours as needed for pain for up to 30 days. Do not start before November 18, 2022. Cierra Ross PA-C Patient phones requesting refills as follows: Requested Prescriptions Pending Prescriptions Disp Refills HYDROcodone-Acetaminophen (NORCO) 10-325 mg per tablet 120 tablet 0 Sig: Take 1 tablet by mouth every 6 hours as needed for pain for up to 30 days. Do not start before November 18, 2022. Please review and advise. Sherry De Leon RN documented in this encounter [facility] 10-22-2022 Miscellaneous Notes Formattin g of this note might be different from the original. Eder called to let us know she will no longer be filling post op pain medication from Dr Schulte She started taking our ordered hydrocodone 10/21/22 (next will fill hydrocodone 11/18/22 ) Sherry De Leon RN October 22, 2022 2:14 PM documented in this encounter [facility] 10-15-2022 Miscellaneous Notes Formattin g of this note might be different from the original. That's fine. Eder called to let us know that Dr Schulte's office did send another prescription for oxycodone 5 mg post op and she picked it up yesterday She states she was not sure they were going to continue so she filled [facility] 10/325 we order She states she only took one of them and put the remaining aside while she continues oxycodone 5 mg post op per order of Dr Schulte She will keep us updated moving forward Sherry De Leon RN October 15, 2022 8:47 AM documented in this encounter [facility] 10-14-2022 Miscellaneous Notes Formattin g of this note is different from the original. The following approved medication requests have been transmitted electronically. Requested Prescriptions Pending Prescriptions Disp Refills HYDROcodone-Acetaminophen (NORCO) 10-325 mg per tablet 120 tablet 0 Sig: Take 1 tablet by mouth every 6 hours as needed for pain for up to 30 days. Cierra Ross PA-C Patient phones requesting refills as follows: Requested Prescriptions Pending Prescriptions Disp Refills HYDROcodone-Acetaminophen (NORCO) 10-325 mg per tablet 120 tablet 0 Sig: Take 1 tablet by mouth every 6 hours as needed for pain for up to 30 days. Carmen James RN documented in this encounter [facility] 10-11-2022 Instructions Cierra Ross PA-C - 10/11/2022 1:04 PM EST The OARRS report has been reviewed and showed the post op scripts she received for her shoulder surgery which were approved at her last office visit The patient's most recent urine drug screen has been reviewed and is appropriate and consistent with current therapy. Continue with the lidoderm patches and hold the hydrocodone while on the oxycodone from Dr. Schulte. Work on decreasing the smoking. Continue with core strengthening and range of motion exercises FU in the office in [address] Schulte regarding the recent right shoulder replacement and continue with the oxycodone you are receiving from him for the post op pain. Once he is done prescribing the oxycodone, resume the hydrocodone you receive from our office. I will discuss the patient with Dr. Montez when he returns to the office. All of the above is to improve functionality and quality of life. No evidence of drug abuse or diversion is seen at this time. documented in this encounter [facility] 10-11-2022 History of Presen t illness Narrative This note was created using [employer]. Subjective Eder Schaeffer is a 67 year old female. The patient primarily being seen for back pain Patient was last seen on: 08/29/22 At that time, the treatment plan was: see notes Current Meds: Oxycodone am-per surgeon/ Lidoderm Patch prn Efficacy: helpful Side effects: denies TENS unit: How often used: Benefit: Physical Therapy: currently Last UDS: 08/28/22 Last injection: OARRS reviewed At the present time, the patient reports benefit with her present analgesic therapy. She denies any adverse effects. Since her previous visit, she had surgery on her right shoulder to repair her biceps and labrum and remove a bursa. She sees Dr. Schulte for her 6 week appointment on 10/25/2022. INTAKE PAIN ASSESSMENT 08/29/2022 10/11/2022 Are you having pain associated with your visit today? - Yes, Provider notified Pain Scales Verbal (Numeric Rating or Visual Analog Scale) Verbal (Numeric Rating or Visual Analog Scale) Pain Level 10 5 Pain Location Arm-Right Back-Lower Description Sharp;Shooting Aching Duration Units Years - Frequency Continuous Continuous Intervention/Comfort measure Medication Medication;Relaxation Comments - - HPI Review of Systems Constitutional: Negative for fever and unexpected weight change. Musculoskeletal: +back pain, joint pain, muscle cramps/weakness, stiffness, arthritis, sciatica, restless legs, leg pain at night, and leg pain with exertion. PAST MEDICAL HISTORY Diagnosis Date Back pain Chronic kidney disease, stage III (moderate) (HCC) Heart murmur HTN (hypertension) Hypokalemia Migraines MVP (mitral valve prolapse) Myalgia and myositis, unspecified PAST SURGICAL HISTORY Procedure Laterality Date ARTHRP KNE CONDYLE&PLATU MEDIAL&LAT COMPARTMENTS right knee CHOLECYSTECTOMY Cholecystectomy COLONOSCOPY FLX DX W/COLLJ SPEC WHEN PFRMD Colonoscopy OOPHORECTOMY PARTIAL/TOTAL UNI/BI Oophorectomy Right PAST SURGICAL HISTORY OF pilinodal cyst PAST SURGICAL HISTORY OF surgery L knee PAST SURGICAL HISTORY OF Right 08/2022 shoulder - Dr. Schulte Social History Tobacco Use Smoking status: Every Day Packs/day: 1.00 Years: 25.00 Pack years: 25.00 Types: Cigarettes Smokeless tobacco: Never Substance Use Topics Alcohol use: No Drug use: No Objective BP 125/87 (BP Site: Left Arm, BP Position: Sitting, BP Cuff Size: Regular Adult) Pulse 89 Temp 36.2 C (97.2 F) (Temporal) Resp 18 LMP 02/21/2008 SpO2 96% Physical Exam Vitals and nursing note reviewed. Constitutional: Appearance: Normal appearance. She is well-developed, well-groomed and normal weight. HENT: Head: Normocephalic and atraumatic. Right Ear: Hearing normal. Left Ear: Hearing normal. Eyes: Conjunctiva/sclera: Conjunctivae normal. Comments: Wearing glasses Musculoskeletal: Comments: She walks with a normal gait. The patient has tenderness to palpation in the lubmar reigon with spasms noted in the trapezius, paraspinal, and latissimus dorsi muscles. The patient has multiple fibromyalgia tender points noted throughout the examination. She has tenderness to palpation in the knees bilaterally with crepitus noted. There is tenderness over the right greater trochanter and over the bilateral acromioclavicular joints. She has her right arm in a sling secondary to her recent surgery. ROM was not evaluated due to the surgery. Neurological: Mental Status: She is alert and oriented to person, place, and time. Psychiatric: Attention and Perception: Attention and perception normal. Mood and Affect: Mood and affect normal. Speech: Speech normal. Behavior: Behavior normal. Behavior is cooperative. Thought Content: Thought content normal. Judgment: Judgment normal. Assessment and Plan ASSESSMENT/PLAN: 1. Degeneration of intervertebral disc of lumbar region - ICD9: 722.52, ICD10: M51.36 (primary diagnosis) The OARRS report has been reviewed and showed the post op scripts she received for her shoulder surgery which were approved at her last office visit The patient's most recent urine drug screen has been reviewed and is appropriate and consistent with current therapy. Continue with the lidoderm patches and hold the hydrocodone while on the oxycodone from Dr. Schulte. Work on decreasing the smoking. Continue with core strengthening and range of motion exercises FU in the office in [address] Schulte regarding the recent right shoulder replacement and continue with the oxycodone you are receiving from him for the post op pain. Once he is done prescribing the oxycodone, resume the hydrocodone you receive from our office. 2. Lumbar spondylosis - ICD9: 721.3, ICD10: M47.816 3. Fibromyalgia - ICD9: 729.1, ICD10: M79.7 4. Generalized osteoarthritis - ICD9: 715.00, ICD10: M15.9 5. Primary osteoarthritis of both shoulders - ICD9: 715.11, ICD10: M19.011, M19.012 6. Primary osteoarthritis of both knees - ICD9: 715.16, ICD10: M17.0 7. Trochanteric bursitis, unspecified laterality - ICD9: 726.5, ICD10: M70.60 Cierra Ross PA-C documented in this encounter [facility] 08-29-2022 Instructions Cierra Ross PA-C - 08/29/2022 1:24 PM EDT The OARRS report has been reviewed and is consistent with the patients medical history and medication intake. The patient underwent a random UDS at today's office visit. Continue with the hydrocodone and lidoderm patches Work on decreasing the smoking. Continue with core strengthening and range of motion exercises FU in the office in [address] Spittle regarding the upcoming right shoulder replacement. It is ok for the patients surgeon to manage the patients postoperative pain if the surgeon feels that additional pain meds is necessary/warranted. The patient will need to stop using our prescribed pain medications while using postoperative pain medications. The patients next fill date with be changed to reflect the postoperative rx. I discussed the patient with Dr. Montez who agrees with my assessment and plan. All of the above is to improve functionality and quality of life. No evidence of drug abuse or diversion is seen at this time. documented in this encounter [facility] 08-29-2022 History of Presen t illness Narrative This note was created using [employer]. Subjective Eder Schaeffer is a 67 year old female. The patient primarily being seen for back pain Patient was last seen on: 07/17/22 At that time, the treatment plan was: see notes Current Meds: [facility] - last dose this am, Lidoderm Patch - last applied 1 week ago Efficacy: helps Side effects: none TENS unit: no How often used: Benefit: Physical Therapy: no Last UDS: 08/28/22 Last injection: none OARRS reviewed At the present time, the patient reports benefit with her present analgesic therapy. She denies any adverse effects. Since her previous visit, she denies any hospitalizations or ER visits. Otherwise, she has nothing further to discuss at this time. She is scheduled for surgery on her right shoulder/arm on 09/11/22 in [facility]. INTAKE PAIN ASSESSMENT 08/29/2022 08/29/2022 Are you having pain associated with your visit today? Yes, Provider notified - Pain Scales Verbal (Numeric Rating or Visual Analog Scale) Verbal (Numeric Rating or Visual Analog Scale) Pain Level 7 10 Pain Location Back Arm-Right Description Aching;Sharp Sharp;Shooting Duration Units Years Years Frequency Continuous Continuous Intervention/Comfort measure Medication Medication Comments bilfreeze - HPI Review of Systems Constitutional: Negative for fever and unexpected weight change. Musculoskeletal: +back pain, joint pain, muscle cramps/weakness, stiffness, arthritis, sciatica, restless legs, leg pain at night, and leg pain with exertion. PAST MEDICAL HISTORY Diagnosis Date Back pain Chronic kidney disease, stage III (moderate) (HCC) Heart murmur HTN (hypertension) Hypokalemia Migraines MVP (mitral valve prolapse) Myalgia and myositis, unspecified PAST SURGICAL HISTORY Procedure Laterality Date ARTHRP KNE CONDYLE&PLATU MEDIAL&LAT COMPARTMENTS right knee CHOLECYSTECTOMY Cholecystectomy COLONOSCOPY FLX DX W/COLLJ SPEC WHEN PFRMD Colonoscopy OOPHORECTOMY PARTIAL/TOTAL UNI/BI Oophorectomy Right PAST SURGICAL HISTORY OF pilinodal cyst PAST SURGICAL HISTORY OF surgery L knee Social History Tobacco Use Smoking status: Every Day Packs/day: 1.00 Years: 25.00 Pack years: 25.00 Types: Cigarettes Smokeless tobacco: Never Substance Use Topics Alcohol use: No Drug use: No Objective BP 136/88 (BP Site: Left Arm, BP Position: Sitting, BP Cuff Size: Large Adult) Pulse 93 Temp 36.3 C (97.3 F) (Temporal) Resp 20 Ht 170.2 cm (5' 7 ) Wt 61.7 kg (136 lb) LMP 02/21/2008 SpO2 98% BMI 21.30 kg/m Physical Exam Vitals and nursing note reviewed. Constitutional: Appearance: Normal appearance. She is well-developed, well-groomed and normal weight. HENT: Head: Normocephalic and atraumatic. Right Ear: Hearing normal. Left Ear: Hearing normal. Eyes: Conjunctiva/sclera: Conjunctivae normal. Comments: Wearing glasses Musculoskeletal: Comments: She walks with a normal gait. The patient has tenderness to palpation in the lubmar reigon with spasms noted in the trapezius, paraspinal, and latissimus dorsi muscles. The patient has multiple fibromyalgia tender points noted throughout the examination. She has tenderness to palpation in the knees bilaterally with crepitus noted. There is tenderness over the right greater trochanter and over the bilateral acromioclavicular joint. NO edema in the BLE. Neurological: Mental Status: She is alert and oriented to person, place, and time. Psychiatric: Attention and Perception: Attention and perception normal. Mood and Affect: Mood and affect normal. Speech: Speech normal. Behavior: Behavior normal. Behavior is cooperative. Thought Content: Thought content normal. Judgment: Judgment normal. Assessment and Plan ASSESSMENT/PLAN: 1. Degeneration of intervertebral disc of lumbar region - ICD9: 722.52, ICD10: M51.36 (primary diagnosis) The OARRS report has been reviewed and is consistent with the patients medical history and medication intake. The patient underwent a random UDS at today's office visit. Continue with the hydrocodone and lidoderm patches Work on decreasing the smoking. Continue with core strengthening and range of motion exercises FU in the office in [address] Issa regarding the right shoulder It is ok for the patients surgeon to manage the patients postoperative pain if the surgeon feels that additional pain meds is necessary/warranted. The patient will need to stop using our prescribed pain medications while using postoperative pain medications. The patients next fill date with be changed to reflect the postoperative rx. - DRUG SCR TOXASURE 2. Fibromyalgia - ICD9: 729.1, ICD10: M79.7 3. Lumbar spondylosis - ICD9: 721.3, ICD10: M47.816 4. Generalized osteoarthritis - ICD9: 715.00, ICD10: M15.9 5. Primary osteoarthritis of both shoulders - ICD9: 715.11, ICD10: M19.011, M19.012 6. Primary osteoarthritis of both knees - ICD9: 715.16, ICD10: M17.0 7. 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 The following approved medication requests have been transmitted electronically. Requested Prescriptions Pending Prescriptions Disp Refills HYDROcodone-Acetaminophen (NORCO) 10-325 mg per tablet 120 tablet 0 Sig: Take 1 tablet by mouth every 6 hours as needed for pain for up to 30 days. Do not start before August 11, 2022. Cierra Ross PA-C Patient phones requesting refills as follows: Requested Prescriptions Pending Prescriptions Disp Refills HYDROcodone-Acetaminophen (NORCO) 10-325 mg per tablet 120 tablet 0 Sig: Take 1 tablet by mouth every 6 hours as needed for pain for up to 30 days. Do not start before August 11, 2022. Sherry De Leon RN documented in this encounter [facility] 07-17-2022 Instructions Dhruv Montez MD - 07/17/2022 11:30 AM EDT The patient will continue with hydrocodone and Lidoderm patch. She was encouraged to keep her self physically active, stretch out, and exercise. We again discussed the importance of quitting smoking. Follow-up with the shoulder specialist. Follow-up in office in 6 weeks time. documented in this encounter [facility] 07-17-2022 History of Presen t illness Narrative This note was created using [employer]. Subjective Eder Schaeffer is a 67 year old female. The patient primarily being seen for back pain Patient was last seen on: 05/30/22 At that time, the treatment plan was: see notes Current Meds: [facility] am/ Lidoderm Patch been awhile Efficacy: helpful Side effects: denies TENS unit: How often used: Benefit: Physical Therapy: Last UDS: 03/04/22 Last injection: OARRS reviewed INTAKE PAIN ASSESSMENT 05/30/2022 07/17/2022 Are you having pain associated with your visit today? Yes, Provider notified Yes, Provider notified Pain Scales Verbal (Numeric Rating or Visual Analog Scale) Verbal (Numeric Rating or Visual Analog Scale) Pain Level 6 7 Pain Location Back Back-Lower Description Dull;Aching Aching Duration Units Years - Frequency Continuous Continuous Intervention/Comfort measure Medication Medication;Relaxation Comments Lidoderm Patch, Biofreeze - HPI Patient is getting adequate relief from the present regimen and denies any side effect from it. This has improved the patient s level of functionality and has been able to perform activities of daily living. The patient exhibits no aberrant behavior. The PDMP report and last UDS are both consistent with prescribed medications and are unremarkable. Patient had an MRI on her right shoulder which showed rotator cuff tear. She is scheduled to see a shoulder specialist. Review of Systems Constitutional: Negative. Musculoskeletal: Positive for neck pain, back pain, joint pain, muscle cramps, muscle weakness, stiffness, arthritis, sciatica, leg pain at night, and leg pain with exertion Neurological: Positive for headache Objective BP 139/87 (BP Site: Left Arm, BP Position: Sitting, BP Cuff Size: Regular Adult) Pulse 78 Temp 36.5 C (97.7 F) (Temporal) Resp 18 LMP 02/21/2008 SpO2 98% Physical Exam Vitals and nursing note reviewed. Constitutional: General: She is not in acute distress. Appearance: Normal appearance. She is well-developed, well-groomed and normal weight. HENT: Head: Normocephalic and atraumatic. Right Ear: Hearing and external ear normal. Left Ear: Hearing and external ear normal. Nose: Nose normal. Eyes: General: No scleral icterus. Extraocular Movements: Extraocular movements intact. Conjunctiva/sclera: Conjunctivae normal. Comments: Wearing glasses Musculoskeletal: Comments: The patient has tenderness to palpation in the lubmar reigon with spasms noted in the trapezius, paraspinal, and latissimus dorsi muscles. The patient has multiple fibromyalgia tender points noted throughout the examination. She has tenderness to palpation in the knees bilaterally with crepitus noted. There is tenderness over the right greater trochanter and over the bilateral acromioclavicular joint. NO edema in the BLE. Normal gait. Skin: General: Skin is warm and dry. Neurological: General: No focal deficit present. Mental Status: She is alert and oriented to person, place, and time. Psychiatric: Attention and Perception: Attention and perception normal. Mood and Affect: Mood and affect normal. Speech: Speech normal. Behavior: Behavior normal. Behavior is cooperative. Thought Content: Thought content normal. Cognition and Memory: Cognition and memory normal. Judgment: Judgment normal. Assessment and Plan ASSESSMENT/PLAN: 1. Fibromyalgia - ICD9: 729.1, ICD10: M79.7 (primary diagnosis) The patient will continue with hydrocodone and Lidoderm patch. She was encouraged to keep her self physically active, stretch out, and exercise. We again discussed the importance of quitting smoking. Follow-up with the shoulder specialist. Follow-up in office in 6 weeks time. 2. Degeneration of intervertebral disc of lumbar region - ICD9: 722.52, ICD10: M51.36 3. Lumbar spondylosis - ICD9: 721.3, ICD10: M47.816 4. Generalized osteoarthritis - ICD9: 715.00, ICD10: M15.9 5. Primary osteoarthritis of both shoulders - ICD9: 715.11, ICD10: M19.011, M19.012 6. Primary osteoarthritis of both knees - ICD9: 715.16, ICD10: M17.0 7. Trochanteric bursitis, unspecified laterality - ICD9: 726.5, ICD10: M70.60 Greater than two stable chronic illness and prescription medication management. This document was transcribed using a voice recognition software and may contain minor errors. Dhruv Montez MD documented in this encounter [facility] 05-30-2022 Instructions Cierra Ross PA-C - 05/30/2022 10:29 AM EDT The OARRS report has been reviewed and is consistent with the patients medical history and medication intake. Continue with the hydrocodone and lidoderm patches Work on decreasing the smoking. Continue with core strengthening and range of motion exercises FU in the office in [address] Issa regarding the right shoulder I will discuss the patient with Dr. Montez when he returns to the office. All of the above is to improve functionality and quality of life. No evidence of drug abuse or diversion is seen at this time. documented in this encounter [facility] 05-30-2022 History of Presen t illness Narrative This note was created using [employer]. Subjective Eder Schaeffer is a 67 year old female. The patient primarily being seen for back pain Patient was last seen on: 04/15/22 At that time, the treatment plan was: see notes Current Meds: [facility] - last dose this am,Lidoderm Patch - few days ago Efficacy: help Side effects: none TENS unit: No - had one but didn't help How often used: Benefit: Physical Therapy: Will be starting PT in [place] tomorrow for rotator cuff proble, Last UDS: 03/04/22 Last injection: none OARRS reviewed At the present time, the patient reports benefit with her present analgesic therapy. She denies any adverse effects. Since her previous visit, she denies any hospitalizations or ER visits. Otherwise, she has nothing further to discuss at this time. Had steroid injection in right shoulder by Dr. Vargas in [place] for her biceps tendon - helped at first. He believes it is due to rotator cuff issues and has ordered PT. HPI Review of Systems Constitutional: Negative for fever and unexpected weight change. Musculoskeletal: +back pain, joint pain, muscle cramps/weakness, stiffness, arthritis, sciatica, restless legs, leg pain at night, and leg pain with exertion. PAST MEDICAL HISTORY Diagnosis Date Back pain Chronic kidney disease, stage III (moderate) (HCC) Heart murmur HTN (hypertension) Hypokalemia Migraines MVP (mitral valve prolapse) Myalgia and myositis, unspecified PAST SURGICAL HISTORY Procedure Laterality Date ARTHRP KNE CONDYLE&PLATU MEDIAL&LAT COMPARTMENTS right knee CHOLECYSTECTOMY Cholecystectomy COLONOSCOPY FLX DX W/COLLJ SPEC WHEN PFRMD Colonoscopy OOPHORECTOMY PARTIAL/TOTAL UNI/BI Oophorectomy Right PAST SURGICAL HISTORY OF pilinodal cyst PAST SURGICAL HISTORY OF surgery L knee Social History Tobacco Use Smoking status: Current Every Day Smoker Packs/day: 1.00 Years: 25.00 Pack years: 25.00 Types: Cigarettes Smokeless tobacco: Never Used Substance Use Topics Alcohol use: No Drug use: No Objective LMP 02/21/2008 Physical Exam Vitals and nursing note reviewed. Constitutional: Appearance: Normal appearance. She is well-developed, well-groomed and normal weight. HENT: Head: Normocephalic and atraumatic. Right Ear: Hearing normal. Left Ear: Hearing normal. Eyes: Conjunctiva/sclera: Conjunctivae normal. Comments: Wearing glasses Musculoskeletal: Comments: The patient has tenderness to palpation in the lubmar reigon with spasms noted in the trapezius, paraspinal, and latissimus dorsi muscles. The patient has multiple fibromyalgia tender points noted throughout the examination. She has tenderness to palpation in the knees bilaterally with crepitus noted. There is tenderness over the right greater trochanter and over the bilateral acromioclavicular joint. NO edema in the BLE. Normal gait. Neurological: Mental Status: She is alert and oriented to person, place, and time. Psychiatric: Attention and Perception: Attention and perception normal. Mood and Affect: Mood and affect normal. Speech: Speech normal. Behavior: Behavior normal. Behavior is cooperative. Thought Content: Thought content normal. Cognition and Memory: Cognition and memory normal. Judgment: Judgment normal. Assessment and Plan ASSESSMENT/PLAN: 1. Fibromyalgia - ICD9: 729.1, ICD10: M79.7 (primary diagnosis) The OARRS report has been reviewed and is consistent with the patients medical history and medication intake. Continue with the hydrocodone and lidoderm patches Work on decreasing the smoking. Continue with core strengthening and range of motion exercises FU in the office in [address] Issa regarding the right shoulder 2. Degeneration of intervertebral disc of lumbar region - ICD9: 722.52, ICD10: M51.36 - HYDROCODONE 10 MG-ACETAMINOPHEN 325 MG TABLET 3. Lumbar spondylosis - ICD9: 721.3, ICD10: M47.816 4. Generalized osteoarthritis - ICD9: 715.00, ICD10: M15.9 5. Primary osteoarthritis of both shoulders - ICD9: 715.11, ICD10: M19.011, M19.012 6. Primary osteoarthritis of both knees - ICD9: 715.16, ICD10: M17.0 7. Trochanteric bursitis, unspecified laterality - ICD9: 726.5, ICD10: M70.60 Cierra Ross PA-C documented in this encounter [facility] Evaluation note Diagnosis Fibromyalgia- Primary Mylagia and myositis, unspecified Degeneration of intervertebral disc of lumbar region Lumbar spondylosis Lumbosacral spondylosis without myelopathy Generalized osteoarthritis Generalized osteoarthrosis, unspecified site Primary osteoarthritis of both shoulders Primary osteoarthritis of both knees Primary localized osteoarthrosis, lower leg Trochanteric bursitis, unspecified laterality [facility] Diagnosis Degeneration of intervertebral disc of lumbar region [facility] [place] [facility] Diagnosis Degeneration of intervertebral disc of lumbar region- Primary Fibromyalgia Mylagia and myositis, unspecified Lumbar spondylosis Lumbosacral spondylosis without myelopathy Generalized osteoarthritis Generalized osteoarthrosis, unspecified site Primary osteoarthritis of both shoulders Primary osteoarthritis of both knees Primary localized osteoarthrosis, lower leg Trochanteric bursitis, unspecified laterality Other senior care (current) drug therapy [facility] [place] [facility] Diagnosis Degeneration of intervertebral disc of lumbar region- Primary Lumbar spondylosis Lumbosacral spondylosis without myelopathy Fibromyalgia Mylagia and myositis, unspecified Generalized osteoarthritis Generalized osteoarthrosis, unspecified site Primary osteoarthritis of both shoulders Primary osteoarthritis of both knees Primary localized osteoarthrosis, lower leg Trochanteric bursitis, unspecified laterality [facility] [place] [facility]* Diagnosis Degeneration of intervertebral disc of lumbar region [facility] [place] [facility] Diagnosis Degeneration of intervertebral disc of lumbar region- Primary Lumbar spondylosis Lumbosacral spondylosis without myelopathy Fibromyalgia Mylagia and myositis, unspecified Generalized osteoarthritis Generalized osteoarthrosis, unspecified site Primary osteoarthritis of both shoulders Primary osteoarthritis of both knees Primary localized osteoarthrosis, lower leg Trochanteric bursitis, unspecified laterality [facility] [place] [facility] Diagnosis Degeneration of intervertebral disc of lumbar region- Primary Lumbar spondylosis Lumbosacral spondylosis without myelopathy Fibromyalgia Mylagia and myositis, unspecified Generalized osteoarthritis Generalized osteoarthrosis, unspecified site Primary osteoarthritis of both shoulders Primary osteoarthritis of both knees Primary localized osteoarthrosis, lower leg Trochanteric bursitis, unspecified laterality [facility] [place] [facility] Diagnosis Degeneration of intervertebral disc of lumbar region [facility] [place] [facility] Diagnosis Degeneration of intervertebral disc of lumbar region- Primary Lumbar spondylosis Lumbosacral spondylosis without myelopathy Fibromyalgia Mylagia and myositis, unspecified Generalized osteoarthritis Generalized osteoarthrosis, unspecified site Primary osteoarthritis of both shoulders Primary osteoarthritis of both knees Primary localized osteoarthrosis, lower leg Trochanteric bursitis, unspecified laterality Other senior care (current) drug therapy [facility] [place] [facility]* Diagnosis Chronic pain syndrome- Primary Fibromyalgia Mylagia and myositis, unspecified Degeneration of intervertebral disc of lumbar region Lumbar spondylosis Lumbosacral spondylosis without myelopathy Generalized osteoarthritis Generalized osteoarthrosis, unspecified site Primary osteoarthritis of both shoulders Primary osteoarthritis of both knees Primary localized osteoarthrosis, lower leg Trochanteric bursitis, unspecified laterality documented [facility] [place] [facility]* Diagnosis Degeneration of intervertebral disc of lumbar region- Primary Lumbar spondylosis Lumbosacral spondylosis without myelopathy Fibromyalgia Mylagia and myositis, unspecified Generalized osteoarthritis Generalized osteoarthrosis, unspecified site Primary osteoarthritis of both shoulders Primary osteoarthritis of both knees Primary localized osteoarthrosis, lower leg Trochanteric bursitis, unspecified laterality [facility] [place] [facility] Diagnosis Degeneration of intervertebral disc of lumbar region [facility] [place] [facility]* Diagnosis Degeneration of intervertebral disc of lumbar region [facility] [place] [facility]* Diagnosis Degeneration of intervertebral disc of lumbar region- Primary Lumbar spondylosis Lumbosacral spondylosis without myelopathy Fibromyalgia Mylagia and myositis, unspecified Generalized osteoarthritis Generalized osteoarthrosis, unspecified site Primary osteoarthritis of both shoulders Primary osteoarthritis of both knees Primary localized osteoarthrosis, lower leg Trochanteric bursitis, unspecified laterality Other senior care (current) drug therapy [facility] [place] [facility] Diagnosis Degeneration of intervertebral disc of lumbar region- Primary Lumbar spondylosis Lumbosacral spondylosis without myelopathy Fibromyalgia Mylagia and myositis, unspecified Generalized osteoarthritis Generalized osteoarthrosis, unspecified site Primary osteoarthritis of both shoulders Primary osteoarthritis of both knees Primary localized osteoarthrosis, lower leg Trochanteric bursitis, unspecified laterality 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 [facility] [place] [facility]* Diagnosis Degeneration of intervertebral disc of lumbar region [facility] Diagnosis Degeneration of intervertebral disc of lumbar region- Primary Lumbar spondylosis Lumbosacral spondylosis without myelopathy Fibromyalgia Mylagia and myositis, unspecified Generalized osteoarthritis Generalized osteoarthrosis, unspecified site Primary osteoarthritis of both shoulders Primary osteoarthritis of both knees Primary localized osteoarthrosis, lower leg Trochanteric bursitis, unspecified laterality [facility]* Diagnosis Degeneration of intervertebral disc of lumbar region documented in this encounter [facility] Summary Purpose Family History No Family History Records FoundNo Family History Records FoundNo Family History Records Found Advance Directives No Advanced Directives Records FoundNo Advanced Directives Records FoundNo Advanced Directives Records Found Reason for Referral Specialty Diagnoses / Procedures Referred By Randall sahu Referred To Contact Cierra Ross PA-C [address] [place] [address] Referral ID Status Reason Start Date Expiration Date V isits Requested Visits Authorized [id number] Pending Review 1 1 Additional Source Comments INFORMATION SOURCE (unrecogn ized section and content) DATE CREATED AUTHOR 05/09/2020 [facility] [place] DATE CREATED AUTHOR AUTHOR'S ORGANIZ ATION 07/14/2021 [facility] ([place] DATE CREATED AUTHOR AUTHOR'S ORGANIZ ATION 06/24/2024 [facility] Source Comments (unrecognize d section and content) In the event this informatio n is protected by the Federal Confidentiality of Alcohol and Drug Abuse Patient Records regulations: The Federal rules restrict any use of the information to criminally investigate or prosecute any alcohol or drug abuse patient.[facility] the event this information is protected by the Federal Confidentiality of Alcohol and Drug Abuse Patient Records regulations: The Federal rules restrict any use of the information to criminally investigate or prosecute any alcohol or drug abuse patient.[facility] the event this information is protected by the Federal Confidentiality of Alcohol and Drug Abuse Patient Records regulations: The Federal rules restrict any use of the information to criminally investigate or prosecute any alcohol or drug abuse patient.[facility] the event this information is protected by the Federal Confidentiality of Alcohol and Drug Abuse Patient Records regulations: The Federal rules restrict any use of the information to criminally investigate or prosecute any alcohol or drug abuse patient.[facility] the event this information is protected by the Federal Confidentiality of Alcohol and Drug Abuse Patient Records regulations: The Federal rules restrict any use of the information to criminally investigate or prosecute any alcohol or drug abuse patient.[facility] the event this information is protected by the Federal Confidentiality of Alcohol and Drug Abuse Patient Records regulations: The Federal rules restrict any use of the information to criminally investigate or prosecute any alcohol or drug abuse patient.[facility] the event this information is protected by the Federal Confidentiality of Alcohol and Drug Abuse Patient Records regulations: The Federal rules restrict any use of the information to criminally investigate or prosecute any alcohol or drug abuse patient.[facility] the event this information is protected by the Federal Confidentiality of Alcohol and Drug Abuse Patient Records regulations: The Federal rules restrict any use of the information to criminally investigate or prosecute any alcohol or drug abuse patient.[facility] the event this information is protected by the Federal Confidentiality of Alcohol and Drug Abuse Patient Records regulations: The Federal rules restrict any use of the information to criminally investigate or prosecute any alcohol or drug abuse patient.[facility] the event this information is protected by the Federal Confidentiality of Alcohol and Drug Abuse Patient Records regulations: The Federal rules restrict any use of the information to criminally investigate or prosecute any alcohol or drug abuse patient.[facility] the event this information is protected by the Federal Confidentiality of Alcohol and Drug Abuse Patient Records regulations: The Federal rules restrict any use of the information to criminally investigate or prosecute any alcohol or drug abuse patient.[facility] the event this information is protected by the Federal Confidentiality of Alcohol and Drug Abuse Patient Records regulations: The Federal rules restrict any use of the information to criminally investigate or prosecute any alcohol or drug abuse patient.[facility] the event this information is protected by the Federal Confidentiality of Alcohol and Drug Abuse Patient Records regulations: The Federal rules restrict any use of the information to criminally investigate or prosecute any alcohol or drug abuse patient.[facility] the event this information is protected by the Federal Confidentiality of Alcohol and Drug Abuse Patient Records regulations: The Federal rules restrict any use of the information to criminally investigate or prosecute any alcohol or drug abuse patient.[facility] the event this information is protected by the Federal Confidentiality of Alcohol and Drug Abuse Patient Records regulations: The Federal rules restrict any use of the information to criminally investigate or prosecute any alcohol or drug abuse patient.[facility] the event this information is protected by the Federal Confidentiality of Alcohol and Drug Abuse Patient Records regulations: The Federal rules restrict any use of the information to criminally investigate or prosecute any alcohol or drug abuse patient.[facility] the event this information is protected by the Federal Confidentiality of Alcohol and Drug Abuse Patient Records regulations: The Federal rules restrict any use of the information to criminally investigate or prosecute any alcohol or drug abuse patient.[facility] the event this information is protected by the Federal Confidentiality of Alcohol and Drug Abuse Patient Records regulations: The Federal rules restrict any use of the information to criminally investigate or prosecute any alcohol or drug abuse patient.[facility] the event this information is protected by the Federal Confidentiality of Alcohol and Drug Abuse Patient Records regulations: The Federal rules restrict any use of the information to criminally investigate or prosecute any alcohol or drug abuse patient.[facility] the event this information is protected by the Federal Confidentiality of Alcohol and Drug Abuse Patient Records regulations: The Federal rules restrict any use of the information to criminally investigate or prosecute any alcohol or drug abuse patient.[facility] the event this information is protected by the Federal Confidentiality of Alcohol and Drug Abuse Patient Records regulations: The Federal rules restrict any use of the information to criminally investigate or prosecute any alcohol or drug abuse patient.[facility] the event this information is protected by the Federal Confidentiality of Alcohol and Drug Abuse Patient Records regulations: The Federal rules restrict any use of the information to criminally investigate or prosecute any alcohol or drug abuse patient.[facility] the event this information is protected by the Federal Confidentiality of Alcohol and Drug Abuse Patient Records regulations: The Federal rules restrict any use of the information to criminally investigate or prosecute any alcohol or drug abuse patient.[facility] the event this information is protected by the Federal Confidentiality of Alcohol and Drug Abuse Patient Records regulations: The Federal rules restrict any use of the information to criminally investigate or prosecute any alcohol or drug abuse patient.[facility] the event this information is protected by the Federal Confidentiality of Alcohol and Drug Abuse Patient Records regulations: The Federal rules restrict any use of the information to criminally investigate or prosecute any alcohol or drug abuse patient.[facility] the event this information is protected by the Federal Confidentiality of Alcohol and Drug Abuse Patient Records regulations: The Federal rules restrict any use of the information to criminally investigate or prosecute any alcohol or drug abuse patient.[facility] the event this information is protected by the Federal Confidentiality of Alcohol and Drug Abuse Patient Records regulations: The Federal rules restrict any use of the information to criminally investigate or prosecute any alcohol or drug abuse patient.[facility] the event this information is protected by the Federal Confidentiality of Alcohol and Drug Abuse Patient Records regulations: The Federal rules restrict any use of the information to criminally investigate or prosecute any alcohol or drug abuse patient.[facility] the event this information is protected by the Federal Confidentiality of Alcohol and Drug Abuse Patient Records regulations: The Federal rules restrict any use of the information to criminally investigate or prosecute any alcohol or drug abuse patient.[facility] the event this information is protected by the Federal Confidentiality of Alcohol and Drug Abuse Patient Records regulations: The Federal rules restrict any use of the information to criminally investigate or prosecute any alcohol or drug abuse patient.[facility] the event this information is protected by the Federal Confidentiality of Alcohol and Drug Abuse Patient Records regulations: The Federal rules restrict any use of the information to criminally investigate or prosecute any alcohol or drug abuse patient.[facility] the event this information is protected by the Federal Confidentiality of Alcohol and Drug Abuse Patient Records regulations: The Federal rules restrict any use of the information to criminally investigate or prosecute any alcohol or drug abuse patient.[facility] the event this information is protected by the Federal Confidentiality of Alcohol and Drug Abuse Patient Records regulations: The Federal rules restrict any use of the information to criminally investigate or prosecute any alcohol or drug abuse patient.[facility] the event this information is protected by the Federal Confidentiality of Alcohol and Drug Abuse Patient Records regulations: The Federal rules restrict any use of the information to criminally investigate or prosecute any alcohol or drug abuse patient.[facility] the event this information is protected by the Federal Confidentiality of Alcohol and Drug Abuse Patient Records regulations: The Federal rules restrict any use of the information to criminally investigate or prosecute any alcohol or drug abuse patient.[facility] the event this information is protected by the Federal Confidentiality of Alcohol and Drug Abuse Patient Records regulations: The Federal rules restrict any use of the information to criminally investigate or prosecute any alcohol or drug abuse patient.[facility] the event this information is protected by the Federal Confidentiality of Alcohol and Drug Abuse Patient Records regulations: The Federal rules restrict any use of the information to criminally investigate or prosecute any alcohol or drug abuse patient.[facility] Care Teams (unrecognized sec tion and content) Media Coordinator Relationship Specialty Start Date End Date Mayo Del Valle [address] [place] [address] PCP - General 06/11/10 Media Coordinator Relationship Specialty Start Date End Date Mayo Del Valle [address] [place] [address] PCP - General 06/11/10 Media Coordinator Relationship Specialty Start Date End Date Mayo Del Valle [address] [place] [address] PCP - General 06/11/10 Media Coordinator Relationship Specialty Start Date End Date Mayo Del Valle [address] [place] [address] PCP - General 06/11/10 Media Coordinator Relationship Specialty Start Date End Date Mayo Del Valle [address] [place] [address] PCP - General 06/11/10 Media Coordinator Relationship Specialty Start Date End Date Mayo Del Valle [address] [place] [address] PCP - General 06/11/10 Media Coordinator Relationship Specialty Start Date End Date MarlonMayoth [address] [place] [address] PCP - General 06/11/10 Media Coordinator Relationship Specialty Start Date End Date MarlonMayobeth [address] [place] [address] PCP - General 06/11/10 Media Coordinator Relationship Specialty Start Date End Date Link Mayo Hart [address] [address] [place] [address] PCP - General 06/11/10 Media Coordinator Relationship Specialty Start Date End Date Link Mayo Hart [address] [address] [place] [address] PCP - General 06/11/10 Media Coordinator Relationship Specialty Start Date End Date Link Mayo Hart [address] [address] [place] [address] PCP - General 06/11/10 Media Coordinator Relationship Specialty Start Date End Date MarlonkeliMayo [address] [address] [place] [address] PCP - General 06/11/10 Media Coordinator Relationship Specialty Start Date End Date Link Mayo Hart [address] [address] [place] [address] PCP - General 06/11/10 Media Coordinator Relationship Specialty Start Date End Date Link Mayo Hart [address] [address] [place] [address] PCP - General 06/11/10 Media Coordinator Relationship Specialty Start Date End Date Link Mayo Hart [address] [facility] [address] [place] [address] PCP - General 06/11/10 Media Coordinator Relationship Specialty Start Date End Date Link Mayo Hart [address] [facility] [address] [place] [address] PCP - General 06/11/10 Media Coordinator Relationship Specialty Start Date End Date Link Mayo Hart [address] [facility] [address] [place] [address] PCP - General 06/11/10 Media Coordinator Relationship Specialty Start Date End Date Link Mayo Hart [address] [facility] [address] [place] [address] PCP - General 06/11/10 Media Coordinator Relationship Specialty Start Date End Date Link Mayo Hart [address] [facility] [address] [place] [address] PCP - General 06/11/10 Reason for Visit (unrecogniz ed section and content) Reason Comments Back Pain Reason Onset Date Comments Refill Request 08/07/2022 Reason Comments Back Pain Reason Onset Date Comments Refill Request 10/14/2022 Reason Comments filled oxycodone post op Reason Comments Patient Update Reason Onset Date Comments Refill Request 11/13/2022 Reason Onset Date Comments Refill Request 12/17/2022 Reason Onset Date Comments Refill Request 03/17/2023 Reason Onset Date Comments Refill Request 05/14/2023 Reason Onset Date Comments Refill Request 07/11/2023 Reason Onset Date Comments Refill Request 08/14/2023 Reason Onset Date Comments Refill Request 09/12/2023 Reason Onset Date Comments Refill Request 10/10/2023 Reason Onset Date Comments Refill Request 01/08/2024 Reason Onset Date Comments Refill Request 03/09/2024 Reason Onset Date Comments Refill Request 05/10/2024 Reason Onset Date Comments Refill Request 06/08/2024 Reason Comments Pain Back Pain Reason Onset Date Comments Refill Request 08/05/2024 Reason Onset Date Comments Refill Request 09/06/2024 FOR RECORDS PERTAINING TO PATIENTS WHO ARE OR HAVE BEEN ENROLLED IN A CHEMICAL DEPENDENCY/SUBSTANCEABUSE PROGRAM, SOME INFORMATION MAY BE OMITTED. This clinical summary was aggregated from multiple sources. Caution should be exercised in using it in the provision of clinical care. This summary normalizes information from multiple sources, and as a consequence, information in this document may materially change the coding, format and clinical context of patient data. In addition, data may be omitted in some cases. CLINICAL DECISIONS SHOULD BE BASED ON THE PRIMARY CLINICAL RECORDS. [facility]. provides no warranty or guarantee of the accuracy or completeness of information in this document.
[2024-09-15 15:00] LABS: Hematocrit 41.6 % (37-47); Hemoglobin 13.3 g/dL (12.0-15.0); Mean Corpuscular Hgb 32.5 pg (27.0-32.0); Mean Corpuscular Volume 101.7 fL (81-99); Platelet Count 272 K/mm3 (150-450); RBC Distribution Width CV 14.2 % (11.6-14.6); RBC Distribution Width SD 53.9 fl (35.1-43.9); Red Blood Count 4.09 M/mm3 (4.2-5.4); White Blood Count 6.6 K/mm3 (4.4-11.0)
[2024-09-15 16:00] LABS: ALB/GLOB Ratio 0.9 RATIO (0.9-2.4); AST(SGOT) 27 U/L (15-37); Alanine Aminotransfer ALT/SGPT 23 U/L (13-56); Albumin, Serum 3.7 g/dL (3.2-5.0); Alkaline Phosphatase 81 U/L (45-117); Anion Gap 7 (5-15); BUN 34 mg/dL (7-18); BUN/Creat Ratio 17.7 RATIO (10-20); Calcium,Total 9.7 mg/dL (8.5-10.1); Chloride 112 mmol/L (98-107); Creatinine, Serum 1.92 mg/dL (0.55-1.02); EST Glomerular Filtration Rate 28 mL/min (>60); Est Glom Filt Rate - Afr Amer 34 mL/min (>60); Ferritin 124 ng/mL (8-252); Free T3 1.9 pg/mL (2.18-3.98); Globulin 3.9 g/dL (2.2-4.2); Glucose 96 mg/dL (74-106); Iron 72 ug/dL (50-170); Magnesium 2.3 mg/dL (1.6-2.6); Phosphorus 3.4 mg/dL (2.5-4.9); Potassium 4.1 mmol/L (3.5-5.1); Protein, Total 7.6 g/dL (6.4-8.2); Sodium Level 141 mmol/L (136-145); T4 Free Direct 0.88 ng/dL (0.76-1.46)
[2024-09-15 19:22] LABS: Protein, Urine (Random) 54.7 mg/dL (<11.9); Protein:Creat Ratio 263 mg/g CRE (0-200)
== END | disposition home or self-care (01) ==
DX: R00.2 Palpitations (principal); N18.32 Chronic kidney disease, stage 3b; Z13.0 Encounter for screening for diseases of the blood and blood-forming organs and certain disorders involving the immune mechanism
CPT/HCPCS: 36415; 80053; 82570; 82728; 83540; 83735; 84100; 84156; 84439; 84443; 84481; 85027; 93306

== ENCOUNTER → 2024-09-22 | Outpatient (CLI) | payer MEDICARE, BC, SELFPAY | END | disposition home or self-care (01) | LOC: PSN 08:36 | DX: R00.2 Palpitations (principal) | CPT/HCPCS: 93225; 93226 ==

== ENCOUNTER → 2024-10-07 | Outpatient (CLI) | payer MEDICARE, BC, SELFPAY ==
--- NOTE | 2024-10-07 13:14 | BI_ITS ---
MAMMOGRAPHY - BILATERAL SCREENING REASON FOR EXAM: Female, 69 years old. Routine annual screening examination. PERTINENT HISTORY: Non-contributory. TECHNIQUE: Digital bilateral breast farideh (3D mammographic acquisition) in the CC and MLO projections. 2-D mediolateral oblique (MLO) and craniocaudad (CC) views of both breasts were obtained. CAD: Full Field Digital Mammography with Computer Added Detection was performed. COMPARISON: Comparison is made with prior study dated August 08, 2022. FINDINGS: Breast Composition: There are scattered areas of fibroglandular density. There are no dominant masses or suspicious calcifications. No other significant abnormalities are identified. There has been no significant change since the prior study. BI/SCRN MAMM (CAD)W/FARIDEH BILAT IMPRESSION: Stable bilateral screening mammogram. Yearly follow-up mammogram recommended. (A) ASSESSMENT CATEGORY: BIRADS Category 1: Negative. A letter regarding these results will be sent to the patient by the facility within 30 days. Approximately 10% of breast cancers are not detected by mammography. A normal mammogram should not delay biopsy of a clinically suspicious abnormality. [id number] Electronically Signed: Marty Mercedes MD at 14:40 EST ,
--- NOTE | 2024-10-07 13:14 | BD_ITS ---
STUDY: DUAL ENERGY X-RAY ABSORPTIOMETRY / DXA REASON FOR EXAM: Female, 69 years old. 627.8Menopausal postmenopausal BONE DENSITY REASON FOR EXAM TECHNIQUE: Bone Mineral Density (BMD) measurements of lumbar spine and left hip were obtained. COMPARISON: Comparison is made with prior study August 08, 2022. FINDINGS: Lumbar Spine (L1-L4): g/cm2 (0.989) / T-score (-0.5) / Z-score (1.4) Findings are suggestive of normal bone density with a low fracture risk. Left Femur Total: g/cm2 (0.686) / T-score (-2.1) / Z-score (-0.7) Left Femoral Neck: g/cm2 (0.616) / T-score (-2.1) / Z-score (-0.4) The T-Scores on the most recent prior examination were: Lumbar Spine (L1-L4): There has been improvement of bone density since the previous examination. Left Femur Total: which represents a worsening of 1.9%. BD/Dexa Bone Density Study IMPRESSION: The patient is considered osteopenic as outlined below according to World [place] Organization (WHO) criteria with a high fracture risk. There has been improvement of bone density since the previous examination. Reference Information: The T-score is the number of standard deviations above or below the standard which is normal for young adults at their peak bone mineral density. The World Health Organization (WHO) interprets the T-scores as follows: Above -1 Normal bone density Between -1 and -2.5 Osteopenia Equal to / or below -2.5 Osteoporosis As a practical clinical guideline, osteopenia may be graded as follows: Mild -1 through -1.5 Moderate -1.6 through -2.0 Severe -2.1 through -2.4 The Z-score is the number of standard deviations above or below age-matched controls. A Z-score of less than -1.5 would be considered abnormal. References: 1. NIH Osteoporosis and Related Bone Diseases www osteo.org 2. International Society for Clinical Densitometry www iscd.org 3. National Osteoporosis Foundation www nof.org Electronically Signed: Marty Mercedes MD at 15:22 EST ,
== END | disposition home or self-care (01) ==
LOC: OPBD 13:12
DX: Z12.31 Encounter for screening mammogram for malignant neoplasm of breast (principal); Z78.0 Asymptomatic menopausal state
CPT/HCPCS: 77063; 77067; 77080

== ENCOUNTER → 2024-10-14 | Outpatient (CLI) | payer MEDICARE, BC, SELFPAY ==
--- NOTE | 2024-10-14 14:31 | STRESSREP ---
Stress Test Report Pharmacologic/Lexiscan myocardial perfusion stress test. Indication; 69-year-old female with history of hypertension, hyperlipidemia Had symptoms of dyspnea with palpitation. Underwent Lexiscan sestamibi Stress protocol: Resting EKG demonstrates. Normal sinus rhythm. 0.4 mg of regadenoson was infused per usual protocol followed by rapid intravenous saline flush injection continuous EKG monitoring was performed. The maximum heart rate attained was 95 bpm which was 62% of maximum predicted heart . Stress EKG showed[, no significant change from the resting EKG, with maximum heart rate of 95 bpm. Arrhythmia: No arrhythmia demonstrated Symptoms: Patient had no symptoms of chest pain Blood pressure at rest: 132/82 mmHg blood pressure at the end of stress: 1 stated 2 over 82 mmHg Myocardial perfusion protocol. 11.3 mCi ]of Technetium 99m Sestamibi was injected at rest. [ 0.4 mg ]of Regadenoson was infused per usual protocol peak infusion 34.1 mCi ]of Technetium 99m sestamibi was injected. Stress images were obtained stress and rest images were reconstructed and compared in the short axis vertical and horizontal long axis. Gated images were also obtained Perfusion SPECT analysis: Review of the images demonstrate normal uptake of sestamibi at rest, post stress images demonstrate similar uptake of sestamibi to the resting images, homogeneous tracer uptake With no evidence of reversible myocardial ischemia. Gated SPECT analysis: The gated ejection fraction is 88%. LV wall motion showed hyperdynamic left ventricle. Conclusion: Negative Lexiscan sestamibi myocardial perfusion study for reversible myocardial ischemia Hyperdynamic left ventricle. John Ojeda MD,FACC,[facility]
== END | disposition home or self-care (01) ==
LOC: CVS 06:22
PROVIDERS: Referring Provider Nurse Practitioner Family; Visit Provider Nurse Practitioner Family
DX: R06.02 Shortness of breath (principal); R00.2 Palpitations; I34.1 Nonrheumatic mitral (valve) prolapse; I10 Essential (primary) hypertension; E78.5 Hyperlipidemia, unspecified
CPT/HCPCS: 78452; 93017; A9500; A4216; J2785

== ENCOUNTER → 2024-10-19 | Outpatient (CLI) | payer MEDICARE, BC, SELFPAY ==
--- NOTE | 2024-10-19 11:30 | PET_ITS ---
EXAMINATION: FDG PET CT HISTORY: 69-year-old female with history of pulmonary nodularity. COMPARISON EXAMINATION: CT of the chest report 09/14/2024 Okay TECHNIQUE: Following the intravenous administration of 15.37 mCi of F-18 deoxyglucose, via the left forearm, multiplanar image acquisitions of the neck, chest, abdomen and pelvis to the level of mid thigh, obtained at one hour post radiopharmaceutical administration contemporaneously interpreted with the current CT of the neck, chest, abdomen and pelvis to the level of mid thigh, dated 10/19/2024 via coregistration reveals: BLOOD GLUCOSE LEVEL:?96 mg/dL?HEIGHT:?67 inches?WEIGHT: 141 lbs. FINDINGS: Head/Neck: Prominent symmetric radiotracer extends from the anterior commissure to the bilateral cricoid cartilage most consistent with physiologic tracer distribution. There is no evidence of abnormal increased glucose metabolism in the pharyngeal mucosal space, parapharyngeal space, bilateral-lateral and anterior neck, hypopharynx. The visualized portion of the cerebral cortical-subcortical structures demonstrate symmetric and preserved glucose metabolism. CHEST: No abnormal glucose metabolism is identified in the right-left pulmonary parenchyma, the bilateral hemithorax at the pleural interface, the mediastinal and thoracic perihilar structures. The left ventricular myocardium demonstrates concentration of labeled glucose commensurate with the FED state. Pertinent chest CT findings are as follows. Atherosclerotic calcification is defined in the thoracic aorta without evidence of dilatation. Coronary arterial calcification is observed. Mediastinal and bilateral axillary soft tissue densities are a metabolic. Parenchymal changes noted in the left lower lateral lung zone are nontracer avid. Abdomen/Pelvis: Normal physiologic uptake is noted in the hepatic and splenic parenchyma. There is symmetric demonstration of the right and left kidneys, normal uptake in the urinary bladder and visualized intestinal tract. Review of CT of the abdomen and pelvis reveals the following. The patient is status post cholecystectomy. Atherosclerotic calcification is defined in the abdominal aorta without evidence of aneurysm formation. Abdominal and pelvic arterial calcification is observed. Right and left inguinal soft tissue densities are a metabolic. The uterus appears anteflexed. SKELETAL: Degenerative changes defined within the axial skeleton demonstrate no evidence of increased glucose uptake. PET/PET/CT Tumor Base -Thigh Init IMPRESSION: 1. NEGATIVE EXAMINATION. There is no definitive scintigraphic evidence of viable neoplasm. 2. Metabolic, morphologic stability may be ensured in the bilateral hemithorax with repeat FDG PET CT imaging in 3-6 months if clinically indicated. Electronic Signature Terry Bull D.O. Accurate Quantification of SUVs for this report are calculated using the exclusive [employer]. (U.S. Patent No. [id number] [id number] [phone] patent [id number] [id number]). Standardization and correction of the FDG SUV metric via [employer] technology allow for vendor non-specific objective quantitative examination comparison and optimization of the sensitivity and specificity of the FDG PET-CT examination. . [email or web address]/[email or web address] Electronically Signed: Terry Bull DO at 14:22 EST ,
== END | disposition home or self-care (01) ==
LOC: ONC 11:14
PROVIDERS: Referring Provider Internal Medicine Pulmonary Disease; Visit Provider Internal Medicine Pulmonary Disease
DX: R91.1 Solitary pulmonary nodule (principal)
CPT/HCPCS: 78815; A9552

== ENCOUNTER 2024-12-12 15:40 | Inpatient (IN) | payer MEDICARE, BC, SELFPAY ==
[2024-12-12 15:40] VITALS: BP 124/85; PULSE 72; RESP 18; TEMP 36.6; O2SAT 98
[2024-12-12 15:55] VITALS: BMI 21.9
--- NOTE | 2024-12-12 16:06 | ED.VIS.FALL ---
HPI HPI - Fall History of Present Illness Chief Complaint: Fall Informant: patient, friend and EMS Narrative Narrative: Patient slipped on ice while trying to turn to her car, falling and twisting her right knee in the process, severe pain and lack of ability to move it, she states this occurred as a result of twisting before she hit the ground. She did not injure anything but was not able to move it or stand so EMS brought her. Has had prior bilateral knee replacements and bilateral hips. PFSH PFSH Medical History Wears glasses Post-menopausal Anxiety Depression Arthritis High cholesterol Back pain Injury of head and neck Migraine headache Syncope History of ulceration Smoker History of pain when walking Hypertension History of renal disease History of stress test Cardiology follow-up encounter MVP (mitral valve prolapse) Heart murmur Hx of pilonidal cyst Home Medications ?Medication ?Instructions ?Recorded ?Last Taken ?Type atorvastatin 40 mg tablet 40 mg PO QHS CHOLESTEROL 02/04/18 Unknown History cholecalciferol (vitamin D3) 50 4,000 unit PO DAILY SUPPLEMENT 02/04/18 Unknown History mcg (2,000 unit) capsule (Vitamin D3) hydrochlorothiazide 25 mg tablet 25 mg PO DAILY BP 02/04/18 Unknown History metoprolol tartrate 25 mg tablet 25 mg PO DAILY PRN BP 02/04/18 09/11/22 11:00 History multivitamin-ferrous 1 ea PO DAILY SUPPLEMENT 02/04/18 Unknown History fumarate-folic acid 18 mg-400 mcg tablet (Centrum) paroxetine HCl 40 mg tablet (Paxil) 40 mg PO DAILY ANTIDEPRESSANT 02/04/18 Unknown History potassium chloride 8 mEq 8 meq PO DAILY SUPPLEMENT 02/04/18 Unknown History tablet,extended release (Klor-Con) rizatriptan 10 mg tablet 10 mg PO .X1 PRN MIGRAINES 02/04/18 09/11/22 11:00 History topiramate 50 mg tablet 50 mg PO DAILY HEADACHES 02/04/18 05/10/20 07:30 History calcium carbonate-vitamin D3 600 1 ea PO DAILY supplement 05/03/20 Unknown History mg-125 unit tablet aspirin 81 mg chewable tablet 81 mg PO DAILY 09/02/22 Unknown History hydrocodone 10 mg-acetaminophen 1 tab PO 4X/DAY 09/02/22 Unknown History 300 mg tablet Allergy/AdvReac Type Severity Reaction Status Date / Time NSAIDS (Non-Steroidal Allergy Anaphylaxis Verified 09/11/22 13:04 Anti-Inflamma Family History Other COPD (chronic obstructive pulmonary disease) Surgical History History of meniscectomy of right knee Hx laparoscopic cholecystectomy Hx of removal of ovary Hx of bilateral hip replacements Hx of total knee arthroplasty Hx of right knee surgery Hx of total knee arthroplasty Social History household members: family housing: house Smoking Status: Current every day smoker tobacco type: cigarettes alcohol intake: never substance use type: does not use ROS ROS ED Constitutional Constitutional ED: Denies chills or fever(s) Musculoskeletal Musculoskeletal: Reports extremity pain; Denies neck pain Integumentary Denies Abrasions, rash or wounds Neurologic Neurologic: Denies paresthesias or weakness EXAM Physical Exam Const Vital Signs: 12/12/24 15:40 12/12/24 15:43 12/12/24 17:45 Temperature 98 F Temperature Source Oral Pulse Rate 72 67 Respiratory Rate 18 16 Respiratory Effort Normal Blood Pressure 124/85 H 112/97 H Blood Pressure Mean 98 102 Pulse Ox 98 95 Oxygen Delivery Method Room Air Room Air Positive well nourished and well developed General Appearance ED: well developed and NAD Neck full ROM and supple Resp normal respiratory effort GI non-tender and non-distended Back/Spine normal ROM and normal to inspection Extremity Extremity Narrative: Not able to move right knee at all. No deformities. Boggy effusion. Tender anteriorly more at the distal femur and patella area, there is no lateral tenderness or tenderness at the fibular head or the tibial tuberosity. 2+/4 dorsalis pedis pulse, neurovascularly intact distally able to move her ankle and foot without difficulty. Limited range of motion of the hip due to pain at the knee but no hip tenderness or pelvic tenderness/instability. The other 3 extremities move fully without difficulty or limitation or pain Neuro oriented x3, no focal motor deficits and no sensory deficits noted Sensorium / Orientation: alert Psych mental status grossly normal and thought process normal Skin no wounds Rashes: no rashes MDM MDM MDM Narrative Medical decision making narrative: 2 view x-ray of the right knee on my interpretation shows a displaced periprosthetic right distal femur fracture. Discussed with Dr. Schulte who is on-call for Dr. Martini who agrees patient will need a procedure for this, and states that we should be able to admit her here and care for this hopefully tomorrow, requesting hospitalist admission. The patient does not want us to cut her pants or her knee brace off which is a soft brace under her jeans, so she is given morphine to get those off and put her in a knee immobilizer. Orthopedics requesting a CT of the fracture for characterization and operative planning which will be obtained. Also will obtain preoperative chest x-ray and EKG as well as labs. I reviewed all of that, it is unremarkable. Chest x-ray 1 view on my interpretation shows some pulmonary hyperexpansion but no acute infiltrate or pneumothorax. Discussed with hospitalist. Lab Data Attestation: I reviewed the patient's lab results. Labs: Laboratory Results - last 24 hr 12/12/24 12/12/24 12/12/24 17:23 17:23 17:23 WBC 10.7 RBC 4.05 L Hgb 13.0 Hct 41.0 MCV 101.2 H MCH 32.1 H MCHC 31.7 L RDW Std Deviation 48.2 H RDW Coeff of Johann 12.9 Plt Count 271 MPV 9.4 Immature Gran % (Auto) 0.300 Neut % (Auto) 77.5 H Lymph % (Auto) 13.3 L [place] % (Auto) 4.4 Eos % (Auto) 3.8 Baso % (Auto) 0.7 Absolute Neuts (auto) 8.3 H Absolute Lymphs (auto) 1.43 Nucleated RBC % 0 Sodium 141 142 Potassium 4.5 4.6 Chloride 115 H Carbon Dioxide Anion Gap BUN Creatinine Estim Creat Clear Calc Est GFR (MDRD) Af Amer Est GFR (MDRD) Non-Af BUN/Creatinine Ratio Glucose Calcium Total Bilirubin AST ALT Alkaline Phosphatase Total Protein Albumin Globulin Albumin/Globulin Ratio 12/12/24 12/12/24 12/12/24 17:23 17:23 17:23 WBC RBC Hgb Hct MCV MCH MCHC RDW Std Deviation RDW Coeff of Johann Plt Count MPV Immature Gran % (Auto) Neut % (Auto) Lymph % (Auto) [place] % (Auto) Eos % (Auto) Baso % (Auto) Absolute Neuts (auto) Absolute Lymphs (auto) Nucleated RBC % Sodium Potassium Chloride 115 H Carbon Dioxide 23.0 23.0 Anion Gap 3 L 4 L BUN 26 H Creatinine Estim Creat Clear Calc Est GFR (MDRD) Af Amer Est GFR (MDRD) Non-Af BUN/Creatinine Ratio Glucose Calcium Total Bilirubin AST ALT Alkaline Phosphatase Total Protein Albumin Globulin Albumin/Globulin Ratio 12/12/24 12/12/24 12/12/24 17:23 17:23 17:23 WBC RBC Hgb Hct MCV MCH MCHC RDW Std Deviation RDW Coeff of Johann Plt Count MPV Immature Gran % (Auto) Neut % (Auto) Lymph % (Auto) [place] % (Auto) Eos % (Auto) Baso % (Auto) Absolute Neuts (auto) Absolute Lymphs (auto) Nucleated RBC % Sodium Potassium Chloride Carbon Dioxide Anion Gap BUN 25 H Creatinine 1.39 H 1.47 H Estim Creat Clear Calc 38.19 36.11 Est GFR (MDRD) Af Amer 49 L Est GFR (MDRD) Non-Af BUN/Creatinine Ratio Glucose Calcium Total Bilirubin AST ALT Alkaline Phosphatase Total Protein Albumin Globulin Albumin/Globulin Ratio 12/12/24 12/12/24 12/12/24 17:23 17:23 17:23 WBC RBC Hgb Hct MCV MCH MCHC RDW Std Deviation RDW Coeff of Johann Plt Count MPV Immature Gran % (Auto) Neut % (Auto) Lymph % (Auto) [place] % (Auto) Eos % (Auto) Baso % (Auto) Absolute Neuts (auto) Absolute Lymphs (auto) Nucleated RBC % Sodium Potassium Chloride Carbon Dioxide Anion Gap BUN Creatinine Estim Creat Clear Calc Est GFR (MDRD) Af Amer 46 L Est GFR (MDRD) Non-Af 40 L 38 L BUN/Creatinine Ratio 18.7 17.0 Glucose 97 Calcium Total Bilirubin AST ALT Alkaline Phosphatase Total Protein Albumin Globulin Albumin/Globulin Ratio 12/12/24 12/12/24 17:23 17:23 WBC RBC Hgb Hct MCV MCH MCHC RDW Std Deviation RDW Coeff of Johann Plt Count MPV Immature Gran % (Auto) Neut % (Auto) Lymph % (Auto) [place] % (Auto) Eos % (Auto) Baso % (Auto) Absolute Neuts (auto) Absolute Lymphs (auto) Nucleated RBC % Sodium Potassium Chloride Carbon Dioxide Anion Gap BUN Creatinine Estim Creat Clear Calc Est GFR (MDRD) Af Amer Est GFR (MDRD) Non-Af BUN/Creatinine Ratio Glucose 94 Calcium 9.0 8.9 Total Bilirubin 0.20 AST 16 ALT 12 L Alkaline Phosphatase 74 Total Protein 6.9 Albumin 3.5 Globulin 3.4 Albumin/Globulin Ratio 1.0 Radiography Diagnostic Testing: Clinical Impression(s) from Imaging Studies Knee X-Ray 12/12/24 16:40 IMPRESSION: Comminuted fracture of the distal femur just above a total knee prosthesis. Electronically Signed: Jeramy Wilde MD at 16:49 EST , Lower Extremity CT 12/12/24 17:18 IMPRESSION: Comminuted fracture of the distal femur above a total knee prosthesis. Electronically Signed: Jeramy Wilde MD at 20:06 EST , Right knee CT: I reviewed the images as well as the radiology interpretation which I agree with. Rhythm Strip Rhythm Strip: Sinus Rhythm Rate: 65 Ectopy: None EKG Initial EKG: Attestation: I personally reviewed and interpreted this EKG as follows: Interpretation: Sinus Rhythm and No Acute Injury Pattern Comments: Nml axis & intervals; nml EKG Management Discussion w/another healthcare provider: Hospitalist and Breast Splitter Discharge Plan Dx/Rx/DC Orders Clinical Impression: Periprosthetic fracture around internal prosthetic right knee joint, Fall from slipping on ice Disposition Disposition: [facility] Care [facility] Discharge Date/Time: 12/12/24 20:04
[2024-12-12] MEDS: Ondansetron 4 MG/2 ML Vial IV ×2 (16:14→17:47)
[2024-12-12] MEDS: Morphine 4 MG/ML Syringe IV ×2 (16:15→17:28)
--- NOTE | 2024-12-12 16:40 | RAD_ITS ---
EXAM: XR RIGHT KNEE, 1 OR 2 VIEWS CLINICAL INDICATION: injury TECHNIQUE: Frontal and/or lateral views of the right knee. COMPARISON: No relevant prior studies available. FINDINGS: BONES/JOINTS: There is a comminuted fracture of the femur just above the prosthesis. There is a total knee prosthesis. Preservation of the joint space. No sclerotic or destructive changes observed. SOFT TISSUES: Unremarkable. No soft tissue swelling or gas. No radiopaque foreign body. RAD/Knee 1 or 2 Views IMPRESSION: Comminuted fracture of the distal femur just above a total knee prosthesis. Electronically Signed: Jeramy Wilde MD at 16:49 EST ,
--- NOTE | 2024-12-12 17:18 | CT_ITS ---
EXAM: CT RIGHT LOWER EXTREMITY WITHOUT INTRAVENOUS CONTRAST, KNEE CLINICAL INDICATION: fracture TECHNIQUE: Helically acquired images were obtained of the right knee without intravenous contrast. This CT exam was performed using one or more of the following dose reduction techniques: automated exposure control, adjustment of the mA and/or kV according to patient size, and/or use of iterative reconstruction technique. COMPARISON: No relevant prior studies available. FINDINGS: BONES/JOINTS: There is a comminuted fracture of the distal femur above a total knee prosthesis. Preservation of the joint space. No sclerotic or destructive changes. SOFT TISSUES: Unremarkable. No soft tissue swelling or gas. No radiopaque foreign body. CT/Extremity Lower without Contra IMPRESSION: Comminuted fracture of the distal femur above a total knee prosthesis. Electronically Signed: Jeramy Wilde MD at 20:06 EST ,
--- NOTE | 2024-12-12 17:24 | EKG12_ITS ---
Test Reason : PRE-OP Blood Pressure : */* mmHG Vent. Rate : 64 BPM Atrial Rate : 64 BPM P-R Int : 142 ms QRS Dur : 70 ms QT Int : 402 ms P-R-T Axes : 85 74 72 degrees QTcB Int : 414 ms Normal sinus rhythm Normal ECG Confirmed by GISELE COOK, KRISTOPHER ([id number]), graphic editor KEE PAREDES ([id number]) on 12/13/2024 10:58:44 A M Referred By: Confirmed By: KRISTOPHER JAQUEZ MD
[2024-12-12 17:43] LABS: Absolute Lymphocyte Count 1.43 X10^3/uL (0.83-4.51); Absolute Neutrophil Count 8.3 X10^3/uL (2.0-7.7); Basophil# 0.07 X10^3/uL; Basophil% 0.7 % (0-1); Eosinophil# 0.41 X10^3/uL; Eosinophils% 3.8 % (0-5); Lymphocyte # 1.43 X10^3/ul (0.83-4.51); Lymphocyte % 13.3 % (19-41); Mean Corp Hgb Conc 31.7 g/dL (32-36); Mean Corpuscular Hgb 32.1 pg (27.0-32.0); Mean Corpuscular Volume 101.2 fL (81-99); Mean Platelet Vol. 9.4 fl (6.2-12.0); Monocyte# 0.47 X10^3/uL; Monocyte% 4.4 % (0-10); NRBC Flagged by Analyzer 0 % (0-5); Neutrophil # 8.32 X10^3/uL (2.7-7.7); Neutrophil % 77.5 % (47-70); Platelet Count 271 K/mm3 (150-450); RBC Distribution Width CV 12.9 % (11.6-14.6); RBC Distribution Width SD 48.2 fl (35.1-43.9); Red Blood Count 4.05 M/mm3 (4.2-5.4); White Blood Count 10.7 K/mm3 (4.4-11.0)
[2024-12-12 17:45] VITALS: BP 112/97; PULSE 67; RESP 16; O2SAT 95
[2024-12-12 17:58] LABS: Anion Gap 3 (5-15); BUN 26 mg/dL (7-18); BUN/Creat Ratio 18.7 RATIO (10-20); Chloride 115 mmol/L (98-107); Creatinine, Serum 1.39 mg/dL (0.55-1.02); EST Glomerular Filtration Rate 40 mL/min (>60); Est Glom Filt Rate - Afr Amer 49 mL/min (>60); Estimated Creatinine Clearance 38.19 ml/min; Glucose 97 mg/dL (74-106); Potassium 4.5 mmol/L (3.5-5.1); Sodium Level 141 mmol/L (136-145)
--- NOTE | 2024-12-12 18:33 | HP.PCM.HOS_ITS ---
HPI - General General Date of Admission: 12/12/24 Date of Service: 12/12/24 Chief Complaint: Right knee pain after mechanical fall HPI Narrative EDER SCHAEFFER, is a 69 F who presented to the emergency department at [facility] on 12/12/2024 due to acute knee pain after slipping on ice. The patient reported she slipped on ice while trying to turn and get into her car. She fell and twisted her right knee in the process and had subsequent severe pain and the inability to move her right lower extremity. She reported that the event occurred as a result of twisting before she had the ground. She did not injure anything else but was not able to stand after the event occurred. EMS was called and brought her into the emergency department. She has a history of bilateral total knee arthroplasty. Her right knee was done 24 years ago. She has also had bilateral hip arthroplasties. She states that the majority of her surgeries have been done here by Dr. Martini. She had a negative stress test on 10/14/2024. Vital signs on presentation showed a temperature of 98, heart rate 72, respiratory rate 18, blood pressure is 124/85 and pulse ox is 98% on room air. CBC is unremarkable. Chemistry panel shows hyperchloremia with a BUN of 26 and a serum creatinine of 1.39 which is consistent with previous lab values and actually slightly improved. X-rays of her knee showed a comminuted fracture of the distal femur just above the knee prosthesis. Chest x-ray shows findings consistent with COPD but no acute changes. EKG is sinus rhythm without any interval abnormalities and no ST-T wave changes concerning for acute ischemia. The case was discussed with the on-call orthopedic surgeon, Dr. Schulte, he asked that a CT of the knee be done and that we could admit here and plan on surgery tomorrow. [facility] Medical History Wears glasses Post-menopausal Anxiety Depression Arthritis High cholesterol Back pain Injury of head and neck Migraine headache Syncope History of ulceration Smoker History of pain when walking Hypertension History of renal disease History of stress test Cardiology follow-up encounter MVP (mitral valve prolapse) Heart murmur Hx of pilonidal cyst Home Medications ?Medication ?Instructions ?Recorded ?Last Taken ?Type atorvastatin 40 mg tablet 40 mg PO QHS CHOLESTEROL 02/04/18 Unknown History cholecalciferol (vitamin D3) 50 4,000 unit PO DAILY SUPPLEMENT 02/04/18 Unknown History mcg (2,000 unit) capsule (Vitamin D3) hydrochlorothiazide 25 mg tablet 25 mg PO DAILY BP 02/04/18 Unknown History metoprolol tartrate 25 mg tablet 25 mg PO DAILY PRN BP 02/04/18 09/11/22 11:00 History multivitamin-ferrous 1 ea PO DAILY SUPPLEMENT 02/04/18 Unknown History fumarate-folic acid 18 mg-400 mcg tablet (Centrum) paroxetine HCl 40 mg tablet (Paxil) 40 mg PO DAILY ANTIDEPRESSANT 02/04/18 Unknown History potassium chloride 8 mEq 8 meq PO DAILY SUPPLEMENT 02/04/18 Unknown History tablet,extended release (Klor-Con) rizatriptan 10 mg tablet 10 mg PO .X1 PRN MIGRAINES 02/04/18 09/11/22 11:00 History topiramate 50 mg tablet 50 mg PO DAILY HEADACHES 02/04/18 05/10/20 07:30 History calcium carbonate-vitamin D3 600 1 ea PO DAILY supplement 05/03/20 Unknown History mg-125 unit tablet aspirin 81 mg chewable tablet 81 mg PO DAILY 09/02/22 Unknown History hydrocodone 10 mg-acetaminophen 1 tab PO 4X/DAY 09/02/22 Unknown History 300 mg tablet Allergy/AdvReac Type Severity Reaction Status Date / Time NSAIDS (Non-Steroidal Allergy Anaphylaxis Verified 09/11/22 13:04 Anti-Inflamma Family History (Updated 12/12/24 @ 19:[address] Ayde Rivera DO) Other COPD (chronic obstructive pulmonary disease) Surgical History History of meniscectomy of right knee Hx laparoscopic cholecystectomy Hx of removal of ovary Hx of bilateral hip replacements Hx of total knee arthroplasty Hx of right knee surgery Hx of total knee arthroplasty Social History (Updated 12/12/24 @ 19:[address] Ayde Rivera DO) household members: family housing: house Smoking Status: Current every day smoker tobacco type: cigarettes Smoking packs per day: 1 Smoking cigarettes per day: 20.0 alcohol intake: never substance use type: does not use ROS Constitutional Constitutional: Denies anorexia, change in weight, chills, fatigue, fever(s), malaise, night sweats, weakness or other Eyes Eyes: Denies blurry vision, change in eye color, change in vision, discharge from eye(s), double vision, erythema, eye pain, loss of vision or other ENT HEENT: Denies abnormal hearing, dysphagia, ear pain, epistaxis, headache(s), hearing loss, nasal congestion, nasal discharge, post nasal drip, sinus pressure, sore throat or other Cardiovascular Cardiovascular: Denies chest pain, claudication, dyspnea on exertion, edema, lightheadedness, orthopnea, palpitations, paroxysmal nocturnal dyspnea, rapid heart rate, syncope or other Respiratory/Chest Respiratory/Chest: Denies cough, dyspnea, excessive phlegm production, hemoptysis, productive cough, shortness of breath at rest, shortness of breath with exertion, wheezing or other Gastrointestinal Gastrointestinal: Denies abdominal pain, coffee ground emesis, constipation, diarrhea, dyspepsia, hematemesis, hematochezia, loose stools, melena, nausea, vomiting or other Genitourinary Genitourinary: Denies burning urination, difficulty urinating, dysuria, hematuria, nocturia, urinary frequency, urinary hesitancy, urinary incontinence, urinary urgency or other Musculoskeletal Musculoskeletal: Reports joint pain, joint stiffness and joint swelling; Denies arthralgias, back pain, myalgias, neck pain or other Neurologic Neurologic: Reports abnormal gait and other Details: Unable to walk due to right leg pain ; Denies abnormal speech, confusion, disequilibrium, dizziness, focal weakness, headache(s), numbness, paresthesias, seizure-like activity, seizures, syncope, tingling or tremor(s) Psychiatric Psychiatric: Reports anxiety and depression; Denies homicidal ideation, suicidal ideation or other Endocrine Endocrinology: Denies change in body appearance, cold intolerance, excessive sweating, heat intolerance, polydipsia, polyuria or other Hematologic/Lymphatic Hematologic/Lymphatic: Denies anemia, easy bleeding, easy bruising, lymphadenopathy or other Allergic/Immunologic Allergic/Immunologic: Denies rhinitis, hives, eczemia, asthma or other Vital Signs Vital Signs Vital Signs: 12/12/24 15:40 12/12/24 15:43 12/12/24 17:45 Temperature 98 F Temperature Source Oral Pulse Rate 72 67 Respiratory Rate 18 16 Respiratory Effort Normal Blood Pressure 124/85 H 112/97 H Blood Pressure Mean 98 102 Pulse Ox 98 95 Oxygen Delivery Method Room Air Room Air Weight Weight: 63.503 kg Body Mass Index (BMI) 21.9 Physical Exam Const alert, oriented x3, no apparent distress, average body habitus and well nourished Constitutional Narrative: Upper middle-aged, white female, sitting up in bed, currently appears comfortable, knee immobilizer in place, nontoxic, nursing at bedside General Appearance: cooperative HEENT normocephalic, head/scalp atraumatic, hearing grossly normal bilaterally and moist oral mucous membranes Eyes conjunctivae normal Eyes Narrative: No scleral icterus Resp normal respiratory effort, no retractions, no use of accessory muscles and clear to auscultation bilaterally Resp Narrative: Diminished but clear Auscultation: Negative for rales, rhonchi or wheezes Cardio regular rate, regular rhythm, S1 normal heart sound, S2 normal heart sound, no murmurs, no rub, no gallops and no clicks GI normal to inspection, nondistended, normoactive bowel sounds, soft to palpation and non-tender Extremity no clubbing, cyanosis or edema Extremity Narrative: Right lower extremity in knee immobilizer, right knee joint area is notably swollen and painful, left lower extremity without any deficits or abnormalities, pedal pulses are 1+ bilaterally and radial pulses are 2+ bilaterally Neuro oriented x3 Neuro Narrative: Inability move right lower extremity due to pain but all other extremities move symmetrically and no focal deficits were noted Speech: speech normal Psych affect normal Psych Narrative: Makes good eye contact, patient interacts appropriately Results Lab / Micro Data 12/12/24 17:23 12/12/24 17:23 Labs: Laboratory Results - last 24 hr 12/12/24 17:23: WBC 10.7, RBC 4.05 L, Hgb 13.0, Hct 41.0, MCV 101.2 H, MCH 32.1 H, MCHC 31.7 L, RDW Std Deviation 48.2 H, RDW Coeff of Johann 12.9, Plt Count 271, MPV 9.4, Immature Gran % (Auto) 0.300, Neut % (Auto) 77.5 H, Lymph % (Auto) 13.3 L, [place] % (Auto) 4.4, Eos % (Auto) 3.8, Baso % (Auto) 0.7, Absolute Neuts (auto) 8.3 H, Absolute Lymphs (auto) 1.43, Nucleated RBC % 0, Sodium 141, Potassium 4.5, Chloride 115 H, Carbon Dioxide 23.0, Anion Gap 3 L, BUN 26 H, Creatinine 1.39 H, Estim Creat Clear Calc 38.19, Est GFR (MDRD) Af Amer 49 L, Est GFR (MDRD) Non-Af 40 L, BUN/Creatinine Ratio 18.7, Glucose 97, Calcium 9.0 Imaging Radiology Impression Knee X-Ray 12/12/24 16:40 IMPRESSION: Comminuted fracture of the distal femur just above a total knee prosthesis. Electronically Signed: Jeramy Wilde MD at 16:49 EST , Assessment & Plan Assessment/Plan (1) Periprosthetic fracture around internal prosthetic right knee joint: (2) Fall from slipping on ice: PLAN: Plan Right periprosthetic femoral fracture secondary to fall on ice -Continue knee immobilizer -Consult to orthopedic surgery--> Per ED discussion with Dr. Schulte procedure can be done here and patient will be evaluated tomorrow by Dr. Martini -Anticipate surgery tomorrow -Preop EKG and chest x-ray unremarkable -Scheduled Tylenol 1 g 3 times daily -As needed oxycodone 5 mg -As needed Dilaudid 0.5 mg -As needed bowel regimen--> may need to schedule -PT/OT consultation for postop evaluation -Nonweightbearing -Will place Ari[place] -Patient lives with her brother and sister--> Case management/social work consultation for assistance with discharge planning -Patient states she is never had any significant issues with anesthesia previously CKD stage IIIa -Baseline serum creatinine appears to fluctuate between 1.3 and 1.9 -1.39 on presentation -Will continue to hold medications as ordered including hydrochlorothiazide Stage I diastolic dysfunction -Patient is only on HCTZ -Will continue Essential hypertension/hyperlipidemia -Continue home atorvastatin -Continue home HCTZ -Continue metoprolol Suspected COPD -Chest x-ray is consistent with COPD -Patient is longtime smoker -As needed albuterol -Would recommend outpatient PFTs Osteoarthritis/chronic pain -As needed medications as above -Will home hold narcotics History of migraines -Continue home rizatriptan -Continue home Topamax Tobacco abuse -Patient still smoking about 1 pack of cigarettes daily -Recommend cessation -Nicotine patch available DVT prophylaxis -Subcu Lovenox postoperatively 40 daily CODE STATUS -Full code as verified on admission Charges/Coding Visit Charges Inpatient E&M: 04026 Init Hosp L2
[2024-12-12] MEDS: HYDROmorphone 1 MG/ML Syringe IV (18:40)
[2024-12-12 18:43] VITALS: BP 121/68; PULSE 75; RESP 16; TEMP 36.7; O2SAT 97
--- NOTE | 2024-12-12 18:50 | RAD_ITS ---
EXAM: XR CHEST, 1 VIEW CLINICAL INDICATION: preop TECHNIQUE: Frontal view of the chest. COMPARISON: 09/03/2022 FINDINGS: LUNGS AND PLEURAL SPACES: Unremarkable. No consolidation or edema. No pneumothorax. No effusion. HEART: Unremarkable. Cardiac silhouette not enlarged. MEDIASTINUM: Central airways and mediastinal contour are unremarkable. BONES/JOINTS: Unremarkable. No acute fracture. SOFT TISSUES: Unremarkable. RAD/Chest 1 View IMPRESSION: No radiographic evidence of acute cardiopulmonary disease. Electronically Signed: Jeramy Wilde MD at 19:01 EST ,
--- NOTE | 2024-12-12 19:30 | CASEMGMT ---
Care Management Face to Face with patient for initial transition planning/care coordination assessment in the ED.? This information writer introduced self and role at [facility]. Patient alert and oriented. Patient willing to participate in assessment and is able to answer all questions for patient appropriately.? Care providers, pharmacy, and demographics verified. Admitting Diagnosis: Right distal femur fracture around internal prosthetic right knee joint Other diagnosis history: Arthritis, HTN, Migraines, Hx of renal disease, mitral valve prolapse and heart murmur. PCP: Dr. Oliva Portillo Specialists: Remediation Project Engineer: Dr. Laura. ?Cardiology: MILVIA Law. ?Chief Executive Or Managing Director: Dr. Marte. Patient reported she has stage 3 kidney disease and a spot was recently discovered on her lung and is supposed to have an appointment on 12/13/24 to get the results. Preferred Pharmacy: [facility] in [place]. Insurance: Medicare Part A and B and [place] Prescription Benefit:?Yes, through [employer]. Living Will/HPOA: Yes and patient reported it is in the hospital records. Patient reported her sister Donna Chauhan is her HPOA. LNOK: Patient is not and does not have any children.? Patient?s parents are .? Patient has 1 living sister, Donna and 2 living brothers.? Patient has 1 brother who . Living Arrangements: Patient lives at home with her sister and patient?s brother Alphonso. Patient denied any environmental barriers.? Patient reported there are 5-6 steps patient has to go up and down to get in and out of her apartment. Patient stated she and her siblings live in a house that?s been divided into apartments and all is first floor living. Transportation: Patient drives and denied any transportation barriers.? New barrier with right leg fracture. DME: Crutches, standard cane, and a raised toilet seat. HHC: None and not desired. SNF/Rehab: No previous SNF admission.? Patient reported she was in rehab after one of her surgeries however wasn?t able to remember where. Community Resources: Denied any current resources and denied a need. Behavioral Health History: Anxiety and Depression.? Patient reported symptoms are managed at this time. Patient goals: Patient would like to return home when medically ready. Disposition Plan: admission to acute; RN CM/SW to follow for discharge planning needs that may arise. Palak Meyers, PHYSICIAN'S ASSISTANT, TIRE MAKER
[2024-12-12 19:57] VITALS: PULSE 65; RESP 15; O2SAT 98; BMI 22.1
[2024-12-12 20:26] VITALS: BMI 21.4
[2024-12-12] MEDS: Acetaminophen 500 MG Tablet 1000 MG PO (21:02)
--- NOTE | 2024-12-12 21:04 | CONS.ORTHO ---
HPI Consult Data Date of Consult: 12/12/24 HPI Narrative Reason for Consultation: Right distal femur fracture HPI Narrative: EDER SCHAEFFER, is a 69 F who presents to [facility] after mechanical fall earlier today. She noted immediate pain and deformity of her right knee. She denies any problems with her right knee prior to this injury. She states her right knee replacement was done by Dr. Ramsey Pichardo 24 years ago. She reports multiple surgeries in the right knee prior to her total knee replacement. She denies any head injury or loss of consciousness. She was brought to the emergency department. She admitted under the service to hospitalist. Denies any other aches or pains. Denies numbness or tingling. Denies fevers, chills, nausea vomiting, chest pain shortness of breath. [facility] Medical History Wears glasses Post-menopausal Anxiety Depression Arthritis High cholesterol Back pain Injury of head and neck Migraine headache Syncope History of ulceration Smoker History of pain when walking Hypertension History of renal disease History of stress test Cardiology follow-up encounter MVP (mitral valve prolapse) Heart murmur Hx of pilonidal cyst Home Medications ?Medication ?Instructions ?Recorded ?Last Taken ?Type atorvastatin 40 mg tablet 40 mg PO QHS CHOLESTEROL 02/04/18 Unknown History cholecalciferol (vitamin D3) 50 4,000 unit PO DAILY SUPPLEMENT 02/04/18 Unknown History mcg (2,000 unit) capsule (Vitamin D3) hydrochlorothiazide 25 mg tablet 25 mg PO DAILY BP 02/04/18 Unknown History metoprolol tartrate 25 mg tablet 25 mg PO DAILY PRN BP 02/04/18 09/11/22 11:00 History multivitamin-ferrous 1 ea PO DAILY SUPPLEMENT 02/04/18 Unknown History fumarate-folic acid 18 mg-400 mcg tablet (Centrum) paroxetine HCl 40 mg tablet (Paxil) 40 mg PO DAILY ANTIDEPRESSANT 02/04/18 Unknown History potassium chloride 8 mEq 8 meq PO DAILY SUPPLEMENT 02/04/18 Unknown History tablet,extended release (Klor-Con) rizatriptan 10 mg tablet 10 mg PO .X1 PRN MIGRAINES 02/04/18 09/11/22 11:00 History topiramate 50 mg tablet 50 mg PO DAILY HEADACHES 02/04/18 05/10/20 07:30 History calcium carbonate-vitamin D3 600 1 ea PO DAILY supplement 05/03/20 Unknown History mg-125 unit tablet aspirin 81 mg chewable tablet 81 mg PO DAILY 09/02/22 Unknown History hydrocodone 10 mg-acetaminophen 1 tab PO 4X/DAY 09/02/22 Unknown History 300 mg tablet Allergy/AdvReac Type Severity Reaction Status Date / Time NSAIDS (Non-Steroidal Allergy Anaphylaxis Verified 09/11/22 13:04 Anti-Inflamma Family History Other COPD (chronic obstructive pulmonary disease) Surgical History History of meniscectomy of right knee Hx laparoscopic cholecystectomy Hx of removal of ovary Hx of bilateral hip replacements Hx of total knee arthroplasty Hx of right knee surgery Hx of total knee arthroplasty Social History household members: family housing: house Smoking Status: Current every day smoker tobacco type: cigarettes alcohol intake: never substance use type: does not use ROS ROS Narrative 12 point review systems obtained, negative as otherwise noted HPI Vital Signs Vital Signs Vital Signs: 12/12/24 15:40 12/12/24 15:43 12/12/24 17:45 Temperature 98 F Temperature Source Oral Pulse Rate 72 67 Respiratory Rate 18 16 Respiratory Effort Normal Respiratory Depth Respiratory Pattern Blood Pressure 124/85 H 112/97 H Blood Pressure Mean 98 102 Pulse Ox 98 95 Oxygen Delivery Method Room Air Room Air 12/12/24 18:43 12/12/24 19:57 Temperature 98.0 F Temperature Source Pulse Rate 75 65 Respiratory Rate 16 15 Respiratory Effort Normal Non-Labored Respiratory Depth Normal Respiratory Pattern Normal Blood Pressure 121/68 H Blood Pressure Mean 85 Pulse Ox 97 98 Oxygen Delivery Method Room Air Weight Weight: 136 lb 10.986 oz Body Mass Index (BMI) 21.4 Physical Exam Narrative General -A&Ox3, NAD, appears stated age. Vital signs stable, afebrile. Respiratory -normal work of breathing, no intercostal retractions. CV -pulses regular, brisk capillary refill ?4 limbs. Abdomen-soft, nontender, nondistended. No guarding, rigidity, rebound tenderness. Musculoskeletal/neurologic -full range of motion nontender throughout bilateral upper extremities, left lower extremity with full sensation and strength in all dermatomes and myotomes. No midline cervical tenderness. Right lower extremity-skin intact without lacerations or abrasions. Knee immobilizer in place. Ecchymosis noted anteriorly. No palpable defect in the quadriceps tendon/extensor mechanism. Sensation intact light touch throughout. DF, PF, EHL 5/5. Appropriately tender of the distal femur. DP 2+, brisk capillary fill in toes. Lab / Micro Data 12/12/24 17:23 12/12/24 17:23 Labs: Laboratory Results - last 24 hr 12/12/24 17:23: WBC 10.7, RBC 4.05 L, Hgb 13.0, Hct 41.0, MCV 101.2 H, MCH 32.1 H, MCHC 31.7 L, RDW Std Deviation 48.2 H, RDW Coeff of Johann 12.9, Plt Count 271, MPV 9.4, Immature Gran % (Auto) 0.300, Neut % (Auto) 77.5 H, Lymph % (Auto) 13.3 L, [place] % (Auto) 4.4, Eos % (Auto) 3.8, Baso % (Auto) 0.7, Absolute Neuts (auto) 8.3 H, Absolute Lymphs (auto) 1.43, Nucleated RBC % 0, Sodium 141, Potassium 4.5, Chloride 115 H, Carbon Dioxide 23.0, Anion Gap 3 L, BUN 26 H, Creatinine 1.39 H, Estim Creat Clear Calc 38.19, Est GFR (MDRD) Af Amer 49 L, Est GFR (MDRD) Non-Af 40 L, BUN/Creatinine Ratio 18.7, Glucose 97, Calcium 9.0 Rhythm Strip Rhythm Strip: Sinus Rhythm Rate: 65 Ectopy: None Imaging Radiology Impression Knee X-Ray 12/12/24 16:40 IMPRESSION: Comminuted fracture of the distal femur just above a total knee prosthesis. Electronically Signed: Jeramy Wilde MD at 16:49 EST , Lower Extremity CT 12/12/24 17:18 IMPRESSION: Comminuted fracture of the distal femur above a total knee prosthesis. Electronically Signed: Jeramy Wilde MD at 20:06 EST , Chest X-Ray 12/12/24 18:50 IMPRESSION: No radiographic evidence of acute cardiopulmonary disease. Electronically Signed: Jeramy Wilde MD at 19:01 EST , Assessment & Plan Assessment/Plan (1) Periprosthetic fracture around internal prosthetic right knee joint: QUALIFIERS: Encounter type: initial encounter Qualified Code(s): M97.11XA - Periprosthetic fracture around internal prosthetic right knee joint, initial encounter PLAN: - Patient seen and examined. X-rays and CT scan reviewed. -Recommending open reduction internal fixation of right distal femur. I explained fracture characteristics will dictate retrograde nailing versus plate and screw fixation versus hybrid fixation. Risks, benefits, alternatives to procedure were reviewed with the patient at length. Risks included but were not limited to bleeding, infection, loss of life or limb, need for additional surgery, persistent pain, nonhealing bone or wounds, nonunion or malunion, stiffness, persistent limp, neurovascular injury, DVT or PE, risk of anesthesia. Patient wished proceed with surgery. Likely plan to proceed with surgery tomorrow depending on OR availability. N.p.o. prior to surgery. Maintenance IV fluids. Hold anticoagulant. Ancef and TXA on-call to the OR.
[2024-12-12 22:03] LABS: AST(SGOT) 16 U/L (15-37); Alanine Aminotransfer ALT/SGPT 12 U/L (13-56); Albumin, Serum 3.5 g/dL (3.2-5.0); Alkaline Phosphatase 74 U/L (45-117); Anion Gap 4 (5-15); BUN 25 mg/dL (7-18); Calcium,Total 8.9 mg/dL (8.5-10.1); Chloride 115 mmol/L (98-107); Creatinine, Serum 1.47 mg/dL (0.55-1.02); EST Glomerular Filtration Rate 38 mL/min (>60); Est Glom Filt Rate - Afr Amer 46 mL/min (>60); Estimated Creatinine Clearance 36.11 ml/min; Globulin 3.4 g/dL (2.2-4.2); Glucose 94 mg/dL (74-106); Potassium 4.6 mmol/L (3.5-5.1); Protein, Total 6.9 g/dL (6.4-8.2); Sodium Level 142 mmol/L (136-145)
[2024-12-12] MEDS: HYDROmorphone 0.5 MG/0.5 ML SYRINGE IV (23:04)
[2024-12-13] MEDS: 0.9% Normal Saline (1000mL) 1,000 ML 75 ML IV (00:04)
[2024-12-13 02:51] VITALS: BP 90/66; PULSE 80; RESP 15; TEMP 36.8; O2SAT 95
[2024-12-13] MEDS: Rizatriptan Benzoate 10 MG Tablet PO ×2 (04:27→22:22)
[2024-12-13] MEDS: Acetaminophen 500 MG Tablet 1000 MG PO ×3 (04:27→22:16)
[2024-12-13 04:46] VITALS: BMI 21.4
[2024-12-13 05:51] LABS: Absolute Lymphocyte Count 2.15 X10^3/uL (0.83-4.51); Absolute Neutrophil Count 9.7 X10^3/uL (2.0-7.7); Basophil# 0.07 X10^3/uL; Basophil% 0.5 % (0-1); Eosinophil# 0.08 X10^3/uL; Eosinophils% 0.6 % (0-5); Hematocrit 32.9 % (37-47); Hemoglobin 10.8 g/dL (12.0-15.0); Lymphocyte # 2.15 X10^3/ul (0.83-4.51); Lymphocyte % 16.5 % (19-41); Mean Corp Hgb Conc 32.8 g/dL (32-36); Mean Corpuscular Volume 100.6 fL (81-99); Mean Platelet Vol. 9.7 fl (6.2-12.0); Monocyte# 1.04 X10^3/uL; NRBC Flagged by Analyzer 0 % (0-5); Neutrophil # 9.65 X10^3/uL (2.7-7.7); Neutrophil % 73.9 % (47-70); Platelet Count 264 K/mm3 (150-450); RBC Distribution Width CV 12.9 % (11.6-14.6); RBC Distribution Width SD 47.8 fl (35.1-43.9); Red Blood Count 3.27 M/mm3 (4.2-5.4); White Blood Count 13.1 K/mm3 (4.4-11.0)
[2024-12-13] MEDS: HYDROmorphone 0.5 MG/0.5 ML SYRINGE IV ×3 (06:00→17:59)
[2024-12-13 06:20] LABS: International Normalized Ratio 1.1; Prothrombin Time (Protime)PT. 14.9 SECONDS (11.7-14.9)
[2024-12-13 06:25] LABS: ALB/GLOB Ratio 1.1 RATIO (0.9-2.4); AST(SGOT) 12 U/L (15-37); Alanine Aminotransfer ALT/SGPT 15 U/L (13-56); Albumin, Serum 3.1 g/dL (3.2-5.0); Alkaline Phosphatase 66 U/L (45-117); Anion Gap 5 (5-15); BUN 27 mg/dL (7-18); BUN/Creat Ratio 18.6 RATIO (10-20); Calcium,Total 8.5 mg/dL (8.5-10.1); Chloride 116 mmol/L (98-107); Creatinine, Serum 1.45 mg/dL (0.55-1.02); EST Glomerular Filtration Rate 38 mL/min (>60); Est Glom Filt Rate - Afr Amer 46 mL/min (>60); Estimated Creatinine Clearance 36.61 ml/min; Globulin 2.9 g/dL (2.2-4.2); Glucose 112 mg/dL (74-106); Magnesium 1.8 mg/dL (1.6-2.6); Phosphorus 3.3 mg/dL (2.5-4.9); Potassium 4.2 mmol/L (3.5-5.1); Sodium Level 140 mmol/L (136-145)
--- NOTE | 2024-12-13 07:28 | PN.HOSP_ITS ---
Reason for Visit Reason for Visit: Diagnoses Periprosthetic fracture around internal prosthetic right knee joint, initial encounter (12/12/24) Unspecified fall due to ice and snow, initial encounter (12/12/24) Objective Data Objective Data Vital Signs: Vital Signs Temp Pulse Resp BP Pulse Ox O2 Del Method 98.3 F 80 15 90/66 95 Room Air 12/13/24 02:51 12/13/24 02:51 12/13/24 02:51 12/13/24 02:51 12/13/24 02:51 12/13/24 02:51 Oxygen Delivery Method Room Air Weight: 136 lb 10.986 oz Body Mass Index (BMI) 21.4 Intake & Output: Intake and Output for Last 24 Hours 12/11/24 12/12/24 12/13/24 23:59 23:59 23:59 Output Total 300 / 300 Balance -300 / -300 Lab / Micro Data 12/13/24 05:34 12/13/24 05:34 Labs: Laboratory Results - last 24 hr 12/12/24 17:23: WBC 10.7, RBC 4.05 L, Hgb 13.0, Hct 41.0, MCV 101.2 H, MCH 32.1 H, MCHC 31.7 L, RDW Std Deviation 48.2 H, RDW Coeff of Johann 12.9, Plt Count 271, MPV 9.4, Immature Gran % (Auto) 0.300, Neut % (Auto) 77.5 H, Lymph % (Auto) 13.3 L, Woodruff % (Auto) 4.4, Eos % (Auto) 3.8, Baso % (Auto) 0.7, Absolute Neuts (auto) 8.3 H, Absolute Lymphs (auto) 1.43, Nucleated RBC % 0, Sodium 141 12/12/24 17:23: Sodium 142, Potassium 4.5 12/12/24 17:23: Potassium 4.6, Chloride 115 H 12/12/24 17:23: Chloride 115 H, Carbon Dioxide 23.0 12/12/24 17:23: Carbon Dioxide 23.0, Anion Gap 3 L 12/12/24 17:23: Anion Gap 4 L, BUN 26 H 12/12/24 17:23: BUN 25 H, Creatinine 1.39 H 12/12/24 17:23: Creatinine 1.47 H, Estim Creat Clear Calc 38.19 12/12/24 17:23: Estim Creat Clear Calc 36.11, Est GFR (MDRD) Af Amer 49 L 12/12/24 17:23: Est GFR (MDRD) Af Amer 46 L, Est GFR (MDRD) Non-Af 40 L 12/12/24 17:23: Est GFR (MDRD) Non-Af 38 L, BUN/Creatinine Ratio 18.7 12/12/24 17:23: BUN/Creatinine Ratio 17.0, Glucose 97 12/12/24 17:23: Glucose 94, Calcium 9.0 12/12/24 17:23: Calcium 8.9, Total Bilirubin 0.20, AST 16, ALT 12 L, Alkaline Phosphatase 74, Total Protein 6.9, Albumin 3.5, Globulin 3.4, Albumin/Globulin Ratio 1.0 12/13/24 05:34: WBC 13.1 H, RBC 3.27 L, Hgb 10.8 L, Hct 32.9 L, MCV 100.6 H, MCH 33.0 H, MCHC 32.8, RDW Std Deviation 47.8 H, RDW Coeff of Johann 12.9, Plt Count 264, MPV 9.7, Immature Gran % (Auto) 0.500, Neut % (Auto) 73.9 H, Lymph % (Auto) 16.5 L, Woodruff % (Auto) 8.0, Eos % (Auto) 0.6, Baso % (Auto) 0.5, Absolute Neuts (auto) 9.7 H, Absolute Lymphs (auto) 2.15, Nucleated RBC % 0, PT 14.9, INR 1.1, Sodium 140, Potassium 4.2, Chloride 116 H, Carbon Dioxide 19.0 L, Anion Gap 5, B UN 27 H, Creatinine 1.45 H, Estim Creat Clear Calc 36.61, Est GFR (MDRD) Af Amer 46 L, Est GFR (MDRD) Non-Af 38 L, BUN/Creatinine Ratio 18.6, Glucose 112 H, Calcium 8.5, Phosphorus 3.3, Magnesium 1.8, Total Bilirubin 0.30, AST 12 L, ALT 15, Alkaline Phosphatase 66, Total Protein 6.0 L, Albumin 3.1 L, Globulin 2.9, Albumin/Globulin Ratio 1.1, Blood Type O POSITIVE Radiography Diagnostic Testing: Radiology Impression Knee X-Ray 12/12/24 16:40 IMPRESSION: Comminuted fracture of the distal femur just above a total knee prosthesis. Electronically Signed: Jeramy Wilde MD at 16:49 EST , Lower Extremity CT 12/12/24 17:18 IMPRESSION: Comminuted fracture of the distal femur above a total knee prosthesis. Electronically Signed: Jeramy Wilde MD at 20:06 EST , Chest X-Ray 12/12/24 18:50 IMPRESSION: No radiographic evidence of acute cardiopulmonary disease. Electronically Signed: Jeramy Wilde MD at 19:01 EST , Rhythm Strip Rhythm Strip: Sinus Rhythm Rate: 65 Ectopy: None Assessment & Plan Assessment/Plan (1) Periprosthetic fracture around internal prosthetic right knee joint: QUALIFIERS: Encounter type: initial encounter Qualified Code(s): M97.11XA - Periprosthetic fracture around internal prosthetic right knee joint, initial encounter (2) Fall from slipping on ice: PLAN: Plan His 69-year-old female who was admitted after she slipped on the ice, fall and twisted her right knee. She complained of severe pain and unable to move after the fall. History of bilateral knee and hip replacement Right periprosthetic femoral fracture secondary to fall on ice -Continue knee immobilizer -Consult to orthopedic surgery--> Per ED discussion with Dr. Schulte procedure can be done here and patient will be evaluated tomorrow by Dr. Martini -Anticipate surgery tomorrow -Preop EKG and chest x-ray unremarkable -Scheduled Tylenol 1 g 3 times daily -As needed oxycodone 5 mg -As needed Dilaudid 0.5 mg -As needed bowel regimen--> may need to schedule -PT/OT consultation for postop evaluation -Nonweightbearing -Will place Arias -Patient lives with her brother and sister--> Case management/social work consultation for assistance with discharge planning -Patient states she is never had any significant issues with anesthesia previously CKD stage IIIa -Baseline serum creatinine appears to fluctuate between 1.3 and 1.9 -1.39 on presentation -Will continue to hold medications as ordered including hydrochlorothiazide Stage I diastolic dysfunction -Patient is only on HCTZ -Will continue Essential hypertension/hyperlipidemia -Continue home atorvastatin -Continue home HCTZ -Continue metoprolol Suspected COPD -Chest x-ray is consistent with COPD -Patient is longtime smoker -As needed albuterol -Would recommend outpatient PFTs Osteoarthritis/chronic pain -As needed medications as above -Will home hold narcotics History of migraines -Continue home rizatriptan -Continue home Topamax Tobacco abuse -Patient still smoking about 1 pack of cigarettes daily -Recommend cessation -Nicotine patch available DVT prophylaxis -Subcu Lovenox postoperatively 40 daily CODE STATUS -Full code as verified on admission
--- NOTE | 2024-12-13 07:28 | PCM.PN.HOSP ---
Reason for Visit Reason for Visit: Diagnoses Periprosthetic fracture around internal prosthetic right knee joint, initial encounter (12/12/24) Unspecified fall due to ice and snow, initial encounter (12/12/24) Objective Data Objective Data Vital Signs: Vital Signs Temp Pulse Resp BP Pulse Ox O2 Del Method 98.3 F 80 15 90/66 95 Room Air 12/13/24 02:51 12/13/24 02:51 12/13/24 02:51 12/13/24 02:51 12/13/24 02:51 12/13/24 02:51 Oxygen Delivery Method Room Air Weight: 136 lb 10.986 oz Body Mass Index (BMI) 21.4 Intake & Output: Intake and Output for Last 24 Hours 12/11/24 12/12/24 12/13/24 23:59 23:59 23:59 Output Total 300 / 300 Balance -300 / -300 Lab / Micro Data 12/13/24 05:34 12/13/24 05:34 Labs: Laboratory Results - last 24 hr 12/12/24 17:23: WBC 10.7, RBC 4.05 L, Hgb 13.0, Hct 41.0, MCV 101.2 H, MCH 32.1 H, MCHC 31.7 L, RDW Std Deviation 48.2 H, RDW Coeff of Johann 12.9, Plt Count 271, MPV 9.4, Immature Gran % (Auto) 0.300, Neut % (Auto) 77.5 H, Lymph % (Auto) 13.3 L, Roberts % (Auto) 4.4, Eos % (Auto) 3.8, Baso % (Auto) 0.7, Absolute Neuts (auto) 8.3 H, Absolute Lymphs (auto) 1.43, Nucleated RBC % 0, Sodium 141 12/12/24 17:23: Sodium 142, Potassium 4.5 12/12/24 17:23: Potassium 4.6, Chloride 115 H 12/12/24 17:23: Chloride 115 H, Carbon Dioxide 23.0 12/12/24 17:23: Carbon Dioxide 23.0, Anion Gap 3 L 12/12/24 17:23: Anion Gap 4 L, BUN 26 H 12/12/24 17:23: BUN 25 H, Creatinine 1.39 H 12/12/24 17:23: Creatinine 1.47 H, Estim Creat Clear Calc 38.19 12/12/24 17:23: Estim Creat Clear Calc 36.11, Est GFR (MDRD) Af Amer 49 L 12/12/24 17:23: Est GFR (MDRD) Af Amer 46 L, Est GFR (MDRD) Non-Af 40 L 12/12/24 17:23: Est GFR (MDRD) Non-Af 38 L, BUN/Creatinine Ratio 18.7 12/12/24 17:23: BUN/Creatinine Ratio 17.0, Glucose 97 12/12/24 17:23: Glucose 94, Calcium 9.0 12/12/24 17:23: Calcium 8.9, Total Bilirubin 0.20, AST 16, ALT 12 L, Alkaline Phosphatase 74, Total Protein 6.9, Albumin 3.5, Globulin 3.4, Albumin/Globulin Ratio 1.0 12/13/24 05:34: WBC 13.1 H, RBC 3.27 L, Hgb 10.8 L, Hct 32.9 L, MCV 100.6 H, MCH 33.0 H, MCHC 32.8, RDW Std Deviation 47.8 H, RDW Coeff of Johann 12.9, Plt Count 264, MPV 9.7, Immature Gran % (Auto) 0.500, Neut % (Auto) 73.9 H, Lymph % (Auto) 16.5 L, Roberts % (Auto) 8.0, Eos % (Auto) 0.6, Baso % (Auto) 0.5, Absolute Neuts (auto) 9.7 H, Absolute Lymphs (auto) 2.15, Nucleated RBC % 0, PT 14.9, INR 1.1, Sodium 140, Potassium 4.2, Chloride 116 H, Carbon Dioxide 19.0 L, Anion Gap 5, BUN 27 H, Creatinine 1.45 H, Estim Creat Clear Calc 36.61, Est GFR (MDRD) Af Amer 46 L, Est GFR (MDRD) Non-Af 38 L, BUN/Creatinine Ratio 18.6, Glucose 112 H, Calcium 8.5, Phosphorus 3.3, Magnesium 1.8, Total Bilirubin 0.30, AST 12 L, ALT 15, Alkaline Phosphatase 66, Total Protein 6.0 L, Albumin 3.1 L, Globulin 2.9, Albumin/Globulin Ratio 1.1, Blood Type O POSITIVE Radiography Diagnostic Testing: Radiology Impression Knee X-Ray 12/12/24 16:40 IMPRESSION: Comminuted fracture of the distal femur just above a total knee prosthesis. Electronically Signed: Jeramy Wilde MD at 16:49 EST , Lower Extremity CT 12/12/24 17:18 IMPRESSION: Comminuted fracture of the distal femur above a total knee prosthesis. Electronically Signed: Jeramy Wilde MD at 20:06 EST , Chest X-Ray 12/12/24 18:50 IMPRESSION: No radiographic evidence of acute cardiopulmonary disease. Electronically Signed: Jeramy Wilde MD at 19:01 EST , Rhythm Strip Rhythm Strip: Sinus Rhythm Rate: 65 Ectopy: None Physical Exam Narrative Seen and examined. Patient is stated that she slipped over the ice and fell down and hurt the right knee pop even before she fell down. Severe pain, could not move after that. She states he smokes about a pack per day since age of 18. Physical exam General: Alert, Oriented x3, Cooperative. BMI 21.4 kg/m? HEENT: Atraumatic, PERRLA, EOMI, Normocephalic Oral: No Gingival or Mucosal Lesions/ Ulcerations Neck: Supple, No JVD, Negative Carotid Bruits Chest wall/Lungs: Air entry diminished in bilateral lung bases. No crepitation/rhonchi Cardiovascular: Regular rate, Regular Rhythm, Normal S1, Normal S2, No M/G/R Abdomen: Bowel Sounds Present, Soft, Non Tender, Non-Distended : No dysuria. Arias catheter. Clear urine no renal angle tenderness. No suprapubic tenderness. Extremities: Right knee on immobilizer. No edema, Capillary Refill Less than 3 Seconds Skin: No rashes, No breakdown Musculoskeletal: Bilateral TKR and bilateral THR. Right knee immobilized. No acute tenderness to Palpation of other joints or Extremities Neurological: Cranial nerves II-XII grossly intact, DTR 2+/4. No acute focal neurological deficit. Psych/Mental Status: Normal Affect, Appropriate. Assessment & Plan Assessment/Plan (1) Periprosthetic fracture around internal prosthetic right knee joint: QUALIFIERS: Encounter type: initial encounter Qualified Code(s): M97.11XA - Periprosthetic fracture around internal prosthetic right knee joint, initial encounter (2) Fall from slipping on ice: PLAN: Plan His 69-year-old female who was admitted after she slipped on the ice, fall and twisted her right knee. She complained of severe pain and unable to move after the fall. History of bilateral knee and hip replacement 1. Right periprosthetic femoral fracture secondary to fall on ice: [facility] Knee immobilizer on place. Patient seen by Dr. Nair yesterday. Unclear when the patient will be taken for surgery depending upon the time. Currently NPO. Preop EKG and chest x-ray unremarkable. On pain control with Tylenol, oxycodone and Dilaudid. Incentive spirometry. Arias catheter was inserted in ED, unclear indication probably for ease. 2. CKD stage IIIa -Baseline serum creatinine appears to fluctuate between 1.3 and 1.9-1.39 on presentation Hold nephrotoxic medications. Stage I diastolic dysfunction, send history of chronic HFpEF: On metoprolol Essential hypertension/hyperlipidemia: On atorvastatin. On metoprolol and HCTZ. Suspected COPD and chronic cigarette smoker/chronic nicotine use disorder -Chest x-ray is consistent with COPD -Patient is longtime cigarette smoker, pack per day since age of 18. Advised quitting. On nicotine patch -As needed albuterol. Recommended outpatient. Osteoarthritis/chronic pain -As needed medications as above. PT and OT History of migraines -Continue home rizatriptan -Continue home Topamax DVT prophylaxis -Subcu Lovenox postoperatively 40 daily CODE STATUS -Full code as verified on admission Charges/Coding Visit Charges Inpatient E&M: 09326 Subs Hosp L2
[2024-12-13 08:41] VITALS: O2SAT 96
[2024-12-13 08:47] VITALS: BP 98/51; PULSE 90; RESP 16; TEMP 36.3; O2SAT 99
[2024-12-13] MEDS: 0.9% Saline Lock 10 ML Syringe IV ×3 (10:32→20:27)
--- NOTE | 2024-12-13 14:35 | PCM.PN.BLA ---
Progress Note Due to the need for additional surgical equipment and lack of available operative time, plan is to proceed with surgery tomorrow, 12/14/2024. N.p.o. tomorrow. Fluids per primary. Lovenox ordered for today.
[2024-12-13 15:00] VITALS: BP 108/61; PULSE 100; RESP 18; TEMP 36.7; O2SAT 98
[2024-12-13] MEDS: Enoxaparin 40 MG/0.4 ML Syringe SC (15:32)
[2024-12-13] MEDS: Senna/Docusate Sodium 1 Tablet 2 TABLET PO ×2 (15:33→22:16)
[2024-12-13 20:10] VITALS: BP 118/85; PULSE 105; RESP 16; TEMP 37; O2SAT 97
[2024-12-13] MEDS: oxyCODONE 5 MG Tablet PO (20:27)
[2024-12-13 22:29] LABS: Hematocrit 30.7 % (37-47); Hemoglobin 9.9 g/dL (12.0-15.0)
[2024-12-13] MEDS: Paroxetine 20 MG Tablet 40 MG PO (22:36)
[2024-12-14] VITALS (13 sets, daily range): BP systolic 109–170; BP diastolic 62–127; PULSE 94–120; RESP 15–20; TEMP 36.2–37.6; O2SAT 96–100; BMI 22.8
[2024-12-14] MEDS: HYDROmorphone 0.5 MG/0.5 ML SYRINGE IV ×4 (00:33→22:11)
[2024-12-14] MEDS: 0.9% Saline Lock 10 ML Syringe IV ×5 (00:34→22:11)
[2024-12-14 05:59] LABS: Absolute Lymphocyte Count 1.81 X10^3/uL (0.83-4.51); Absolute Neutrophil Count 8.3 X10^3/uL (2.0-7.7); Basophil# 0.06 X10^3/uL; Basophil% 0.5 % (0-1); Eosinophil# 0.27 X10^3/uL; Eosinophils% 2.3 % (0-5); Hematocrit 29.2 % (37-47); Hemoglobin 9.7 g/dL (12.0-15.0); Lymphocyte # 1.81 X10^3/ul (0.83-4.51); Lymphocyte % 15.5 % (19-41); Mean Corp Hgb Conc 33.2 g/dL (32-36); Mean Corpuscular Volume 99.3 fL (81-99); Mean Platelet Vol. 9.6 fl (6.2-12.0); Monocyte# 1.19 X10^3/uL; Monocyte% 10.2 % (0-10); NRBC Flagged by Analyzer 0 % (0-5); Neutrophil # 8.25 X10^3/uL (2.7-7.7); Neutrophil % 70.9 % (47-70); Platelet Count 215 K/mm3 (150-450); RBC Distribution Width SD 47.2 fl (35.1-43.9); Red Blood Count 2.94 M/mm3 (4.2-5.4); White Blood Count 11.7 K/mm3 (4.4-11.0)
[2024-12-14 06:33] LABS: Anion Gap 6 (5-15); BUN 29 mg/dL (7-18); BUN/Creat Ratio 20.7 RATIO (10-20); Calcium,Total 8.7 mg/dL (8.5-10.1); Chloride 116 mmol/L (98-107); EST Glomerular Filtration Rate 40 mL/min (>60); Est Glom Filt Rate - Afr Amer 48 mL/min (>60); Estimated Creatinine Clearance 37.92 ml/min; Glucose 120 mg/dL (74-106); Potassium 3.7 mmol/L (3.5-5.1); Sodium Level 140 mmol/L (136-145)
[2024-12-14] MEDS: Ondansetron 4 MG/2 ML Vial IV (10:59)
[2024-12-14] MEDS: 0.9% Normal Saline (1000mL) 1,000 ML 15 ML IV (14:21)
--- NOTE | 2024-12-14 14:44 | PRE.ANES_ITS ---
ASA Classification* ASA Classification ASA Classification: 2 Assessment & Plan Anesthesia* Anesthesia Assessment Anesthesia Assessment: Discussed sedation and/or anesthesia options, risks, benefits, and alternatives with patient/parents/legal guardian/POA. Questions invited. The patient/parents/legal guardian/POA seems to understand and agrees to proceed with anesthesia plan. Reviewed the physical assessment, medical history, allergy history and patient home medications list prior to surgery/procedure/anesthetic and documented any changes. Performed airway and anesthesia risk assessments. Anesthesia Type Anesthesia Type: General History Source History Obtained from:: Patient and Chart Anesthesia Focused Assessment* Temperature: 98.6 F Pulse Rate: 115 Blood Pressure: 112/83 Respiratory Rate: 18 Pulse Ox: 98 Airway Assessment Mouth opens: >3 cm Mallampati Score: III Teeth Condition: Missing (Patient has 4 missing teeth. The rest are tight.) Neck Range of motion (ROM): Full ROM Focused Labs Anesthesia Preop lab: CBC WBC 11.7 K/mm3 (4.4-11.0) H 12/14/24 05:46 RBC 2.94 M/mm3 (4.2-5.4) L 12/14/24 05:46 Hgb 9.7 g/dL (12.0-15.0) L 12/14/24 05:46 Hct 29.2 % (37-47) L 12/14/24 05:46 Plt Count 215 K/mm3 (150-450) 12/14/24 05:46 CHEMISTRY Potassium 3.7 mmol/L (3.5-5.1) 12/14/24 05:46 Sodium 140 mmol/L (136-145) 12/14/24 05:46 Magnesium 1.8 mg/dL (1.6-2.6) 12/13/24 05:34 Phosphorus 3.3 mg/dL (2.5-4.9) 12/13/24 05:34 BUN 29 mg/dL (7-18) H 12/14/24 05:46 Creatinine 1.40 mg/dL (0.55-1.02) H 12/14/24 05:46 Glucose 120 mg/dL (74-106) H 12/14/24 05:46 POC Glucose 84 mg/dL (70-110) 05/10/20 10:36 TSH 3.550 uIU/mL (0.358-3.740) 09/15/24 13:59 COAG PT 14.9 SECONDS (11.7-14.9) 12/13/24 05:34 Pre-Assessment Diagnosis/Proposed Procedure Planned Operative Procedure(s): Intramedullary rodding right distal femur. Retrograde. 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 When Was Last Pacemaker Check QUESTION #4 FULL TEXT: You/Your Family Experience fever (hyperthermia) with Anesthesia Last Oral Intake Last Oral intake: Last Oral Intake NPO since 00:00 12/14/24 08:14 Meds taken in AM with sips of No 12/14/24 08:14 water? Meds patient instructed to take am of surgery PONV PONV - photography professor: PONV - photography professor Female HX of Motion Sickness HX of N/V After Surgery Non-Smoker Duration of Surgery greater than 60 minutes Number of Risk Factors PONV Score Height & Weight Height & Weight: Anesthesia: Height & Weight Height 5 ft 7 in 12/14/24 08:14 Weight: 66 kg 12/14/24 08:14 Body Mass Index (BMI) 22.8 12/14/24 08:14 Respiratory Assessment Respiratory Assessment - photography professor: Respiratory Tract Infection Hx - photography professor Hx Respiratory Tract Infection No 12/13/24 22:38 STOP Sleep Apnea STOP Sleep Apnea - photography professor: STOP Sleep Apnea - photography professor Hx Hypertension Yes 12/12/24 19:57 Hx Sleep Apnea No 12/12/24 19:57 CPAP BIPAP Do you snore loudly (louder No 12/12/24 19:57 than talking or can be heard Do you often feel tired/ No 12/12/24 19:57 fatigued/ sleepy during daytime? Has anyone observed you stop No 12/12/24 19:57 breathing during sleep? STOP Results Negative 12/12/24 19:57 QUESTION #5 FULL TEXT : Do you snore loudly (louder than talking or can be heard through closed doors)? Tobacco Use History Tobacco Use History - photography professor: Tobacco Use History - photography professor Tobacco Use Smoking Status Current every day smoker 12/13/24 10:45 Hx Tobacco Use Yes 12/12/24 19:57 Years Smoking 55 12/12/24 19:57 Packs Smoked per Day 1 12/12/24 19:57 Smoking Cessation Date was within the last 15 years Hx Smoking Cessation Date Hx Smoking Cessation Counseling Hematologic Medial History Hematologic Hx - photography professor: Hematologic Medical Hx - divine healer Hx of Blood Transfusion No 12/12/24 19:57 Hx of Transfusion in last 3 No 12/12/24 19:57 Months Date of Last Transfusion (if within last 3 months) Ever experience any problems No 12/12/24 19:57 with transfusion(s)? Specify any problems Hx of Preganancy in last 3 N/A 12/12/24 19:57 Months Nurse Filling Out Transfusion LSHRINER 12/12/24 19:57 & Questions: Date: 12/12/24 12/12/24 19:57 Time: 20:19 12/12/24 19:57 Patient unable to answer at this time (ie. confused, unrespo /Reproduction History /Reproductive History - photography professor: /Reproductive Hx- photography professor Hx Now No 12/13/24 22:38 Gestational Age (in weeks): EDC: Hx Hx Para Hx Section SAB No 12/13/24 22:38 Active Medications Active Medications: Current Medications Generic Name Dose Route Start Last Admin Trade Name Freq PRN Reason Stop Dose Admin Acetaminophen 1,000 mg 12/12/24 22:00 12/14/24 11:43 Acetaminophen 500 Mg Tablet PO Not Given Q8 INO Albuterol Sulfate 2.5 mg 12/12/24 20:07 Albuterol 2.5 Mg/3 Ml Vial.Neb. INHALATION Q2H PRN PRN SOB &/OR WHEEZING Atorvastatin Calcium 40 mg 12/12/24 22:00 12/13/24 22:16 Atorvastatin Calcium 40 Mg Tablet PO Not Given QHS INO Calcium/Vitamin D 1 tablet 12/13/24 08:00 12/14/24 07:25 Calcium Carb/Vitamin D 1 Tablet Tablet PO Not Given DAILYCM [facility] Cholecalciferol 100 mcg 12/13/24 10:00 12/14/24 07:26 Cholecalciferol (Vit D3) 25 Mcg Tablet (1,000 Units) PO Not Given DAILY INO Hydrochlorothiazide 25 mg 12/13/24 10:00 12/14/24 07:25 Hydrochlorothiazide 25 Mg Tablet PO Not Given DAILY [facility] Protocol Hydromorphone HCl 0.5 mg 12/12/24 20:07 12/14/24 10:59 Hydromorphone 0.5 Mg/0.5 Ml Syringe IV 0.5 mg Q3H PRN PRN Administration Pain Score 6-10 Sodium Chloride 1,000 mls @ 15 mls/hr 12/14/24 14:20 12/14/24 14:21 IV 12/20/24 03:39 15 mls/hr .Q48H [facility] Administration Protocol Melatonin 3 mg 12/12/24 20:07 Melatonin 3 Mg Tablet PO QHS PRN PRN INSOMNIA Metoprolol Tartrate 25 mg 12/13/24 10:00 12/14/24 07:25 Metoprolol Tartrate 25 Mg Tablet PO Not Given DAILY [facility] Protocol Multivitamins/Minerals 1 tablet 12/13/24 08:00 12/14/24 07:25 Multivitamins,Ther W-Minerals Tablet PO Not Given DAILYCM [facility] Nicotine 21 mg 12/13/24 10:00 12/14/24 07:26 Nicotine 21 Mg Patch TD Not Given DAILY [facility] Ondansetron HCl 4 mg 12/12/24 20:07 12/14/24 10:59 Ondansetron 4 Mg/2 Ml Vial IV 4 mg Q8H PRN PRN Administration NAUSEA/VOMITING Oxycodone HCl 5 mg 12/12/24 20:07 12/13/24 20:27 Oxycodone 5 Mg Tablet PO 5 mg Q4H PRN PRN Administration Pain Score 4-10 Paroxetine HCl 40 mg 12/13/24 10:00 12/14/24 07:26 Paroxetine 20 Mg Tablet PO Not Given DAILY [facility] Polyethylene Glycol 17 gm 12/14/24 10:00 12/14/24 07:26 Polyethylene Glycol 3350 17 Gm Packet PO Not Given DAILY [facility] Potassium Chloride 10 meq 12/13/24 08:00 12/14/24 07:25 Potassium Chloride Oral Tablet 10 Meq PO Not Given DAILYCM [facility] Rizatriptan Benzoate 10 mg 12/12/24 19:11 12/13/24 22:22 Rizatriptan Benzoate 10 Mg Tablet PO 10 mg DAILY PRN PRN Administration MIGRAINE SYMPTOMS Senna/Docusate Sodium 2 tablet 12/13/24 15:00 12/14/24 07:26 Senna/Docusate Sodium 1 Tablet PO Not Given BID INO Sodium Chloride 10 - 40 ml 12/12/24 23:39 12/14/24 11:00 0.9% Saline Lock 10 Ml Syringe IV 10 ml UD PRN Administration SALINE FLUSH Topiramate 50 mg 12/13/24 10:00 12/14/24 07:26 Topiramate 50 Mg Tablet PO Not Given DAILY [facility] History Wears glasses Post-menopausal Anxiety Depression Arthritis High cholesterol Back pain Injury of head and neck Migraine headache Syncope History of ulceration Smoker History of pain when walking Hypertension History of renal disease History of stress test Cardiology follow-up encounter MVP (mitral valve prolapse) Heart murmur Hx of pilonidal cyst Home Medications ?Medication ?Instructions ?Recorded ?Last Taken ?Type atorvastatin 40 mg tablet 40 mg PO QHS CHOLESTEROL 02/04/18 Unknown History cholecalciferol (vitamin D3) 50 4,000 unit PO DAILY SUPPLEMENT 02/04/18 Unknown History mcg (2,000 unit) capsule (Vitamin D3) hydrochlorothiazide 25 mg tablet 25 mg PO DAILY BP 02/04/18 Unknown History metoprolol tartrate 25 mg tablet 25 mg PO DAILY PRN BP 02/04/18 09/11/22 11:00 History multivitamin-ferrous 1 ea PO DAILY SUPPLEMENT 02/04/18 Unknown History fumarate-folic acid 18 mg-400 mcg tablet (Centrum) paroxetine HCl 40 mg tablet (Paxil) 40 mg PO DAILY ANTIDEPRESSANT 02/04/18 Unknown History potassium chloride 8 mEq 8 meq PO DAILY SUPPLEMENT 02/04/18 Unknown History tablet,extended release (Klor-Con) rizatriptan 10 mg tablet 10 mg PO .X1 PRN MIGRAINES 03/14/18 01/21/25 History topiramate 50 mg tablet 50 mg PO DAILY HEADACHES 02/04/18 05/10/20 07:30 History calcium carbonate-vitamin D3 600 1 ea PO DAILY supplement 05/03/20 Unknown History mg-125 unit tablet aspirin 81 mg chewable tablet 81 mg PO DAILY 09/02/22 Unknown History hydrocodone 10 mg-acetaminophen 1 tab PO 4X/DAY 09/02/22 Unknown History 300 mg tablet Allergy/AdvReac Type Severity Reaction Status Date / Time NSAIDS (Non-Steroidal Allergy Anaphylaxis Verified 09/11/22 13:04 Anti-Inflamma Family History Other COPD (chronic obstructive pulmonary disease) Surgical History History of meniscectomy of right knee Hx laparoscopic cholecystectomy Hx of removal of ovary Hx of bilateral hip replacements Hx of total knee arthroplasty Hx of right knee surgery Hx of total knee arthroplasty Social History household members: family housing: house Smoking Status: Current every day smoker tobacco type: cigarettes alcohol intake: never substance use type: does not use Review of Systems (Anesthesia) ROS Narrative System reviewed and no additional complaints, except as documented.
--- NOTE | 2024-12-14 17:00 | PN.HOSP_ITS ---
Reason for Visit Reason for Visit: Diagnoses Periprosthetic fracture around internal prosthetic right knee joint, initial encounter (12/12/24) Unspecified fall due to ice and snow, initial encounter (12/12/24) Objective Data Objective Data Vital Signs: Vital Signs Temp Pulse Resp BP Pulse Ox O2 Del Method 98.6 F 115 H 18 112/83 H 98 Room Air 12/14/24 14:55 12/14/24 14:55 12/14/24 14:55 12/14/24 14:55 12/14/24 14:55 12/14/24 14:00 Oxygen Delivery Method Room Air Weight: 145 lb 8.081 oz Body Mass Index (BMI) 22.8 Intake & Output: Intake and Output for Last 24 Hours 12/12/24 12/13/24 12/14/24 23:59 23:59 23:59 Intake Total 1550 / 1550 Output Total 1220 / 1220 100 / 100 Balance 330 / 330 -100 / -100 Lab / Micro Data 12/14/24 05:46 12/14/24 05:46 Labs: Laboratory Results - last 24 hr 12/13/24 20:11: Hgb 9.9 L, Hct 30.7 L 12/14/24 05:46: WBC 11.7 H, RBC 2.94 L, Hgb 9.7 L, Hct 29.2 L, MCV 99.3 H, MCH 33.0 H, MCHC 33.2, RDW Std Deviation 47.2 H, RDW Coeff of Johann 13.0, Plt Count 215, MPV 9.6, Immature Gran % (Auto) 0.600, Neut % (Auto) 70.9 H, Lymph % (Auto) 15.5 L, [place] % (Auto) 10.2 H, Eos % (Auto) 2.3, Baso % (Auto) 0.5, Absolute Neuts (auto) 8.3 H, Absolute Lymphs (auto) 1.81, Nucleated RBC % 0, Sodium 140, Potassium 3.7, Chloride 116 H, Carbon Dioxide 18.0 L, Anion Gap 6, B UN 29 H, Creatinine 1.40 H, Estim Creat Clear Calc 37.92, Est GFR (MDRD) Af Amer 48 L, Est GFR (MDRD) Non-Af 40 L, BUN/Creatinine Ratio 20.7 H, Glucose 120 H, Calcium 8.7 Rhythm Strip Rhythm Strip: Sinus Rhythm Rate: 65 Ectopy: None Physical Exam Narrative Seen and examined. Plan for OR today. Overall she is doing better but is still has pain. Patient is stated that she slipped over the ice and fell down and hurt the right knee pop even before she fell down. Severe pain, could not move after that. She states he smokes about a pack per day since age of 18. Physical exam General: Alert, Oriented x3, Cooperative. BMI 21.4 kg/m? HEENT: Atraumatic, PERRLA, EOMI, Normocephalic Oral: No Gingival or Mucosal Lesions/ Ulcerations Neck: Supple, No JVD, Negative Carotid Bruits Chest wall/Lungs: Air entry diminished in bilateral lung bases. No crepitation/rhonchi Cardiovascular: Regular rate, Regular Rhythm, Normal S1, Normal S2, No M/G/R Abdomen: Bowel Sounds Present, Soft, Non Tender, Non-Distended : No dysuria. Arias catheter. Clear urine no renal angle tenderness. No suprapubic tenderness. Extremities: Right knee on immobilizer. No edema, Capillary Refill Less than 3 Seconds Skin: No rashes, No breakdown Musculoskeletal: Bilateral TKR and bilateral THR. Right knee immobilized. No acute tenderness to Palpation of other joints or Extremities Neurological: Cranial nerves II-XII grossly intact, DTR 2+/4. No acute focal neurological deficit. Psych/Mental Status: Normal Affect, Appropriate. Assessment & Plan Assessment/Plan (1) Periprosthetic fracture around internal prosthetic right knee joint: QUALIFIERS: Encounter type: initial encounter Qualified Code(s): M97.11XA - Periprosthetic fracture around internal prosthetic right knee joint, initial encounter (2) Fall from slipping on ice: PLAN: Plan His 69-year-old female who was admitted after she slipped on the ice, fall and twisted her right knee. She complained of severe pain and unable to move after the fall. History of bilateral knee and hip replacement 1. Right periprosthetic femoral fracture secondary to fall on ice: [facility] Knee immobilizer on place. Patient seen by Dr. Nair yesterday. Unclear when the patient will be taken for surgery depending upon the time. Currently NPO. Preop EKG and chest x-ray unremarkable. On pain control with Tylenol, oxycodone and Dilaudid. Incentive spirometry. Arias catheter was inserted in ED, unclear indication probably for ease. 12/14: Patient was taken to the OR in afternoon. H&H about 10 g%. Leukocytosis improving. H&H ordered for the postop 2. CKD stage IIIa -Baseline serum creatinine appears to fluctuate between 1.3 and 1.9-1.39 on presentation Hold nephrotoxic medications. 12/14: Creatinine 1.4 on baseline 3. Stage I diastolic dysfunction, send history of chronic HFpEF: On metoprolol Essential hypertension/hyperlipidemia: On atorvastatin. On metoprolol and HCTZ. Suspected COPD and chronic cigarette smoker/chronic nicotine use disorder -Chest x-ray is consistent with COPD -Patient is longtime cigarette smoker, pack per day since age of 18. Advised quitting. On nicotine patch -As needed albuterol. Recommended outpatient. Osteoarthritis/chronic pain -As needed medications as above. PT and OT History of migraines -Continue home rizatriptan -Continue home Topamax DVT prophylaxis -Subcu Lovenox postoperatively 40 daily CODE STATUS -Full code as verified on admission Charges/Coding Visit Charges Inpatient E&M: 87735 Subs Hosp L2
--- NOTE | 2024-12-14 17:05 | RAD_ITS ---
STUDY: X-RAY - RIGHT FEMUR REASON FOR STUDY: Female, 69 years old. ORIF RT DISTAL FEMUR TECHNIQUE: 2 intraoperative view(s) of the femur. 31 seconds of fluoroscopy, 8 images obtained, dosage of 2.27mGy COMPARISON: 12/12/2024 FINDINGS: 2 limited intraoperative films performed as the patient has undergone open reduction internal fixation of the previously described comminuted fracture in the distal femur above a right knee prosthesis. Alignment at the fracture site is anatomic RAD/Femur Min 2 Views IMPRESSION: No intraoperative complications noted during ORIF of the distal femoral fracture Electronically Signed: Ruddy Ch MD at 8:47 EST ,
[2024-12-14] MEDS: Cefazolin 2 GM in Syringe IV (17:10)
[2024-12-14] MEDS: TRANEXAMIC ACID 1,000 MG in 0.9% Normal Saline (100mL Bag) 100 ML 660 MG IV (17:13)
[2024-12-14] MEDS: Bupiv/Epi 0.25% 30 ML Vial (18:24)
--- NOTE | 2024-12-14 18:59 | PCM.POST.ANE ---
Anesthesia: Postop Eval I Current Vital Signs Temperature: 97.2 F Pulse Rate: 120 Blood Pressure: 170/100 Respiratory Rate: 20 Pulse Ox: 100 Oxygen Delivery Method: Room Air Assessment Airway patent: Yes Spontaneous unlabored respirations: Yes Mental status: Awake and Calm nausea: No Vomiting: No Anesthesia Complication: No Fluid Hydration Crystalloid volume administer (ml): 1,200 Total IV fluid infused: 1,200 Progress Note Anesthesia document: Postop Eval 1 completed: Yes
--- NOTE | 2024-12-14 19:12 | OP.PCM_ITS ---
Operative Report (Standard) Operative Information Date of Procedure: 12/14/24 Pre-Operative Diagnosis: Right distal femur periprosthetic fracture Post-Operative Diagnosis: Right distal femur periprosthetic fracture Surgery/Procedure Performed: Retrograde intramedullary nailing right distal femur periprosthetic fracture policy cancellation clerk: Yes [employer] Sales Assistant: Pearl Rodgers Tasks completed by certified surgical first assistant: Opening & closing, Dissecting tissue, Implanting device and Hemostasis: Electrocautery Type of Anesthesia: General RN Documented Start/Stop Times: Operation Date: 12/14/24 15:00 Case Time Into Pre-Op 12/14/24 14:04 Out of Pre-Op 12/14/24 16:48 Anesthesia Start 12/14/24 16:52 Into Room 12/14/24 16:52 Procedure Start 12/14/24 17:21 Procedure End 12/14/24 18:49 Anesthesia End 12/14/24 18:54 Out of Room 12/14/24 18:54 Into Recovery 12/14/24 18:55 Procedure Start Time: 17:21 Procedure Stop Time: 18:49 Select all DRAINS/GRAFTS/IMPLANTS that apply: Implanted device Implanted device details: Kiley T2 alpha supracondylar retrograde femoral nail 200 mm x 13 mm with interlocking screws x 5 Estimated Blood Loss: 150 cc Specimen collected: No Description of surgery: Patient was identified in the preoperative holding area by name, medical record number, and date of . The operative extremity was marked. All questions were answered to the patient's satisfaction. At time of her procedure, patient was brought to the operative suite. General anesthesia was induced on her hospital bed and endotracheal tube placed. After the tube was secured, patient was transferred to a radiolucent flat top table and positioned supine. Knee immobilizer was her was removed. We prepped and draped the right lower extremit y in normal, sterile orthopedic fashion. We performed a timeout confirming the side, site, and operation be performed. No concerns were voiced and we elected to proceed with surgery. 2 g Ancef and 1 g IV TXA was administered prior to the incision by anesthesia staff. I first brought in The C arm to confirm our ability to close reduce the fracture. I was able to nearly anatomically reduce the fracture mitis significant comminution in the metadiaphyseal junction. With traction applied, was clear the femoral implant was well distal from the fracture lines as seen on the CT scan. I then opened the previous knee incision. An S shaped surgical scar was noted due to multiple prior knee surgeries. Prior scar was utilized. Full-thickness skin flaps were developed. Medial parapatellar arthrotomy was then identified with old Ethibond suture. This arthrotomy was opened and Ethibond suture removed. Hemarthrosis was encountered and irrigated out. The total knee implant appeared in good repair without significant polyethylene wear noted. I then used the starting pin to position us centrally medial to lateral and as anterior as possible in the intercondylar notch. Appropriate position of the distal segment was confirmed on orthogonal fluoroscopy. I then opening reamed the distal segment. Ball-tipped guidewire was then passed into the femoral shaft to the level of her femoral hip stem. I selected a length in our intramedullary nail of 200 mm. I then sequentially reamed to a final diameter of 14.5 mm for a 13 mm diameter intramedullary nail. Intramedullary nail was then placed and impacted to appropriate depth. Stab incisions were utilized to place 3 distal interlocking screws utilizing advanced locking technology. I then used the targeting guide to place 2 percutaneous lateral to medial interlocking screws in the proximal slots of the nail. Fracture was stable following fixation. Final fluoroscopic images were obtained. Significant comminution was noted however the gross alignment of the femur appeared to be nearly anatomic. I then performed a 3-minute sterile dilute Betadine soak in the arthrotomy. Wound was copiously irrigated with normal saline solution. Arthrotomy was closed watertight with strata fix barbed suture. Dermis was reapproximated with buried 2-0 Vicryl suture. Skin was finally reapproximated with interrupted horizontal mattress 2-0 nylon suture. Field block was administered with 60 cc total quarter percent bupivacaine with epinephrine. Silver Mepilex dressing was applied. An Ramos wrap was applied as well as the knee immobilizer for early soft tissue healing. Patient was then awakened from anesthesia extubated in the operative suite. She was transferred to her hospital bed and subsequently to PACU in stable condition. She tolerated the procedure well without apparent complication. Postoperative plan: Touchdown weightbearing. Will follow-up x-rays in 2 weeks. Determine possibly advancing weightbearing at that time. Follow-up in 2 weeks for suture removal. Maintain silver dressing unless saturated. Incision should be okay to be left open to air after approximately 5 days if no drainage. We will start Lovenox 40 mg subcu daily tomorrow. Likely plan to continue this at least for 4 weeks and consideration of full 6 weeks depending on her weightbearing status. I anticipate her need for placement in some capacity due to her age and lackluster help at home. We will plan for 24 hours IV Ancef and 1 week oral doxycycline for extended antibiotic prophylaxis due to opening the previous the knee arthroplasty. Okay to remove Arias postoperative day 1 #1 from my standpoint. Surgical Findings: Comminuted distal femoral fracture proximal to the femoral total knee prosthesis. Stable following fixation. Complications Complications: No Admit VTE Documentation VTE Present on Admission: No VTE Mechan Device Prophylaxis: SCD's VTE Pharm Prophylaxis ordered?: Yes
[2024-12-14] MEDS: oxyCODONE 5 MG Tablet PO (20:06)
--- NOTE | 2024-12-14 20:27 | POSTOPAN2_ITS ---
Anesthesia Postop Eval I Sum Postop Eval Completion status Anesthesia document: Postop Eval 1 completed: Yes Anesthesia Postop Eval I Summary Anesthesia Postop Eval I Summary: Anesthesia Postop Eval I: Assessment Summary Airway patent Yes 12/14/24 19:00 FORM [email or web address] [email or web address] Spontaneous unlabored Yes 12/14/24 19:00 FORM PRESS [email or web address] respirations Mental status Awake,Calm 12/14/24 19:00 FORM [email or web address] [email or web address] nausea No 12/14/24 19:00 FORM PRESS [email or web address] Vomiting No 12/14/24 19:00 FORM PRESS [email or web address] Anesthesia Postop Eval I: Fluid Summary Crystalloid volume administer 1,200 12/14/24 19:00 FORM [email or web address] (ml) Colloids volume administered ( ml) Blood Product volume administered (ml) Total IV fluid infused 1,200 12/14/24 19:00 FORM PRESS [email or web address] Anesthesia Postop Eval I: Summary Notes Anesthesia Complication No 12/14/24 19:00 FORM PRESS [email or web address] Anesthesia Complication Comment: Post-operative progress note Anesthesia: Postop Eval II Evaluation Mental status: Awake and Calm Pain Level: 2 nausea: No Vomiting: No Complications Anesthesia Complication: No
--- NOTE | 2024-12-14 20:27 | PCM.POSTANE2 ---
Anesthesia Postop Eval I Sum Postop Eval Completion status Anesthesia document: Postop Eval 1 completed: Yes Anesthesia Postop Eval I Summary Anesthesia Postop Eval I Summary: Anesthesia Postop Eval I: Assessment Summary Airway patent Yes 12/14/24 19:00 BARK PRESS [email or web address] Spontaneous unlabored Yes 12/14/24 19:00 BARK PRESS [email or web address] respirations Mental status Awake,Calm 12/14/24 19:00 BARK [email or web address] [email or web address] nausea No 12/14/24 19:00 BARK PRESS [email or web address] Vomiting No 12/14/24 19:00 BARK PRESS [email or web address] Anesthesia Postop Eval I: Fluid Summary Crystalloid volume administer 1,200 12/14/24 19:00 BARK [email or web address] [email or web address] (ml) Colloids volume administered ( ml) Blood Product volume administered (ml) Total IV fluid infused 1,200 12/14/24 19:00 BARK PRESS [email or web address] Anesthesia Postop Eval I: Summary Notes Anesthesia Complication No 12/14/24 19:00 BARK PRESS [email or web address] Anesthesia Complication Comment: Post-operative progress note Anesthesia: Postop Eval II Evaluation Mental status: Awake and Calm Pain Level: 2 nausea: No Vomiting: No Complications Anesthesia Complication: No
[2024-12-14 20:43] LABS: Hemoglobin 8.7 g/dL (12.0-15.0)
[2024-12-14] MEDS: Atorvastatin Calcium 40 MG Tablet PO (21:38)
[2024-12-14] MEDS: Acetaminophen 500 MG Tablet 1000 MG PO (21:38)
[2024-12-14] MEDS: Senna/Docusate Sodium 1 Tablet 2 TABLET PO (21:38)
[2024-12-14] MEDS: Cefazolin 1 GM/50 ML BAG IV (21:40)
[2024-12-15 03:43] VITALS: BP 129/74; PULSE 93; RESP 16; TEMP 37.2; O2SAT 99
[2024-12-15] MEDS: oxyCODONE 5 MG Tablet PO ×4 (05:29→23:26)
[2024-12-15] MEDS: Acetaminophen 500 MG Tablet 1000 MG PO ×3 (05:29→22:00)
[2024-12-15 05:31] VITALS: BMI 23.6
[2024-12-15] MEDS: 0.9% Normal Saline (100mL Bag) 100 ML 15 ML IV (05:40)
[2024-12-15] MEDS: Cefazolin 1 GM/50 ML BAG IV ×2 (05:40→13:39)
[2024-12-15] MEDS: 0.9% Saline Lock 10 ML Syringe IV ×3 (05:41→20:39)
[2024-12-15 06:23] VITALS: BP 114/76; PULSE 98; RESP 16; TEMP 37.3; O2SAT 98
[2024-12-15 06:59] LABS: Absolute Lymphocyte Count 0.95 X10^3/uL (0.83-4.51); Absolute Neutrophil Count 10.9 X10^3/uL (2.0-7.7); Basophil# 0.02 X10^3/uL; Basophil% 0.2 % (0-1); Eosinophil# 0.01 X10^3/uL; Eosinophils% 0.1 % (0-5); Hematocrit 25.4 % (37-47); Hemoglobin 7.9 g/dL (12.0-15.0); Lymphocyte # 0.95 X10^3/ul (0.83-4.51); Lymphocyte % 7.5 % (19-41); Mean Corp Hgb Conc 31.1 g/dL (32-36); Mean Corpuscular Hgb 32.1 pg (27.0-32.0); Mean Corpuscular Volume 103.3 fL (81-99); Mean Platelet Vol. 10.5 fl (6.2-12.0); Monocyte# 0.78 X10^3/uL; Monocyte% 6.1 % (0-10); NRBC Flagged by Analyzer 0 % (0-5); Neutrophil # 10.89 X10^3/uL (2.7-7.7); Neutrophil % 85.5 % (47-70); POSITIVE COUNT YES; Platelet Count 198 K/mm3 (150-450); RBC Distribution Width CV 13.2 % (11.6-14.6); Red Blood Count 2.46 M/mm3 (4.2-5.4); White Blood Count 12.7 K/mm3 (4.4-11.0)
[2024-12-15 07:31] LABS: Anion Gap 8 (5-15); BUN 26 mg/dL (7-18); Calcium,Total 8.5 mg/dL (8.5-10.1); Chloride 114 mmol/L (98-107); Creatinine, Serum 1.37 mg/dL (0.55-1.02); EST Glomerular Filtration Rate 41 mL/min (>60); Est Glom Filt Rate - Afr Amer 49 mL/min (>60); Estimated Creatinine Clearance 38.75 ml/min; Glucose 145 mg/dL (74-106); Potassium 4.6 mmol/L (3.5-5.1); Sodium Level 140 mmol/L (136-145)
--- NOTE | 2024-12-15 07:41 | PCM.PN.HOSP ---
Reason for Visit Reason for Visit: Diagnoses Periprosthetic fracture around internal prosthetic right knee joint, initial encounter (12/12/24) Unspecified fall due to ice and snow, initial encounter (12/12/24) Objective Data Objective Data Vital Signs: Vital Signs Temp Pulse Resp BP Pulse Ox O2 Del Method 99.1 F 98 16 114/76 98 Room Air 12/15/24 06:23 12/15/24 06:23 12/15/24 06:23 12/15/24 06:23 12/15/24 06:23 12/15/24 06:23 Oxygen Delivery Method Room Air Weight: 150 lb 9.211 oz Body Mass Index (BMI) 23.6 Intake & Output: Intake and Output for Last 24 Hours 12/13/24 12/14/24 12/15/24 23:59 23:59 23:59 Intake Total 1550 / 1550 480 / 480 496.75 / 496.75 Output Total 1220 / 1220 750 / 750 160 / 160 Balance 330 / 330 -270 / -270 336.75 / 336.75 Lab / Micro Data 12/15/24 05:53 12/15/24 05:53 Labs: Laboratory Results - last 24 hr 12/14/24 20:35: Hgb 8.7 L, Hct 27.0 L 12/15/24 05:53: WBC 12.7 H, RBC 2.46 L, Hgb 7.9 L, Hct 25.4 L, MCV 103.3 H, MCH 32.1 H, MCHC 31.1 L D, RDW Std Deviation 49.0 H, RDW Coeff of Johann 13.2, Plt Count 198, MPV 10.5, Immature Gran % (Auto) 0.600, Neut % (Auto) 85.5 H, Lymph % (Auto) 7.5 L, [place] % (Auto) 6.1, Eos % (Auto) 0.1, Baso % (Auto) 0.2, Absolute Neuts (auto) 10.9 H, Absolute Lymphs (auto) 0.95, Nucleated RBC % 0, Sodium 140, Potassium 4.6, Chloride 114 H, Carbon Dioxide 19.0 L, Anion Gap 8, BUN 26 H, Creatinine 1.37 H, Estim Creat Clear Calc 38.75, Est GFR (MDRD) Af Amer 49 L, Est GFR (MDRD) Non-Af 41 L, BUN/Creatinine Ratio 19.0, Glucose 145 H, Calcium 8.5 Rhythm Strip Rhythm Strip: Sinus Rhythm Rate: 65 Ectopy: None Physical Exam Narrative Seen and examined. Patient had OR on 12/14/2023. Hemoglobin dropped. Today 7.9 g. Denies dizziness or lightheadedness. Blood pressure 122/74. Patient is stated that she slipped over the ice and fell down and hurt the right knee pop even before she fell down. Severe pain, could not move after that. She states he smokes about a pack per day since age of 18. Physical exam General: Alert, Oriented x3, Cooperative. BMI 21.4 kg/m? HEENT: Atraumatic, PERRLA, EOMI, Normocephalic Oral: No Gingival or Mucosal Lesions/ Ulcerations Neck: Supple, No JVD, Negative Carotid Bruits Chest wall/Lungs: Air entry diminished in bilateral lung bases. No crepitation/rhonchi Cardiovascular: Regular rate, Regular Rhythm, Normal S1, Normal S2, No M/G/R Abdomen: Bowel Sounds Present, Soft, Non Tender, Non-Distended : No dysuria. Arias catheter. Clear urine no renal angle tenderness. No suprapubic tenderness. Extremities: Right knee on immobilizer. No edema, Capillary Refill Less than 3 Seconds Skin: Surgical dressing over right knee is dry Musculoskeletal: Bilateral TKR and bilateral THR. Right knee immobilized. No acute tenderness to Palpation of other joints or Extremities Neurological: Cranial nerves II-XII grossly intact, DTR 2+/4. No acute focal neurological deficit. Psych/Mental Status: Normal Affect, Appropriate. Assessment & Plan Assessment/Plan (1) Periprosthetic fracture around internal prosthetic right knee joint: QUALIFIERS: Encounter type: initial encounter Qualified Code(s): M97.11XA - Periprosthetic fracture around internal prosthetic right knee joint, initial encounter (2) Fall from slipping on ice: PLAN: Plan His 69-year-old female who was admitted after she slipped on the ice, fall and twisted her right knee. She complained of severe pain and unable to move after the fall. History of bilateral knee and hip replacement 1. Right periprosthetic femoral fracture secondary to fall on ice: Patient is being admitted on [facility] floor. Knee immobilizer on place. Patient seen by Dr. Nair yesterday. Unclear when the patient will be taken for surgery depending upon the time. Currently NPO. Preop EKG and chest x-ray unremarkable. On pain control with Tylenol, oxycodone and Dilaudid. Incentive spirometry. Arias catheter was inserted in ED, unclear indication probably for ease. 12/14: Patient was taken to the OR in afternoon. H&H about 10 g%. Leukocytosis improving. H&H ordered for the postop 12/15: Patient had retrograde intramedullary nailing right distal femur periprosthetic fracture on 12/14/2024. Hemoglobin dropped to 7.9 from preop 13 at the time of admission therefore acute anemia due to operative blood loss. Does not need PRBC transfusion but IV iron infusion ordered. H&H in the evening ordered 2. CKD stage IIIa -Baseline serum creatinine appears to fluctuate between 1.3 and 1.9-1.39 on presentation Hold nephrotoxic medications. 12/14: Creatinine 1.4 on baseline 12/15 creatinine 1.37. Normal anion gap metabolic acidosis with bicarb of 19 and chloride 114 probably due to IV fluid normal saline 3. Stage I diastolic dysfunction, send history of chronic HFpEF: On metoprolol Essential hypertension/hyperlipidemia: On atorvastatin. On metoprolol and HCTZ. Suspected COPD and chronic cigarette smoker/chronic nicotine use disorder -Chest x-ray is consistent with COPD -Patient is longtime cigarette smoker, pack per day since age of 18. Advised quitting. On nicotine patch -As needed albuterol. Recommended outpatient. Osteoarthritis/chronic pain -As needed medications as above. PT and OT History of migraines -Continue home rizatriptan -Continue home Topamax DVT prophylaxis -Subcu Lovenox postoperatively 40 daily CODE STATUS -Full code as verified on admission Charges/Coding Visit Charges Inpatient E&M: 31562 Subs Hosp L2
[2024-12-15 07:49] LABS: Platelet Estimate A (ADEQ); Platelet Morphology LARGE
[2024-12-15] MEDS: Calcium Carb/Vitamin D 1 TABLET Tablet PO (08:22)
[2024-12-15] MEDS: Multivitamins,Ther W-Minerals Tablet 1 TABLET PO (08:22)
[2024-12-15] MEDS: Potassium Chloride Oral Tablet 10 MEQ PO (08:22)
[2024-12-15 08:23] VITALS: PULSE 98
[2024-12-15] MEDS: hydroCHLOROthiazide 25 MG Tablet PO (08:23)
[2024-12-15] MEDS: Metoprolol Tartrate 25 MG Tablet PO (08:23)
[2024-12-15] MEDS: Paroxetine 20 MG Tablet 40 MG PO (08:24)
[2024-12-15] MEDS: Polyethylene Glycol 3350 17 GM PACKET PO (08:24)
[2024-12-15] MEDS: Cholecalciferol (VIT D3) 25 MCG TABLET (1,000 UNITS) 100 MCG PO (08:24)
[2024-12-15] MEDS: Senna/Docusate Sodium 1 Tablet 2 TABLET PO ×2 (08:24→22:00)
[2024-12-15] MEDS: Topiramate 50 MG Tablet PO (08:25)
[2024-12-15] MEDS: Enoxaparin 40 MG/0.4 ML Syringe SC (08:43)
[2024-12-15] MEDS: Sodium Ferric Gluconat/Sucrose 250 MG in 0.9% Normal Saline (250mL Bag) 250 ML 135 MG IV (09:17)
[2024-12-15] MEDS: Rizatriptan Benzoate 10 MG Tablet PO (10:25)
[2024-12-15 11:04] VITALS: BP 122/74; PULSE 113; RESP 18; TEMP 37.2; O2SAT 96
--- NOTE | 2024-12-15 12:08 | CASEMGMT ---
Discharge Planning A list of SNF providers including quality and resource use data and consistent with the patient's preferred geographic region, medical needs, and insurance network was created in [employer] Guide.? This list was provided to the SW. Maile Nunez Discharge Planning Asst.
--- NOTE | 2024-12-15 12:12 | CASEMGMT ---
Social Work- SW met with pt to discuss pt preferences at discharge. SW introduced self and role; pt agreeable to meeting. Pt reports that she would like to speak with surgeon before deciding a plan. Pt states that she was very tired d/t not sleeping well and having the surgery later last night. Pt reports that she feels in a day or two that she could complete the 5-6 stairs needed to gain entry into her home and reports that she has always responded well to therapy interventions in the past. SW will remain available to follow for discharge planning. DEANNA Hansen
--- NOTE | 2024-12-15 13:55 | PCM.PN.ORT ---
Subjective Subjective Patient is s/p retrograde intramedullary nail right distal femur periprosthetic fracture with Dr. Schulte 12/14/2024. Patient resting comfortably in bed. Rates pain [ ]/ 10 at rest. With movement [ ] /10. States taking [oxycodone] and ice help to relieve pain. Patient has been up with therapy. Walking with the assit of a [ walker] . Afebrile, no chest pain, shortness of breath, negative calf pain/ erythema, and no other signs of DVT. Objective Data Objective Data Vital Signs: Vital Signs Temp Pulse Resp BP Pulse Ox O2 Del Method 98.9 F 113 H 18 122/74 H 96 Room Air 12/15/24 11:04 12/15/24 11:04 12/15/24 11:04 12/15/24 11:04 12/15/24 11:04 12/15/24 11:04 Oxygen Delivery Method Room Air Weight: 68.3 kg Body Mass Index (BMI) 23.6 Intake & Output: Intake and Output for Last 24 Hours 12/13/24 12/14/24 12/15/24 23:59 23:59 23:59 Intake Total 1550 / 1550 480 / 480 806.00 / 806.00 Output Total 1220 / 1220 750 / 750 160 / 160 Balance 330 / 330 -270 / -270 646.00 / 646.00 Lab / Micro Data 12/15/24 05:53 12/15/24 05:53 Labs: Laboratory Results - last 24 hr 12/14/24 20:35: Hgb 8.7 L, Hct 27.0 L 12/15/24 05:53: WBC 12.7 H, RBC 2.46 L, Hgb 7.9 L, Hct 25.4 L, MCV 103.3 H, MCH 32.1 H, MCHC 31.1 L D, RDW Std Deviation 49.0 H, RDW Coeff of Johann 13.2, Plt Count 198, MPV 10.5, Immature Gran % (Auto) 0.600, Neut % (Auto) 85.5 H, Lymph % (Auto) 7.5 L, [place] % (Auto) 6.1, Eos % (Auto) 0.1, Baso % (Auto) 0.2, Absolute Neuts (auto) 10.9 H, Absolute Lymphs (auto) 0.95, Nucleated RBC % 0, Platelet Estimate A, Plt Morphology Comment LARGE, Sodium 140, Potassium 4.6, Chloride 114 H, Carbon Dioxide 19.0 L, Anion Gap 8, BUN 26 H, Creatinine 1.37 H, Estim Creat Clear Calc 38.75, Est GFR (MDRD) Af Amer 49 L, Est GFR (MDRD) Non-Af 41 L, BUN/Creatinine Ratio 19.0, Glucose 145 H, Calcium 8.5 Radiography Diagnostic Testing: Radiology Impression Femur X-Ray 12/14/24 17:05 IMPRESSION: No intraoperative complications noted during ORIF of the distal femoral fracture Electronically Signed: Ruddy Ch MD at 8:47 EST Reading Location ID and State: [facility] / [place] , Service support , Rhythm Strip Rhythm Strip: Sinus Rhythm Rate: 65 Ectopy: None Physical Exam Narrative Patient resting comfortably in bed No signs of acute distress Satting well on room air KI inplace. Limb is warm to touch, Sensation intact throughout entire lower extremity, including saphenous, sural, superficial and deep peroneal, and tibial distribution. DP/PT pulses bounding. Dorsiflexion plantarflexion strength 5/5 Dressing small quarter size area of dried blood at proximal incision. Calf nontender to palpation, no erythema, no edema. Negative Homans Assessment & Plan Assessment/Plan (1) Periprosthetic fracture around internal prosthetic right knee joint: QUALIFIERS: Encounter type: initial encounter Qualified Code(s): M97.11XA - Periprosthetic fracture around internal prosthetic right knee joint, initial encounter PLAN: Plan 1. Will continue PT today. Toe-touch weightbearing. Knee immobilizer on at all times however okay to be removed in a controlled setting by PT to work on quadricep strength and ROM motion up to 20 degrees of flexion. 2. plan for discharge per primary team. cleared from an orthopaedic standpoint 3. Patient will follow up for post op appointment in 2 weeks. this will need to be arranged. 4. WBC 12.7 acute reactive leukocytosis: secondary to pre operative decadron. no acute systemic signs of infection. will monitor, and likely self resolve. 5. H/H 7.9/25.4: Likely post operavtive anemia secondary to acute blood loss intraoperatively. Patient is slightly tachycardic. Further monitoring and intervention per medicine.. No intraoperative complications. 6. DVT prophylaxis : Lovenox 40 mg subcutaneous daily for at least 4 weeks. If she continues limited weightbearing status may continue up to 6 weeks. 7. Pain control: patient instructed to take tylenol 500mg 2 tablets TID. and oxycodone 1-2 tablets every 4-6 hours only as needed for pain control. 8. Doxycycline 100 mg twice daily x 1 week for extended antibiotic prophylaxis. 9. ok to remove post op dressing. post op day 5
[2024-12-15 15:03] VITALS: BP 122/81; PULSE 98; RESP 18; TEMP 36.6; O2SAT 97
--- NOTE | 2024-12-15 15:50 | CASEMGMT ---
Social Work- SW met with pt. A list of SNF providers including quality and resource use data and consistent with the patient?s preferred geographic region, medical needs, and insurance network were provided from the [facility] Guide. Pt selected [facility] as [facility]. SW encouraged pt to look for alternate options overnight if needed. SW completed referral to TCU. SW remains available to follow. DEANNA Hansen
[2024-12-15] MEDS: HYDROmorphone 0.5 MG/0.5 ML SYRINGE IV ×2 (16:27→20:38)
[2024-12-15 20:02] LABS: Hematocrit 20.5 % (37-47); Hemoglobin 6.9 g/dL (12.0-15.0)
[2024-12-15 20:25] VITALS: BP 110/69; PULSE 109; RESP 20; TEMP 36.9; O2SAT 97
[2024-12-15] MEDS: Atorvastatin Calcium 40 MG Tablet PO (22:00)
[2024-12-15] MEDS: MELATONIN 3 MG TABLET PO (22:01)
[2024-12-15] MEDS: Ondansetron 4 MG/2 ML Vial IV (23:19)
[2024-12-16] VITALS (11 sets, daily range): BP systolic 100–134; BP diastolic 62–80; PULSE 93–111; RESP 16–18; TEMP 36.6–37.3; O2SAT 95–100; BMI 23.6
[2024-12-16] MEDS: traZODone 50 MG Tablet PO ×2 (00:12→22:27)
[2024-12-16] MEDS: oxyCODONE 5 MG Tablet PO ×5 (05:01→22:38)
[2024-12-16] MEDS: Acetaminophen 500 MG Tablet 1000 MG PO ×3 (05:02→22:27)
[2024-12-16] MEDS: Rizatriptan Benzoate 10 MG Tablet PO ×2 (05:02→15:30)
[2024-12-16 06:00] LABS: Hemoglobin 6.6 g/dL (12.0-15.0); Mean Corpuscular Hgb 32.7 pg (27.0-32.0); Mean Platelet Vol. 10.2 fl (6.2-12.0); Platelet Count 187 K/mm3 (150-450); RBC Distribution Width CV 13.1 % (11.6-14.6); RBC Distribution Width SD 46.7 fl (35.1-43.9); Red Blood Count 2.02 M/mm3 (4.2-5.4); White Blood Count 13.2 K/mm3 (4.4-11.0)
[2024-12-16 06:19] LABS: ERROR RESULT FLAG NO; Scan Indicated on CBC? Y/N NO
[2024-12-16 06:40] LABS: Anion Gap 8 (5-15); BUN 26 mg/dL (7-18); BUN/Creat Ratio 18.2 RATIO (10-20); Calcium,Total 8.5 mg/dL (8.5-10.1); Chloride 112 mmol/L (98-107); Creatinine, Serum 1.43 mg/dL (0.55-1.02); EST Glomerular Filtration Rate 39 mL/min (>60); Est Glom Filt Rate - Afr Amer 47 mL/min (>60); Estimated Creatinine Clearance 37.12 ml/min; Glucose 116 mg/dL (74-106); Potassium 3.4 mmol/L (3.5-5.1); Sodium Level 141 mmol/L (136-145)
[2024-12-16] MEDS: Polyethylene Glycol 3350 17 GM PACKET PO (07:46)
[2024-12-16] MEDS: Calcium Carb/Vitamin D 1 TABLET Tablet PO (07:46)
[2024-12-16] MEDS: Multivitamins,Ther W-Minerals Tablet 1 TABLET PO (07:46)
[2024-12-16] MEDS: Potassium Chloride Oral Tablet 10 MEQ PO (07:46)
[2024-12-16] MEDS: hydroCHLOROthiazide 25 MG Tablet PO (07:47)
[2024-12-16] MEDS: Enoxaparin 40 MG/0.4 ML Syringe SC (07:47)
[2024-12-16] MEDS: Metoprolol Tartrate 25 MG Tablet PO (07:47)
[2024-12-16] MEDS: Paroxetine 20 MG Tablet 40 MG PO (07:48)
[2024-12-16] MEDS: Senna/Docusate Sodium 1 Tablet 2 TABLET PO ×2 (07:48→22:27)
[2024-12-16] MEDS: Topiramate 50 MG Tablet PO (07:49)
[2024-12-16] MEDS: Cholecalciferol (VIT D3) 25 MCG TABLET (1,000 UNITS) 100 MCG PO (07:49)
--- NOTE | 2024-12-16 08:38 | PN.HOSP_ITS ---
Reason for Visit Reason for Visit: Diagnoses Periprosthetic fracture around internal prosthetic right knee joint, initial encounter (12/12/24) Unspecified fall due to ice and snow, initial encounter (12/12/24) Subjective Subjective Patient is a 69-year-old lady admitted following a fall on ice with resultant right periprosthetic femur fracture Objective Data Objective Data Vital Signs: Vital Signs Temp Pulse Resp BP Pulse Ox O2 Del Method 97.8 F 111 H 16 114/73 95 Room Air 12/16/24 07:37 12/16/24 07:47 12/16/24 07:37 12/16/24 07:37 12/16/24 07:37 12/16/24 07:37 Oxygen Delivery Method Room Air Weight: 68.3 kg Body Mass Index (BMI) 23.6 Intake & Output: Intake and Output for Last 24 Hours 12/14/24 12/15/24 12/16/24 23:59 23:59 23:59 Intake Total 480 / 480 856.00 / 1356.00 800 / 800 Output Total 750 / 750 160 / 160 Balance -270 / -270 696.00 / 1196.00 800 / 800 Lab / Micro Data 12/16/24 05:39 12/16/24 05:39 Labs: Laboratory Results - last 24 hr 12/15/24 19:50: Hgb 6.9 L, Hct 20.5 L 12/16/24 05:39: WBC 13.2 H, RBC 2.02 L, Hgb 6.6 L, Hct 20.0 L, MCV 99.0, MCH 32.7 H, MCHC 33.0 D, RDW Std Deviation 46.7 H, RDW Coeff of Johann 13.1, Plt Count 187, MPV 10.2, Sodium 141, Potassium 3.4 L, Chloride 112 H, Carbon Dioxide 21.0, Anion Gap 8, BUN 26 H, Creatinine 1.43 H, Estim Creat Clear Calc 37.12, Est GFR (MDRD) Af Amer 47 L, Est GFR (MDRD) Non-Af 39 L, BUN/Creatinine Ratio 18.2, G lucose 116 H, Calcium 8.5 Radiography Diagnostic Testing: Radiology Impression Femur X-Ray 12/14/24 17:05 IMPRESSION: No intraoperative complications noted during ORIF of the distal femoral fracture Electronically Signed: Ruddy Ch MD at 8:47 EST Reading Location ID and State: [facility] / [place] , Service support , Rhythm Strip Rhythm Strip: Sinus Rhythm Rate: 65 Ectopy: None Physical Exam Narrative GENERAL: cooperative HEENT: Atraumatic; normocephalic EYES; Anicteric, Normal Conjunctiva NECK; supple, normal thyroid, RESPIRATORY: Diminished to auscultation CARDIOVASCULAR: Regular S1 S2, GI: soft, normoactive bowel sounds, : No Renal angle tenderness; EXTREMITIES: No edema, no clubbing, MUSCULOSKELETAL: Right knee in surgical dressing NEURO: Awake; no lateralizing signs. SKIN: No Rash PSYCH; Flat affect Assessment & Plan Assessment/Plan (1) Periprosthetic fracture around internal prosthetic right knee joint: QUALIFIERS: Encounter type: initial encounter Qualified Code(s): M97.11XA - Periprosthetic fracture around internal prosthetic right knee joint, initial encounter (2) Fall from slipping on ice: PLAN: Plan Patient is a 69-year-old lady admitted following a fall on ice with resultant right periprosthetic femur fracture 1. Fall with right periprosthetic humeral fracture ? Patient underwent Retrograde intramedullary nailing right distal femur periprosthetic fracture on 12/14/[address] Schulte 2. Acute blood loss anemia following surgery ? monitoring H&H and transfuse if patient becomes symptomatic or hemoglobin falls below 7. With patient hemoglobin being6.6 as of 12/16/2024 and order was given for patient to be transfused 1 unit PRBC 3. Chronic kidney disease stage IIIa ? Kidney function at baseline 4. Chronic congestive heart failure with preserved ejection fraction ? Patient remains euvolemic 5. Hypertension ? Blood pressure controlled, home medications continued with dose adjustment as needed 6. Dyslipidemia ?Patient is on statin therapy, continued at home dose 7. Depression with anxiety ? Patient is on Paxil continue 8. COPD ? Not in exacerbation aerosol treatment as needed 9. Chronic migraines ? Patient is on rizatriptan and Topamax continue 10. DVT prophylaxis ? On enoxaparin if patient hemoglobin continues to drop Dr Hunter have to be held Time spent in the patient's overall evaluation,decision-making process, review of diagnostic data, adjustment of management, discussion with other providers, nursing nursing and ancillary staff involved in patient's care documentation, 53 Minutes Charges/Coding Visit Charges Inpatient E&M: 10439 Subs Hosp L3
--- NOTE | 2024-12-16 10:53 | CASEMGMT ---
Social Work SW spoke with Hollie in TCU and pt has been accepted to TCU. SW met with pt and informed that TCU can accept when pt is medically ready. Pt is agreeable to dc plan. DEANNA Costello
[2024-12-16] MEDS: Doxycycline 100 MG CAPSULE PO ×2 (11:29→22:27)
--- NOTE | 2024-12-16 12:14 | PN.ORTHO_ITS ---
Subjective Subjective Patient is s/p retrograde intramedullary nail right distal femur periprosthetic fracture with Dr. Schulte 12/14/2024. Patient resting comfortably in bed. Rates pain 3/ 10 at rest. With movement 6 /10. States taking tylenol and oxycodone and ice help to relieve pain. Patient has been up with therapy. Walking with the assit of a walker. sh is toe touch WB. Knee immobilizer in place. Afebrile, no chest pain, shortness of breath, negative calf pain/ erythema, and no other signs of DVT. patient did receive blood transfusion today for another drop in her H/H. down to 6.6. patien'ts dressing minimally saturated at the proximal portion. Objective Data Objective Data Vital Signs: Vital Signs Temp Pulse Resp BP Pulse Ox O2 Del Method 98.7 F 95 18 100/65 96 Room Air 12/16/24 11:59 12/16/24 11:59 12/16/24 11:59 12/16/24 11:59 12/16/24 11:59 12/16/24 11:59 Oxygen Delivery Method Room Air Weight: 68.3 kg Body Mass Index (BMI) 23.6 Intake & Output: Intake and Output for Last 24 Hours 12/14/24 12/15/24 12/16/24 23:59 23:59 23:59 Intake Total 480 / 480 856.00 / 1356.00 800 / 800 Output Total 750 / 750 160 / 160 Balance -270 / -270 696.00 / 1196.00 800 / 800 Lab / Micro Data 12/16/24 05:39 12/16/24 05:39 Labs: Laboratory Results - last 24 hr 12/15/24 19:50: Hgb 6.9 L, Hct 20.5 L 12/16/24 05:39: WBC 13.2 H, RBC 2.02 L, Hgb 6.6 L, Hct 20.0 L, MCV 99.0, MCH 32.7 H, MCHC 33.0 D, RDW Std Deviation 46.7 H, RDW Coeff of Johann 13.1, Plt Count 187, MPV 10.2, Sodium 141, Potassium 3.4 L, Chloride 112 H, Carbon Dioxide 21.0, Anion Gap 8, BUN 26 H, Creatinine 1.43 H, Estim Creat Clear Calc 37.12, Est GFR (MDRD) Af Amer 47 L, Est GFR (MDRD) Non-Af 39 L, BUN/Creatinine Ratio 18.2, G lucose 116 H, Calcium 8.5 12/16/24 09:20: Blood Type O POSITIVE, Antibody Screen NEGATIVE, Crossmatch See Detail Rhythm Strip Rhythm Strip: Sinus Rhythm Rate: 65 Ectopy: None Physical Exam Narrative Patient resting comfortably in bed No signs of acute distress Satting well on room air KI inplace. Limb is warm to touch, Sensation intact throughout entire lower extremity, including saphenous, sural, superficial and deep peroneal, and tibial distribution. DP/PT pulses bounding. Dorsiflexion plantarflexion strength 5/5 Dressing today with proximal portion that is saturated. distal remains c/d/i. I did change out the mepilex for a fresh one with a pressure dressing. there was minimal oozing, no continuous drainage. Calf nontender to palpation, no erythema, no edema. Negative Homans Assessment & Plan Assessment/Plan (1) Periprosthetic fracture around internal prosthetic right knee joint: QUALIFIERS: Encounter type: initial encounter Qualified Code(s): M97.11XA - Periprosthetic fracture around internal prosthetic right knee joint, initial encounter PLAN: Plan POD 2 s/p retrograde intramedullary nail right distal femur periprosthetic fracture with Dr. Schulte 12/14/2024 1. Will continue PT today. Toe-touch weightbearing. Knee immobilizer on at all times however okay to be removed in a controlled setting by PT to work on quadricep strength and ROM motion up to 20 degrees of flexion. 2. plan for discharge per primary team. cleared from an orthopaedic standpoint 3. Patient will follow up for post op appointment in 2 weeks. this will need to be arranged. 4. leukocytosis resolved. 5. Hgb 6.6 today : Patient is slightly tachycardic. Further monitoring and intervention per medicine. she is receiving a unit of blood today. No intraoperative complications. 6. DVT prophylaxis : continue Lovenox 40 mg subcutaneous daily for at least 4 weeks. If she continues limited weightbearing status may continue up to 6 weeks. 7. Pain control: patient instructed to take tylenol 500mg 2 tablets TID. and oxycodone 1-2 tablets every 4-6 hours only as needed for pain control. 8. Doxycycline 100 mg twice daily x 1 week for extended antibiotic prophylaxis. this was started today, patient completed ancef 12/15/24 9. ok to remove post op dressing. post op day 5. dressing changed today, will continue to monitor.
[2024-12-16] MEDS: 0.9% Saline Lock 10 ML Syringe IV (20:16)
[2024-12-16] MEDS: HYDROmorphone 0.5 MG/0.5 ML SYRINGE IV (20:16)
[2024-12-16] MEDS: Atorvastatin Calcium 40 MG Tablet PO (22:27)
[2024-12-17 03:14] VITALS: BP 145/79; PULSE 105; RESP 16; TEMP 36.6; O2SAT 100
[2024-12-17] MEDS: oxyCODONE 5 MG Tablet PO ×3 (03:19→13:03)
[2024-12-17 05:31] VITALS: BMI 23.6
[2024-12-17] MEDS: Acetaminophen 500 MG Tablet 1000 MG PO (06:38)
[2024-12-17 06:57] LABS: Hematocrit 25.9 % (37-47); Hemoglobin 8.4 g/dL (12.0-15.0); Mean Corp Hgb Conc 32.4 g/dL (32-36); Mean Corpuscular Hgb 31.8 pg (27.0-32.0); Mean Corpuscular Volume 98.1 fL (81-99); Mean Platelet Vol. 9.9 fl (6.2-12.0); Platelet Count 216 K/mm3 (150-450); RBC Distribution Width CV 14.3 % (11.6-14.6); RBC Distribution Width SD 51.2 fl (35.1-43.9); Red Blood Count 2.64 M/mm3 (4.2-5.4); White Blood Count 10.5 K/mm3 (4.4-11.0)
--- NOTE | 2024-12-17 07:29 | PN.HOSP_ITS ---
Reason for Visit Reason for Visit: Diagnoses Periprosthetic fracture around internal prosthetic right knee joint, initial encounter (12/12/24) Unspecified fall due to ice and snow, initial encounter (12/12/24) Subjective Subjective Patient seen hemoglobin continues to improve up to 8.4 following transfusion with 1 unit PRBC. Awaiting insurance precertification [facility] to [facility] Objective Data Objective Data Vital Signs: Vital Signs Temp Pulse Resp BP Pulse Ox O2 Del Method 97.8 F 105 H 16 145/79 H 100 Room Air 12/17/24 03:14 12/17/24 03:14 12/17/24 03:14 12/17/24 03:14 12/17/24 03:14 12/17/24 03:14 Oxygen Delivery Method Room Air Weight: 68.2 kg Body Mass Index (BMI) 23.6 Intake & Output: Intake and Output for Last 24 Hours 12/15/24 12/16/24 12/17/24 23:59 23:59 23:59 Intake Total 856.00 / 1356.00 2300 / 2300 400 / 400 Output Total 160 / 160 Balance 696.00 / 1196.00 2300 / 2300 400 / 400 Lab / Micro Data 12/17/24 06:29 12/17/24 06:29 Labs: Laboratory Results - last 24 hr 12/16/24 09:20: Blood Type O POSITIVE, Antibody Screen NEGATIVE, Crossmatch See Detail 12/17/24 06:29: WBC 10.5, RBC 2.64 L, Hgb 8.4 L, Hct 25.9 L, MCV 98.1, MCH 31.8, MCHC 32.4, RDW Std Deviation 51.2 H, RDW Coeff of Johann 14.3, Plt Count 216, MPV 9.9 Rhythm Strip Rhythm Strip: Sinus Rhythm Rate: 65 Ectopy: None Physical Exam Narrative GENERAL: cooperative HEENT: Atraumatic; normocephalic EYES; Anicteric, Normal Conjunctiva NECK; supple, normal thyroid, RESPIRATORY: Diminished to auscultation CARDIOVASCULAR: Regular S1 S2, GI: soft, normoactive bowel sounds, : No Renal angle tenderness; EXTREMITIES: No edema, no clubbing, MUSCULOSKELETAL: Right knee in surgical dressing NEURO: Awake; no lateralizing signs. SKIN: No Rash PSYCH; Flat affect Assessment & Plan Assessment/Plan (1) Periprosthetic fracture around internal prosthetic right knee joint: QUALIFIERS: Encounter type: initial encounter Qualified Code(s): M97.11XA - Periprosthetic fracture around internal prosthetic right knee joint, initial encounter (2) Fall from slipping on ice: PLAN: Plan Patient is a 69-year-old lady admitted following a fall on ice with resultant right periprosthetic femur fracture 1. Fall with right periprosthetic humeral fracture ? Patient underwent Retrograde intramedullary nailing right distal femur periprosthetic fracture on 12/14/[address] Schulte ? 12/17/2024; pain remains controlled 2. Acute blood loss anemia following surgery ? monitoring H&H and transfuse if patient becomes symptomatic or hemoglobin falls below 7. With patient hemoglobin being6.6 as of 12/16/2024 and order was given for patient to be transfused 1 unit PRBC ? 12/17/2024; hemoglobin up to 8.4 3. Chronic kidney disease stage IIIa ? Kidney function at baseline 4. Chronic congestive heart failure with preserved ejection fraction ? Patient remains euvolemic 5. Hypertension ? Blood pressure controlled, home medications continued with dose adjustment as needed 6. Dyslipidemia ?Patient is on statin therapy, continued at home dose 7. Depression with anxiety ? Patient is on Paxil continue 8. COPD ? Not in exacerbation aerosol treatment as needed 9. Chronic migraines ? Patient is on rizatriptan and Topamax continue 10. DVT prophylaxis ? On enoxaparin Time spent in the patient's overall evaluation,decision-making process, review of diagnostic data, adjustment of management, discussion with other providers, nursing nursing and ancillary staff involved in patient's care documentation, 36 minutes Charges/Coding Visit Charges Inpatient E&M: 89828 Subs Hosp L2
[2024-12-17 07:36] LABS: Anion Gap 4 (5-15); BUN 21 mg/dL (7-18); BUN/Creat Ratio 16.4 RATIO (10-20); Calcium,Total 8.5 mg/dL (8.5-10.1); Chloride 114 mmol/L (98-107); Creatinine, Serum 1.28 mg/dL (0.55-1.02); EST Glomerular Filtration Rate 44 mL/min (>60); Est Glom Filt Rate - Afr Amer 53 mL/min (>60); Estimated Creatinine Clearance 41.47 ml/min; Glucose 102 mg/dL (74-106); Magnesium 1.6 mg/dL (1.6-2.6); Potassium 3.6 mmol/L (3.5-5.1); Sodium Level 143 mmol/L (136-145)
[2024-12-17 08:06] VITALS: BP 139/72; PULSE 110; RESP 14; TEMP 36.7; O2SAT 98
[2024-12-17] MEDS: Cholecalciferol (VIT D3) 25 MCG TABLET (1,000 UNITS) 100 MCG PO (08:08)
[2024-12-17 08:09] VITALS: PULSE 110
[2024-12-17] MEDS: Calcium Carb/Vitamin D 1 TABLET Tablet PO (08:09)
[2024-12-17] MEDS: Metoprolol Tartrate 25 MG Tablet PO (08:09)
[2024-12-17] MEDS: Doxycycline 100 MG CAPSULE PO (08:09)
[2024-12-17] MEDS: Enoxaparin 40 MG/0.4 ML Syringe SC (08:09)
[2024-12-17] MEDS: Potassium Chloride Oral Tablet 10 MEQ PO (08:09)
[2024-12-17] MEDS: Paroxetine 20 MG Tablet 40 MG PO (08:10)
[2024-12-17] MEDS: Topiramate 50 MG Tablet PO (08:10)
[2024-12-17] MEDS: hydroCHLOROthiazide 25 MG Tablet PO (08:11)
[2024-12-17] MEDS: Multivitamins,Ther W-Minerals Tablet 1 TABLET PO (08:11)
[2024-12-17 08:16] LABS: Phosphorus 2.1 mg/dL (2.5-4.9)
--- NOTE | 2024-12-17 09:41 | PCM.DC.SUM ---
Providers Date of Admission: 12/12/24 Date of Discharge: 12/17/24 Primary Care Physician: Dr. Oliva Portillo, DO Consultations 12/12/24 20:07 Consult: Orthopedics Routine Consulting Provider: Cipriano Schulte Reason for Consult: Right distal femoral periprosthetic fracture EMERGENT Consult: No MD Notified: Yes Date Notified: 12/12/24 Time Notified: 18:29 Method of Notification: ED Physician Initiated Reason For Visit: RIGHT KNEE PERIPROSTHETIC DISTAL FEMUR FRACTURE Diagnosis Discharge Diagnosis (1) Periprosthetic fracture around internal prosthetic right knee joint: Status: Acute Code(s): M97.11XA - Periprosthetic fracture around internal prosthetic right knee joint, initial encounter Qualifiers: Encounter type: initial encounter Qualified Code(s): M97.11XA - Periprosthetic fracture around internal prosthetic right knee joint, initial encounter (2) Fall from slipping on ice: Status: Acute Code(s): W00.9XXA - Unspecified fall due to ice and snow, initial encounter Plan Patient is a 69-year-old lady admitted following a fall on ice with resultant right periprosthetic femur fracture 1. Fall with right periprosthetic humeral fracture ? Patient underwent Retrograde intramedullary nailing right distal femur periprosthetic fracture on 12/14/[address] Schulte ? 12/17/2024; pain remains controlled 2. Acute blood loss anemia following surgery ? monitoring H&H and transfuse if patient becomes symptomatic or hemoglobin falls below 7. With patient hemoglobin being6.6 as of 12/16/2024 and order was given for patient to be transfused 1 unit PRBC ? 12/17/2024; hemoglobin up to 8.4 3. Chronic kidney disease stage IIIa ? Kidney function at baseline 4. Chronic congestive heart failure with preserved ejection fraction ? Patient remains euvolemic 5. Hypertension ? Blood pressure controlled, home medications continued with dose adjustment as needed 6. Dyslipidemia ?Patient is on statin therapy, continued at home dose 7. Depression with anxiety ? Patient is on Paxil continue 8. COPD ? Not in exacerbation aerosol treatment as needed 9. Chronic migraines ? Patient is on rizatriptan and Topamax continue 10. DVT prophylaxis ? On enoxaparin Time spent in the patient's overall evaluation,decision-making process, review of diagnostic data, adjustment of management, discussion with other providers, nursing nursing and ancillary staff involved in patient's care documentation, 36 minutes Medications at Discharge Home Medications atorvastatin 40 mg tablet 40 mg PO QHS CHOLESTEROL 02/04/18 cholecalciferol (vitamin D3) 50 mcg (2,000 unit) capsule (Vitamin D3) 4,000 unit PO DAILY SUPPLEMENT 02/04/18 hydrochlorothiazide 25 mg tablet 25 mg PO DAILY BP 02/04/18 metoprolol tartrate 25 mg tablet 25 mg PO DAILY PRN BP 02/04/18 multivitamin-ferrous fumarate-folic acid 18 mg-400 mcg tablet (Centrum) 1 ea PO DAILY SUPPLEMENT 02/04/18 paroxetine HCl 40 mg tablet (Paxil) 40 mg PO DAILY ANTIDEPRESSANT 02/04/18 potassium chloride 8 mEq tablet,extended release (Klor-Con) 8 meq PO DAILY SUPPLEMENT 02/04/18 rizatriptan 10 mg tablet 10 mg PO .X1 PRN MIGRAINES 02/04/18 topiramate 50 mg tablet 50 mg PO DAILY HEADACHES 02/04/18 calcium carbonate-vitamin D3 600 mg-125 unit tablet 1 ea PO DAILY supplement 05/03/20 aspirin 81 mg chewable tablet 81 mg PO DAILY 09/02/22 enoxaparin 40 mg/0.4 mL subcutaneous syringe 40 mg (0.4 mL) subcut DAILY 30 days #12 mL 12/17/24 ferrous sulfate 325 mg (65 mg iron) tablet (Feosol) 325 mg PO DAILY #30 tabs 12/17/24 oxycodone 5 mg tablet 5 mg PO Q4H PRN PRN Pain Score 4-10 #0 tabs 12/17/24 sennosides 8.6 mg-docusate sodium 50 mg tablet (Stimulant Laxative Plus) 2 tab PO BID #0 tabs 12/17/24 trazodone 50 mg tablet 50 mg PO QHS PRN PRN insomnia #0 tabs 12/17/24 Physical Exam Narrative GENERAL: cooperative HEENT: Atraumatic; normocephalic EYES; Anicteric, Normal Conjunctiva NECK; supple, normal thyroid, RESPIRATORY: Diminished to auscultation CARDIOVASCULAR: Regular S1 S2, GI: soft, normoactive bowel sounds, : No Renal angle tenderness; EXTREMITIES: No edema, no clubbing, MUSCULOSKELETAL: Right knee in surgical dressing NEURO: Awake; no lateralizing signs. SKIN: No Rash PSYCH; Flat affect Weight / BMI Weight Weight: 68.2 kg Body Mass Index (BMI) 23.6 ABG / Lab / Microbiology Data 12/17/24 06:29 12/17/24 06:29 Laboratory: Laboratory Results - last 24 hr 12/16/24 09:20: Blood Type O POSITIVE, Antibody Screen NEGATIVE, Crossmatch See Detail 12/17/24 06:29: WBC 10.5, RBC 2.64 L, Hgb 8.4 L, Hct 25.9 L, MCV 98.1, MCH 31.8, MCHC 32.4, RDW Std Deviation 51.2 H, RDW Coeff of Johann 14.3, Plt Count 216, MPV 9.9, Sodium 143, Potassium 3.6, Chloride 114 H, Carbon Dioxide 25.0, Anion Gap 4 L, BUN 21 H, Creatinine 1.28 H, Estim Creat Clear Calc 41.47, Est GFR (MDRD) Af Amer 53 L, Est GFR (MDRD) Non-Af 44 L, BUN/Creatinine Ratio 16.4, Glucose 102, Calcium 8.5, Phosphorus 2.1 L, Magnesium 1.6 D/C Instructions Discharge Diet: No restrictions Discharge Activity: Return to Normal Activity Call your doctor if you observe: Fever of 101 or Higher, Shortness of breath, Fainting spells and Chest pain DC O2, CPAP, BIPAP Needs Home O2 Discharge instructions: No Meaningful Use Info Meaningful Use Meaningful Use Diagnoses (Choose all that apply): None applicable Ischemic Stroke Statin Dosing Therapy Reference: STATIN DOSE THERAPY REFERENCE: * Patients > 75 years receive moderate or high dose statin therapy. * Patients 75 years or YOUNGER should receive HIGH intensity statin dose unless contraindicated. You will be required to document reason for non-treatment if statin daily dose does not meet guidelines. HIGH DOSE STATIN THERAPY DAILY Atorvastatin > than or = to 40 mg Rosuvastatin > than or = to 20 mg Amlodipine + Atorvastatin > than or = to 2.5/40 mg Ezetimibe + Simvastatin 10/80 mg Simvastatin 80mg Discharge Plan Admission Admit Date/Time: 12/12/24 18:28 Attending Provider: Godwin Lino Primary Care Provider: Oliva Portillo Consulting Providers: Ayde Rivera; Cipriano Schulte; Junior Cano Discharge Orders/Prescriptions Prescriptions: New trazodone 50 mg Tablet 50 mg PO QHS PRN PRN (Reason: insomnia) Qty: 0 0RF sennosides-docusate sodium [Stimulant Laxative Plus] 8.6-50 mg Tablet 2 tab PO BID Qty: 0 0RF oxycodone 5 mg Tablet 5 mg PO Q4H PRN PRN (Reason: Pain Score 4-10) Qty: 0 0RF enoxaparin 40 mg/0.4 mL Syringe 40 mg subcut DAILY 30 Days Qty: 12 0RF ferrous sulfate [Feosol] 325 mg (65 mg iron) tablet 325 mg PO DAILY Qty: 30 0RF Continued atorvastatin 40 MG tablet 40 mg PO QHS rizatriptan 10 MG tablet 10 mg PO .X1 PRN potassium chloride [Klor-Con 8] 8 MEQ tablet extended release 8 meq PO DAILY hydrochlorothiazide 25 MG tablet 25 mg PO DAILY paroxetine HCl [Paxil] 40 MG tablet 40 mg PO DAILY metoprolol tartrate 25 MG tablet 25 mg PO DAILY PRN (Reason: BP) topiramate 50 MG tablet 50 mg PO DAILY cholecalciferol (vitamin D3) [Vitamin D3] 2,000 UNIT capsule 4,000 unit PO DAILY Centrum 1 EACH tablet 1 ea PO DAILY calcium carbonate-vitamin D3 1 EACH tablet 1 ea PO DAILY Held aspirin 81 MG tablet,chewable 81 mg PO DAILY Hold Instructions: Resume on 12/31/24. Rx Instructions: Take 81 mg aspirin twice daily for 4 weeks postoperatively for DVT prophylaxis Discontinued hydrocodone-acetaminophen [Vicodin HP] 10-300 mg Tablet 1 tab PO 4X/DAY Referrals / Follow Up: Oliva Portillo DO [Primary Care Provider] - Within 2 Weeks Cipriano Schulte DO [Med Staff - Active Staff] - Within 2 Weeks Disposition Disposition (needs filled in before D/C Order can be placed): Group Home Facility Charges/Coding Visit Charges Inpatient E&M: 32463 Disch Hosp >30min
--- NOTE | 2024-12-17 10:07 | CASEMGMT ---
Social Work Per physician, pt is ready for discharge today. NADJA spoke with Hollie in TCU and TCU can accept pt today. Discharge orders faxed to TCU. Nursing updated that pt can discharge to TCU today. NADJA met with pt and update on dc plan. Pt is agreeable and states she will notify her family. Disposition: TCU, skilled level of care DEANNA Costello
--- NOTE | 2024-12-17 12:32 | PCM.PN.ORT ---
Subjective Subjective Patient is s/p retrograde intramedullary nail right distal femur periprosthetic fracture with Dr. Schulte 12/14/2024. Patient resting comfortably in bed. Rates pain 3/ 10 at rest. With movement 6 /10. States taking tylenol and oxycodone and ice help to relieve pain. Patient has been up with therapy. Walking with the assit of a walker. she is toe touch WB. Knee immobilizer in place. Afebrile, no chest pain, shortness of breath, negative calf pain/ erythema, and no other signs of DVT. patient did receive blood transfusion yesterday for another drop in her H/H. down to 6.6. today patient's Hgb did stabilize at 8.4. patient's dressing was changed yesterday. it is c/d/i today has nt been changed since . Objective Data Objective Data Vital Signs: Vital Signs Temp Pulse Resp BP Pulse Ox O2 Del Method 98.0 F 110 H 14 139/72 H 98 Room Air 12/17/24 08:06 12/17/24 08:09 12/17/24 08:06 12/17/24 08:06 12/17/24 08:06 12/17/24 08:06 Oxygen Delivery Method Room Air Weight: 68.2 kg Body Mass Index (BMI) 23.6 Intake & Output: Intake and Output for Last 24 Hours 12/15/24 12/16/24 12/17/24 23:59 23:59 23:59 Intake Total 856.00 / 1356.00 2300 / 2300 400 / 400 Output Total 160 / 160 Balance 696.00 / 1196.00 2300 / 2300 400 / 400 Lab / Micro Data 12/17/24 06:29 12/17/24 06:29 Labs: Laboratory Results - last 24 hr 12/16/24 09:20: Crossmatch See Detail 12/17/24 06:29: WBC 10.5, RBC 2.64 L, Hgb 8.4 L, Hct 25.9 L, MCV 98.1, MCH 31.8, MCHC 32.4, RDW Std Deviation 51.2 H, RDW Coeff of Johann 14.3, Plt Count 216, MPV 9.9, Sodium 143, Potassium 3.6, Chloride 114 H, Carbon Dioxide 25.0, Anion Gap 4 L, BUN 21 H, Creatinine 1.28 H, Estim Creat Clear Calc 41.47, Est GFR (MDRD) Af Amer 53 L, Est GFR (MDRD) Non-Af 44 L, BUN/Creatinine Ratio 16.4, Glucose 102, Calcium 8.5, Phosphorus 2.1 L, Magnesium 1.6 Rhythm Strip Rhythm Strip: Sinus Rhythm Rate: 65 Ectopy: None Physical Exam Narrative patient resting comfortably in bed No signs of acute distress Satting well on room air KI inplace. Limb is warm to touch, Sensation intact throughout entire lower extremity, including saphenous, sural, superficial and deep peroneal, and tibial distribution. DP/PT pulses bounding. Dorsiflexion plantarflexion strength 5/5 Dressing no furher drainage. c/d/i Calf nontender to palpation, no erythema, no edema. Negative Homans Assessment & Plan Assessment/Plan (1) Periprosthetic fracture around internal prosthetic right knee joint: QUALIFIERS: Encounter type: initial encounter Qualified Code(s): M97.11XA - Periprosthetic fracture around internal prosthetic right knee joint, initial encounter PLAN: Plan POD 3 s/p retrograde intramedullary nail right distal femur periprosthetic fracture with Dr. Schulte 12/14/2024 1. Will continue PT today. Toe-touch weightbearing. Knee immobilizer on at all times however okay to be removed in a controlled setting by PT to work on quadricep strength and ROM motion up to 20 degrees of flexion. 2. plan for discharge per primary team. cleared from an orthopaedic standpoint 3. Patient will follow up for post op appointment in 2 weeks. this will need to be arranged. 4. leukocytosis resolved. 5. Hgb 8.4 today : Patient is slightly tachycardic. Further monitoring and intervention per medicine. appears to stablilize today 6. DVT prophylaxis : continue Lovenox 40 mg subcutaneous daily for at least 4 weeks. If she continues limited weightbearing status may continue up to 6 weeks. 7. Pain control: patient instructed to take tylenol 500mg 2 tablets TID. and oxycodone 1-2 tablets every 4-6 hours only as needed for pain control. 8. Doxycycline 100 mg twice daily x 1 week for extended antibiotic prophylaxis. patient completed ancef 12/15/24 9. ok to remove post op dressing. post op day 5. dressing changed today, will continue to monitor. 10. appears patient medically cleared for discharge. will sign off at this time.
[2024-12-17] MEDS: Na Biphos/Potassium Phosphate PACKET 1 PACKET PO (12:51)
== END 2024-12-17 13:15 | disposition skilled nursing facility (03) | DRG 481 ==
LOC: ED 17:41 → MS3 18:54
PROVIDERS: Internal Medicine; Student in an Organized Health Care Education/Training Program; Admitting Provider Internal Medicine; Emergency Provider Emergency Medicine; Visit Provider Internal Medicine
PROC: 0QSB36Z Reposition Right Lower Femur with Intramedullary Internal Fixation Device, Percutaneous Approach (ICD-10-PCS; CPT 27245; principal; 2024-12-14 14:35)
DX: M97.11XA Periprosthetic fracture around internal prosthetic right knee joint, initial encounter (principal); I13.0 Hypertensive heart and chronic kidney disease with heart failure and stage 1 through stage 4 chronic kidney disease, or unspecified chronic kidney disease; D62 Acute posthemorrhagic anemia; I50.32 Chronic diastolic (congestive) heart failure; N18.31 Chronic kidney disease, stage 3a; J44.9 Chronic obstructive pulmonary disease, unspecified; F17.210 Nicotine dependence, cigarettes, uncomplicated; M19.90 Unspecified osteoarthritis, unspecified site; S89.91XA Unspecified injury of right lower leg, initial encounter; G43.709 Chronic migraine without aura, not intractable, without status migrainosus; F41.8 Other specified anxiety disorders; W00.9XXA Unspecified fall due to ice and snow, initial encounter; E78.5 Hyperlipidemia, unspecified; Z79.1 Long term (current) use of non-steroidal anti-inflammatories (NSAID); Z79.82 Long term (current) use of aspirin; Z79.01 Long term (current) use of anticoagulants
CPT/HCPCS: 36415; 71045; 73552; 73560; 73700; 76000; 80048; 80053; 83735; 84100; 85014; 85018; 85025; 85027; 85610; 86850; 86900; 86901; 93005; 94668; 97162; 97166; 97530; 97535; 99285; 99406; C1713; P9016; A4216; J2405; J2916

== ENCOUNTER 2024-12-17 13:30 | Inpatient (IN) | payer MEDICARE, BC, SELFPAY ==
[2024-12-17 14:01] VITALS: BP 127/64; PULSE 104; RESP 16; TEMP 36.6; O2SAT 99
[2024-12-17 14:23] VITALS: BMI 22.7
--- NOTE | 2024-12-17 14:57 | HP.PCM_ITS ---
HPI - General General Date of Admission: 12/17/24 Date of Service: 12/17/24 Chief Complaint: Here fore rehabilitation. HPI Narrative EDER SCHAEFFER, is a 69 Female who presents with followin12/12/2024 [facility] ED fall. Slipping, falling on ice, twisting right knee, unable to move right knee. History bilateral TKA, History right YASMANI. X-ray showed right knee displaced periprosthetic right distal femur fracture. CT right knee, EKG, Chest X-ray ordered. 12/12/2024 Admit [facility]. NWB, prepare for surgery, lovelace catheter, pain control for right periprosthetic femur fracture. Hold hydrochlorothiazide. 12/13/2024 Right knee immobilizer. Prepare for surgery. 12/14/2024 Right knee pain, Hemoglobin 10. 12/14/2024 Dr. Schulte performed retrograde intramedullary nailing right distal femur periprosthetic fracture. 12/15/2024 Hemoglobin 7.9. No transfusion required, IV iron given. Metoprolol for HFpEF. 12/15/2024 PT, TTWB right lower extremity, right knee immobilizer. WBC 12.7, reactive. Lovenox 40mg sc daily x 4 weeks DVT prophylaxis. Tylenol, Oxycodone for pain. Doxycycline 100mg bid for 1 week prophylaxis. 12/16/2024 Hemoglobin 6.6, transfuse 1 unit PRBC. 12/17/2024 Admit to TCU with debility, here for rehabilitation, strengthening, p rior to discharge home with family. [facility] Medical History (Updated 12/17/24 @ 15:[address] Rik Monaco MD) Wears glasses Post-menopausal Anxiety Depression Arthritis High cholesterol Back pain Injury of head and neck Migraine headache Syncope History of ulceration Smoker History of pain when walking Hypertension History of renal disease History of stress test Cardiology follow-up encounter MVP (mitral valve prolapse) Heart murmur Hx of pilonidal cyst Home Medications ?Medication ?Instructions ?Recorded ?Last Taken ?Type atorvastatin 40 mg tablet 40 mg PO QHS CHOLESTEROL 02/04/18 Unknown History cholecalciferol (vitamin D3) 50 4,000 unit PO DAILY SUPPLEMENT 02/04/18 Unknown History mcg (2,000 unit) capsule (Vitamin D3) hydrochlorothiazide 25 mg tablet 25 mg PO DAILY BP 02/04/18 Unknown History metoprolol tartrate 25 mg tablet 25 mg PO DAILY PRN BP 02/04/18 09/11/22 11:00 History multivitamin-ferrous 1 ea PO DAILY SUPPLEMENT 02/04/18 Unknown History fumarate-folic acid 18 mg-400 mcg tablet (Centrum) paroxetine HCl 40 mg tablet (Paxil) 40 mg PO DAILY ANTIDEPRESSANT 02/04/18 Unknown History potassium chloride 8 mEq 8 meq PO DAILY SUPPLEMENT 02/04/18 Unknown History tablet,extended release (Klor-Con) rizatriptan 10 mg tablet 10 mg PO .X1 PRN MIGRAINES 02/04/18 12/14/24 History topiramate 50 mg tablet 50 mg PO DAILY HEADACHES 02/04/18 05/10/20 07:30 History calcium carbonate-vitamin D3 600 1 ea PO DAILY supplement 05/03/20 Unknown History mg-125 unit tablet aspirin 81 mg chewable tablet 81 mg PO DAILY heart health 09/02/22 Unknown History enoxaparin 40 mg/0.4 mL 40 mg (0.4 mL) subcut DAILY blood 12/17/24 Unknown Rx subcutaneous syringe thinner 30 days #12 mL ferrous sulfate 325 mg (65 mg 325 mg PO DAILY iron #30 tabs 12/17/24 Unknown Rx iron) tablet (Feosol) oxycodone 5 mg tablet 5 mg PO Q4H PRN PRN Pain Score 12/17/24 Unknown Rx 4-10 #0 tabs potassium, sodium phosphates 280 1 packet PO BID phosphorus supp 12/17/24 Unknown Rx mg-160 mg-250 mg oral powder packet #30 ea sennosides 8.6 mg-docusate sodium 2 tab PO BID bowels #0 tabs 12/17/24 Unknown Rx 50 mg tablet (Stimulant Laxative Plus) trazodone 50 mg tablet 50 mg PO QHS PRN PRN insomnia #0 12/17/24 Unknown Rx tabs Allergy/AdvReac Type Severity Reaction Status Date / Time NSAIDS (Non-Steroidal Allergy Anaphylaxis Verified 09/11/22 13:04 Anti-Inflamma Family History Other COPD (chronic obstructive pulmonary disease) Surgical History History of meniscectomy of right knee Hx laparoscopic cholecystectomy Hx of removal of ovary Hx of bilateral hip replacements Hx of total knee arthroplasty Hx of right knee surgery Hx of total knee arthroplasty Social History household members: family housing: house Smoking Status: Current every day smoker tobacco type: cigarettes alcohol intake: never substance use type: does not use ROS Constitutional Constitutional: Reports weakness; Denies chills, fever(s) or weight gain ENT HEENT: Denies headache(s), nasal congestion or nasal discharge Cardiovascular Cardiovascular: Denies chest pain or palpitations Respiratory/Chest Respiratory/Chest: Denies cough, excessive phlegm production or shortness of breath with exertion Gastrointestinal Gastrointestinal: Denies abdominal pain, nausea or vomiting Genitourinary Genitourinary: Denies dysuria Musculoskeletal Musculoskeletal: Reports joint pain; Denies joint swelling Integumentary Integumentary: Denies rash or wounds Neurologic Neurologic: Denies focal weakness, numbness or tingling Psychiatric Psychiatric: Denies anxiety, auditory hallucinations, depression, homicidal idea tion or suicidal ideation Vital Signs Vital Signs Vital Signs: 12/17/24 14:01 Temperature 97.8 F Temperature Source Temporal Pulse Rate 104 H Respiratory Rate 16 Blood Pressure 127/64 H Blood Pressure Mean 85 Blood Pressure Source Monitor Blood Pressure Position Semi-Fowlers Blood Pressure Location Right Arm Pulse Ox 99 Oxygen Delivery Method Room Air Weight Weight: 65.952 kg Body Mass Index (BMI) 22.7 Physical Exam Const alert General Appearance: cooperative HEENT normocephalic Eyes PERRL and EOMs intact bilaterally Neck supple, no JVD and no carotid bruits Resp normal respiratory effort, normal air movement and clear to auscultation bilaterally Cardio regular rate and regular rhythm GI normal to inspection, nondistended, normoactive bowel sounds, non-tender and non-distended Extremity normal capillary refill Extremity Narrative: Right knee dressed, FELISA wrapped, immobilizer. General Extremity: Negative for edema Skin no rashes or lesions noted General Skin Exam: no breakdown Psych affect normal Appearance: appropriate Assessment & Plan Assessment/Plan (1) Debility: (2) Periprosthetic fracture around internal prosthetic right knee joint: QUALIFIERS: Encounter type: initial encounter Qualified Code(s): M97.11XA - Periprosthetic fracture around internal prosthetic right knee joint, initial encounter (3) Hyperlipidemia, unspecified: (4) Vitamin D deficiency: (5) Essential (primary) hypertension: (6) Depression: (7) Chronic heart failure with preserved ejection fraction (HFpEF): (8) Migraine headache: PLAN: Plan 69 year old female with below past medical hospitalized for right periprosthetic distal femur fracture, underwent retrograde intramedullary nailing right femur 12/14/[address] Schulte, postoperative course complicated by acute blood loss anemia requiring transfusion, admitted to TCU with debility, here for rehabilitation, strengthening, prior to discharge home with family. * Debility - PT/OT. * Pain - Tylenol 1000mg q6 prn pain (1-3), Oxycodone 5mg q4 prn pain (4-10). * Bowel - senna/colace 2 tablets bid. * Adult immunization - Administer pneumonia vaccine, covid vaccine, flu vaccine as appropriate. * DVT prophylaxis - Lovenox 40mg sc daily thru 12/30/2024, then Aspirin 81mg bid thru 01/30/2025. * Hyperlipidemia - Atorvastatin 40mg qhs. * Calcium deficiency - Calcium D 1 tablet daily. * Iron deficiency anemia - s/p iv iron, s/p 1 unit prbc, Ferrous sulfate 325mg daily. * Hypertension - Metoprolol 25mg daily, HCTZ 25mg daily. * Nutrition - MVI 1 tablet daily. * Hypophosphatemia - K-Phos 1 packet bid. * Tobacco abuse - Nicoderm 21mg 1 patch td daily. * Depression - Paroxetine 40mg daily, stable chronic usp use, GDR not recommended. * Hypokalemia - KCL 10meq daily. * Migraine headaches - Topamax 50mg daily, Maxalt 10mg daily prn. * Insomnia - Trazodone 50mg qhs prn, stable chronic usp use, GDR not recommended.
[2024-12-17] MEDS: Rizatriptan Benzoate 10 MG Tablet PO (15:06)
[2024-12-17 15:10] VITALS: PULSE 104; RESP 16; O2SAT 97
[2024-12-17] MEDS: oxyCODONE 5 MG Tablet PO ×2 (16:14→21:03)
[2024-12-17] MEDS: HYDROmorphone 0.5 MG/0.5 ML SYRINGE IV ×2 (18:09→23:42)
[2024-12-17] MEDS: 0.9% Saline Lock 10 ML Syringe IV (18:09)
[2024-12-17] MEDS: Doxycycline 100 MG CAPSULE PO (21:05)
[2024-12-17] MEDS: Senna/Docusate Sodium 1 Tablet 2 TABLET PO (21:05)
[2024-12-17] MEDS: Atorvastatin Calcium 40 MG Tablet PO (21:05)
[2024-12-17] MEDS: Na Biphos/Potassium Phosphate PACKET 1 PACKET PO (21:06)
[2024-12-17] MEDS: traZODone 50 MG Tablet PO (21:11)
[2024-12-18] MEDS: oxyCODONE 5 MG Tablet PO ×4 (04:30→19:26)
[2024-12-18 06:01] LABS: Absolute Lymphocyte Count 1.88 X10^3/uL (0.83-4.51); Absolute Neutrophil Count 6.4 X10^3/uL (2.0-7.7); Basophil# 0.06 X10^3/uL; Basophil% 0.6 % (0-1); Eosinophil# 0.62 X10^3/uL; Eosinophils% 6.2 % (0-5); Hematocrit 26.6 % (37-47); Hemoglobin 8.5 g/dL (12.0-15.0); Lymphocyte # 1.88 X10^3/ul (0.83-4.51); Lymphocyte % 18.8 % (19-41); Mean Corpuscular Hgb 31.7 pg (27.0-32.0); Mean Corpuscular Volume 99.3 fL (81-99); Mean Platelet Vol. 9.7 fl (6.2-12.0); Monocyte# 0.92 X10^3/uL; Monocyte% 9.2 % (0-10); NRBC Flagged by Analyzer 0 % (0-5); Neutrophil # 6.39 X10^3/uL (2.7-7.7); Platelet Count 250 K/mm3 (150-450); RBC Distribution Width CV 14.1 % (11.6-14.6); RBC Distribution Width SD 51.1 fl (35.1-43.9); Red Blood Count 2.68 M/mm3 (4.2-5.4)
[2024-12-18 07:03] LABS: Anion Gap 8 (5-15); BUN 19 mg/dL (7-18); BUN/Creat Ratio 15.7 RATIO (10-20); Calcium,Total 8.7 mg/dL (8.5-10.1); Chloride 108 mmol/L (98-107); Creatinine, Serum 1.21 mg/dL (0.55-1.02); EST Glomerular Filtration Rate 47 mL/min (>60); Est Glom Filt Rate - Afr Amer 57 mL/min (>60); Estimated Creatinine Clearance 43.87 ml/min; Glucose 106 mg/dL (74-106); Potassium 3.5 mmol/L (3.5-5.1); Sodium Level 140 mmol/L (136-145)
[2024-12-18 08:42] VITALS: BP 94/73; PULSE 117; RESP 16; TEMP 37.1; O2SAT 99
[2024-12-18] MEDS: Doxycycline 100 MG CAPSULE PO ×2 (09:47→19:26)
[2024-12-18 09:48] VITALS: BP 103/66; PULSE 121
[2024-12-18] MEDS: Na Biphos/Potassium Phosphate PACKET 1 PACKET PO ×2 (09:48→19:26)
[2024-12-18] MEDS: Potassium Chloride Oral Tablet 10 MEQ PO (09:48)
[2024-12-18] MEDS: Metoprolol Tartrate 25 MG Tablet PO (09:48)
[2024-12-18] MEDS: Enoxaparin 40 MG/0.4 ML Syringe SC (09:48)
[2024-12-18] MEDS: Multivitamins,Ther W-Minerals Tablet 1 TABLET PO (09:48)
[2024-12-18] MEDS: Senna/Docusate Sodium 1 Tablet 2 TABLET PO ×2 (09:49→19:25)
[2024-12-18] MEDS: Paroxetine 20 MG Tablet 40 MG PO (09:49)
[2024-12-18] MEDS: Calcium Carb/Vitamin D 1 TABLET Tablet PO (09:49)
[2024-12-18] MEDS: Topiramate 50 MG Tablet PO (09:49)
[2024-12-18] MEDS: Tuberculin,Purif.prot.deriv. 50 TU/ML Vial 0.1 ML ID (10:59)
[2024-12-18] MEDS: Rizatriptan Benzoate 10 MG Tablet PO (11:01)
--- NOTE | 2024-12-18 11:51 | PCM.PN.DRR ---
Documented by User: Lenin Young 12/18/24 12:22 TCU RX Drug Regimen Review Subjective/Objective Subjective/Objective Subjective: TCU admission note.69 year old female with below past medical hospitalized for right periprosthetic distal femur fracture, underwent retrograde intramedullary nailing right femur 12/14/[address] Schulte, postoperative course complicated by acute blood loss anemia requiring transfusion, admitted to TCU with debility, here for rehabilitation, strengthening, prior to discharge home with family. Objective: Allergies NSAIDS (Non-Steroidal Anti-Inflamma Allergy (Verified 09/11/22 13:04) Anaphylaxis Current Medications Generic Name Dose Route Start Last Admin Trade Name Freq PRN Reason Stop Dose Admin Acetaminophen 1,000 mg 12/17/24 15:10 Acetaminophen 500 Mg Tablet PO Q6H PRN PRN Pain Score 1-3 Aspirin 81 mg 12/31/24 10:00 Aspirin 81 Mg Tab.Chew PO 01/30/25 10:01 BID INO Atorvastatin Calcium 40 mg 12/17/24 22:00 12/17/24 21:05 Atorvastatin Calcium 40 Mg Tablet PO 40 mg QHS INO Administration Calcium/Vitamin D 1 tablet 12/18/24 10:00 12/18/24 09:49 Calcium Carb/Vitamin D 1 Tablet Tablet PO 1 tablet DAILY INO Administration Doxycycline Monohydrate 100 mg 12/17/24 15:40 12/18/24 09:47 Doxycycline 100 Mg Capsule PO 12/24/24 15:41 100 mg BID INO Administration Enoxaparin Sodium 40 mg 12/18/24 10:00 12/18/24 09:48 Enoxaparin 40 Mg/0.4 Ml Syringe SC 12/30/24 23:59 40 mg DAILY INO Administration Ferrous Sulfate 325 mg 12/18/24 12:00 Ferrous Sulfate 325 Mg Tablet PO DAILY@1200 [facility] Hydrochlorothiazide 25 mg 12/18/24 10:00 12/18/24 09:48 Hydrochlorothiazide 25 Mg Tablet PO Not Given DAILY [facility] Protocol Hydromorphone HCl 0.5 mg 12/17/24 17:49 12/17/24 23:42 Hydromorphone 0.5 Mg/0.5 Ml Syringe IV 0.5 mg Q3H PRN PRN Administration Pain Score 6-10 or Pre PT/OT Metoprolol Tartrate 25 mg 12/18/24 10:00 12/18/24 09:48 Metoprolol Tartrate 25 Mg Tablet PO 25 mg DAILY INO Administration Protocol Multivitamins/Minerals 1 tablet 12/18/24 10:00 12/18/24 09:48 Multivitamins,Ther W-Minerals Tablet PO 1 tablet DAILY INO Administration Nicotine 21 mg 12/18/24 10:00 12/18/24 09:48 Nicotine 21 Mg Patch TD 21 mg DAILY INO Administration Oxycodone HCl 5 mg 12/17/24 13:52 12/18/24 08:44 Oxycodone 5 Mg Tablet PO 5 mg Q4H PRN PRN Administration Pain Score 4-10 Paroxetine HCl 40 mg 12/17/24 15:00 12/18/24 09:49 Paroxetine 20 Mg Tablet PO 40 mg DAILY INO Administration Potassium Chloride 10 meq 12/17/24 15:00 12/18/24 09:48 Potassium Chloride Oral Tablet 10 Meq PO 10 meq DAILY INO Administration Potassium Phos/Sodium Phos 1 packet 12/17/24 22:00 12/18/24 09:48 Na Biphos/Potassium Phosphate Packet PO 1 packet BID INO Administration Rizatriptan Benzoate 10 mg 12/17/24 15:11 12/18/24 11:01 Rizatriptan Benzoate 10 Mg Tablet PO 10 mg DAILY PRN Administration MIGRAINE SYMPTOMS Senna/Docusate Sodium 2 tablet 12/17/24 22:00 12/18/24 09:49 Senna/Docusate Sodium 1 Tablet PO 2 tablet BID INO Administration Sodium Chloride 10 - 40 ml 12/17/24 14:34 12/17/24 18:09 0.9% Saline Lock 10 Ml Syringe IV 10 ml UD PRN Administration SALINE FLUSH Topiramate 50 mg 12/18/24 10:00 12/18/24 09:49 Topiramate 50 Mg Tablet PO 50 mg DAILY INO Administration Trazodone HCl 50 mg 12/17/24 13:52 12/17/24 21:11 Trazodone 50 Mg Tablet PO 50 mg QHS PRN PRN Administration insomnia Tuberculin PPD 0.1 ml 12/25/24 10:00 Tuberculin,Purif.Prot.Deriv. 50 Tu/Ml Vial ID 12/25/24 10:01 X1 ONE Problem List Chronic heart failure with preserved ejection fraction (HFpEF) (Acute) Migraine headache (Acute) Depression (Acute) Essential (primary) hypertension (Acute) Vitamin D deficiency (Acute) Hyperlipidemia, unspecified (Acute) Debility (Acute) Periprosthetic fracture around internal prosthetic right knee joint (Acute) Vital Signs Temp Pulse Resp BP Pulse Ox O2 Del Method 98.7 F 121 H 16 103/66 99 Room Air 12/18/24 08:42 12/18/24 09:48 12/18/24 08:42 12/18/24 09:48 12/18/24 08:42 12/18/24 08:42 Oxygen Delivery Method Room Air Weight: 65.952 kg Body Mass Index (BMI) 22.7 Sodium 140 mmol/L (136-145) 12/18/24 05:17 Potassium 3.5 mmol/L (3.5-5.1) 12/18/24 05:17 Chloride 108 mmol/L (98-107) H 12/18/24 05:17 Carbon Dioxide 25.0 mmol/L (21.0-32.0) 12/18/24 05:17 Anion Gap 8 (5-15) 12/18/24 05:17 BUN 19 mg/dL (7-18) H 12/18/24 05:17 Creatinine 1.21 mg/dL (0.55-1.02) H 12/18/24 05:17 Est GFR (MDRD) Af Amer 57 mL/min (>60) L 12/18/24 05:17 Est GFR (MDRD) Non-Af 47 mL/min (>60) L 12/18/24 05:17 BUN/Creatinine Ratio 15.7 RATIO (10-20) 12/18/24 05:17 Glucose 106 mg/dL (74-106) 12/18/24 05:17 Assessment/Plan: 1. Pain: acetaminophen 1000 mg PO Q6H PRN pain (1-3), oxycodone 5 mg PO Q4H PRN pain (4-10), hydromorphone 0.5 mg Q3H PRN pain (6-10). The patient has used 0 PRN doses of acetaminophen, 4 PRN doses of oxycodone, and 2 PRN doses of hydromorphone so far this admission. Please continue to monitor pain levels, PRN medication usage, LFTs (AST/ALT = 12/15 U/L on 12/13/24), for constipation, respiratory depression, dizziness, drowsiness, and syncope/ataxia/falls. It appears the patient is continuing to need PRN medications for pain. Please consider scheduling acetaminophen 1000 mg PO Q8H to try to stay ahead of pain to reduce PRN medication usage/need. 2. Bowel: senna/docusate 2 tablets PO BID. Please continue to monitor for bowel movements (last = 12/17/24), constipation and diarrhea. 3. DVT prophylaxis: enoxaparin 40 mg SC daily through 12/30/24, then aspirin 81 mg PO BID through 01/30/25. Please continue to monitor for s/s of a DVT such as pain/erythema/swelling in an extremity, renal function (serum creatinine = 1.21 mg/dL with creatinine clearance ~ 44 mL/min on 12/18/24), hemoglobin levels (Hgb = 8.5 g/dL on 12/18/24), platelet count (Plt = 250 K/mm3 on 12/18/24), and for s/s of bleeding/excessive bruising. 4. Antibiotic prophylaxis (per ortho note): doxycycline 100 mg PO BID through 12/24/24. Please continue to monitor for s/s of a infection at the surgical site including redness, swelling and discharge, as well as WBC counts (WBC = 10.0 K/mm3 on 12/18/24), and for GI distress and photosensitivity with doxycycline administration. 5. Hypertension: metoprolol tartrate 25 mg Po BID, hydrochlorothiazide 25 mg PO daily. Please continue to monitor heart rates (recent range = 93-121 beats/min), blood pressures (recent range = 94-145/62-79 mmHg), for fatigue, renal function (serum creatinine = 1.21 mg/dL with creatinine clearance ~ 44 mL/min on 12/18/24), potassium levels (K = 3.5 mmol/L on 12/18/24), sodium levels (Na = 140 mmol/L on 12/18/24), and for s/s of dehydration. 6. Iron deficiency anemia: ferrous sulfate 325 mg PO daily. Please continue to monitor iron levels (iron = 72 ug/dL on 09/15/24), and hemoglobin levels (Hgb = 8.5 g/dL on 12/18/24). 7. Hyperlipidemia: atorvastatin 40 mg PO QHS. Please continue to monitor lipid levels (cholesterol = 157 mg/dL with LDL = 72 mg/dL on 03/22/24), LFTs (AST/ALT = 12/15 U/L on 12/13/24), and for myalgias. 8. Migraine headaches: topiramate 50 mg PO daily, rizatriptan 10 mg PO daily PRN migraine. The patient has not required any PRN doses of rizatriptan so far this admission. Please continue to monitor for migraine headaches, PRN medication usage, serum bicarb (CO2 = 25.0 mmol/L on 12/18/24), abdominal pain, dizziness, drowsiness, and fatigue. 9. Hypokalemia/calcium deficiency/hypophosphatemia: calcium carbonate/vitamin D 1 tablet PO daily, sodium biphos/potassium phosphates 1 packet PO BID, potassium chloride 10 mEq PO daily. Please continue to monitor calcium levels (Ca = 8.7 mg/dL on 12/18/24), phosphorus levels (Phos = 2.1 mg/dL on 12/17/24), and potassium levels (K = 3.5 mmol/L on 12/18/24). 10. Tobacco abuse: nicotine patch 21 mg 1 patch TD daily. Please continue to monitor for nicotine cravings, irritation at patch site, and nightmares. 11. Nutrition: multivitamin 1 tablet PO daily. Please continue to monitor overall nutritional status. Assessment/Plan for indications treated with psychotropic medications: 1. Depression: paroxetine 40 mg Po daily. Please see provider note regarding stable chronic long-term therapy GDR not recommended. Please continue to monitor for depression, SI, s/s of serotonin syndrome, sodium levels (Na = 140 mmol/L on 12/18/24), diaphoresis, and diarrhea/nausea/dry mouth. 2. Insomnia: trazodone 50 mg PO QHS PRN insomnia. Please see provider note regarding stable chronic long-term use GDR not recommended. The patient has not required any PRN doses of trazodone so far this admission. Please continue to monitor for insomnia, PRN medication administration, nausea/vomiting, dry mouth, dizziness, drowsiness, fatigue, and nervousness. Medical chart and medication regimen reviewed. The following medication irregularities or issues were identified: 1. Pain: acetaminophen 1000 mg PO Q6H PRN pain (1-3), oxycodone 5 mg PO Q4H PRN pain (4-10), hydromorphone 0.5 mg Q3H PRN pain (6-10). TIt appears the patient is continuing to need PRN medications for pain. Please consider scheduling acetaminophen 1000 mg PO Q8H to try to stay ahead of pain to reduce PRN medication usage/need. Date Date of Note: 12/18/24 Documented by User: Dr. Rik Monaco MD 12/19/24 07:01 TCU RX Drug Regimen Review Provider Comments Provider responsibility Provider Comments to Recommendations by Pharmacy Agree
[2024-12-18] MEDS: HYDROmorphone 0.5 MG/0.5 ML SYRINGE IV ×3 (12:24→21:54)
[2024-12-18] MEDS: 0.9% Saline Lock 10 ML Syringe IV (12:25)
[2024-12-18] MEDS: Ferrous Sulfate 325 MG Tablet PO (12:25)
[2024-12-18] MEDS: Atorvastatin Calcium 40 MG Tablet PO (19:26)
[2024-12-18 20:21] VITALS: PULSE 110; RESP 16; O2SAT 98
[2024-12-19] MEDS: 0.9% Saline Lock 10 ML Syringe IV ×2 (01:26→15:46)
[2024-12-19] MEDS: HYDROmorphone 0.5 MG/0.5 ML SYRINGE IV ×2 (01:26→15:46)
[2024-12-19] MEDS: oxyCODONE 5 MG Tablet PO ×3 (08:47→20:40)
[2024-12-19 10:45] VITALS: PULSE 127
[2024-12-19] MEDS: Metoprolol Tartrate 25 MG Tablet PO (10:45)
[2024-12-19] MEDS: Doxycycline 100 MG CAPSULE PO ×2 (10:45→20:42)
[2024-12-19] MEDS: Potassium Chloride Oral Tablet 10 MEQ PO (10:45)
[2024-12-19] MEDS: Na Biphos/Potassium Phosphate PACKET 1 PACKET PO ×2 (10:46→20:42)
[2024-12-19] MEDS: Calcium Carb/Vitamin D 1 TABLET Tablet PO (10:46)
[2024-12-19] MEDS: Multivitamins,Ther W-Minerals Tablet 1 TABLET PO (10:46)
[2024-12-19] MEDS: Paroxetine 20 MG Tablet 40 MG PO (10:46)
[2024-12-19] MEDS: Enoxaparin 40 MG/0.4 ML Syringe SC (10:46)
[2024-12-19] MEDS: Topiramate 50 MG Tablet PO (10:46)
[2024-12-19] MEDS: Senna/Docusate Sodium 1 Tablet 2 TABLET PO (10:46)
[2024-12-19 11:56] VITALS: BP 110/77; PULSE 127; RESP 16; TEMP 36.4; O2SAT 98
[2024-12-19] MEDS: Acetaminophen 500 MG Tablet 1000 MG PO ×2 (13:08→20:41)
[2024-12-19] MEDS: Ferrous Sulfate 325 MG Tablet PO (13:08)
[2024-12-19] MEDS: Rizatriptan Benzoate 10 MG Tablet PO (15:31)
[2024-12-19] MEDS: Atorvastatin Calcium 40 MG Tablet PO (20:42)
[2024-12-19] MEDS: traZODone 50 MG Tablet PO (23:19)
[2024-12-20] MEDS: oxyCODONE 5 MG Tablet PO ×5 (02:20→21:01)
[2024-12-20] MEDS: 0.9% Saline Lock 10 ML Syringe IV (02:21)
[2024-12-20] MEDS: Acetaminophen 500 MG Tablet 1000 MG PO ×3 (05:15→21:05)
[2024-12-20 05:51] LABS: Hematocrit 25.2 % (37-47); Hemoglobin 8.2 g/dL (12.0-15.0)
[2024-12-20 06:19] LABS: Phosphorus 3.7 mg/dL (2.5-4.9)
[2024-12-20] MEDS: Doxycycline 100 MG CAPSULE PO ×2 (07:51→21:02)
[2024-12-20] MEDS: Potassium Chloride Oral Tablet 10 MEQ PO (07:51)
[2024-12-20 07:52] VITALS: BP 110/66; PULSE 100
[2024-12-20] MEDS: Enoxaparin 40 MG/0.4 ML Syringe SC (07:52)
[2024-12-20] MEDS: Metoprolol Tartrate 25 MG Tablet PO (07:52)
[2024-12-20] MEDS: Multivitamins,Ther W-Minerals Tablet 1 TABLET PO (07:53)
[2024-12-20] MEDS: Calcium Carb/Vitamin D 1 TABLET Tablet PO (07:53)
[2024-12-20] MEDS: Topiramate 50 MG Tablet PO (07:54)
[2024-12-20] MEDS: Paroxetine 20 MG Tablet 40 MG PO (07:54)
[2024-12-20] MEDS: Senna/Docusate Sodium 1 Tablet 2 TABLET PO ×2 (07:55→21:03)
--- NOTE | 2024-12-20 11:09 | NURSING ---
Head Start Teacher Note; Activity Asset: Ruma Benitez is independent in her choice of daily activities. She will read, watch tv and asked for sudoku from activity staff. She prefers independent activities in her room over group. [facility] will visits and she welcomes visits from our stamping machine operator and therapy dog when available. Staff will reminder her of weekly activities and respect her right to say no.
--- NOTE | 2024-12-20 11:15 | NURSING ---
Spoke with medical staff with Dr. Schulte's office regarding patient wanting to speak with Dr. Schulte. Patient denies concerns about surgery but just wants to talk to him in general because she did not see him after surgery. Dr. Schulte's office states he will call her on room number in TCU. Patient made aware.
[2024-12-20] MEDS: Ferrous Sulfate 325 MG Tablet PO (12:57)
[2024-12-20 16:00] VITALS: BP 96/64; PULSE 98; RESP 14; TEMP 36.9; O2SAT 97
[2024-12-20] MEDS: traZODone 50 MG Tablet PO (21:01)
[2024-12-20] MEDS: Atorvastatin Calcium 40 MG Tablet PO (21:02)
[2024-12-21] MEDS: oxyCODONE 5 MG Tablet PO ×6 (01:23→23:05)
[2024-12-21] MEDS: Acetaminophen 500 MG Tablet 1000 MG PO ×3 (05:38→20:15)
[2024-12-21] MEDS: Doxycycline 100 MG CAPSULE PO ×2 (10:25→20:15)
[2024-12-21] MEDS: Calcium Carb/Vitamin D 1 TABLET Tablet PO (10:25)
[2024-12-21] MEDS: Paroxetine 20 MG Tablet 40 MG PO (10:26)
[2024-12-21] MEDS: Multivitamins,Ther W-Minerals Tablet 1 TABLET PO (10:26)
[2024-12-21] MEDS: Senna/Docusate Sodium 1 Tablet 2 TABLET PO ×2 (10:26→20:15)
[2024-12-21] MEDS: Enoxaparin 40 MG/0.4 ML Syringe SC (10:26)
[2024-12-21] MEDS: Topiramate 50 MG Tablet PO (10:26)
[2024-12-21] MEDS: Potassium Chloride Oral Tablet 10 MEQ PO (10:26)
[2024-12-21 10:34] VITALS: BP 98/65; PULSE 105
[2024-12-21 11:33] VITALS: BP 107/67; PULSE 97
[2024-12-21] MEDS: Ferrous Sulfate 325 MG Tablet PO (11:33)
[2024-12-21] MEDS: Metoprolol Tartrate 25 MG Tablet PO (11:33)
[2024-12-21 11:37] VITALS: BMI 23.0
[2024-12-21] MEDS: Rizatriptan Benzoate 10 MG Tablet PO (13:20)
--- NOTE | 2024-12-21 15:15 | CASEMGMT ---
Social Work SW met with patient to complete initial assessment. Introduced self and role. Verified contacts. Confirmed code status as full code. Educated to Medicare benefit and copay coverage. Pt is TTWEdmundo GARCIAE and has 6 BALDO. Pt's goal is to return home living with sister and brother. SW to assist with DC planning. Pt pleasant and spent time sharing stories about profession with this worker. Era Paredes, CASE MANAGEMENT MANAGER LABEL REWINDER
[2024-12-21 16:00] VITALS: BP 121/77; PULSE 97; RESP 16; TEMP 37.4; O2SAT 100
[2024-12-21] MEDS: Atorvastatin Calcium 40 MG Tablet PO (20:15)
[2024-12-21] MEDS: traZODone 50 MG Tablet PO (23:05)
[2024-12-22] MEDS: oxyCODONE 5 MG Tablet PO ×5 (03:42→21:18)
[2024-12-22] MEDS: Acetaminophen 500 MG Tablet 1000 MG PO ×3 (05:26→21:18)
[2024-12-22] MEDS: Doxycycline 100 MG CAPSULE PO ×2 (07:59→21:18)
[2024-12-22] MEDS: Enoxaparin 40 MG/0.4 ML Syringe SC (08:00)
[2024-12-22] MEDS: Potassium Chloride Oral Tablet 10 MEQ PO (08:00)
[2024-12-22] MEDS: Multivitamins,Ther W-Minerals Tablet 1 TABLET PO (08:00)
[2024-12-22 08:01] VITALS: BP 126/80; PULSE 109
[2024-12-22] MEDS: Metoprolol Tartrate 25 MG Tablet PO (08:01)
[2024-12-22] MEDS: Calcium Carb/Vitamin D 1 TABLET Tablet PO (08:01)
[2024-12-22] MEDS: Paroxetine 20 MG Tablet 40 MG PO (08:02)
[2024-12-22] MEDS: Senna/Docusate Sodium 1 Tablet 2 TABLET PO ×2 (08:02→21:18)
[2024-12-22] MEDS: Topiramate 50 MG Tablet PO (08:02)
--- NOTE | 2024-12-22 11:27 | CASEMGMT ---
BIMS () and PHQ2 (1) interviews completed for MDS assessment. DEANNA Costello
[2024-12-22] MEDS: Ferrous Sulfate 325 MG Tablet PO (12:18)
--- NOTE | 2024-12-22 13:43 | CASEMGMT ---
Social Work IDT met with patient and sister for care plan meeting. Discussed patient's progress in PT/OT/SN. Educated to Medicare benefit. Provide pt with written communication on insurance process and copay coverage during stay. Pt's goal is to return home with brother and sister and has 6 BALDO. Pt is TTWB RLE with a knee immobilizer, but moving well. Pt inquired about TTWB timeframe, etc. PT assisted in answering questions. BOWLING BALL ASSEMBLER will be practicing a car transfer and a flight of steps with pt this date. Pt has f/u ortho appt on 12/30. SW offered to set DC date prior to appt or day of/day after appt. Pt would like to see how therapy session today goes, then will notify this worker. Pt will need a FWW at [place]. SW to coordinate. Will continue to follow. RADHA MedinaW
[2024-12-22 15:07] VITALS: BP 110/75; PULSE 100; RESP 18; TEMP 37; O2SAT 97
[2024-12-22] MEDS: Atorvastatin Calcium 40 MG Tablet PO (21:18)
[2024-12-22] MEDS: traZODone 50 MG Tablet PO (21:19)
[2024-12-23] MEDS: oxyCODONE 5 MG Tablet PO ×5 (03:24→21:39)
[2024-12-23] MEDS: Acetaminophen 500 MG Tablet 1000 MG PO ×3 (05:47→21:42)
[2024-12-23 09:07] VITALS: BP 116/61; PULSE 117; RESP 17; TEMP 36.9; O2SAT 97
[2024-12-23] MEDS: Multivitamins,Ther W-Minerals Tablet 1 TABLET PO (09:07)
[2024-12-23] MEDS: Calcium Carb/Vitamin D 1 TABLET Tablet PO (09:07)
[2024-12-23 09:08] VITALS: BP 116/61; PULSE 117
[2024-12-23] MEDS: Metoprolol Tartrate 25 MG Tablet PO (09:08)
[2024-12-23] MEDS: Topiramate 50 MG Tablet PO (09:08)
[2024-12-23] MEDS: Enoxaparin 40 MG/0.4 ML Syringe SC (09:08)
[2024-12-23] MEDS: Doxycycline 100 MG CAPSULE PO ×2 (09:09→21:39)
[2024-12-23] MEDS: Potassium Chloride Oral Tablet 10 MEQ PO (09:09)
[2024-12-23] MEDS: Senna/Docusate Sodium 1 Tablet 2 TABLET PO ×2 (09:09→21:40)
[2024-12-23] MEDS: Paroxetine 20 MG Tablet 40 MG PO (09:09)
[2024-12-23] MEDS: Ferrous Sulfate 325 MG Tablet PO (12:30)
[2024-12-23] MEDS: Rizatriptan Benzoate 10 MG Tablet PO (15:50)
--- NOTE | 2024-12-23 17:25 | PCM.DC.SUM ---
Providers Date of Admission: 12/17/24 Primary Care Physician: Dr. Oliva Portillo, DO Reason For Visit: RIGHT KNEE PERIPROSTHETIC DISTAL FEMUR FRACTURE Diagnosis Discharge Diagnosis (1) Debility: Status: Acute Code(s): R53.81 - Other malaise (2) Periprosthetic fracture around internal prosthetic right knee joint: Status: Acute Code(s): M97.11XA - Periprosthetic fracture around internal prosthetic right knee joint, initial encounter Qualifiers: Encounter type: initial encounter Qualified Code(s): M97.11XA - Periprosthetic fracture around internal prosthetic right knee joint, initial encounter (3) Hyperlipidemia, unspecified: Status: Acute Code(s): E78.5 - Hyperlipidemia, unspecified (4) Vitamin D deficiency: Status: Acute Code(s): E55.9 - Vitamin D deficiency, unspecified (5) Essential (primary) hypertension: Status: Acute Code(s): I10 - Essential (primary) hypertension (6) Depression: Status: Acute Code(s): F32.A - Depression, unspecified (7) Chronic heart failure with preserved ejection fraction (HFpEF): Status: Acute Code(s): I50.32 - Chronic diastolic (congestive) heart failure (8) Migraine headache: Status: Acute Code(s): G43.909 - Migraine, unspecified, not intractable, without status migrainosus Plan 69 year old female with below past medical hospitalized for right periprosthetic distal femur fracture, underwent retrograde intramedullary nailing right femur 12/14/[address] Schulte, postoperative course complicated by acute blood loss anemia requiring transfusion, admitted to TCU with debility, here for rehabilitation, strengthening, prior to discharge home with family. Debility - PT/OT. Pain - Tylenol 1000mg q6 prn pain (1-3), Oxycodone 5mg q4 prn pain (4-10). Bowel - senna/colace 2 tablets bid. Adult immunization - Administer pneumonia vaccine, covid vaccine, flu vaccine as appropriate. DVT prophylaxis - Lovenox 40mg sc daily thru 12/30/2024, then Aspirin 81mg bid thru 01/30/2025. Hyperlipidemia - Atorvastatin 40mg qhs. Calcium deficiency - Calcium D 1 tablet daily. Iron deficiency anemia - s/p iv iron, s/p 1 unit prbc, Ferrous sulfate 325mg daily. Hypertension - Metoprolol 25mg daily, HCTZ 25mg daily. Nutrition - MVI 1 tablet daily. Hypophosphatemia - K-Phos 1 packet bid. Tobacco abuse - Nicoderm 21mg 1 patch td daily. 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 Hypokalemia - KCL 10meq daily. Migraine headaches - Topamax 50mg daily, Maxalt 10mg daily prn. Insomnia - Trazodone 50mg qhs prn, stable chronic custodial use, GDR not recommended. Medications at Discharge Home Medications atorvastatin 40 mg tablet 40 mg PO QHS CHOLESTEROL 02/04/18 metoprolol tartrate 25 mg tablet 25 mg PO DAILY PRN BP 02/04/18 multivitamin-ferrous fumarate-folic acid 18 mg-400 mcg tablet (Centrum) 1 ea PO DAILY SUPPLEMENT 02/04/18 paroxetine HCl 40 mg tablet (Paxil) 40 mg PO DAILY ANTIDEPRESSANT 02/04/18 potassium chloride 8 mEq tablet,extended release (Klor-Con) 8 meq PO DAILY SUPPLEMENT 02/04/18 rizatriptan 10 mg tablet 10 mg PO .X1 PRN MIGRAINES 02/04/18 topiramate 50 mg tablet 50 mg PO DAILY HEADACHES 02/04/18 calcium carbonate-vitamin D3 600 mg-125 unit tablet 1 ea PO DAILY supplement 05/03/20 acetaminophen 500 mg tablet 1,000 mg (2 x 500 mg) PO Q8 #0 tabs 12/24/24 aspirin 81 mg chewable tablet 81 mg PO BID 37 days #0 tabs 12/24/24 ferrous sulfate 325 mg (65 mg iron) tablet (FeroSul) 325 mg PO DAILY@1200 30 days #30 tabs 12/24/24 oxycodone 5 mg tablet 5 mg PO Q4H PRN PRN Pain Score 4-10 7 days #42 tabs 12/24/24 sennosides 8.6 mg-docusate sodium 50 mg tablet (Stimulant Laxative Plus) 2 tab PO BID 30 days #120 tabs 12/24/24 trazodone 50 mg tablet 50 mg PO QHS PRN PRN insomnia 30 days #30 tabs 12/24/24 Hospital Course Operations - (See below.) Procedures None Summary of Care Provided Minutes Spent on Discharge: 35 Hospital Course: 69 year old female with below past medical hospitalized for right periprosthetic distal femur fracture, underwent retrograde intramedullary nailing right femur 12/14/[address] Schulte, postoperative course complicated by acute blood loss anemia requiring transfusion, admitted to TCU with debility, here for rehabilitation, strengthening, prior to discharge home with family. Discharge home with family 12/26/2024, [facility] PT, FWW. FWW: Patient is unsafe to use a cane and requires a walker for ambulation in the home and the community. Physical Exam Const alert General Appearance: cooperative HEENT normocephalic Eyes PERRL and EOMs intact bilaterally Neck supple, no JVD and no carotid bruits Resp normal respiratory effort, normal air movement and clear to auscultation bilaterally Cardio regular rate and regular rhythm GI normal to inspection, nondistended, normoactive bowel sounds, non-tender and non-distended Extremity normal capillary refill General Extremity: Negative for edema Skin no rashes or lesions noted General Skin Exam: no breakdown Psych affect normal Appearance: appropriate Weight / BMI Weight Weight: 66.723 kg Body Mass Index (BMI) 23.0 ABG / Lab / Microbiology Data 12/24/24 05:31 12/24/24 05:31 Laboratory: Laboratory Results - last 24 hr 12/24/24 05:31: WBC 8.5, RBC 2.92 L, Hgb 9.4 L, Hct 29.7 L, MCV 101.7 H, MCH 32.2 H, MCHC 31.6 L, RDW Std Deviation 49.5 H, RDW Coeff of Johann 13.4, Plt Count 446, MPV 9.2, Immature Gran % (Auto) 1.300 H, Neut % (Auto) 56.7, Lymph % (Auto) 25.6, Carver % (Auto) 7.8, Eos % (Auto) 7.5 H, Baso % (Auto) 1.1 H, Absolute Neuts (auto) 4.8, Absolute Lymphs (auto) 2.17, Nucleated RBC % 0, Sodium 140, Potassium 3.7, Chloride 109 H, Carbon Dioxide 24.0, Anion Gap 7, BUN 30 H, Creatinine 1.18 H, Estim Creat Clear Calc 44.99, Est GFR (MDRD) Af Amer 59 L, Est GFR (MDRD) Non-Af 48 L, BUN/Creatinine Ratio 25.4 H, Glucose 109 H, Calcium 9.0 D/C Instructions Discharge Diet: No restrictions Discharge Activity: Return to Normal Activity, May Shower and Use Walker Weight Bearing Status: Weight bearing as tolerated Call your doctor if you observe: Fever of 101 or Higher, Inability to urinate, Inability to have a bowel movement, Using more than 1 pad per hour, Shortness of breath, Dizziness, Swelling in the ankles, Chest pain and Uncontrolled pain DC O2, CPAP, BIPAP Needs Home O2 Discharge instructions: No Additional Instructions: Discharge home with family 12/26/2024, [facility] PT/OT, FWW. FWW: Patient is unsafe to use a cane and requires a walker for ambulation in the home and the community. Please Follow Up With: Cipriano Schulte, DO When: As scheduled. Meaningful Use Info Meaningful Use Meaningful Use Diagnoses (Choose all that apply): None applicable Ischemic Stroke Statin Dosing Therapy Reference: STATIN DOSE THERAPY REFERENCE: * Patients > 75 years receive moderate or high dose statin therapy. * Patients 75 years or YOUNGER should receive HIGH intensity statin dose unless contraindicated. You will be required to document reason for non-treatment if statin daily dose does not meet guidelines. HIGH DOSE STATIN THERAPY DAILY Atorvastatin > than or = to 40 mg Rosuvastatin > than or = to 20 mg Amlodipine + Atorvastatin > than or = to 2.5/40 mg Ezetimibe + Simvastatin 10/80 mg Simvastatin 80mg Discharge Plan Admission Admit Date/Time: 12/17/24 13:30 Primary Reason for Your Visit: Debility. Attending Provider: Rik Monaco Chi Primary Care Provider: Oliva Portillo Instructions Additional Instructions / Restrictions: Discharge home with family 12/26/2024, [facility] PT, FWW. FWW: Patient is unsafe to use a cane and requires a walker for ambulation in the home and the community. Discharge Orders/Prescriptions Prescriptions: New acetaminophen 500 mg Tablet 1,000 mg PO Q8 Qty: 0 0RF ferrous sulfate [FeroSul] 325 mg (65 mg iron) Tablet 325 mg PO DAILY@1200 30 Days Qty: 30 0RF aspirin 81 mg Tablet,Chewable 81 mg PO BID 37 Days Qty: 0 0RF oxycodone 5 mg Tablet 5 mg PO Q4H PRN PRN (Reason: Pain Score 4-10) 7 Days Qty: 42 0RF trazodone 50 mg Tablet 50 mg PO QHS PRN PRN (Reason: insomnia) 30 Days Qty: 30 0RF sennosides-docusate sodium [Stimulant Laxative Plus] 8.6-50 mg Tablet 2 tab PO BID 30 Days Qty: 120 0RF Continued atorvastatin 40 MG tablet 40 mg PO QHS rizatriptan 10 MG tablet 10 mg PO .X1 PRN potassium chloride [Klor-Con 8] 8 MEQ tablet extended release 8 meq PO DAILY paroxetine HCl [Paxil] 40 MG tablet 40 mg PO DAILY metoprolol tartrate 25 MG tablet 25 mg PO DAILY PRN (Reason: BP) topiramate 50 MG tablet 50 mg PO DAILY Centrum 1 EACH tablet 1 ea PO DAILY calcium carbonate-vitamin D3 1 EACH tablet 1 ea PO DAILY Discontinued hydrochlorothiazide 25 MG tablet 25 mg PO DAILY cholecalciferol (vitamin D3) [Vitamin D3] 2,000 UNIT capsule 4,000 unit PO DAILY aspirin 81 MG tablet,chewable 81 mg PO DAILY Patient Comments: restart on 12/31/24 Rx Instructions: Take 81 mg aspirin twice daily for 4 weeks postoperatively for DVT prophylaxis trazodone 50 mg Tablet 50 mg PO QHS PRN PRN (Reason: insomnia) Qty: 0 0RF sennosides-docusate sodium [Stimulant Laxative Plus] 8.6-50 mg Tablet 2 tab PO BID Qty: 0 0RF oxycodone 5 mg Tablet 5 mg PO Q4H PRN PRN (Reason: Pain Score 4-10) Qty: 0 0RF enoxaparin 40 mg/0.4 mL Syringe 40 mg subcut DAILY 30 Days Qty: 12 0RF ferrous sulfate [Feosol] 325 mg (65 mg iron) tablet 325 mg PO DAILY Qty: 30 0RF potassium, sodium phosphates 280-160-250 mg Powder In Packet 1 packet PO BID Qty: 30 0RF Referrals / Follow Up: Oliva Portillo DO [Primary Care Provider] - Disposition Disposition (needs filled in before D/C Order can be placed): Home Health Service
[2024-12-23] MEDS: Atorvastatin Calcium 40 MG Tablet PO (21:39)
[2024-12-23] MEDS: traZODone 50 MG Tablet PO (21:45)
[2024-12-24] MEDS: oxyCODONE 5 MG Tablet PO ×5 (01:49→18:54)
[2024-12-24] MEDS: Acetaminophen 500 MG Tablet 1000 MG PO ×3 (05:48→21:22)
[2024-12-24 06:03] LABS: Absolute Lymphocyte Count 2.17 X10^3/uL (0.83-4.51); Absolute Neutrophil Count 4.8 X10^3/uL (2.0-7.7); Basophil# 0.09 X10^3/uL; Basophil% 1.1 % (0-1); Eosinophil# 0.64 X10^3/uL; Eosinophils% 7.5 % (0-5); Hematocrit 29.7 % (37-47); Hemoglobin 9.4 g/dL (12.0-15.0); Lymphocyte # 2.17 X10^3/ul (0.83-4.51); Lymphocyte % 25.6 % (19-41); Mean Corp Hgb Conc 31.6 g/dL (32-36); Mean Corpuscular Hgb 32.2 pg (27.0-32.0); Mean Corpuscular Volume 101.7 fL (81-99); Mean Platelet Vol. 9.2 fl (6.2-12.0); Monocyte# 0.66 X10^3/uL; Monocyte% 7.8 % (0-10); NRBC Flagged by Analyzer 0 % (0-5); Neutrophil # 4.82 X10^3/uL (2.7-7.7); Neutrophil % 56.7 % (47-70); Platelet Count 446 K/mm3 (150-450); RBC Distribution Width CV 13.4 % (11.6-14.6); RBC Distribution Width SD 49.5 fl (35.1-43.9); Red Blood Count 2.92 M/mm3 (4.2-5.4); White Blood Count 8.5 K/mm3 (4.4-11.0)
[2024-12-24 06:45] LABS: Anion Gap 7 (5-15); BUN 30 mg/dL (7-18); BUN/Creat Ratio 25.4 RATIO (10-20); Chloride 109 mmol/L (98-107); Creatinine, Serum 1.18 mg/dL (0.55-1.02); EST Glomerular Filtration Rate 48 mL/min (>60); Est Glom Filt Rate - Afr Amer 59 mL/min (>60); Estimated Creatinine Clearance 44.99 ml/min; Glucose 109 mg/dL (74-106); Potassium 3.7 mmol/L (3.5-5.1); Sodium Level 140 mmol/L (136-145)
[2024-12-24 08:53] VITALS: BP 110/62; PULSE 110; RESP 12; TEMP 36.7; O2SAT 97
[2024-12-24] MEDS: Doxycycline 100 MG CAPSULE PO (08:59)
[2024-12-24] MEDS: Potassium Chloride Oral Tablet 10 MEQ PO (09:00)
[2024-12-24 09:02] VITALS: BP 110/62; PULSE 110
[2024-12-24] MEDS: Metoprolol Tartrate 25 MG Tablet PO (09:02)
[2024-12-24] MEDS: Enoxaparin 40 MG/0.4 ML Syringe SC (09:02)
[2024-12-24] MEDS: Multivitamins,Ther W-Minerals Tablet 1 TABLET PO (09:03)
[2024-12-24] MEDS: Calcium Carb/Vitamin D 1 TABLET Tablet PO (09:04)
[2024-12-24] MEDS: Paroxetine 20 MG Tablet 40 MG PO (09:05)
[2024-12-24] MEDS: Topiramate 50 MG Tablet PO (09:06)
--- NOTE | 2024-12-24 09:49 | NURSING ---
Shuttle Hand Note; MDS for 12/24/2024 Complete
[2024-12-24 10:00] VITALS: PULSE 110; RESP 12; O2SAT 97
[2024-12-24] MEDS: Ferrous Sulfate 325 MG Tablet PO (13:05)
[2024-12-24] MEDS: Rizatriptan Benzoate 10 MG Tablet PO (13:05)
--- NOTE | 2024-12-24 15:13 | CASEMGMT ---
Social Work SW followed up with pt and sister at bedside after therapy stair training. All parties agreeable for DC and pt requesting DC home 12/25. IDT agreeable. Therapy recommending HHC vs OP therapy d/t NWBS. Pt agreeable. SW offered list of [facility] providers including quality and resource data via [employer]. Pt has no preference and agreeable to [facility] for PT. Pt needs FWW. SW to coordinate through [facility]. Sister can transport at DC. No other needs noted. - SW phoned referral to [facility] PT. Sent referral to [facility] for FWW via [employer]. 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
[2024-12-24] MEDS: Atorvastatin Calcium 40 MG Tablet PO (21:22)
[2024-12-24] MEDS: Senna/Docusate Sodium 1 Tablet 2 TABLET PO (21:22)
[2024-12-24 22:21] VITALS: PULSE 98; RESP 16; O2SAT 95
[2024-12-25] MEDS: oxyCODONE 5 MG Tablet PO ×3 (00:14→08:44)
[2024-12-25 05:13] VITALS: PULSE 98; RESP 16; O2SAT 98
[2024-12-25] MEDS: Acetaminophen 500 MG Tablet 1000 MG PO (06:47)
[2024-12-25] MEDS: Rizatriptan Benzoate 10 MG Tablet PO (06:51)
[2024-12-25] MEDS: Paroxetine 20 MG Tablet 40 MG PO (08:31)
[2024-12-25 08:32] VITALS: BP 119/69; PULSE 104
[2024-12-25] MEDS: Metoprolol Tartrate 25 MG Tablet PO (08:32)
[2024-12-25] MEDS: Enoxaparin 40 MG/0.4 ML Syringe SC (08:32)
[2024-12-25] MEDS: Topiramate 50 MG Tablet PO (08:32)
[2024-12-25] MEDS: Potassium Chloride Oral Tablet 10 MEQ PO (08:33)
[2024-12-25] MEDS: Multivitamins,Ther W-Minerals Tablet 1 TABLET PO (08:33)
[2024-12-25] MEDS: Senna/Docusate Sodium 1 Tablet 2 TABLET PO (08:34)
[2024-12-25] MEDS: Calcium Carb/Vitamin D 1 TABLET Tablet PO (08:34)
[2024-12-25 12:26] VITALS: BP 119/69; PULSE 104; RESP 16; TEMP 35.8; O2SAT 97
--- NOTE | 2024-12-30 07:25 | MDS.RN ---
Information for the MDS was obtained from review of the clinical record, interview of resident, staff, and direct observation of resident?s care.
== END 2024-12-25 12:29 | disposition home health service (06) | DRG 560 ==
PROVIDERS: Admitting Provider Family Medicine Geriatric Medicine; Visit Provider Family Medicine Geriatric Medicine
DX: S72.401D Unspecified fracture of lower end of right femur, subsequent encounter for closed fracture with routine healing (principal); I50.32 Chronic diastolic (congestive) heart failure; D50.9 Iron deficiency anemia, unspecified; E55.9 Vitamin D deficiency, unspecified; E78.00 Pure hypercholesterolemia, unspecified; F17.210 Nicotine dependence, cigarettes, uncomplicated; I11.0 Hypertensive heart disease with heart failure; F32.A Depression, unspecified; E87.6 Hypokalemia; G43.909 Migraine, unspecified, not intractable, without status migrainosus; W00.9XXD Unspecified fall due to ice and snow, subsequent encounter; F41.9 Anxiety disorder, unspecified; Z79.82 Long term (current) use of aspirin; M97.11XD Periprosthetic fracture around internal prosthetic right knee joint, subsequent encounter; Z79.899 Other long term (current) drug therapy; G47.00 Insomnia, unspecified
CPT/HCPCS: 36415; 80048; 84100; 85014; 85018; 85025; 97110; 97116; 97162; 97166; 97530; 97535; A4216

== ENCOUNTER → 2025-08-22 | Outpatient (CLI) | payer MEDICARE, BC, SELFPAY ==
[2025-08-22 14:35] LABS: Hematocrit 40.0 % (37-47); Hemoglobin 13.2 g/dL (12.0-15.0); Mean Corp Hgb Conc 33.0 g/dL (32-36); Mean Corpuscular Volume 101.8 fL (81-99); Mean Platelet Vol. 9.0 fl (6.2-12.0); Platelet Count 303 K/mm3 (150-450); RBC Distribution Width CV 14.9 % (11.6-14.6); RBC Distribution Width SD 57.0 fl (35.1-43.9); Red Blood Count 3.93 M/mm3 (4.2-5.4); White Blood Count 7.9 K/mm3 (4.4-11.0)
[2025-08-22 15:07] LABS: PTHIN 37 pg/mL (11-61)
[2025-08-22 15:10] LABS: Creatinine, Urine (random) 221.00 mg/dL (28.00-217.00); Protein, Urine (Random) 83.9 mg/dL (0.0-12.0); Protein:Creat Ratio 380 mg/g CRE (0-200)
[2025-08-22 15:21] LABS: Albumin, Serum 4.2 g/dL (3.4-4.8); Anion Gap 14 (5-15); BUN 23 mg/dL (4-19); BUN/Creat Ratio 13.3 RATIO (10-20); Calcium,Total 9.2 mg/dL (7.6-11.0); Carbon Dioxide 17.9 mmol/L (21.0-32.0); Chloride 107 mmol/L (98-108); Glucose 119 mg/dL (70-99); Potassium 4.0 mmol/L (3.3-5.1); Vitamin D,25 Hydroxy 35.5 ng/mL (30-100)
== END | disposition home or self-care (01) ==
LOC: LAB 13:52
PROVIDERS: Referring Provider Internal Medicine Nephrology; Visit Provider Internal Medicine Nephrology
DX: N18.32 Chronic kidney disease, stage 3b (principal)
CPT/HCPCS: 36415; 80069; 82306; 82570; 83970; 84156; 85027